=== PATIENT | female | born 1945 | race Caucasian/White ===

== ENCOUNTER 2018-02-16 14:27 | Inpatient (IN) | payer MEDICARE ==
[2018-02-16 16:15] LABS: BASO # 0.1 10^3/uL (0.0-0.2); BASO % 0.5 % (0.0-1.0); EOS # 0.1 10^3/uL (0.0-0.50); HEMATOCRIT 55.8 % (36.0-47.0); HEMOGLOBIN 16.9 g/dl (12.0-15.5); IMMATURE GRANULOCYTE % 0.3 % (0-3.0); LYMPH # 1.3 10^3/uL (1.5-4.5); LYMPH % 12.1 % (24.0-44.0); MEAN CORPUSCULAR HEMOGLOBIN 28.9 pg (27.0-33.0); MEAN CORPUSCULAR HGB CONC 30.3 g/dl (32.0-36.5); MEAN CORPUSCULAR VOLUME 95.5 fl (80.0-96.0); MONO # 0.9 10^3/uL (0.0-0.8); MONO % 8.2 % (0.0-5.0); NEUTROPHILS # 8.1 10^3/uL (1.8-7.7); NEUTROPHILS % 77.9 % (36.0-66.0); PLATELET COUNT, AUTOMATED 236 10^3/uL (150-450); RED BLOOD COUNT 5.84 10^6/uL (4.00-5.40); WHITE BLOOD COUNT 10.4 10^3/uL (4.0-10.0)
[2018-02-16 16:28] LABS: ALBUMIN 3.2 GM/DL (3.2-5.2); ALBUMIN/GLOBULIN RATIO 0.73 (1.00-1.93); ALKALINE PHOSPHATASE 91 U/L (45-117); ALT/SGPT 20 U/L (12-78); ANION GAP 1 MEQ/L (8-16); AST/SGOT 13 U/L (7-37); BILIRUBIN,DIRECT 0.2 MG/DL (0.0-0.2); BILIRUBIN,TOTAL 1.2 MG/DL (0.2-1.0); BLOOD UREA NITROGEN 14 MG/DL (7-18); C REACTIVE PROTEIN QUANTITATIV 1.26 MG/DL (0.00-0.30); CALCIUM LEVEL 8.8 MG/DL (8.8-10.2); CARBON DIOXIDE LEVEL 36 MEQ/L (21-32); CHLORIDE LEVEL 103 MEQ/L (98-107); CPK CREATINE PHOSPHOKINASE 36 U/L (26-192); CREATININE FOR GFR 0.64 MG/DL (0.55-1.30); FREE T4 1.14 NG/DL (0.76-1.46); GLOMERULAR FILTRATION RATE > 60.0 (>39); GLUCOSE, FASTING 101 MG/DL (70-100); POTASSIUM SERUM 4.9 MEQ/L (3.5-5.1); SODIUM LEVEL 140 MEQ/L (136-145); SUSPECT SAMPLE POS FLAG; TOTAL PROTEIN 7.6 GM/DL (6.4-8.2); TROPONIN I < 0.02 NG/ML (< 0.10)
[2018-02-16 16:34] LABS: MB/CK RELATIVE INDEX 5.55 (< OR =4); NT-PRO BNP 237 PG/ML (<125)
[2018-02-16 16:44] LABS: ERYTHROCYTE SEDIMENTATION RATE 1 mm/hr (0-30)
[2018-02-16 17:14] LABS: INR 1.04; PROTHROMBIN TIME 13.8 SECONDS (12.4-14.5)
[2018-02-16 17:15] LABS: PARTIAL THROMBOPLASTIN TIME 36.6 SECONDS (26.8-37.9)
[2018-02-16] MEDS: FUROSEMIDE 40 MG/4 ML VIAL (J1940) IV (20:31)
[2018-02-17 03:46] LABS: ABG BASE EXCESS 7.6 (-2.0-2.0); ABG HCO3 35.8 MEQ/L (22.0-26.0); ABG O2 SATURATION 95.5 % (95.0-99.0); ABG PARTIAL PRESSURE O2 78.5 mmHg (75.0-100.0); ABG STANDARD HCO3 31.4 MEQ/L (22.0-26.0); ABG TOTAL CO2 37.7 MEQ/L (23.0-31.0); ABG pH (ARTERIAL) 7.377 UNITS (7.350-7.450)
[2018-02-17 03:47] LABS: ABG PARTIAL PRESSURE CO2 62.3 mmHg (35.0-45.0)
[2018-02-17 07:39] LABS: BASO # 0.1 10^3/uL (0.0-0.2); BASO % 0.6 % (0.0-1.0); EOS # 0.1 10^3/uL (0.0-0.50); EOS % 0.9 % (0.0-3.0); HEMATOCRIT 54.4 % (36.0-47.0); HEMOGLOBIN 16.7 g/dl (12.0-15.5); IMMATURE GRANULOCYTE % 0.3 % (0-3.0); LYMPH # 1.3 10^3/uL (1.5-4.5); LYMPH % 12.5 % (24.0-44.0); MEAN CORPUSCULAR HGB CONC 30.7 g/dl (32.0-36.5); MEAN CORPUSCULAR VOLUME 94.6 fl (80.0-96.0); MONO # 1.1 10^3/uL (0.0-0.8); MONO % 10.5 % (0.0-5.0); NEUTROPHILS # 7.7 10^3/uL (1.8-7.7); NEUTROPHILS % 75.2 % (36.0-66.0); PLATELET COUNT, AUTOMATED 220 10^3/uL (150-450); RED BLOOD COUNT 5.75 10^6/uL (4.00-5.40); RED CELL DISTRIBUTION WIDTH 14.7 % (11.5-14.5); WHITE BLOOD COUNT 10.2 10^3/uL (4.0-10.0)
[2018-02-17 07:49] LABS: ANION GAP 4 MEQ/L (8-16); BLOOD UREA NITROGEN 12 MG/DL (7-18); CALCIUM LEVEL 8.4 MG/DL (8.8-10.2); CARBON DIOXIDE LEVEL 38 MEQ/L (21-32); CHLORIDE LEVEL 99 MEQ/L (98-107); GLOMERULAR FILTRATION RATE > 60.0 (>39); GLUCOSE, FASTING 99 MG/DL (70-100); POTASSIUM SERUM 4.3 MEQ/L (3.5-5.1); SODIUM LEVEL 141 MEQ/L (136-145)
[2018-02-17] MEDS: LISINOPRIL 5 MG TAB PO (08:19)
[2018-02-17] MEDS: ENOXAPARIN 40 MG/0.4 ML SYRINGE (J1650) SC (08:19)
[2018-02-17] MEDS: FUROSEMIDE 40 MG/4 ML VIAL (J1940) IV (08:19)
[2018-02-17] MEDS: AQUAPHOR **100GM** OINT TOP ×2 (16:00→20:35)
[2018-02-17] MEDS: ACETAMINOPHEN TAB 650MG DOSE (2X325MG) PO ×2 (17:40→22:10)
[2018-02-18] MEDS: AQUAPHOR **100GM** OINT TOP ×3 (09:00→20:43)
[2018-02-18 09:44] LABS: HEMATOCRIT 54.4 % (36.0-47.0); HEMOGLOBIN 16.7 g/dl (12.0-15.5); MEAN CORPUSCULAR HEMOGLOBIN 28.7 pg (27.0-33.0); MEAN CORPUSCULAR HGB CONC 30.7 g/dl (32.0-36.5); MEAN CORPUSCULAR VOLUME 93.6 fl (80.0-96.0); PLATELET COUNT, AUTOMATED 230 10^3/uL (150-450); RED BLOOD COUNT 5.81 10^6/uL (4.00-5.40); WHITE BLOOD COUNT 9.4 10^3/uL (4.0-10.0)
[2018-02-18 10:14] LABS: ANION GAP 5 MEQ/L (8-16); BLOOD UREA NITROGEN 24 MG/DL (7-18); CALCIUM LEVEL 8.6 MG/DL (8.8-10.2); CARBON DIOXIDE LEVEL 40 MEQ/L (21-32); CHLORIDE LEVEL 96 MEQ/L (98-107); CREATININE FOR GFR 0.91 MG/DL (0.55-1.30); GLUCOSE, FASTING 85 MG/DL (70-100); POTASSIUM SERUM 4.3 MEQ/L (3.5-5.1); SODIUM LEVEL 141 MEQ/L (136-145)
[2018-02-18 10:17] LABS: GLOMERULAR FILTRATION RATE > 60.0 (>39)
[2018-02-18] MEDS ORDERED: MIDAZOLAM INJ 2 MG/2 ML VIAL (J2250) As Ordered (10:29)
[2018-02-18] MEDS ORDERED: ISOVUE-300 61% 50ML VIAL (Q9967) As Ordered (10:29)
[2018-02-18] MEDS ORDERED: HEPARIN 1,000 UNITS/ML 10ML VIAL (FOR RADIOLOGY& DIALYSIS ONLY) As Ordered (10:29)
[2018-02-18] MEDS ORDERED: fentaNYL 100 MCG/2 ML INJECTION (J3010) As Ordered (10:29)
[2018-02-18] MEDS: ENOXAPARIN 40 MG/0.4 ML SYRINGE (J1650) SC (16:08)
[2018-02-18] MEDS: FUROSEMIDE 20 MG/2 ML VIAL (J1940) IV (16:10)
[2018-02-18] MEDS: ACETAMINOPHEN TAB 650MG DOSE (2X325MG) PO ×2 (18:11→22:48)
[2018-02-19 05:29] LABS: HEMATOCRIT 52.6 % (36.0-47.0); HEMOGLOBIN 16.2 g/dl (12.0-15.5); MEAN CORPUSCULAR HEMOGLOBIN 28.8 pg (27.0-33.0); MEAN CORPUSCULAR HGB CONC 30.8 g/dl (32.0-36.5); MEAN CORPUSCULAR VOLUME 93.6 fl (80.0-96.0); PLATELET COUNT, AUTOMATED 232 10^3/uL (150-450); RED BLOOD COUNT 5.62 10^6/uL (4.00-5.40); RED CELL DISTRIBUTION WIDTH 14.7 % (11.5-14.5); WHITE BLOOD COUNT 9.7 10^3/uL (4.0-10.0)
[2018-02-19 05:44] LABS: ANION GAP 2 MEQ/L (8-16); BLOOD UREA NITROGEN 25 MG/DL (7-18); CALCIUM LEVEL 8.7 MG/DL (8.8-10.2); CARBON DIOXIDE LEVEL 38 MEQ/L (21-32); CHLORIDE LEVEL 98 MEQ/L (98-107); CREATININE FOR GFR 0.68 MG/DL (0.55-1.30); GLOMERULAR FILTRATION RATE > 60.0 (>39); GLUCOSE, FASTING 98 MG/DL (70-100); POTASSIUM SERUM 3.9 MEQ/L (3.5-5.1); SODIUM LEVEL 138 MEQ/L (136-145)
[2018-02-19] MEDS: ENOXAPARIN 40 MG/0.4 ML SYRINGE (J1650) SC (08:50)
[2018-02-19] MEDS: FUROSEMIDE 20 MG/2 ML VIAL (J1940) IV (08:51)
[2018-02-19] MEDS: ACETAMINOPHEN TAB 650MG DOSE (2X325MG) PO ×2 (08:51→16:35)
[2018-02-19] MEDS: AQUAPHOR **100GM** OINT TOP ×3 (08:52→21:00)
[2018-02-20] MEDS: ACETAMINOPHEN TAB 650MG DOSE (2X325MG) PO ×3 (00:21→18:22)
[2018-02-20 04:48] LABS: HEMATOCRIT 49.6 % (36.0-47.0); HEMOGLOBIN 15.2 g/dl (12.0-15.5); MEAN CORPUSCULAR HEMOGLOBIN 28.6 pg (27.0-33.0); MEAN CORPUSCULAR HGB CONC 30.6 g/dl (32.0-36.5); MEAN CORPUSCULAR VOLUME 93.4 fl (80.0-96.0); PLATELET COUNT, AUTOMATED 192 10^3/uL (150-450); RED BLOOD COUNT 5.31 10^6/uL (4.00-5.40); RED CELL DISTRIBUTION WIDTH 14.6 % (11.5-14.5); WHITE BLOOD COUNT 9.3 10^3/uL (4.0-10.0)
[2018-02-20 05:09] LABS: ANION GAP 7 MEQ/L (8-16); BLOOD UREA NITROGEN 22 MG/DL (7-18); CALCIUM LEVEL 8.2 MG/DL (8.8-10.2); CARBON DIOXIDE LEVEL 36 MEQ/L (21-32); CHLORIDE LEVEL 98 MEQ/L (98-107); CREATININE FOR GFR 0.54 MG/DL (0.55-1.30); GLOMERULAR FILTRATION RATE > 60.0 (>39); GLUCOSE, FASTING 95 MG/DL (70-100); POTASSIUM SERUM 3.9 MEQ/L (3.5-5.1); SODIUM LEVEL 141 MEQ/L (136-145)
[2018-02-20] MEDS ORDERED: FUROSEMIDE 40 MG/4 ML VIAL (J1940) IV (09:00)
[2018-02-20] MEDS: LISINOPRIL 5 MG TAB PO (09:15)
[2018-02-20] MEDS: ENOXAPARIN 40 MG/0.4 ML SYRINGE (J1650) SC (09:15)
[2018-02-20] MEDS: FUROSEMIDE 40 MG/4 ML VIAL (J1940) IV ×2 (09:15→17:19)
[2018-02-20] MEDS: AQUAPHOR **100GM** OINT TOP ×3 (09:16→21:00)
[2018-02-21 05:55] LABS: HEMOGLOBIN 15.8 g/dl (12.0-15.5); MEAN CORPUSCULAR HEMOGLOBIN 28.4 pg (27.0-33.0); MEAN CORPUSCULAR VOLUME 91.7 fl (80.0-96.0); RED BLOOD COUNT 5.56 10^6/uL (4.00-5.40); RED CELL DISTRIBUTION WIDTH 14.7 % (11.5-14.5); WHITE BLOOD COUNT 10.2 10^3/uL (4.0-10.0)
[2018-02-21 06:20] LABS: ANION GAP 4 MEQ/L (8-16); BLOOD UREA NITROGEN 23 MG/DL (7-18); CALCIUM LEVEL 8.9 MG/DL (8.8-10.2); CARBON DIOXIDE LEVEL 32 MEQ/L (21-32); CHLORIDE LEVEL 97 MEQ/L (98-107); GLOMERULAR FILTRATION RATE > 60.0 (>39); GLUCOSE, FASTING 98 MG/DL (70-100); POS COUNT POS FLAG; POTASSIUM SERUM 4.2 MEQ/L (3.5-5.1); SODIUM LEVEL 133 MEQ/L (136-145)
[2018-02-21] MEDS: IPRATROPIUM 0.5MG/ALBUTEROL 2.5MG INH SOL UD 3ML (DUONEB)(J7620) NEB ×3 (08:22→23:59)
[2018-02-21] MEDS: FUROSEMIDE 40 MG/4 ML VIAL (J1940) IV ×2 (08:42→17:19)
[2018-02-21] MEDS: ENOXAPARIN 40 MG/0.4 ML SYRINGE (J1650) SC (08:43)
[2018-02-21] MEDS: LISINOPRIL 5 MG TAB PO (08:44)
[2018-02-21] MEDS: AQUAPHOR **100GM** OINT TOP ×3 (08:44→21:00)
[2018-02-21 09:27] LABS: ABG PARTIAL PRESSURE CO2 57.3 mmHg (35.0-45.0); ABG PARTIAL PRESSURE O2 51.3 mmHg (75.0-100.0); ABG pH (ARTERIAL) 7.381 UNITS (7.350-7.450)
[2018-02-21 09:28] LABS: ABG BASE EXCESS 5.9 (-2.0-2.0); ABG HCO3 33.2 MEQ/L (22.0-26.0); ABG O2 SATURATION 87.3 % (95.0-99.0); ABG STANDARD HCO3 29.5 MEQ/L (22.0-26.0)
[2018-02-21] MEDS: ACETAMINOPHEN TAB 650MG DOSE (2X325MG) PO ×2 (09:49→14:27)
[2018-02-22] MEDS ORDERED: SLF 3 ML SYR IV (04:45)
[2018-02-22] MEDS: SLF 3 ML SYR IV ×3 (05:12→21:09)
[2018-02-22 05:42] LABS: HEMATOCRIT 49.8 % (36.0-47.0); HEMOGLOBIN 15.6 g/dl (12.0-15.5); MEAN CORPUSCULAR HEMOGLOBIN 28.6 pg (27.0-33.0); MEAN CORPUSCULAR HGB CONC 31.3 g/dl (32.0-36.5); MEAN CORPUSCULAR VOLUME 91.4 fl (80.0-96.0); PLATELET COUNT, AUTOMATED 201 10^3/uL (150-450); RED BLOOD COUNT 5.45 10^6/uL (4.00-5.40); WHITE BLOOD COUNT 8.8 10^3/uL (4.0-10.0)
[2018-02-22 06:01] LABS: ANION GAP 7 MEQ/L (8-16); BLOOD UREA NITROGEN 29 MG/DL (7-18); CALCIUM LEVEL 8.8 MG/DL (8.8-10.2); CARBON DIOXIDE LEVEL 35 MEQ/L (21-32); CHLORIDE LEVEL 96 MEQ/L (98-107); CREATININE FOR GFR 0.67 MG/DL (0.55-1.30); GLOMERULAR FILTRATION RATE > 60.0 (>39); GLUCOSE, FASTING 105 MG/DL (70-100); POTASSIUM SERUM 3.9 MEQ/L (3.5-5.1); SODIUM LEVEL 138 MEQ/L (136-145)
[2018-02-22] MEDS: IPRATROPIUM 0.5MG/ALBUTEROL 2.5MG INH SOL UD 3ML (DUONEB)(J7620) NEB ×2 (08:18→15:03)
[2018-02-22] MEDS: LISINOPRIL 5 MG TAB PO (10:16)
[2018-02-22] MEDS: FUROSEMIDE 40 MG TAB PO ×2 (10:16→17:44)
[2018-02-22] MEDS: ENOXAPARIN 40 MG/0.4 ML SYRINGE (J1650) SC (10:17)
[2018-02-22] MEDS: AQUAPHOR **100GM** OINT TOP ×3 (10:17→21:00)
[2018-02-22] MEDS: POTASSIUM CHLORIDE 10 MEQ SR TABLET PO (10:17)
[2018-02-23] MEDS: SLF 3 ML SYR IV ×3 (05:38→22:00)
[2018-02-23 06:53] LABS: HEMATOCRIT 48.4 % (36.0-47.0); HEMOGLOBIN 15.2 g/dl (12.0-15.5); MEAN CORPUSCULAR HGB CONC 31.4 g/dl (32.0-36.5); MEAN CORPUSCULAR VOLUME 92.4 fl (80.0-96.0); PLATELET COUNT, AUTOMATED 216 10^3/uL (150-450); RED BLOOD COUNT 5.24 10^6/uL (4.00-5.40)
[2018-02-23 07:11] LABS: ANION GAP 5 MEQ/L (8-16); BLOOD UREA NITROGEN 28 MG/DL (7-18); CALCIUM LEVEL 8.6 MG/DL (8.8-10.2); CARBON DIOXIDE LEVEL 33 MEQ/L (21-32); CHLORIDE LEVEL 101 MEQ/L (98-107); CREATININE FOR GFR 0.54 MG/DL (0.55-1.30); GLOMERULAR FILTRATION RATE > 60.0 (>39); GLUCOSE, FASTING 107 MG/DL (70-100); POTASSIUM SERUM 4.2 MEQ/L (3.5-5.1); SODIUM LEVEL 139 MEQ/L (136-145)
[2018-02-23] MEDS ORDERED: ISOVUE-370 76% 100ML VIAL (Q9967) As Ordered (08:10)
[2018-02-23] MEDS: ENOXAPARIN 40 MG/0.4 ML SYRINGE (J1650) SC (08:45)
[2018-02-23] MEDS: FUROSEMIDE 40 MG TAB PO ×2 (08:46→17:02)
[2018-02-23] MEDS: LISINOPRIL 5 MG TAB PO (08:46)
[2018-02-23] MEDS: AQUAPHOR **100GM** OINT TOP ×3 (08:46→22:52)
[2018-02-23] MEDS: POTASSIUM CHLORIDE 10 MEQ SR TABLET PO (08:47)
[2018-02-23] MEDS: IPRATROPIUM 0.5MG/ALBUTEROL 2.5MG INH SOL UD 3ML (DUONEB)(J7620) NEB ×2 (09:05)
[2018-02-24] MEDS: SLF 3 ML SYR IV (05:25)
[2018-02-24] MEDS: IPRATROPIUM 0.5MG/ALBUTEROL 2.5MG INH SOL UD 3ML (DUONEB)(J7620) NEB ×2 (07:13)
[2018-02-24] MEDS: ENOXAPARIN 40 MG/0.4 ML SYRINGE (J1650) SC (09:00)
[2018-02-24] MEDS: POTASSIUM CHLORIDE 10 MEQ SR TABLET PO (09:55)
[2018-02-24] MEDS: LISINOPRIL 5 MG TAB PO (09:55)
[2018-02-24] MEDS: FUROSEMIDE 40 MG TAB PO (09:55)
[2018-02-24] MEDS: AQUAPHOR **100GM** OINT TOP (09:56)
== END 2018-02-24 11:00 | disposition home or self-care (01) | DRG 252 ==
LOC: M MS5PR 02-23 16:22 → M PCU 02-17 15:08 → M ED 14:27 → M ED INP 21:43
PROC: 047K3ZZ Dilation of Right Femoral Artery, Percutaneous Approach (ICD-10-PCS; principal; 2018-02-18)
PROC: 047M3ZZ Dilation of Right Popliteal Artery, Percutaneous Approach (ICD-10-PCS; 2018-02-18)
PROC: B41FYZZ Fluoroscopy of Right Lower Extremity Arteries using Other Contrast (ICD-10-PCS; 2018-02-18)
DX: I11.0 Hypertensive heart disease with heart failure (principal); J96.01 Acute respiratory failure with hypoxia; J96.02 Acute respiratory failure with hypercapnia; J81.1 Chronic pulmonary edema; I50.31 Acute diastolic (congestive) heart failure; I70.219 Atherosclerosis of native arteries of extremities with intermittent claudication, unspecified extremity; Z79.899 Other long term (current) drug therapy; Z87.891 Personal history of nicotine dependence

== ENCOUNTER → 2018-03-11 | Outpatient (REF) | payer MEDICARE ==
[2018-03-11 12:55] LABS: ALBUMIN 3.7 GM/DL (3.2-5.2); ALBUMIN/GLOBULIN RATIO 0.97 (1.00-1.93); ALKALINE PHOSPHATASE 83 U/L (45-117); ALT/SGPT 26 U/L (12-78); ANION GAP 7 MEQ/L (8-16); AST/SGOT 17 U/L (7-37); BLOOD UREA NITROGEN 21 MG/DL (7-18); CALCIUM LEVEL 9.1 MG/DL (8.8-10.2); CARBON DIOXIDE LEVEL 35 MEQ/L (21-32); CHLORIDE LEVEL 95 MEQ/L (98-107); CHOLESTEROL LEVEL 180 MG/DL (<200); CREATININE FOR GFR 0.91 MG/DL (0.55-1.30); GLOMERULAR FILTRATION RATE > 60.0 (>39); GLUCOSE, FASTING 108 MG/DL (70-100); HDL CHOLESTEROL 44 MG/DL (>40); LDL CHOLESTEROL 116.4 MG/DL (<100); NON-HDL-C 136 MG/DL; POTASSIUM SERUM 4.7 MEQ/L (3.5-5.1); SODIUM LEVEL 137 MEQ/L (136-145); TOTAL PROTEIN 7.5 GM/DL (6.4-8.2); TRIGLYCERIDES LEVEL 98 MG/DL (<150)
== END ==
LOC: M SFHCADAM 08:20
DX: I11.0 Hypertensive heart disease with heart failure (principal); I50.32 Chronic diastolic (congestive) heart failure
CPT/HCPCS: 80053

== ENCOUNTER → 2018-06-02 | Outpatient (REF) | payer MEDICARE | LOC: M SFHCADAM 13:57 | DX: R79.89 Other specified abnormal findings of blood chemistry (principal); I11.0 Hypertensive heart disease with heart failure; I50.32 Chronic diastolic (congestive) heart failure; R73.01 Impaired fasting glucose | CPT/HCPCS: 84443 ==

== ENCOUNTER → 2018-12-13 | Outpatient (REF) | payer MEDICARE ==
[~2018-12-13] MED LIST: ALEV220T26 PO; FURO40TA2 PO; KLOR10TA76 PO; LISI-542 PO
[2018-12-13 19:48] LABS: BASO # 0.1 10^3/uL (0.0-0.2); BASO % 0.7 % (0.0-1.0); EOS # 0.3 10^3/uL (0.0-0.50); EOS % 2.8 % (0.0-3.0); HEMATOCRIT 38.1 % (36.0-47.0); HEMOGLOBIN 11.5 g/dl (12.0-15.5); LYMPH # 1.3 10^3/uL (1.5-4.5); LYMPH % 13.9 % (24.0-44.0); MEAN CORPUSCULAR HEMOGLOBIN 29.9 pg (27.0-33.0); MEAN CORPUSCULAR HGB CONC 30.2 g/dl (32.0-36.5); MEAN CORPUSCULAR VOLUME 99.2 fl (80.0-96.0); MONO # 0.8 10^3/uL (0.0-0.8); MONO % 8.7 % (0.0-5.0); NEUTROPHILS % 73.6 % (36.0-66.0); PLATELET COUNT, AUTOMATED 276 10^3/uL (150-450); RED BLOOD COUNT 3.84 10^6/uL (4.00-5.40); WHITE BLOOD COUNT 9.5 10^3/uL (4.0-10.0)
[2018-12-13 19:55] LABS: ALBUMIN 3.6 GM/DL (3.2-5.2); ALT/SGPT 36 U/L (12-78); BILIRUBIN,TOTAL 0.7 MG/DL (0.2-1.0); BLOOD UREA NITROGEN 35 MG/DL (7-18); CALCIUM LEVEL 9.6 MG/DL (8.8-10.2); CARBON DIOXIDE LEVEL 28 MEQ/L (21-32); CHLORIDE LEVEL 109 MEQ/L (98-107); CREATININE FOR GFR 0.92 MG/DL (0.55-1.30); GLOMERULAR FILTRATION RATE > 60.0 (>39); GLUCOSE, FASTING 82 MG/DL (70-100); NT-PRO BNP 1743 PG/ML (<125); POTASSIUM SERUM 5.2 MEQ/L (3.5-5.1); SODIUM LEVEL 143 MEQ/L (136-145); TOTAL PROTEIN 7.2 GM/DL (6.4-8.2)
== END ==
LOC: M SFHCADAM 15:34
PROVIDERS: ATTEND Physician Assistant Medical
DX: I50.32 Chronic diastolic (congestive) heart failure (principal)

== ENCOUNTER → 2019-02-03 | Outpatient (RCR) | payer MEDICARE ==
--- NOTE | 2019-01-20 14:17 | CARECAPL ---
Assessment Account #s: Initial Assessment General Diagnoses: CABG, MVR Date of event: Nov 16, 2018 Physician: Dena Paz MD Allergies: Coded Allergies: No Known Allergies (Unverified , 02/16/18) Date Entered Program: January 20, 2019 Risk strat for cardiac event: Low Exercise Date: January 20, 2019 Assessment: Initial Assessment Exercise Prescription Plan to educate about cardiac disease and to provide a monitored exercise program to build endurance and strength Modalities initiated: Treadmill, Nustep, Arm Aerometer, Dumbells, Recumbent Bike Frequency: 2-3 Duration (Minutes) 30-60 minutes total exercise a day. 6-15 work intervals in minutes. prn rest intervals in minutes. Functional Capacity Goal Sustained Metabolic Equivalent of a task (MET) goal of 3.5-4.5 for 15-20 minutes. Intensity: 3-Moderate Progression (METS) Increase by: .5 METS every: 2-3 sessions Angina with ex: No Target Heart Rate rest +35-40 Resistance Training: Yes Weight (pounds): 1 Reps: 6-8 Hypertension: Yes Hypertension controlled with: Diet Resting 123/57 Meds see below Medications Scheduled Aspirin (Aspirin), 81 MG PO DAILY, (Reported) Atorvastatin Calcium (Atorvastatin Calcium), 40 MG PO DAILY, (Reported) Furosemide (Lasix), 40 MG PO DAILY, (Reported) Lisinopril (Lisinopril), 5 MG PO DAILY Metoprolol Tartrate (Metoprolol Tartrate), 25 MG PO BID, (Reported) Potassium Chloride (Klor-Con M10), 10 MEQ PO DAILY Warfarin Sodium (Jantoven), 5 MG PO DAILY, (Reported) Discontinued Medications Furosemide (Furosemide), 40 MG PO BID@ Discontinued Reason: Pt states not taking Naproxen Sodium (Aleve), 220 MG PO BID PRN for PAIN, (Reported) Discontinued Reason: Pt states not taking Education Goals Met: No (intro to program) Target Goals Individual exercise Rx (1) BP 140/90 or 130/80 if DM or CKD (1) Aerobic active 30+min 5 days per week (1) Nutrition Date: January 20, 2019 Assessment: Initial Assessment Lipid- med/supplement atorvastatin Weight Management Weight (lbs): 169.8 Height (inches): 67 Waist Circumference (Inches): 48 BMI: 26.5 Weight goal: 155 Special Diet: low salt, low-fat Diet Access Tool: Rate your plate Score: 69 Intervention Wet Cleaner Machine Consult: Yes (will see this program) Referral to Diabetes education: No Referral to lipid clinic: No Referral to weight mangement p: No Education Eating Healthy Education Goals Met: No (inital assessment) Target goal LDL-C<100 if triglycerides are >200 Non-HDL-C should be <130 (1) LDL-C<70 for high risk patients (4) HbA1c<7% (1) BMI<25 Waist cir<40in M/<35in F (1) Education Date: January 20, 2019 Assessment: Initial Assessment Learning Barriers: ready, learn Knowledge Test Score: 10 Family Support: Yes Tobacco use: No Intervention Attended education classes: No (initial assessment) Education Goals Met: No Target Goals Complete cessation of tobacco use (1). Psychosocial Date: January 20, 2019 Assessment: Initial Assessment Psych Test (Initial/Discharge) Tool Used: CESD Score: 1 Intervention Physician Consult: No Physician Referral: No Stress Management Class: No Uses Stress Management Skills: No Education Goals Met: No (initial assessment) Target Goal Assess presence or absence of depression using a valid screening tool (1). Maximize coping skills (2). Positive support system (2). Fall Risk Assess: No Provider Assessment Session Number: 1 Provider Assessment: Proceed with [place] Pippa Payan RN January 20, 2019 14:17
[~2019-02-03] MED LIST changes: +ASPI81CH33 PO; +ATOR40TA75 PO; +JANT5TAB PO; +LASI40TA9 PO; +METO25TA4 PO
== END ==
LOC: M CR 01-20 11:56
PROVIDERS: ATTEND Internal Medicine Cardiovascular Disease
DX: I25.810 Atherosclerosis of coronary artery bypass graft(s) without angina pectoris (principal)

== ENCOUNTER 2019-03-02 15:29 | Outpatient (RCR) | payer MEDICARE ==
--- NOTE | 2019-02-13 10:53 | CARECAPL ---
Assessment Account #s: Re-Assessment I General Diagnoses: CABG, MVR Date of event: Nov 16, 2018 Physician: Dena Paz MD Allergies: Coded Allergies: No Known Allergies (Unverified , 02/16/18) Date Entered Program: January 20, 2019 Risk strat for cardiac event: Low Exercise Date: Feb 13, 2019 Assessment: Re-Assessment I Exercise Prescription Plan TO EDUCATE AND BUILD ENDURANCE THROUGH MONITORED EXERCISE PROGRAM Modalities initiated: Nustep (METS=3.6/RPE=3.5), Arm Aerometer (METS= 2.0/RPE=4), Dumbells (2#/RPE=4), Recumbent Bike (METS=3.2/RPE=4) Frequency: 3 Duration (Minutes) 30-60 minutes total exercise a day. 10-12 work intervals in minutes. 5 MIN rest intervals in minutes. Functional Capacity Goal Sustained Metabolic Equivalent of a task (MET) goal of 3.5-4.5 for 15-20 minutes. Intensity: 3-Moderate Progression (METS) Increase by: 0.5 METS every: 3-5 sessions Angina with ex: No Target Heart Rate REST +35-40 Resistance Training: Yes Weight (pounds): 2 Reps: 6-8 Hypertension: Yes Hypertension controlled with: Diet Resting 110/64 Peak Exercise BP 150/78 Medications Scheduled Aspirin (Aspirin), 81 MG PO DAILY, (Reported) Atorvastatin Calcium (Atorvastatin Calcium), 40 MG PO DAILY, (Reported) Furosemide (Lasix), 40 MG PO DAILY, (Reported) Lisinopril (Lisinopril), 5 MG PO DAILY Metoprolol Tartrate (Metoprolol Tartrate), 25 MG PO BID, (Reported) Potassium Chloride (Klor-Con M10), 10 MEQ PO DAILY Warfarin Sodium (Jantoven), 5 MG PO DAILY, (Reported) Current BP 116/80 Med Change: No Intervention Resistance Training: Yes Education: Self pulse, Ex safety, S/S to report, Low NA diet, BP medication, RPE Scale, Equipment orientation, warm up/cool down, Understand BP, Physical Active Target Goals Individual exercise Rx (1) BP 140/90 or 130/80 if DM or CKD (1) Aerobic active 30+min 5 days per week (1) Nutrition Date: Feb 13, 2019 Assessment: Re-Assessment I Lipid- med/supplement ATORVASTATIN Med Change: No Diabetes Diabetes: No Monitor Blood Sugar at home: No Medication Change: No Weight Management Weight (lbs): 166.6 Height (inches): 67 Special Diet: low salt, low-fat Alcohol: none Current Weight (pounds): 166.6 Intervention Cryptographic Machine Operator Consult: No Nurse/patient discussion: Yes Dietary Goals TO MAKE HEART HEALTHY CHOICES Diet Class: Yes Referral to Diabetes education: No Referral to lipid clinic: No Referral to weight mangement p: No Education Eating Healthy Target goal LDL-C<100 if triglycerides are >200 Non-HDL-C should be <130 (1) LDL-C<70 for high risk patients (4) HbA1c<7% (1) BMI<25 Waist cir<40in M/<35in F (1) Education Date: Feb 13, 2019 Assessment: Re-Assessment I Learning Barriers: ready Family Support: Yes Tobacco use: No Tobacco Use Smokeless tobacco: No Intervention Referral to smoking cessation: No Individual education and couns: No Tobacco Adjunct: No Education class schedule given: No Attended education classes: No Education: CAD, Risk factors, med compliance, cardiac A&P, Angina S/S, Sexuality Target Goals Complete cessation of tobacco use (1). Psychosocial Date: Feb 13, 2019 Assessment: Re-Assessment I Stress Management Class: No Uses Stress Management Skills: Yes Education Education: Coping Techniques, S/S depression, Relaxation Techniques Target Goal Assess presence or absence of depression using a valid screening tool (1). Maximize coping skills (2). Positive support system (2). Patient/Program Goal Preventative Medication: Yes Aspirin, Yes Beta blockade, Yes Statin/OTR lipid Lowering Fall Risk Assess: Yes (NOT A FALL RISK) Provider Assessment Session Number: 5 Provider Assessment: Proceed with rehab Mil Baptiste RN Feb 13, 2019 10:53
[~2019-03-02 15:29] MED LIST changes: +LASI20TA3 PO
== END 2019-03-05 ==
LOC: M CR 15:29
PROVIDERS: ATTEND Internal Medicine Cardiovascular Disease
DX: I25.810 Atherosclerosis of coronary artery bypass graft(s) without angina pectoris (principal)

== ENCOUNTER 2019-04-03 12:46 | Outpatient (RCR) | payer MEDICARE ==
--- NOTE | 2019-03-16 10:46 | CARECAPL ---
Assessment Account #s: Re-Assessment II General Diagnoses: CABG, MVR Date of event: Nov 16, 2018 Physician: Dena Paz MD Allergies: Coded Allergies: No Known Allergies (Unverified , 02/16/18) Date Entered Program: January 20, 2019 Risk strat for cardiac event: High Exercise Date: Mar 13, 2019 Assessment: Re-Assessment II Exercise Prescription Plan educate and increase endurance and flexibility through monitored exercise. Modalities initiated: Nustep (resistance 3 for 12 minutes mets 2.5 RPE 3), Arm Aerometer (resistance 2.5 for 10 minutes mets 2.0 RPE 3), Dumbells (2lbs 2 sets of 10 reps RPE 3), Recumbent Bike (Resistance 1 for 6 minutes mets 2.6 RPE 3.5) Frequency: 2 Duration (Minutes) 30-60 minutes total exercise a day. 15-20 work intervals in minutes. prn rest intervals in minutes. Functional Capacity Goal Sustained Metabolic Equivalent of a task (MET) goal of 3.5-4.5 for 15-20 minutes. Intensity: 3-Moderate Progression (METS) Increase by: 0.5 METS every: 3-5 sessions Target Heart Rate rest + 35-40 per beta mateusz therapy Resistance Training: Yes Weight (pounds): 2 Reps: 8-12 Medications Scheduled Aspirin (Aspirin), 81 MG PO DAILY, (Reported) Atorvastatin Calcium (Atorvastatin Calcium), 40 MG PO DAILY, (Reported) Furosemide (Lasix), 20 MG PO DAILY, (Reported) Metoprolol Tartrate (Metoprolol Tartrate), 25 MG PO BID, (Reported) Warfarin Sodium (Jantoven), 5 MG PO DAILY, (Reported) Current BP 120/84 Med Change: No Intervention Education: RPE Scale (patient instructed on RPE scale and demonstrates independence), Equipment orientation (patient instructed on equipment. Patient verbalized understanding), warm up/cool down (Patient instructed in warm/cool down. Patient demonstrates independence) Target Goals Individual exercise Rx (1) BP 140/90 or 130/80 if DM or CKD (1) Aerobic active 30+min 5 days per week (1) Nutrition Date: Mar 16, 2019 Assessment: Re-Assessment II Med Change: No Diabetes Diabetes: No Medication Change: No Blood sugar in range: No Current Weight (pounds): 168 Intervention Utility Tender Carding Consult: No Nurse/patient discussion: Yes Dietary Goals eat healthier portions Diet Class: Yes Education Eating Healthy Target goal LDL-C<100 if triglycerides are >200 Non-HDL-C should be <130 (1) LDL-C<70 for high risk patients (4) HbA1c<7% (1) BMI<25 Waist cir<40in M/<35in F (1) Education Date: Mar 16, 2019 Assessment: Re-Assessment II Intervention Education: med compliance (Patient states 100% compliance with cardiology and medication regimen), cardiac A&P (Patient return demonstration of areas of the heart and how the heart works), Angina S/S (patient able to state s/s of angina such as crushing pain midsternum and radiating pain.), Sexuality (patient demonstrates understanding of sexuality and that she needs have permission from MD) Target Goals Complete cessation of tobacco use (1). Psychosocial Date: Mar 16, 2019 Assessment: Re-Assessment II Med Change: No Stress Management Class: Yes Uses Stress Management Skills: Yes Education Education: Coping Techniques (verbalized understanding of coping mechanisms), S/S depression (patient understands s/s depression by stating s/s of depression), Relaxation Techniques (Patient demonstrates ways to relax such as reading a book or doing a puzzle) Education Goals Met: Yes Target Goal Assess presence or absence of depression using a valid screening tool (1). Maximize coping skills (2). Positive support system (2). Patient/Program Goal Preventative Medication: Yes Aspirin, Yes Beta blockade, Yes Statin/OTR lipid Lowering Fall Risk Assess: Yes (not a fall risk) Provider Assessment Session Number: 13 Provider Assessment: Proceed with rehab Johanny Mendez RN Mar 16, 2019 10:46
== END 2019-04-05 ==
LOC: M CR 12:46
PROVIDERS: ATTEND Internal Medicine Cardiovascular Disease
DX: I25.810 Atherosclerosis of coronary artery bypass graft(s) without angina pectoris (principal)

== ENCOUNTER 2019-04-13 11:08 | Outpatient (RCR) | payer MEDICARE ==
--- NOTE | 2019-04-13 10:57 | CARECAPL ---
Assessment Account #s: Re-Assessment II (Discharge) General Diagnoses: CABG, MVR Date of event: Nov 16, 2018 Physician: Dena Paz MD Allergies: Coded Allergies: No Known Allergies (Unverified , 02/16/18) Date Entered Program: January 20, 2019 Risk strat for cardiac event: High Exercise Date: Apr 13, 2019 Assessment: Followup/Discharge Exercise Prescription Plan educate and increase endurance, strength and flexibility through monitored exercise. Modalities initiated: Concept 2 Rower (mets 2.4 Rpe 3), Dumbells (2lbs rpe 3), Recumbent Bike (resistance 2 mets 3.7 rpe4) Frequency: 2 Duration (Minutes) 30-60 minutes total exercise a day. 15-20 work intervals in minutes. prn rest intervals in minutes. Functional Capacity Goal Sustained Metabolic Equivalent of a task (MET) goal of 3.5-4.5 for 15-20 minutes. Intensity: 3-Moderate Progression (METS) Increase by: 0.5 METS every: 3-5 sessions Angina with ex: No Target Heart Rate rest + 35-40 per beta mateusz therapy Resistance Training: Yes Weight (pounds): 2 Reps: 8-12 Hypertension: No Hypertension controlled with: Medication (metoprolol) Resting 148/96 Peak Exercise BP 150/90 Meds metoprolol and lisinopril Medications Scheduled Aspirin (Aspirin), 81 MG PO DAILY, (Reported) Atorvastatin Calcium (Atorvastatin Calcium), 40 MG PO DAILY, (Reported) Furosemide (Lasix), 20 MG PO DAILY, (Reported) Metoprolol Tartrate (Metoprolol Tartrate), 25 MG PO BID, (Reported) Warfarin Sodium (Jantoven), 5 MG PO DAILY, (Reported) Education Goals Met: Yes Target Goals Individual exercise Rx (1) BP 140/90 or 130/80 if DM or CKD (1) Aerobic active 30+min 5 days per week (1) Nutrition Date: Apr 13, 2019 Assessment: Followup/Discharge ( ) Medication Change: No Blood sugar in range: Yes Diet Access Tool: Rate your plate Score: 63 Referral to Diabetes education: No Referral to lipid clinic: No Referral to weight mangement p: No Education S&S hypo/hyper glycemia, Relate Diabetes in CAD, Eating Healthy Education Goals Met: Yes Target goal LDL-C<100 if triglycerides are >200 Non-HDL-C should be <130 (1) LDL-C<70 for high risk patients (4) HbA1c<7% (1) BMI<25 Waist cir<40in M/<35in F (1) Education Date: Apr 13, 2019 Assessment: Followup/Discharge Knowledge Test Score: 8 Family Support: Yes Tobacco use: No Education Goals Met: Yes Target Goals Complete cessation of tobacco use (1). Psychosocial Date: Apr 13, 2019 Assessment: Followup/Discharge Psych Test (Initial/Discharge) Tool Used: CESD Score: 3 Intervention Physician Consult: No Med Change: No Stress Management Class: Yes Uses Stress Management Skills: Yes Education Education: Coping Techniques, S/S depression, Relaxation Techniques Education Goals Met: Yes Target Goal Assess presence or absence of depression using a valid screening tool (1). Maximize coping skills (2). Positive support system (2). Patient/Program Goal Preventative Medication: Yes Aspirin, Yes Beta blockade, Yes MAYRA Inhibitor, Yes Statin/OTR lipid Lowering Fall Risk Assess: Yes (not a fall risk) Provider Assessment Session Number: 22 Provider Assessment: Proceed with rehab (Discharged) Johanny Mendez RN Apr 13, 2019 10:57
== END 2019-05-06 ==
LOC: M CR 11:08
PROVIDERS: ATTEND Internal Medicine Cardiovascular Disease
DX: I25.810 Atherosclerosis of coronary artery bypass graft(s) without angina pectoris (principal)

== ENCOUNTER → 2019-05-15 | Outpatient (REF) | payer MEDICARE | LOC: M SFHCADAM 08:11 | PROVIDERS: ATTEND Physician Assistant Medical | DX: I11.0 Hypertensive heart disease with heart failure (principal); I50.32 Chronic diastolic (congestive) heart failure; R73.01 Impaired fasting glucose ==

== ENCOUNTER → 2019-05-16 | Outpatient (REF) | payer MEDICARE ==
[2019-05-16 13:17] LABS: BASO # 0.1 10^3/uL (0.0-0.2); BASO % 0.8 % (0.0-1.0); EOS # 0.2 10^3/uL (0.0-0.5); EOS % 1.9 % (0.0-3.0); HEMATOCRIT 51.2 % (36.0-47.0); HEMOGLOBIN 16.3 g/dl (12.0-15.5); LYMPH # 1.8 10^3/uL (1.5-5.0); LYMPH % 21.2 % (24.0-44.0); MEAN CORPUSCULAR HEMOGLOBIN 30.5 pg (27.0-33.0); MEAN CORPUSCULAR HGB CONC 31.8 g/dl (32.0-36.5); MEAN CORPUSCULAR VOLUME 95.9 fl (80.0-96.0); MONO # 0.7 10^3/uL (0.0-0.8); MONO % 8.6 % (0.0-5.0); NEUTROPHILS # 5.8 10^3/uL (1.5-8.5); NEUTROPHILS % 66.9 % (36.0-66.0); PLATELET COUNT, AUTOMATED 212 10^3/uL (150-450); RED BLOOD COUNT 5.34 10^6/uL (4.00-5.40); WHITE BLOOD COUNT 8.6 10^3/uL (4.0-10.0)
[2019-05-16 13:34] LABS: HEMOGLOBIN A1c 5.8 %
[2019-05-16 13:35] LABS: ALBUMIN 3.9 GM/DL (3.2-5.2); ALT/SGPT 54 U/L (12-78); BILIRUBIN,TOTAL 1.1 MG/DL (0.2-1.0); BLOOD UREA NITROGEN 19 MG/DL (7-18); CALCIUM LEVEL 9.4 MG/DL (8.8-10.2); CARBON DIOXIDE LEVEL 27 MEQ/L (21-32); CHLORIDE LEVEL 104 MEQ/L (98-107); CHOLESTEROL LEVEL 152 MG/DL (<200); CHOLESTEROL RISK RATIO 2.491 (<5); CREATININE FOR GFR 0.68 MG/DL (0.55-1.30); GLOMERULAR FILTRATION RATE > 60.0 (>39); GLUCOSE, FASTING 83 MG/DL (70-100); HDL CHOLESTEROL 61 MG/DL (>40); LDL CHOLESTEROL 78 MG/DL (<100); NON-HDL-C 91 MG/DL; POTASSIUM SERUM 4.8 MEQ/L (3.5-5.1); SODIUM LEVEL 141 MEQ/L (136-145); TOTAL PROTEIN 7.3 GM/DL (6.4-8.2); TRIGLYCERIDES LEVEL 67 MG/DL (<150)
[2019-05-16 14:03] LABS: MALB URINE SIEMENS 7.7 MG/L; MAU/CREAT RATIO 40.5 MCG/MG (0.0-30.0)
== END ==
LOC: M SFHCADAM 08:10
PROVIDERS: ATTEND Physician Assistant Medical
DX: I11.0 Hypertensive heart disease with heart failure (principal); I50.32 Chronic diastolic (congestive) heart failure; R73.01 Impaired fasting glucose

== ENCOUNTER → 2019-10-19 | Outpatient (CLI) | payer MEDICARE ==
--- NOTE | 2019-10-23 10:37 | SLEEPCENT ---
DATE OF PROCEDURE: 10/19/2019 ORDERED BY: Lindsey Farah Nocturnal polysomnography was performed for evaluation of sleep physiology in this patient with a history of nonrestorative sleep. 6 hours and 32 minutes of data were reviewed. There were only 48 minutes of sleep identified. Sleep latency was quite prolonged at 158.5 minutes and rapid eye movement (REM) sleep was not achieved. The architecture of the sleep seen was poor with poor progression. Overall sleep efficiency was 12.8%. The electrocardiogram showed what appeared to be a sinus rhythm with PVCs and some irregularity. The average heart rate was 66 beats per minute. Electroencephalogram (EEG) showed no focal events. Waveforms were normal for awake and sleep stages. There were 16 respiratory events identified of 10 seconds in duration or greater. The events that were seen were obstructive and arousals occurred 16.3 times per hour of sleep. No limb activity was appreciated and oxygen saturations did drift into the low 80s. IMPRESSION: Equivocal nocturnal polysomnography with limited sleep time. RECOMMENDATION: The duration of sleep identified during this test with insufficient to call a formal sleep disorder. Sleep disordered breathing is suggested by the study; however, repeat testing will be necessary to confirm this diagnosis subjectively.
== END ==
LOC: M SLEEP 19:42
PROVIDERS: ATTEND Nurse Practitioner Family
DX: R40.0 Somnolence (principal)

== ENCOUNTER → 2020-03-04 | Outpatient (CLI) | payer MEDICARE ==
[~2020-03-04] MED LIST changes: -LISI-542 PO; +LISI-898 PO
--- NOTE | 2020-03-04 15:07 | REP ---
Clinical: Cough. Technique: PA and lateral. Comparison: 02/21/2018. Findings: Stable cardiomegaly is appreciated. Evidence for sternotomy, CABG, and pacemaker. The lung vieyra demonstrate diffuse chronic interstitial changes and superimposed pulmonary vascular congestion/interstitial edema along with bibasilar atelectasis and small right pleural effusion cannot be excluded and. No pneumothorax. Skeletal structures are stable. Impression: Diffuse chronic changes with suspected superimposed pulmonary vascular congestion/interstitial edema including bibasilar atelectasis and possible small pleural effusions. Electronically Signed by James Olmstead MD 03/04/2020 02:59 P
== END ==
LOC: M ADAMS 14:38
PROVIDERS: ATTEND Family Medicine
DX: R91.8 Other nonspecific abnormal finding of lung field (principal); R05 Cough

== ENCOUNTER → 2020-03-19 | Outpatient (REF) | payer MEDICARE ==
[~2020-03-19] MED LIST changes: +LISI-542 PO; -LISI-898 PO
[2020-03-19 14:06] LABS: HEMATOCRIT 45.4 % (36.0-47.0); MEAN CORPUSCULAR HEMOGLOBIN 28.5 pg (27.0-33.0); MEAN CORPUSCULAR HGB CONC 30.8 g/dl (32.0-36.5); MEAN CORPUSCULAR VOLUME 92.3 fl (80.0-96.0); PLATELET COUNT, AUTOMATED 252 10^3/uL (150-450); RED BLOOD COUNT 4.92 10^6/uL (4.00-5.40); WHITE BLOOD COUNT 9.6 10^3/uL (4.0-10.0)
[2020-03-19 14:15] LABS: ALBUMIN 3.3 GM/DL (3.2-5.2); ALT/SGPT 30 U/L (12-78); BILIRUBIN,TOTAL 1.6 MG/DL (0.2-1.0); BLOOD UREA NITROGEN 10 MG/DL (7-18); CALCIUM LEVEL 9.1 MG/DL (8.8-10.2); CARBON DIOXIDE LEVEL 27 MEQ/L (21-32); CHLORIDE LEVEL 104 MEQ/L (98-107); CHOLESTEROL LEVEL 132 MG/DL (<200); CHOLESTEROL RISK RATIO 2.693 (<5); CREATININE FOR GFR 0.68 MG/DL (0.55-1.30); FREE T4 1.34 NG/DL (0.76-1.46); GLOMERULAR FILTRATION RATE > 60.0 (>39); GLUCOSE, FASTING 103 MG/DL (70-100); HDL CHOLESTEROL 49 MG/DL (>40); LDL CHOLESTEROL 69 MG/DL (<100); NON-HDL-C 83 MG/DL; POTASSIUM SERUM 4.6 MEQ/L (3.5-5.1); SODIUM LEVEL 139 MEQ/L (136-145); TOTAL 25(OH) VITAMIN D 9.1 NG/ML (30.0-100.0); TOTAL PROTEIN 7.5 GM/DL (6.4-8.2); TRIGLYCERIDES LEVEL 68 MG/DL (<150)
[2020-03-19 14:40] LABS: CREATININE, URINE 29.5 MG/DL; MALB URINE SIEMENS 15.2 MG/L; MAU/CREAT RATIO 51.5 MCG/MG (0.0-30.0)
== END ==
LOC: M SFHCADAM 08:08
PROVIDERS: ATTEND Physician Assistant Medical
DX: I25.810 Atherosclerosis of coronary artery bypass graft(s) without angina pectoris (principal); I11.0 Hypertensive heart disease with heart failure; I73.9 Peripheral vascular disease, unspecified; R73.01 Impaired fasting glucose; Z79.82 Long term (current) use of aspirin; Z79.01 Long term (current) use of anticoagulants; Z79.899 Other long term (current) drug therapy

== ENCOUNTER → 2020-03-25 | Outpatient (REF) | payer MEDICARE | LOC: M LABDRWAD 12:47 | PROVIDERS: ATTEND Nurse Practitioner Family | DX: I50.32 Chronic diastolic (congestive) heart failure (principal) ==

== ENCOUNTER → 2020-09-13 | Outpatient (REF) | payer MEDICARE ==
[2020-09-13 13:44] LABS: HEMATOCRIT 42.8 % (36.0-47.0); HEMOGLOBIN 13.2 g/dl (12.0-15.5); MEAN CORPUSCULAR HEMOGLOBIN 27.3 pg (27.0-33.0); MEAN CORPUSCULAR HGB CONC 30.8 g/dl (32.0-36.5); MEAN CORPUSCULAR VOLUME 88.6 fl (80.0-96.0); PLATELET COUNT, AUTOMATED 280 10^3/uL (150-450); RED BLOOD COUNT 4.83 10^6/uL (4.00-5.40); WHITE BLOOD COUNT 14.1 10^3/uL (4.0-10.0)
[2020-09-13 14:34] LABS: ALBUMIN 3.1 GM/DL (3.2-5.2); ALT/SGPT 29 U/L (12-78); BILIRUBIN,TOTAL 0.8 MG/DL (0.2-1.0); BLOOD UREA NITROGEN 12 MG/DL (7-18); CARBON DIOXIDE LEVEL 28 MEQ/L (21-32); CHLORIDE LEVEL 101 MEQ/L (98-107); CHOLESTEROL LEVEL 127 MG/DL (<200); CHOLESTEROL RISK RATIO 3.527 (<5); CREATININE FOR GFR 0.65 MG/DL (0.55-1.30); GLOMERULAR FILTRATION RATE > 60.0 (>39); GLUCOSE, FASTING 93 MG/DL (70-100); HDL CHOLESTEROL 36 MG/DL (>40); LDL CHOLESTEROL 72 MG/DL (<100); NON-HDL-C 91 MG/DL; POTASSIUM SERUM 4.6 MEQ/L (3.5-5.1); SODIUM LEVEL 136 MEQ/L (136-145); TOTAL PROTEIN 8.1 GM/DL (6.4-8.2); TRIGLYCERIDES LEVEL 96 MG/DL (<150)
[2020-09-13 15:15] LABS: HEMOGLOBIN A1c 5.9 %
== END ==
LOC: M SFHCADAM 11:11
PROVIDERS: ATTEND Physician Assistant Medical
DX: I11.0 Hypertensive heart disease with heart failure (principal); R73.01 Impaired fasting glucose; I73.9 Peripheral vascular disease, unspecified; E55.9 Vitamin D deficiency, unspecified; Z79.899 Other long term (current) drug therapy

== ENCOUNTER → 2020-09-13 | Outpatient (CLI) | payer MEDICARE ==
--- NOTE | 2020-09-13 11:49 | REP ---
INDICATION: CHRONIC RESPIRATORY COMPARISON: 02/13/2020 TECHNIQUE: PA and lateral. FINDINGS: The mediastinum and cardiac silhouette are stable and again demonstrate prior sternotomy, pacemaker and CABG. The lung vieyra are demonstrate diffuse chronic relatively stable appearing changes primarily involving the lower lobes. No obvious acute process is appreciated. The skeletal structures are intact and normal. IMPRESSION: Chronic stable changes. Improved appearance to the costophrenic angles. If the patient remains symptomatic consider chest CT for further investigation and follow-up. <Electronically signed by James Olmstead > 09/13/20 [id number]
== END ==
LOC: M ADAMS 11:17
PROVIDERS: ATTEND Physician Assistant Medical
DX: J96.11 Chronic respiratory failure with hypoxia (principal); Z95.0 Presence of cardiac pacemaker; Z95.1 Presence of aortocoronary bypass graft

== ENCOUNTER → 2020-09-18 | Outpatient (CLI) | payer MEDICARE ==
--- NOTE | 2020-09-18 19:28 | REP ---
INDICATION: COUGH. COMPARISON: 02/23/2018. TECHNIQUE: CT chest performed without the use of intravenous contrast. Sagittal and coronal reconstruction images are performed. FINDINGS: Lungs: There are [id number] diffuse interstitial fibrotic changes bilaterally. There are confluent bands of fibro atelectasis in both lower lobes inferiorly. There is mild diffuse bronchiolar wall thickening which may represent bronchitis. No suspicious nodular opacities are seen. Mediastinum: Multiple sternal wires and mediastinal clips are present. There are no significantly enlarged lymph nodes. Diana: No gross adenopathy. Axilla: No gross adenopathy. Pleura: No effusion. Heart: Not enlarged. Thoracic aorta: No aneurysm. Upper abdominal structures: Grossly unremarkable. Visualized osseous structures: There are degenerative changes without compression deformity. IMPRESSION: There are [id number] diffuse interstitial fibrotic changes bilaterally. There are confluent bands of fibro atelectasis in both lower lobes inferiorly. There is mild diffuse bronchiolar wall thickening which may represent bronchitis. <Electronically signed by Casey Braden > 09/18/20 [id number]
== END ==
LOC: M RAD 15:01
PROVIDERS: ATTEND Physician Assistant Medical
DX: R05 Cough (principal); J84.10 Pulmonary fibrosis, unspecified

== ENCOUNTER 2020-10-29 14:08 | Inpatient (IN) | payer MEDICARE ==
[~2020-10-29] VITALS: Ht 170.2 cm; Wt 78.6 kg
[~2020-10-29 14:08] MED LIST changes: -LISI-542 PO; +LISI-898 PO
--- OUTSIDE RECORDS SUMMARY | 2020-10-29 14:22 | CCD ---
Author Author [facility] Organization [facility] Address Unknown Phone Unavailable Care Team Providers Care Household Refrigerator Mechanic Name Role Phone Samaria Chauhna Unavailable PROBLEMS Type Condition ICD9-CM Code [id number] Code Onset Dates Condition S tatus SNOMED Code Notes Problem Chronic respiratory failure with hypoxia J96.11 Active 56112129 Problem Chronic respiratory failure with hypercapnia J96.1 2 Active 653477902 Problem History of nicotine dependence Z87.891 Active 1 14869348 Problem Peripheral vascular disease I73.9 Active 4000 57438 Problem Impaired fasting glucose R73.01 Active 1672069 07 Problem Nocturnal oxygen desaturation G47.34 Active 23 2956206 Problem Hypertensive heart disease with heart failure I11.0 Active 4349285 Problem Vitamin D deficiency E55.9 Active 58479253 Problem Chronic diastolic (congestive) heart failure I50.3 2 Active 056746936 Problem H/O mitral valve replacement Z95.2 Active 124 7640804126 Problem Bioprosthetic mitral valve replacement, current hospit alization Z95.3 Active 31998150523892 Problem Coronary artery disease invo lving coronary bypass graft of [place] heart without 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 Active 156288522 Problem Complete heart block I44.2 Active 48911322 ALLERGIES No Known Allergies ENCOUNTERS from 1945 to 2020-08-20 Encounter Location Date Provider Diagnosis [address] [place] [address] Aug, Lindy dudley Chauhan Coronary artery disease involving coronary bypass graft of [place] heart without 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 IMMUNIZATIONS Vaccine Route Administration Date Status Influenza (18 yrs & older) Flublok IM Intramuscular Jul 12, 2020 Administered Influenza (18 yrs & older) Flublok IM Intramuscular Jul 07, 2019 Administered Influenza (18 yrs & older) Flublok IM Intramuscular Jun 27, 2018 Administered Pneumococcal Adult 0.5mL (Pneumovax 23) IM Intramuscular May Administered Pneumococcal 0.5mL (Prevnar 13) IM Intramuscular Apr 21, 2018 Administered SOCIAL HISTORY Tobacco Use: Social History Observation Description Date Details (start date - stop date) Former Smoker Sex Assigned At : Social History Observation Description Sex Assigned At Unknown Education: Question Answer Notes Level of Education: Finished College Audit Question Answer Notes Total Score: 0 Interpretation: Alcohol Education Language: Question Answer Notes Languages spoken: Polish Sabianist: Question Answer Notes Sabianist 13 [employer] Sexual Hx: Question Answer Notes Had sex in the last 12 months (vaginal, oral, or anal)? Yes with Men only Drug and Alcohol Question Answer Notes Total Score: 0 Interpretation: No problems reported Alcohol Screening: Question Answer Notes Did you have a drink containing alcohol in the past year? No Points 0 Interpretation Negative BMI Care Goal Follow-Up Question Answer Notes Above Normal BMI Follow-Up Dietary management educatio n, guidance, and counseling Tobacco Use: Question Answer Notes Are you a: former smoker How long has it been since you last smoked? > 10 years REASON FOR REFERRAL No Information VITAL SIGNS No information MEDICATIONS Medication SIG (Take, Route, Frequency, Duration) Notes Start Da te End Date Status Breo Ellipta 200-25 MCG/INH 1 puff Inhalation Once a day for 90 days Dec, Active Metoprolol Tartrate 25 MG 1 tablet with food Orally Twice a day for 90 days Active Aspirin 81 MG 1 tablet Orally Once a day Active Coumadin 5 MG 1 tablet Orally Once a day for 90 days Active Atorvastatin Calcium 80 MG 1 tablet Orally Once a day for 90 days Active Vitamin D 50 MCG (1999) 1 tablet Orally Once a day for 30 day (s) Mar, Active May Have - O2 with tubing and concentrator J96.11 2 LNC QHS for 99 months Aug, Active PROCEDURES No Information RESULTS No Results REASON FOR VISIT jantoven (warfin) 5mg MEDICAL (GENERAL) HISTORY Type Description Date Medical History CHF, grade 1 diastolic dysfunction Medical History HHD Medical History hypoxic and hypercarbic resp failure, O2 requiring 2 LPM Medical History obesity Medical History history of jp dep, quit early . Medical History peripheral vascular disease Medical History COPD Medical History 10/25 Pharm SPECT lg area of inf/lat ischemia LV EF 50% - cath arranged Medical History CAD s/p CABG 11/22 Medical History severe mitral valve insuff s/p MVR 11/22 Medical History A Flutter 11/22, consider car dioversion, per [facility], 04/24 P A fib noted on pacer interrogation Medical History 04/23 PFTs mod diffusion impa irment, DLCO 58% predicted, FVC reduced - 58% predicted, and FEV1 reduced 56% predicted Surgical History Tonsillectomy as a child Surgical History Cath - CABG/MVR, L thoracent esis, pacemaker (d/t complete heart block) Hospitalization History CHF @[facility] 02/2018 Hospitalization History Childbirth, vaginal deliveries 1967, 1969 Hospitalization History [facility] - CABG [id number] Goals Section No Information Health Concerns No Information MEDICAL EQUIPMENT No Information MENTAL STATUS No Information FUNCTIONAL STATUS No Information ASSESSMENTS Encounter Date Diagnosis Assessment Notes Treatment Notes Treatm ent Clinical Notes Aug, Coronary artery disease invo lving coronary bypass graft of [place] heart without angina pectoris (ICD-10 - I25.810) PLAN OF TREATMENT Medication Medication Name Sig Start Date Stop Date Coumadin 5 MG 1 tablet Orally Once a day for 90 days Breo Ellipta 200-25 MCG/INH 1 puff Inhalation Once a day for 90 days Dec, Vitamin D 50 MCG (2000 UT) 1 tablet Orally Once a day for 30 day(s) Mar, Next Appt Details Provider Name:Samaria Chauhan, 2020-09-13 10:30:00 AM, [address], [place], [address], Insurance Providers Payer Name Payer Address Payer Phone Insured Name Patient Relati onship to Insured Coverage Start Date Coverage End Date AETNA MEDICARE AETNA [employer]URANCE [facility] [address] [facility] [address] GAMALIEL SWIFT
--- OUTSIDE RECORDS SUMMARY | 2020-10-29 14:22 | CCD ---
Author Author [facility] Organization [facility] Address Unknown Phone Unavailable Care Team Providers Care Jet Aircraft Servicer Name Role Phone Samaria Chauhan Unavailable PROBLEMS Type Condition ICD9-CM Code [id number] Code Onset Dates Condition S tatus SNOMED Code Notes Problem Chronic respiratory failure with hypoxia J96.11 Active 67291188 Problem Chronic respiratory failure with hypercapnia J96.1 2 Active 282635863 Problem History of nicotine dependence Z87.891 Active 1 25194463 Problem Peripheral vascular disease I73.9 Active 4000 76919 Problem Impaired fasting glucose R73.01 Active 7878604 07 Problem Nocturnal oxygen desaturation G47.34 Active 23 6382217 Problem Hypertensive heart disease with heart failure I11.0 Active 8582317 Problem Vitamin D deficiency E55.9 Active 23837887 Problem Chronic diastolic (congestive) heart failure I50.3 2 Active 745779815 Problem H/O mitral valve replacement Z95.2 Active 124 4217606144 Problem Bioprosthetic mitral valve replacement, current hospit alization Z95.3 Active 77200820318707 Problem Coronary artery disease invo lving coronary bypass graft of [place] heart without 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 Active 535826435 Problem Complete heart block I44.2 Active 37034359 ALLERGIES No Known Allergies ENCOUNTERS from 1945 to 2020-09-05 Encounter Location Date Provider Diagnosis [address] [place] [address] Aug, Lindy dudley Chauhan Hypertensive heart disease with heart failure I11.0 IMMUNIZATIONS Vaccine Route Administration Date Status Influenza [...] Education Language: Question Answer Notes Languages spoken: German Restorationist: Question Answer Notes Restorationist 13 Religious Sexual Hx: Question Answer Notes Had sex [...] Information RESULTS No Results REASON FOR VISIT refill MEDICAL (GENERAL) HISTORY Type Description Date Medical [...] A Flutter 11/22, consider car dioversion, per [facility], 04/24 P A fib noted on pacer interrogation Medical History 04/23 PFTs mod diffusion impa irment, DLCO 58% predicted, FVC reduced - 58% predicted, and FEV1 reduced 56% predicted Surgical History Tonsillectomy as a child Surgical History Cath - CABG/MVR, L thoracent esis, pacemaker (d/t complete heart block) Hospitalization History CHF @[facility] 02/2018 Hospitalization History Childbirth, vaginal deliveries 1969 Hospitalization History [facility] - CABG [id number] Goals Section No Information Health Concerns No Information MEDICAL EQUIPMENT No Information MENTAL STATUS No Information FUNCTIONAL STATUS No Information ASSESSMENTS Encounter Date Diagnosis Assessment Notes Treatment Notes Treatm ent Clinical Notes Aug, Hypertensive heart disease with heart failure (I CD-10 - I11.0) PLAN OF TREATMENT Medication Medication Name Sig Start Date Stop Date Coumadin 5 MG 1 tablet Orally Once a day for 90 days Breo Ellipta 200-25 MCG/INH 1 puff Inhalation Once a day for 90 days Dec, Metoprolol Tartrate 25 MG 1 tablet with food Orally Twice a day for 90 days Vitamin D 50 MCG (1999 UT) 1 tablet Orally Once a day for 30 day(s) Mar, Next Appt Details Provider Name:Samaria Chauhan, 2020-09-13 10:30:00 AM, [address], [place], [address], Insurance Providers Payer Name Payer Address Payer Phone Insured Name Patient Relati onship to Insured Coverage Start Date Coverage End Date AETNA MEDICARE AETNA [employer]ANCE [employer] [address] [facility] [phone] GAMALIEL SWIFT V self
--- OUTSIDE RECORDS SUMMARY | 2020-10-29 14:22 | CCD ---
Author Author [facility] Organization [facility] Address Unknown Phone Unavailable Care Team Providers Care Asset Protection Agent Name Role Phone Samaria Chauhan Unavailable PROBLEMS Type Condition ICD9-CM Code AWG40-OV Code Onset Dates Condition S tatus SNOMED Code Notes Problem Chronic respiratory failure with hypoxia J96.11 Active 32715213 Problem Chronic respiratory failure with hypercapnia J96.1 2 Active 086504528 Problem History of nicotine dependence Z87.891 Active 1 03590120 Problem Peripheral vascular disease I73.9 Active 4000 83304 Problem Impaired fasting glucose R73.01 Active 8632410 07 Problem Nocturnal oxygen desaturation G47.34 Active 23 8170016 Problem Hypertensive heart disease with heart failure I11.0 Active 0055277 Problem Vitamin D deficiency E55.9 Active 36005027 Problem Chronic diastolic (congestive) heart failure I50.3 2 Active 879083951 Problem H/O mitral valve replacement Z95.2 Active 124 3865469886 Problem Bioprosthetic mitral valve replacement, current hospit alization Z95.3 Active 15405585976134 Problem Coronary artery disease invo lving coronary 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 without 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 Active 211783798 Problem Complete heart block I44.2 Active 77656385 ALLERGIES No Known Allergies ENCOUNTERS from 1945 to 2020-10-03 Encounter Location Date Provider Diagnosis [address] [place] [address] Sep, Lindy Chauhan Coronary artery disease involving coronary 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 without 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 IMMUNIZATIONS Vaccine [...] Education: Finished College Audit Question Answer Notes Interpretation: Alcohol Education Total Score: 0 Language: Question Answer Notes Languages spoken: Estonian Caodaism: Question Answer Notes Caodaism 13 [employer] Sexual Hx: Question Answer Notes Had sex in the last 12 months (vaginal, oral, or anal)? Yes with Men only Drug and Alcohol Question Answer Notes Interpretation: No problems reported Total Score: 0 Alcohol Screening: Question Answer Notes Did you [...] Notes Start Da te End Date Status May Have - O2 with tubing and concentrator J96.11 2 LNC QHS for 99 months Aug, Active Metoprolol Tartrate 25 MG 1 tablet with food Orally Twice a day for 90 days Active Coumadin 5 MG 1 tablet Orally Once a day for 90 days Active Breo Ellipta 200-25 MCG/INH 1 puff Inhalation Once a day for 90 days Dec, Active Atorvastatin Calcium 80 MG 1 tablet Orally Once a day for 90 days Active PredniSONE 20 MG 2 tablets Orally Once a day for 5 day(s) Sep, Active Aspirin 81 MG 1 tablet Orally Once a day Active Vitamin D 50 MCG (1999 UT) 1 tablet Orally Once a day for 30 day (s) Mar, Active PROCEDURES No Information RESULTS No Results REASON FOR VISIT atorvastatin refill MEDICAL (GENERAL) HISTORY Type Description Date [...] A Flutter 11/22, consider car dioversion, per [facility], 04/24 P A fib noted on pacer interrogation Medical History 04/23 PFTs mod diffusion impa irment, DLCO 58% predicted, FVC reduced - 58% predicted, and FEV1 reduced 56% predicted Surgical History Tonsillectomy as a child Surgical History Cath - CABG/MVR, L thoracent esis, pacemaker (d/t complete heart block) Hospitalization History CHF @[facility] 02/2018 Hospitalization History Childbirth, vaginal deliveries 1967, 1969 Hospitalization History [facility] - CABG [id number] Goals Section No Information Health Concerns No Information MEDICAL EQUIPMENT No Information MENTAL STATUS No Information FUNCTIONAL STATUS No Information ASSESSMENTS Encounter Date Diagnosis Assessment Notes Treatment Notes Treatm ent Clinical Notes Sep, Coronary artery disease invo lving coronary 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 without angina pectoris (ICD-10 - I25.810) PLAN OF TREATMENT Medication Medication Name Sig Start Date Stop Date Atorvastatin Calcium 80 MG 1 tablet Orally Once a day for 90 day s PredniSONE 20 MG 2 tablets Orally Once a day for 5 day(s) Sep Insurance Providers Payer Name Payer Address Payer Phone Insured Name Patient Relati onship to Insured Coverage Start Date Coverage End Date AETNA [facility] [address] [facility] [id number] GAMALIEL SWIFT V self
--- OUTSIDE RECORDS SUMMARY | 2020-10-29 14:22 | CCD ---
Author Author [facility] Organization [facility] Address Unknown Phone Unavailable Care Team Providers Care Parcel Post Carrier Name Role Phone Samaria Chauhan Unavailable PROBLEMS Type Condition ICD9-CM Code [id number] Code Onset Dates Condition S tatus SNOMED Code Notes Problem Chronic respiratory failure with hypoxia J96.11 Active 15522241 Problem Chronic respiratory failure with hypercapnia J96.1 2 Active 074860906 Problem History of nicotine dependence Z87.891 Active 1 96333050 Problem Peripheral vascular disease I73.9 Active 4000 49179 Problem Impaired fasting glucose R73.01 Active 4116778 07 Problem Nocturnal oxygen desaturation G47.34 Active 23 8897083 Problem Hypertensive heart disease with heart failure I11.0 Active 0279896 Problem Vitamin D deficiency E55.9 Active 06787009 Problem Chronic diastolic (congestive) heart failure I50.3 2 Active 549012714 Problem H/O mitral valve replacement Z95.2 Active 124 0724608680 Problem Bioprosthetic mitral valve replacement, current hospit alization Z95.3 Active 53316158801168 Problem Coronary artery disease invo lving coronary bypass 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 without 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 Active 887519464 Problem Complete heart block I44.2 Active 32880152 ALLERGIES No Known Allergies ENCOUNTERS from 1945 to 2020-09-24 Encounter Location Date Provider Diagnosis [address] [place] [address] Sep, Lindy Chauhan IMMUNIZATIONS Vaccine Route Administration Date Status Influenza [...] Education Language: Question Answer Notes Languages spoken: Upper Sorbian Muslim: Question Answer Notes Muslim 13 Sabianism Sexual Hx: Question Answer Notes Had sex [...] a day Active Vitamin D 50 MCG (1999) 1 tablet Orally Once a day for 30 day (s) Mar, Active PROCEDURES No Information RESULTS No Results REASON FOR VISIT CT chest MEDICAL (GENERAL) HISTORY Type Description Date Medical [...] A Flutter 11/22, consider car dioversion, per [facility], [place] P A fib noted on pacer interrogation Medical History 04/23 PFTs mod diffusion impa irment, DLCO 58% predicted, FVC reduced - 58% predicted, and FEV1 reduced 56% predicted Surgical History Tonsillectomy as a child Surgical History Cath - CABG/MVR, L thoracent esis, pacemaker (d/t complete heart block) Hospitalization History CHF @[facility] 02/2018 Hospitalization History Childbirth, vaginal deliveries 1967, 1969 Hospitalization History [facility] - CABG [id number] Goals Section No Information Health Concerns No Information MEDICAL EQUIPMENT No Information MENTAL STATUS No Information FUNCTIONAL STATUS No Information ASSESSMENTS No Information PLAN OF TREATMENT Medication Medication Name Sig Start Date Stop Date PredniSONE 20 MG 2 tablets Orally Once a day for 5 day(s) Sep Insurance Providers Payer Name Payer Address Payer Phone Insured Name Patient Relati onship to Insured Coverage Start Date Coverage End Date AETNA [facility] [address] [facility] [id number] GAMALIEL SWIFT V self
--- OUTSIDE RECORDS SUMMARY | 2020-10-29 14:22 | CCD ---
Author Author [facility] Organization [facility] Address Unknown Phone Unavailable Care Team Providers Care Clasp Machine Operator Name Role Phone Dena Paz MD Unavailable Unavailable Dena Paz MD Unavailable Unavailable Dena Paz MD Unavailable Unavailable Dena Paz MD Unavailable Unavailable Dena Paz MD Unavailable Unavailable Dena Paz MD Unavailable Unavailable Dena Paz MD Unavailable Unavailable Dena Paz MD Unavailable Unavailable Dena Paz MD Unavailable Unavailable Dena Paz MD Unavailable Unavailable Dena Paz MD Unavailable Unavailable Dena Paz MD Unavailable Unavailable Dena Paz MD Unavailable Unavailable Dena Paz MD Unavailable Unavailable Dena Paz MD Unavailable Unavailable Dena Paz MD Unavailable Unavailable Dena Paz MD Unavailable Unavailable Dena Paz MD Unavailable Unavailable Dena Paz MD Unavailable Unavailable Dena Paz MD Unavailable Unavailable Dena Paz MD Unavailable Unavailable Dena Paz MD Unavailable Unavailable Dena Paz MD Unavailable Unavailable Dena Paz MD Unavailable Unavailable Dena Paz MD Unavailable Unavailable Dena Paz MD Unavailable Unavailable Dena Paz MD Unavailable Unavailable Dena Paz MD Unavailable Unavailable Dena Paz MD Unavailable Unavailable Dena Paz MD Unavailable Unavailable Dena Paz MD Unavailable Unavailable Dena Paz MD Unavailable Unavailable Dena Paz MD Unavailable Unavailable Dena Paz MD Unavailable Unavailable Dena Paz MD Unavailable Unavailable Dena Paz MD Unavailable Unavailable Dena Paz MD Unavailable Unavailable Dena Paz MD Unavailable Unavailable Dena Paz MD Unavailable Unavailable Dena Paz MD Unavailable Unavailable Dena Paz MD Unavailable Unavailable Dena Paz MD Unavailable Unavailable Dena Paz MD Unavailable Unavailable Dena Paz MD Unavailable Unavailable Dena Paz MD Unavailable Unavailable Dena Paz MD Unavailable Unavailable Dena Paz MD Unavailable Unavailable Dena Paz MD Unavailable Unavailable Dena Paz MD Unavailable Unavailable Dena Paz MD Unavailable Unavailable Dena Paz MD Unavailable Unavailable Dena Paz MD Unavailable Unavailable Dena Paz MD Unavailable Unavailable Dena Paz MD Unavailable Unavailable Dena Paz MD Unavailable Unavailable Dena Paz MD Unavailable Unavailable Dena Paz MD Unavailable Unavailable Dena Paz MD Unavailable Unavailable Fons, M Johanna SURVEYING TECHNICIAN Unavailable Unavailable Fons, M Johanna SURVEYING TECHNICIAN Unavailable Unavailable Fons, M Johanna SURVEYING TECHNICIAN Unavailable Unavailable Fons, M Johanna SURVEYING TECHNICIAN Unavailable Unavailable Fons, M Johanna SURVEYING TECHNICIAN Unavailable Unavailable Fons, M Johanna SURVEYING TECHNICIAN Unavailable Unavailable Fons, M Johanna SURVEYING TECHNICIAN Unavailable Unavailable Fons, M Johanna SURVEYING TECHNICIAN Unavailable Unavailable Fons, M Johanna SURVEYING TECHNICIAN Unavailable Unavailable Fons, M Johanna SURVEYING TECHNICIAN Unavailable Unavailable Fons, M Johanna SURVEYING TECHNICIAN Unavailable Unavailable Fons, M Johanna SURVEYING TECHNICIAN Unavailable Unavailable Fons, M Johanna SURVEYING TECHNICIAN Unavailable Unavailable Fons, M Johanna SURVEYING TECHNICIAN Unavailable Unavailable Fons, M Johanna SURVEYING TECHNICIAN Unavailable Unavailable Fons, M Johanna SURVEYING TECHNICIAN Unavailable Unavailable Fons, M Johanna SURVEYING TECHNICIAN Unavailable Unavailable Fons, M Johanna SURVEYING TECHNICIAN Unavailable Unavailable Fons, M Johanna SURVEYING TECHNICIAN Unavailable Unavailable Fons, M Johanna SURVEYING TECHNICIAN Unavailable Unavailable Fons, M Johanna SURVEYING TECHNICIAN Unavailable Unavailable Fons, M Johanna SURVEYING TECHNICIAN Unavailable Unavailable Fons, M Johanna SURVEYING TECHNICIAN Unavailable Unavailable Fons, M Johanna SURVEYING TECHNICIAN Unavailable Unavailable Fons, M Johanna SURVEYING TECHNICIAN Unavailable Unavailable Fons, M Johanna SURVEYING TECHNICIAN Unavailable Unavailable Fons, M Johanna SURVEYING TECHNICIAN Unavailable Unavailable Fons, M Johanna SURVEYING TECHNICIAN Unavailable Unavailable Fons, M Johanna SURVEYING TECHNICIAN Unavailable Unavailable Fons, M Johanna SURVEYING TECHNICIAN Unavailable Unavailable Fons, M Johanna SURVEYING TECHNICIAN Unavailable Unavailable Fons, M Johanna SURVEYING TECHNICIAN Unavailable Unavailable Fons, M Johanna SURVEYING TECHNICIAN Unavailable Unavailable Fons, M Johanna SURVEYING TECHNICIAN Unavailable Unavailable Fons, M Johanna SURVEYING TECHNICIAN Unavailable Unavailable Fons, M Johanna SURVEYING TECHNICIAN Unavailable Unavailable Fons, M Johanna SURVEYING TECHNICIAN Unavailable Unavailable Fons, M Johanna SURVEYING TECHNICIAN Unavailable Unavailable Fons, M Johanna SURVEYING TECHNICIAN Unavailable Unavailable Fons, M Johanna SURVEYING TECHNICIAN Unavailable Unavailable Fons, M Johanna SURVEYING TECHNICIAN Unavailable Unavailable Fons, M Johanna SURVEYING TECHNICIAN Unavailable Unavailable Fons, M Johanna SURVEYING TECHNICIAN Unavailable Unavailable Fons, M Johanna SURVEYING TECHNICIAN Unavailable Unavailable Fons, M Johanna SURVEYING TECHNICIAN Unavailable Unavailable Fons, M Johanna SURVEYING TECHNICIAN Unavailable Unavailable Fons, M Johanna SURVEYING TECHNICIAN Unavailable Unavailable Fons, M Johanna SURVEYING TECHNICIAN Unavailable Unavailable Fons, M Johanna SURVEYING TECHNICIAN Unavailable Unavailable Fons, M Johanna SURVEYING TECHNICIAN Unavailable Unavailable Fons, M Johanna SURVEYING TECHNICIAN Unavailable Unavailable Fons, M Johanna SURVEYING TECHNICIAN Unavailable Unavailable Fons, M Johanna SURVEYING TECHNICIAN Unavailable Unavailable Fons, M Johanna SURVEYING TECHNICIAN Unavailable Unavailable Fons, M Johanna SURVEYING TECHNICIAN Unavailable Unavailable Re-disclosure Warning The records that you are about to access may contain information from federally-assisted alcohol or drug abuse programs. If such information is present, then the following federally mandated warning applies: This information has been disclosed to you from records protected by federal confidentiality rules (42 CFR part 2). The federal rules prohibit you from making any further disclosure of this information unless further disclosure is expressly permitted by the written consent of the person to whom it pertains or as otherwise permitted by 42 CFR part 2. A general authorization for the release of medical or other information is NOT sufficient for this purpose. The Federal rules restrict any use of the information to criminally investigate or prosecute any alcohol or drug abuse patient.The records that you are about to access may contain highly sensitive health information, the redisclosure of which is protected by Article 27-F of the [facility] Public Health law. If you continue you may have access to information: Regarding HIV / AIDS; Provided by facilities licensed or operated by the [facility] Office of Mental Health; or Provided by the [facility] Office for People With Developmental Disabilities. If such information is present, then the following [facility] mandated warning applies: This information has been disclosed to you from confidential records which are protected by state law. State law prohibits you from making any further disclosure of this information without the specific written consent of the person to whom it pertains, or as otherwise permitted by law. Any unauthorized further disclosure in violation of state law may result in a fine or fci sentence or both. A general authorization for the release of medical or other information is NOT sufficient authorization for further disc losure. Family History Family Member Name Family Member Gender Family Member Status Date o f Status Description Data Source(s) Unknown Unknown Problem [facility] ([facility]) father,pgf Encounters Encounter Providers Location Date Indications Data Source(s ) Outpatient [facility].MIKAEL-SJLindsay.MIKAEL 10/28/2020 12:00:00 AM [facility] Outpatient [facility].MIKAEL-SJP.MIKAEL 10/24/2020 12:00:00 AM [facility] Outpatient [facility].MIKAEL-SJP.MIKAEL 10/15/2020 12:00:00 AM [facility] Outpatient [facility].MIKAEL-SJP.MIKAEL 10/09/2020 10:18:33 AM [facility] Unknown [address] [facility] [address] 10/02/2020 12:00:00 AM EST eCW1 ([facility]) Outpatient [facility].MIKAEL-SJLindsay.MIKAEL 10/01/2020 12:00:00 AM EST [facility] Outpatient Attender: Johanan MERCADO [facility].MIKAEL-SJP.MIKAEL 12:00:00 AM EST - 09/24/2020 11:23:49 AM EST [facility] Outpatient [facility].MIKAEL-SJP.MIKAEL 09/24/2020 12:00:00 AM [facility] Unknown [address] [facility] [address] 09/23/2020 12:00:00 AM EST eCW1 ([facility]) Outpatient SJP.MIKAEL-SJP.MIKAEL 09/16/2020 12:00:00 AM EST [facility] Unknown [address] [facility] [place] [address] 09/13/2020 12:00:00 AM EST eCW1 ([facility]) Office Visit, Est Pt., Level 4 PC [address] [place] [address] 09/13/2020 12:00:00 AM EST eCW1 ([facility]) Outpatient SJP.MIKAEL-SJP.MIKAEL 09/09/2020 12:00:00 AM EST [facility] Outpatient SJP.MIKAEL-SJP.MIKAEL 09/05/2020 12:00:00 AM EST [facility] Unknown [address] [facility], [facility] [address] 09/05/2020 12:00:00 AM EST eCW1 ([facility]) Outpatient SJP.MIKAEL-SJP.MIKAEL 08/22/2020 12:00:00 AM EST [facility] Unknown [address] [facility] [address] 08/20/2020 12:00:00 AM EST eCW1 ([facility]) Outpatient SJP.CT-SJP.SYR 08/16/2020 08:03:00 AM EST [facility] Outpatient SJP.MIKAEL-SJP.MIKAEL 08/15/2020 12:00:00 AM EST [facility] Outpatient SJP.MIKAEL-SJP.MIKAEL 08/08/2020 08:29:37 AM EST [facility] Outpatient SJP.MIKAEL-SJP.MIKAEL 07/19/2020 12:00:00 AM EST [facility] Outpatient [address] [facility] [address] 07/12/2020 12:00:00 AM EST eCW1 ([facility]) Outpatient SJP.MIKAEL-SJP.MIAKEL 07/11/2020 12:00:00 AM EST [facility] Outpatient SJP.MIKAEL-SJP.MIKAEL 06/27/2020 12:00:00 AM EDT [facility] Unknown [address] [facility] [address] 06/24/2020 12:00:00 AM EDT eCW1 ([facility]) Outpatient SJP.MIKAEL-SJP.MIKAEL 06/20/2020 12:00:00 AM EDT [facility] Outpatient SJP.MIKAEL-SJP.MIKAEL 06/06/2020 12:00:00 AM EDT [facility] Outpatient SJP.MIKAEL-SJP.MIKAEL 05/30/2020 12:00:00 AM EDT [facility] Outpatient SJP.MIKAEL-SJP.MIKAEL 05/23/2020 12:00:00 AM EDT [facility] Outpatient SJP.MIKAEL-SJP.MIKAEL 05/16/2020 09:53:16 AM EDT [facility] Outpatient SJP.MIKAEL-SJP 05/09/2020 12:56:54 PM EDT [facility] Outpatient SJP.MIKAEL-SJP.MIKAEL 05/09/2020 12:00:00 AM EDT [facility] Outpatient SJP.MIKAEL-SJP.MIKAEL 04/25/2020 10:07:13 AM EDT [facility] Outpatient SJP.MIKAEL-SJP.MIKAEL 04/18/2020 12:00:00 AM EDT [facility] Outpatient SJP.MIKAEL-SJP.MIKAEL 04/04/2020 12:00:00 AM EDT [facility] Outpatient Referrer: Johanna MERCADO SJP.MIKAEL-SJP.MIKAEL 03/26/2020 12:00:00 AM EDT [facility] Office Visit, Est Pt., Level 2 FC [address] [place] [address] 03/26/2020 12:00:00 AM EDT [facility] ([facility]) Outpatient Attender: Johanna Ramirez SURVEYING TECHNICIAN SJP.MIKAEL-SJP.MIKAEL 0 01:07:09 PM EDT - 03/22/2020 02:35:52 PM EDT [facility] Outpatient SJP.MIKAEL-SJP.MIKAEL 03/21/2020 09:52:57 AM EDT [facility] [address] [place] [address], [place] [address] 03/19/2020 12:00:00 AM EDT eCW1 ([facility]) Outpatient SJP.MIKAEL-SJP.MIKAEL 03/14/2020 12:00:00 AM EDT [facility] Outpatient SJP.MIKAEL-SJP.MIKAEL 03/07/2020 12:00:00 AM EDT [facility] Outpatient [address] [facility] [address] 03/04/2020 12:00:00 AM EDT eCW1 ([facility]) Outpatient SJP.MIKAEL-SJP.MIKAEL 02/29/2020 09:54:22 AM EDT [facility] Outpatient SJP.MIKAEL-SJP.MIKAEL 02/08/2020 09:56:08 AM EDT [facility] Outpatient SJP.MIKAEL-SJP.MIKAEL 02/01/2020 12:00:00 AM EDT [facility] Outpatient SJP.CT-SJP.SYR 01/25/2020 01:06:49 PM EDT [facility] Outpatient SJP.MIKAEL-SJP.MIKAEL 01/25/2020 10:14:23 AM EDT [facility] Outpatient SJP.CT-SJP.SYR 01/24/2020 11:39:08 AM EDT [facility] Outpatient SJP.MIKAEL-SJP.MIKAEL 01/11/2020 12:00:00 AM EDT [facility] [address] [facility] [address] 01/08/2020 12:00:00 AM EDT eCW1 ([facility]) Outpatient SJP.MIKAEL-SJP.MIKAEL 01/05/2020 12:00:00 AM EDT [facility] Outpatient SJP.MIKAEL-SJP.MIKAEL 01/02/2020 12:00:00 AM EDT [facility] [place] [facility] [address] 01/01/2020 12:00:00 AM EDT eCW1 ([facility]) [facility]CHIATRIC [place] [address] [place] [address], [place] [address] 12/19/2019 12:00:00 AM EDT eCW1 ([facility]) Outpatient SJP.MIKAEL-SJP.MIKAEL 12/07/2019 12:00:00 AM EDT [facility] [address] [place] [address], [place] [address] 12/01/2019 12:00:00 AM EDT eCW1 ([facility]) PS[facility]CHIATRIC [place] [address] [place] [address], [place] [address] 11/24/2019 12:00:00 AM EDT eCW1 ([facility]) Outpatient SJP.MIKAEL-SJP.MIKAEL 11/16/2019 10:11:29 AM EDT [facility] Outpatient SJP.MIKAEL-SJP.MIKAEL 11/01/2019 09:34:18 AM EST [facility] Outpatient SJP.MIKAEL-SJP.MIKAEL 10/23/2019 12:00:00 AM EST [facility] Outpatient SJP.MIKAEL-SJP.MIKAEL 10/11/2019 01:07:39 PM EST [facility] Outpatient SJP.MIKAEL-SJP.MIKAEL 09/14/2019 01:51:15 PM EST [facility] Outpatient Attender: Dena KIDD.MIKAEL-SJP.MIKAEL 05/2020 12:00:00 AM EST - 09/14/2019 03:05:06 PM EST [facility] [address] [place] [address], [place] [address] 09/04/2019 12:00:00 AM EST eCW1 ([facility]) Immunizations Vaccine Date Status Description Data Source(s) COVID-19 VACCINE, MRNA-1273, LNP-S (MODERNA)/PF 10/18/2020 1 2:00:00 AM EST completed [facility] influenza, recombinant, quadrIvalent,injectable, prese rvative free 07/12/2020 08:15:00 AM EST completed eCW1 ([facility]) influenza, recombinant, quadrIvalent,injectable, prese rvative free 07/12/2020 08:15:00 AM EST completed eCW1 ([facility]) influenza, recombinant, quadrIvalent,injectable, prese rvative free 07/12/2020 08:15:00 AM EST completed eCW1 ([facility]) influenza, recombinant, quadrIvalent,injectable, prese rvative free 07/12/2020 08:15:00 AM EST completed eCW1 ([facility]) influenza, recombinant, quadrIvalent,injectable, prese rvative free 07/12/2020 08:15:00 AM EST completed eCW1 ([facility]) influenza, recombinant, quadrIvalent,injectable, prese rvative free 07/12/2020 08:15:00 AM EST completed eCW1 ([facility]) influenza, recombinant, quadrIvalent,injectable, prese rvative free 07/12/2020 08:15:00 AM EST completed eCW1 ([facility]) Medications Medication Brand Name Start Date Product Form Dose Route Admi nistrative Instructions Pharmacy Instructions Status Indications Reaction Description Data Source(s) Prednisone 20 MG Oral Tablet PredniSONE 20 MG PredniSONE 20 MG 09/23/2020 12:00:00 AM EST 2.0 {tablets} active P redniSONE 20 MG eCW1 ([facility]) Prednisone 20 MG Oral Tablet predniSONE (DELTASONE) 20 MG tablet predniSONE (DELTASONE) 20 MG tablet 09/23/2020 12:00:00 AM EST active [facility] 20 mg 09/23/2020 12:00:00 AM EST tablet 10 TAKE TWO TABLETS BY MOUTH EVERY DAY TAKE TWO TABLETS BY MOUTH EVERY DAY SOLD: 09/23/2020 [facility] Prednisone 20 MG Oral Tablet PredniSONE 20 MG PredniSONE 20 MG 09/23/2020 12:00:00 AM EST 2.0 {tablets} active P redniSONE 20 MG eCW1 ([facility]) Warfarin Sodium 5 MG Oral Tablet warfarin (COUMADIN) 5 MG tablet warfarin (COUMADIN) 5 MG tablet 08/22/2020 12:00:00 AM EST active One to two tabs daily as directed by childcare director [facility] 5 mg 08/20/2020 12:00:00 AM EST tablet 90 TAKE ONE TABLET BY MOUTH EVERY DAY TAKE ONE TABLET BY MOUTH EVERY DAY SOLD: 08/22/2020 [facility] 25 mg 05/24/2020 12:00:00 AM EDT tablet 180 TAKE ONE TABLET BY MOUTH TWICE A DAY TAKE ONE TABLET BY MOUTH TWICE A DAY SOLD: 05/24/2020 [facility] Cholecalciferol 2000 UNT Oral Tablet Vitamin D 50 MCG (1999 UT) Vitamin D 50 MCG (1999 UT) 03/26/2020 12:00:00 AM EDT 1.0 {tablet} ac tive Vitamin D 50 MCG (1999 UT) eCW1 ([facility]) Cholecalciferol 2000 UNT Oral Tablet Vitamin D 50 MCG (1999 UT) Vitamin D 50 MCG (1999 UT) 03/26/2020 12:00:00 AM EDT 1.0 {tablet} ac tive Vitamin D 50 MCG (1999 UT) eCW1 ([facility]) Cholecalciferol 2000 UNT Oral Tablet Vitamin D 50 MCG (1999 UT) Vitamin D 50 MCG (1999 UT) 03/26/2020 12:00:00 AM EDT 1.0 {tablet} ac tive Vitamin D 50 MCG (1999 UT) eCW1 ([facility]) Cholecalciferol 2000 UNT Oral Tablet Vitamin D 50 MCG (1999 UT) Vitamin D 50 MCG (1999 UT) 03/26/2020 12:00:00 AM EDT 1.0 {tablet} ac tive Vitamin D 50 MCG (1999 UT) eCW1 ([facility]) Cholecalciferol 2000 UNT Oral Tablet Vitamin D 50 MCG (1999 UT) Vitamin D 50 MCG (1999 UT) 03/26/2020 12:00:00 AM EDT 1.0 {tablet} ac tive Vitamin D 50 MCG (1999 UT) eCW1 ([facility]) Cholecalciferol 2000 UNT Oral Tablet Vitamin D 50 MCG (1999 UT) Vitamin D 50 MCG (1999 UT) 03/26/2020 12:00:00 AM EDT 1.0 {tablet} ac tive Vitamin D 50 MCG (1999 UT) eCW1 ([facility]) Cholecalciferol 2000 UNT Oral Tablet Vitamin D 50 MCG (1999 UT) Vitamin D 50 MCG (1999 UT) 03/26/2020 12:00:00 AM EDT 1.0 {tablet} ac tive Vitamin D 50 MCG (1999 UT) eCW1 ([facility]) Cholecalciferol 2000 UNT Oral Tablet Vitamin D 50 MCG (1999 UT) Vitamin D 50 MCG (1999 UT) 03/26/2020 12:00:00 AM EDT 1.0 {tablet} ac tive Vitamin D 50 MCG (1999 UT) eCW1 ([facility]) Cholecalciferol 2000 UNT Oral Tablet Vitamin D 50 MCG (1999 [facility]) Vitamin D 50 MCG (1999 [facility]) 03/26/2020 12:00:00 AM EDT 1.0 {tablet} ac tive Vitamin D 50 MCG (1999 UT) eCW1 ([facility]) Cholecalciferol 2000 UNT Oral Tablet Vitamin D 50 MCG (1999 [facility]) Vitamin D 50 MCG (1999 [facility]) 03/26/2020 12:00:00 AM EDT 1.0 {tablet} ac tive Vitamin D 50 MCG (1999 [facility]) eCW1 ([facility]) 875-125 mg 03/04/2020 12:00:00 AM EDT tablet 14 TAKE 1 TABLET BY MOUTH EVERY 12 HOURS FOR 7 DAYS TAKE 1 TABLET BY MOUTH EVERY 12 HOURS FOR 7 DAYS SOLD: 03/04/2020 [facility] Furosemide 40 MG Oral Tablet Furosemide 40 MG 01/01/2020 12:00:00 AM E DT active 1 tablet eCW1 ([facility]) Potassium Chloride 20 MEQ Extended Relea se Oral Tablet Potassium Chloride ER 20 MEQ Potassium Chloride ER 20 MEQ 01/01/2020 12:00:00 AM EDT active 1 tablet with food eCW1 ([facility]) Potassium Chloride 20 MEQ Extended Relea se Oral Tablet Potassium Chloride ER 20 MEQ Potassium Chloride ER 20 MEQ 01/01/2020 12:00:00 AM EDT active 1 tablet with food eCW1 ([facility]) Insurance Providers Payer name Policy type / Coverage type Policy ID Covered green party ID Covered green party's relationship to beatty Policy Beatty Plan Information AETNA MEDICARE [id number] SP [id number] AETNA MEDICARE [id number] Arlene MEBTX 9DC AETNA MEDICARE O [id number] S 10 [id number] AETNA MEDICARE [id number] SP [id number] AETNA MEDICARE Medicare [id number] AETNA MEDICARE [id number] SP [id number] 9DC AETNA MEDICARE O [id number] S MEBTX 9DC AETNA MEDICARE [id number] SP [id number] SELF PAY ONLY [id number] SP [id number] AETNA MEDICARE [id number] Arlene MEBPJ [id number] AETNA MEDICARE [id number] SP [id number] [id number] AETNA MEDICARE [id number] Arlene MEBPJ G9F AETNA MEDICARE [id number] SP [id number] [id number] ANSI-Medicare Part B [id number] AETNA MEDICARE [id number] SP [id number] [id number] ANSI-Medicare Part B [id number] AETNA MEDICARE [id number] Arlene MEBPJ G9F ANSI-Medicare Part B [id number] ANSI-Medicare Part B [id number] ANSI-Medicare Part B [id number] ANSI-Medicare Part B [id number] ANSI-Medicare Part B [id number] ANSI-Medicare Part B [id number] AETNA MEDICARE - SWING [id number] AETNA MEDICARE PPO - IP [id number] AETNA MEDICARE Medicare [facility] ANSI-Medicare Part B [id number] ANSI-Medicare Part B [id number] ANSI-Medicare Part B [id number] ANSI-Medicare Part B [id number] ANSI-Medicare Part B [id number] ANSI-Medicare Part B [id number] MEDICARE [id number] SP [id number] A AETNA MEDICARE [id number] SP MEBPJ G9F AETNA MEDICARE O [id number] S MEBPJ G9F Aetna Ppo/Pos/Nap/[employer] Commercial [id number] Self [id number] Aetna Ppo/Pos/Nap/MC Commercial [id number] Self [id number] Problems, Conditions, and Diagnoses Code Display Name Description Problem Type Effective Dates Data Source(s) I25.10 Coronary artery disease Coronary artery disease [id number] 09/24/2020 12:00:00 AM [facility] E55.9 Vitamin D deficiency Vitamin D deficiency Problem 03/26/2020 12:00:00 AM EDT eCW1 ([facility]) I10 Essential hypertension Essential hypertension [id number] 09/14/2019 12:00:00 AM [facility] I48.0 Paroxysmal atrial fibrillation Paroxysmal atrial fibri llation Diagnosis 10/24/2020 08:59:28 AM [facility] I10 Essential (primary) hypertension Essential (primary) h ypertension Diagnosis 09/24/2020 08:32:30 AM [facility] Z95.0 Presence of cardiac pacemaker Presence of cardiac pace maker Diagnosis 09/24/2020 08:32:30 AM [facility] I73.9 Peripheral vascular disease, unspecified Peripheral vascular disease, unspecified Diagnosis 09/24/2020 08:32:30 AM [facility] J44.9 Chronic obstructive pulmonary disease, u nspecified Chronic obstructive pulmonary disease, u Diagnosis 09/24/2020 08:32:30 AM [facility] 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 Atherosclerosis of coronary artery bypas Diagnosis 09/24/2020 08:32:30 AM EST [facility] Z95.3 Presence of xenogenic heart valve Presence of xe nogenic heart valve Diagnosis 09/24/2020 08:32:30 AM EST [facility] I50.32 Chronic diastolic (congestive) heart evelin lure Chronic diastolic (congestive) heart evelin Diagnosis 09/24/2020 08:32:30 AM EST [facility] I25.10 Atherosclerotic heart diseas e of [place] coronary artery without angina pectoris Atherosclerotic heart disease of [place] Diagnosis 09/24/2020 08:32:30 AM EST [facility] Surgeries/Procedures Procedure Description Date Indications Data Source(s) Immunization: Flublok Quadrivalent (18 years & older) 0.5mL IM (Influenza) 07/12/2020 12:00:00 AM EST W1 ([facility]) BASIC METABOLIC PANEL CALCIUM TOTAL BASIC METABOLIC PANEL Routine 03/25/2020 03/25/2020 12:00:00 AM EDT [facility] PHYSICIAN TELEPHONE EVALUATION 5-10 MIN 12/01/2019 12: 00:00 AM EDT W1 ([facility]) Results ID Date Data Source VITAMIN D 25-HYDROXY 09/13/2020 12:00:00 AM EST eCW1 ([facility]) Name Value Range Interpretation Code Description Data Vivienne rce(s) Supporting Document(s) 36.0 30.0-100.0 TOTAL 25(OH) VITAMIN D eC W1 ([facility]) ID Date Data Source TSH 09/13/2020 12:00:00 AM EST eCW1 ([facility]) Name Value Range Interpretation Code Description Data Vivienne rce(s) Supporting Document(s) 1.940 0.358-3.740 THYROID STIMULATING HORM ONE eCW1 ([facility]) ID Date Data Source LIPID PANEL (CARDIAC RISK) 09/13/2020 12:00:00 AM EST eCW1 ( [facility]) Name Value Range Interpretation Code Description Data Vivienne rce(s) Supporting Document(s) Triglyceride [Mass/volume] in Serum or Plasma by calculation 96 <150 TRIGLYCERIDES LEVEL [facility] ([facility]) Cholesterol [Moles/volume] in Serum or Plasma 127 <200 CHOLESTEROL LEVEL eCW1 ([facility]) Cholesterol in HDL [Moles/volume] in Serum or Plasma 36 >40 HDL CHOLESTEROL eCW1 ([facility]) 91 NON-HDL-C eCW1 ([facility]) Cholesterol in LDL [Mass/volume] in Serum or Plasma by calculation 72 <100 LDL CHOLESTEROL eCW1 ([facility]) 3.527 <5 CHOLESTEROL RISK RATIO eCW1 ([facility]) ID Date Data Source MAGNESIUM LEVEL 09/13/2020 12:00:00 AM EST eCW1 ([facility]) Name Value Range Interpretation Code Description Data Vivienne rce(s) Supporting Document(s) 2.0 1.8-2.4 MAGNESIUM LEVEL eCW1 ([facility]) ID Date Data Source [id number] 09/13/2020 12:00:00 AM EST eCW1 ([facility]) Name Value Range Interpretation Code Description Data Vivienne rce(s) Supporting Document(s) Hemoglobin A1c/Hemoglobin.total in Blood 5.9 HEMOGLOBIN A1c eCW1 ([facility]) ID Date Data Source Comprehensive Metabolic Profile (CMP) 09/13/2020 12:00:00 AM EST eCW1 ([facility]) Name Value Range Interpretation Code Description Data Vivienne rce(s) Supporting Document(s) 12 7-18 BLOOD UREA NITROGEN eCW1 ([facility]) 93 70-100 GLUCOSE, FASTING eCW1 ([facility]) 0.65 0.55-1.30 CREATININE FOR GFR eCW1 ([facility]) 136 136-145 SODIUM LEVEL eCW1 ([facility]) > 60.0 >39 GLOMERULAR FILTRATION RATE eCW 1 ([facility]) 4.6 3.5-5.1 POTASSIUM SERUM eCW1 ([facility]) 101 98-107 CHLORIDE LEVEL eCW1 ([facility]) 9.0 8.8-10.2 CALCIUM LEVEL eCW1 ([facility]) 29 12-78 ALT/SGPT eCW1 ([facility]) 30 7-37 AST/SGOT eCW1 ([facility]) 28 21-32 CARBON DIOXIDE LEVEL eCW1 ([facility]) 8.1 6.4-8.2 TOTAL PROTEIN eCW1 ([facility]) 0.8 0.2-1.0 BILIRUBIN,TOTAL eCW1 ([facility]) 3.1 3.2-5.2 ALBUMIN eCW1 ([facility]) 129 45-117 ALKALINE PHOSPHATASE eCW1 ([facility]) 0.6 1.2-2.2 ALBUMIN/GLOBULIN RATIO eCW1 ([facility]) ID Date Data Source CBC - Complete Blood Count 09/13/2020 12:00:00 AM EST eCW1 ( [facility]) Name Value Range Interpretation Code Description Data Vivienne rce(s) Supporting Document(s) 13.2 12.0-15.5 HEMOGLOBIN eCW1 ([facility]) 14.1 4.0-10.0 WHITE BLOOD COUNT eCW1 ([facility]) 4.83 4.00-5.40 RED BLOOD COUNT eCW1 ([facility]) 42.8 36.0-47.0 HEMATOCRIT eCW1 ([facility]) 88.6 80.0-96.0 MEAN CORPUSCULAR VOLUME e CW1 ([facility]) 30.8 32.0-36.5 MEAN CORPUSCULAR HGB CONC eCW1 ([facility]) 27.3 27.0-33.0 MEAN CORPUSCULAR HEMOGLOB IN eCW1 ([facility]) 280 150-450 PLATELET COUNT, AUTOMATED eCW1 ([facility]) 15.4 11.5-14.5 RED CELL DISTRIBUTION WID TH eCW1 ([facility]) ID Date Data Source ADM CHEST 2 VIEW 06/17/2020 10:29:35 AM EDT eCW1 ([facility]) Name Value Range Interpretation Code Description Data Vivienne rce(s) Supporting Document(s) ADM CHEST 2 VIEW eCW1 ([facility]) ID Date Data Source [id number] 05/09/2020 12:56:18 PM EDT [facility] Name Value Range Interpretation Code Description Data Vivienne rce(s) Supporting Document(s) &PDF [facility] JBKWTb6eOuLNFrVn93/HSDasLYOby4MrKIpyEUc8CUflAEAvN1IbmEssZEKAJFGOPMnJESVVDAZwHCM7 waW [file] ICAgICAgICAgICAgICAgICAgICAgICAgICAgICAgIC AgICAgICAgICAgICAgICAgICAgICAgICAgICAgICAgICAgICAgICAgICAgICAgICAgICAgICAgDQogIC AgICAgICAgICAgICAgICAgICAgICAgICAgICAgICAgICAgICAgICAgICAgICAgICAgICAgICAgICAgIC AgICAgICAgICAgICAgICAgICAgICAgICAgICAgICAg ICAgICAgDQogICAgICAgICAgICAgICAgICAgICAgICAgICAgICAgICAgICAgICAgICAgICAgICAgICAg ICAgICAgICAgICAgICAgICAgICAgICAgICAgICAgICAgICAgICAgICAgICAgICAgDQogICAgICAgICAg ICAgICAgICAgICAgICAgICAgICAgICAgICAgICAgIC AgICAgICAgICAgICAgICAgICAgICAgICAgICAgICAgICAgICAgICAgICAgICAgICAgICAgICAgICAgDQ ogICAgICAgICAgICAgICAgICAgICAgICAgICAgICAgICAgICAgICAgICAgICAgICAgICAgICAgICAgIC AgICAgICAgICAgICAgICAgICAgICAgICAgICAgICAg ICAgICAgICAgDQogICAgICAgICAgICAgICAgICAgICAgICAgICAgICAgICAgICAgICAgICAgICAgICAg ICAgICAgICAgICAgICAgICAgICAgICAgICAgICAgICAgICAgICAgICAgICAgICAgICAgDQogICAgICAg ICAgICAgICAgICAgICAgICAgICAgICAgICAgICAgIC AgICAgICAgICAgICAgICAgICAgICAgICAgICAgICAgICAgICAgICAgICAgICAgICAgICAgICAgICAgIC AgDQogICAgICAgICAgICAgICAgICAgICAgICAgICAgICAgICAgICAgICAgICAgICAgICAgICAgICAgIC AgICAgICAgICAgICAgICAgICAgICAgICAgICAgICAg ICAgICAgICAgICAgDQogICAgICAgICAgICAgICAgICAgICAgICAgICAgICAgICAgICAgICAgICAgICAg ICAgICAgICAgICAgICAgICAgICAgICAgICAgICAgICAgICAgICAgICAgICAgICAgICAgICAgDQogICAg ICAgICAgICAgICAgICAgICAgICAgICAgICAgICAgIC AgICAgICAgICAgICAgICAgICAgICAgICAgICAgICAgICAgICAgICAgICAgICAgICAgICAgICAgICAgIC YoKJZwABa2J3alGYQiOUSkLR4gZMk8Ta9+ZGqHEeWhNXR5gjXktH8PMH8dm3TsLBwxMKLqf8QfQMm5RQ 0AYPOyNQzbPU0VRVandl3UHHJcQOUgvWEMz1smXeRg VQZ0EZFqDkwbBL8DQZVqI0dsoaGfIEYgZBZXXV3XAfOiF2RgjG22XABYSx9+FVptjlOjOmdAFqE4YAIi f9BhROk9TQ0DEFDwTNscBK6MHXVqqI4aTGhnAC5PChPqDVOdXSKRKmKsV98agVTvWHf7V9BeVeWxPCAm RmlsZXMgPDwvTmFtZXMgWyBdDQogID4+ID4+DQogIC 5JRQokqlFcABTrBf9GLBOmYFF3YFRlvJIjKARwVCYBFEuyVT8SuGPtPYH2gB6oRLovCNRcIKXqX0gUTl KktKthXB60nAnmraKolLMdIZh+Pl2HPO8kz1NaYLn6zeOqZCnpPVR7GFcbNLTlUWMeCJDvRGO2PZW8IL QBPvNoEDYuDARiCDvsYGTbBFZwsg1PRPEgDNFyDQU3 EISmYHEoGRIwITrwYGOfFVJ3BYO0YDWgZCOdRB4UUxEuQUKxJHYaSPltNLAlKNYzms4AECTqHQVhLcW7 FnEmDXTyRHOkGUmkEFQfNLGnFJllLCTsNYPaFQ0LZeKlYNPwILJ0QpdqPHHfISAhvs4GXJKeUYTpTXHa WIDtSRKnANYzWRdrKXPwYLH0GaO2ZSMhGAUbNZ5IWc JxURAnJCXfXaQlUWMwGNDnxh5LZSNlIMNbORW1ESAcLVMeUIUcFHfkTJIzXPI8CILhLSXvFHRsVE9SLj SwIVKyIEMnADGaCCFqQURofs0DUFJsCDQrUYD9TsTuYDAyEBZpHPufLTFdAQX0Rrl7ORFfFMYmUN3HDw DnCMPiPWKbGNFlVSZqMHDtva1CvYJzdCnlpx5KUGbU Js7FiIpdCUI7ZYyrMb6wbOEjJqZiONOGLf7IzqHzYARaBBCBPYhpUOJjFJY4VzJhTWHiBlh9CLGmGaFd UdQ3LML6EdQ9YqE9NFWoBaX4EZYgTpG7PHKxZHVxDBA9ZMKwQtBhGfF4HFdqQpHjK0F+IV7vXLt+Pg0K o6XbebZ2sfGcLFkvVcKjCJ0YWNKYI4UKMz== ID Date Data Source [id number] 04/01/2020 07:51:39 AM EDT [facility] Name Value Range Interpretation Code Description Data Vivienne rce(s) Supporting Document(s) &PDF [facility] XSRWQf9oQyNREjNi17/HVDbdUVGky5YuAJtrUBu0BHknUFJsI6MgdCpcYTBBJYGHZVjIGMKPWSUsXKV6 FcG [file] ICAgICAgICAgICAgICAgICAgICAgICAgICAgICAgICAgICAgICAgICAgICAgICAgICAgICAgICAgICAg ICAgDQogICAgICAgICAgICAgICAgICAgICAgICAgIC AgICAgICAgICAgICAgICAgICAgICAgICAgICAgICAgICAgICAgICAgICAgICAgICAgICAgICAgICAgIC AgICAgICAgICAgICAgDQogICAgICAgICAgICAgICAgICAgICAgICAgICAgICAgICAgICAgICAgICAgIC AgICAgICAgICAgICAgICAgICAgICAgICAgICAgICAg ICAgICAgICAgICAgICAgICAgICAgICAgDQogICAgICAgICAgICAgICAgICAgICAgICAgICAgICAgICAg ICAgICAgICAgICAgICAgICAgICAgICAgICAgICAgICAgICAgICAgICAgICAgICAgICAgICAgICAgICAg ICAgICAgDQogICAgICAgICAgICAgICAgICAgICAgIC AgICAgICAgICAgICAgICAgICAgICAgICAgICAgICAgICAgICAgICAgICAgICAgICAgICAgICAgICAgIC AgICAgICAgICAgICAgICAgDQogICAgICAgICAgICAgICAgICAgICAgICAgICAgICAgICAgICAgICAgIC AgICAgICAgICAgICAgICAgICAgICAgICAgICAgICAg ICAgICAgICAgICAgICAgICAgICAgICAgICAgDQogICAgICAgICAgICAgICAgICAgICAgICAgICAgICAg ICAgICAgICAgICAgICAgICAgICAgICAgICAgICAgICAgICAgICAgICAgICAgICAgICAgICAgICAgICAg ICAgICAgICAgDQogICAgICAgICAgICAgICAgICAgIC AgICAgICAgICAgICAgICAgICAgICAgICAgICAgICAgICAgICAgICAgICAgICAgICAgICAgICAgICAgIC AgICAgICAgICAgICAgICAgICAgDQogICAgICAgICAgICAgICAgICAgICAgICAgICAgICAgICAgICAgIC AgICAgICAgICAgICAgICAgICAgICAgICAgICAgICAg ICAgICAgICAgICAgICAgICAgICAgICAgICAgICAgDQogICAgICAgICAgICAgICAgICAgICAgICAgICAg ICAgICAgICAgICAgICAgICAgICAgICAgICAgICAgICAgICAgICAgICAgICAgICAgICAgICAgICAgICAg BJIfINVxWXJhYBMyFBi8L0neIVHfXOZeCD7hNVn2Pi 8+GUxFOlClLRH3nzJjqM8KPP8qo1XqWBrrPOOdg5OaYEr3TH3HQUUvLAxtZG2QZCsjsx3MFXUiBXRpjM JUv9zsOxOvFYQ4RGCaDhjvYT0GWTZkS4lyeiTbUOYmDAJETHoqPQLICW2IJwVxI2GrmF63NBBYKn8+DQ luxlGwZaoSFpReIPLao8YyFLi7OM5OUHPjISbsDS4A KJBmuQ7bLRhiZO2BOqMzFVEsOAJFOuQsG03wbVOdHZo1C7GcGnTfKVKnBrlxPTWdNUoaRwPyXRTbOzCd DQogID4+ID4+GYoaYP2NJWivskXuYIUzSp7EHGUsESW1PGHvfHEeYmSrMMXUTFxoJE7QbURsBHW0jW5x BIylMVRiVEHyL2yPFjOtdDgjNK26pLwiryDqfBEjLF o+Rq6XFW3ho9UjHKk0akMkEKtgIMHnCXbvBUGeJFDvAQSwMWI0LVT3PMIYCtNhVGXuUJIwNQkkNUJfRT Knik8GIZJtAQVmTLVqGPLqVJCwDHYlXXpyHJFeYHPmKXsvAGRoFQAsOF7NYqFbMGZmAQDwHUOsLPBuQF Kwkl2BFEFbWOCkKyB9DNNiTLFdYFTuOPlwOOZjRNOv MVd8JOYjLCXfEL5BOlVyXYHmFZZrYbpzRCMyEQZeri6QKQKsJVOhMrT3WbKfXEIqTJAjVMfzDDGgZBI6 QWIcANTjFXDxGH8HCeKpJVUoMQv6ObqwKNShZBCbhf9VSFOhBZQqRgdyWAQyYRUgDLVnSWicTQStVSU3 BVM2VPKuYEYmJF1EOfGjSLHcTQysUlKxIKXuCOEsab 9BZAZqYDKnGGA6ZWEhNAGtMHBaDQwlXYNcIWBjMoB0VWZaWCXcRJ7XNzNzETRpQNO7STngBEQeHMZgtm 4DGIUzTQBqMQOjOkPtBZRzIXVgSBavOFSdGXZ3Tyv8VLKjJEDuDH1KExOqZDUzKBbaSEXmLFZqCCKmzg 2EKCDxDHKhUOz4OpOpMGVxZDYrRXaeQFLgAUAlZEq2 OZGsZWOfBY5MZaIwPVcfZUPTKly1GTprR0g5YNJtJf5FW0Juf3OdHhJdGXHXYEedKI1qivGeGDPfTp1B U0tNThusNJQoNvqtVLmsUuKxYIMrYPLsZLokQgHkFpg1BjS4YI6uGYUwNSWvWUMzNBQtCrBsQLDeZvCf KCSbH8DoAnChLqdaWhBhDW3BLx7AObL9PNF3yMFcQu4MBsEmCeQRGdPnWY5JRYc= Procedure Social History Code Duration Value Status Description Data Source(s ) Alcohol intake 09/24/2020 12:00:00 AM EST No completed [facility] Cigarette pack-years 09/24/2020 12:00:00 AM EST UNK completed [facility] Cigarettes smoked current (pack per day) - Reported 09/24/19 12:00:00 AM EST UNK completed [facility] Smoking 09/24/2020 12:00:00 AM EST Former smoker completed Former smoker [facility] Smoking 09/13/2020 12:00:00 AM EST Former Smoker completed Former Smoker eCW1 ([facility]) Smoking 09/13/2020 12:00:00 AM EST Former Smoker completed Former Smoker eCW1 ([facility]) Smoking 09/13/2020 12:00:00 AM EST Former Smoker completed Former Smoker eCW1 ([facility]) Smoking 09/13/2020 12:00:00 AM EST Former Smoker completed Former Smoker eCW1 ([facility]) Smoking 03/26/2020 12:00:00 AM EDT Former Smoker completed Former Smoker eCW1 ([facility]) Smoking 03/26/2020 12:00:00 AM EDT Former Smoker completed Former Smoker eCW1 ([facility]) Smoking 03/26/2020 12:00:00 AM EDT Former Smoker completed Former Smoker eCW1 ([facility]) Smoking 03/26/2020 12:00:00 AM EDT Former Smoker completed Former Smoker eCW1 ([facility]) Smoking 03/26/2020 12:00:00 AM EDT Former Smoker completed Former Smoker eCW1 ([facility]) Smoking 03/26/2020 12:00:00 AM EDT Former Smoker completed Former Smoker eCW1 ([facility]) Vital Signs ID Date Data Source UNK Name Value Range Interpretation Code Description Data Source(s) Oxygen saturation in Arterial blood by Pulse oximetry 93 % 93 % [facility] Body mass index (BMI) [Ratio] 26.94 kg/m2 26.94 kg/m2 [facility] Body weight 78.019 kg 78.019 kg [facility] Body height 170.2 cm 170.2 cm [facility] Heart rate 60 /min 60 /min [facility] Diastolic blood pressure 57 mm[Hg] 57 mm[Hg] [facility] Systolic blood pressure 116 mm[Hg] 116 mm[Hg] [facility] Diastolic blood pressure 82 mm[Hg] 82 mm[Hg] eCW1 ([facility]) Systolic blood pressure 140 mm[Hg] 140 mm[Hg] e CW1 ([facility]) Body temperature 96.1 [degF] 96.1 [degF] eCW1 ( [facility]) Respiratory rate 22 /min 22 /min eCW1 ([facility]) Heart rate 91 /min 91 /min eCW1 ([facility]) Body mass index (BMI) [Ratio] 27.06 kg/m2 27.06 kg/m2 eCW1 ([facility]) Body height [in_i] eCW1 ([facility]) Body weight 178 [lb_av] 178 [lb_av] eCW1 ([facility]) Diastolic blood pressure 86 mm[Hg] 86 mm[Hg] eCW1 ([facility]) Systolic blood pressure 130 mm[Hg] 130 mm[Hg] e CW1 ([facility]) Body temperature 97.5 [degF] 97.5 [degF] eCW1 ( [facility]) Respiratory rate 18 /min 18 /min eCW1 ([facility]) Heart rate 94 /min 94 /min eCW1 ([facility]) Body mass index (BMI) [Ratio] 26.97 kg/m2 26.97 kg/m2 eCW1 ([facility]) Body height [in_i] eCW1 ([facility]) Body weight 177.4 [lb_av] 177.4 [lb_av] eCW1 ([facility]) Diastolic blood pressure 78 mm[Hg] 78 mm[Hg] eCW1 ([facility]) Systolic blood pressure 126 mm[Hg] 126 mm[Hg] e CW1 ([facility]) Body temperature 97.6 [degF] 97.6 [degF] eCW1 ( [facility]) Respiratory rate 24 /min 24 /min eCW1 ([facility]) Heart rate 143 /min 143 /min eCW1 ([facility]) Body mass index (BMI) [Ratio] 27.49 kg/m2 27.49 kg/m2 eCW1 ([facility]) Body height [in_i] eCW1 ([facility]) Body weight 180.8 [lb_av] 180.8 [lb_av] eCW1 ([facility]) Diastolic blood pressure mm[Hg] eCW1 ([facility]) Systolic blood pressure 119 mm[Hg] 119 mm[Hg] e CW1 ([facility]) Heart rate 82 /min 82 /min eCW1 ([facility]) Body mass index (BMI) [Ratio] 27.67 kg/m2 27.67 kg/m2 eCW1 ([facility]) Body height [in_us] eCW1 ([facility]) Body weight Measured [lb_av] eCW1 ([facility]) Patient Treatment Plan of Care Planned Activity Planned Date Details Description Data Source (s) Prednisone 20 MG Oral Tablet 09/23/2020 12:00:00 AM EST eCW1 ([facility]) Prednisone 20 MG Oral Tablet 09/23/2020 12:00:00 AM EST eCW1 ([facility]) Prednisone 20 MG Oral Tablet 09/23/2020 12:00:00 AM EST [facility] Warfarin Sodium 5 MG Oral Tablet 08/22/2020 12:00:00 AM EST [facility] Cholecalciferol 2000 UNT Oral Tablet 03/26/2020 12:00:00 AM EDT eCW1 ([facility]) Cholecalciferol 2000 UNT Oral Tablet 03/26/2020 12:00:00 AM EDT eCW1 ([facility]) Cholecalciferol 2000 UNT Oral Tablet 03/26/2020 12:00:00 AM EDT eCW1 ([facility]) Cholecalciferol 2000 UNT Oral Tablet 03/26/2020 12:00:00 AM EDT eCW1 ([facility]) Cholecalciferol 2000 UNT Oral Tablet 03/26/2020 12:00:00 AM EDT eCW1 ([facility]) Cholecalciferol 2000 UNT Oral Tablet 03/26/2020 12:00:00 AM EDT eCW1 ([facility]) Potassium Chloride 20 MEQ Extended Release Oral Tablet 01/01/2020 12:00:00 AM EDT eCW1 ([facility]) Furosemide 40 MG Oral Tablet 01/01/2020 12:00:00 AM EDT eCW1 ([facility]) Potassium Chloride 20 MEQ Extended Release Oral Tablet 01/01/2020 12:00:00 AM EDT eCW1 ([facility]) Protime-INR 11/28/2018 12:00:00 AM EDT [facility]
--- OUTSIDE RECORDS SUMMARY | 2020-10-29 14:22 | CCD ---
Author Author [facility] Organization [facility] Address Unknown Phone Unavailable Care Team Providers Care Ed Tech Name Role Phone Samaria Chauhan Unavailable PROBLEMS Type Condition ICD9-CM Code DYA68-LO Code Onset Dates Condition S tatus SNOMED Code Notes Problem Chronic respiratory failure with hypoxia J96.11 Active 89971262 Problem Chronic respiratory failure with hypercapnia J96.1 2 Active 483896843 Problem History of nicotine dependence Z87.891 Active 1 88170286 Problem Peripheral vascular disease I73.9 Active 4000 36024 Problem Impaired fasting glucose R73.01 Active 1447198 07 Problem Nocturnal oxygen desaturation G47.34 Active 23 6592162 Problem Hypertensive heart disease with heart failure I11.0 Active 9594469 Problem Vitamin D deficiency E55.9 Active 86696465 Problem Chronic diastolic (congestive) heart failure I50.3 2 Active 950491947 Problem H/O mitral valve replacement Z95.2 Active 124 2701630964 Problem Bioprosthetic mitral valve replacement, current hospit alization Z95.3 Active 35478462591514 Problem 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 without 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 Active 372030242 Problem Complete heart block I44.2 Active 30740172 ALLERGIES No Known Allergies ENCOUNTERS from 1945 to 2020-09-16 Encounter Location Date Provider Diagnosis [address] [place] [address] 08 Sep, 2020 Lindy dudley Chauhan Hypertensive heart disease with heart failure I11.0 ; Chronic diastolic (congestive) heart failure I50.32 ; Chronic respiratory failure with hypoxia J96.11 ; Impaired fasting glucose R73.01 ; Coronary artery disease involving coronary bypass graft of absent[place] heart without 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 ; Vitamin D deficiency E55.9 and Peripheral vascular disease I73.9 IMMUNIZATIONS Vaccine Route Administration Date Status Influenza [...] Education Language: Question Answer Notes Languages spoken: Maldivian Nondenominational: Question Answer Notes Nondenominational 13 Bahai Sexual Hx: Question Answer Notes Had sex [...] REASON FOR REFERRAL No Information VITAL SIGNS Weight 178 lbs Sep, Height 5'8" in Sep, BMI 27.06 kg/m2 Sep, Heart Rate 91 /min Sep, Respiratory Rate 22 /min Sep, Temperature 96.1 degrees Fahrenheit Sep, Oximetry 89 Sep, Blood pressure systolic 140 mm Hg Sep, Blood pressure diastolic 82 mm Hg Sep, MEDICATIONS Medication SIG (Take, Route, Frequency, Duration) Notes Start Da te End Date Status Atorvastatin Calcium 80 MG 1 tablet Orally Once a day for 90 days Active Vitamin D 50 MCG (1999) 1 tablet Orally Once a day for 30 day (s) Mar, Active Metoprolol Tartrate 25 MG 1 tablet with food Orally Twice a day for 90 days Active Aspirin 81 MG 1 tablet Orally Once a day Active May Have - O2 with tubing and concentrator J96.11 2 LNC QHS for 99 months Aug, Active Coumadin 5 MG 1 tablet Orally Once a day for 90 days Active Breo Ellipta 200-25 MCG/INH 1 puff Inhalation Once a day for 90 days Dec, Active PROCEDURES No Information RESULTS Component Value Reference Range CBC - Complete Blood Count Reviewed date:09/13/2020 15:17:47 Interpretation: Performing Lab:[facility] [address] [place] [address] , ,[facility] WHITE BLOOD COUNT 14.1 4.0-10.0 RED BLOOD COUNT 4.83 4.00-5.40 HEMOGLOBIN 13.2 12.0-15.5 HEMATOCRIT 42.8 36.0-47.0 MEAN CORPUSCULAR VOLUME 88.6 80.0-96.0 MEAN CORPUSCULAR HEMOGLOBIN 27.3 27.0-33.0 MEAN CORPUSCULAR HGB CONC 30.8 32.0-36.5 RED CELL DISTRIBUTION WIDTH 15.4 11.5-14.5 PLATELET COUNT, AUTOMATED 280 150-450 Comprehensive Metabolic Profile (CMP) Reviewed date:09/13/2020 15:17:47 Interpretation: Performing Lab:[facility] [address] [place] [address] , ,[place] [id number] GLUCOSE, FASTING 93 70-100 BLOOD UREA NITROGEN 12 7-18 CREATININE FOR GFR 0.65 0.55-1.30 GLOMERULAR FILTRATION RATE > 60.0 >39 SODIUM LEVEL 136 136-145 POTASSIUM SERUM 4.6 3.5-5.1 CHLORIDE LEVEL 101 98-107 CARBON DIOXIDE LEVEL 28 21-32 CALCIUM LEVEL 9.0 8.8-10.2 AST/SGOT 30 7-37 ALT/SGPT 29 12-78 ALKALINE PHOSPHATASE 129 45-117 BILIRUBIN,TOTAL 0.8 0.2-1.0 TOTAL PROTEIN 8.1 6.4-8.2 ALBUMIN 3.1 3.2-5.2 ALBUMIN/GLOBULIN RATIO 0.6 1.2-2.2 HEMOGLOBIN A1c Reviewed date:09/13/2020 15:17:55 Interpretation: Performing Lab:[facility] [address] [facility] [address] , ,[place] [id number] HEMOGLOBIN A1c 5.9 ESTIMATED AVERAGE GLUCOSE 123 60-110 MAGNESIUM LEVEL Reviewed date:09/13/2020 15:17:47 Interpretation: Performing Lab:[facility], [facility] [address] [facility] [address] , ,[place] [id number] MAGNESIUM LEVEL 2.0 1.8-2.4 LIPID PANEL (CARDIAC RISK) Reviewed date:09/13/2020 15:17:47 Interpretation: Performing Lab:[facility] [address] [place] [address] , ,[place] [id number] TRIGLYCERIDES LEVEL 96 <150 CHOLESTEROL LEVEL 127 <200 HDL CHOLESTEROL 36 >40 LDL CHOLESTEROL 72 <100 NON-HDL-C 91 CHOLESTEROL RISK RATIO 3.527 <5 TSH Reviewed date:09/13/2020 15:17:47 Interpretation: Performing Lab:[facility] [address] [facility] [address] , ,[place] [id number] THYROID STIMULATING HORMONE 1.940 0.358-3.740 VITAMIN D 25-HYDROXY Reviewed date:09/13/2020 15:17:47 Interpretation: Performing Lab:[facility] [address] [facility] [address] , ,[facility]01 TOTAL 25(OH) VITAMIN D 36.0 30.0-100.0 X ray : Chest with 2 views Reviewed date:09/13/2020 15:39:29 Interpretation: Performing Lab:[facility], ,[place] [id number] REASON FOR VISIT 6 month MEDICAL (GENERAL) HISTORY Type Description Date Medical [...] A Flutter 11/22, consider car dioversion, per [facility], 04/24 P A fib noted on pacer interrogation Medical History 04/23 PFTs mod diffusion impa irment, DLCO 58% predicted, FVC reduced - 58% predicted, and FEV1 reduced 56% predicted Surgical History Tonsillectomy as a child Surgical History Cath - CABG/MVR, L thoracent esis, pacemaker (d/t complete heart block) Hospitalization History CHF @[facility] 02/2018 Hospitalization History Childbirth, vaginal deliveries 1967, 1969 Hospitalization History [facility]G [id number] Goals Section No Information Health Concerns No Information MEDICAL EQUIPMENT No Information MENTAL STATUS No Information FUNCTIONAL STATUS No Information ASSESSMENTS Encounter Date Diagnosis Assessment Notes Treatment Notes Treatm ent Clinical Notes Sep, Hypertensive heart disease with heart failure (I CD-10 - I11.0) Pt doing well, cont current med, cont f/u with Cardio. Sep, Chronic diastolic (congestive) heart failure (IC D-10 - I50.32) Appears compensated. Sep, Chronic respiratory failure with hypoxia (ICD-10 - J96.11) Sep, Impaired fasting glucose (ICD-10 - R73.01) 03/2020 A1c 6 % Sep, 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 without angina pectoris (ICD-10 - I25.810) Pt cont to follow with Cardio. Sep, Vitamin D deficiency (ICD-10 - E55.9) Sep, Peripheral vascular disease (ICD-10 - I73.9) Sep, Other Defers mammogram s. Defers DEXA. Defers colonoscopy, defers iFOB. No imms in many years. PN 13 04/23, PN23 04/21/19. Counseled on Shingrix, Flu 07/2020 PLAN OF TREATMENT Treatment Notes Assessment Notes Clinical Notes Hypertensive heart disease with heart failure Pt doing well, cont current med, cont f/u with Cardio. Chronic diastolic (congestive) heart failure Appears compens ated. Impaired fasting glucose 03/2020 A1c 6 % Coronary artery disease involving hayes ry bypass graft of absentee-[place]nee heart without angina pectoris Pt cont to follow with Cardio. Next Appt Details BW and CXR today f/u in 6 months Reason: Insurance Providers Payer Name Payer Address Payer Phone Insured Name Patient Relati onship to Insured Coverage Start Date Coverage End Date AETNA [facility] [address] [facility] [id number] GAMALIEL SWIFT V self
--- OUTSIDE RECORDS SUMMARY | 2020-10-29 14:22 | CCD ---
Author Author [facility] Organization [facility] Address Unknown Phone Unavailable Care Team Providers Care Emergency Veterinarian Name Role Phone Samaria Chauhan Unavailable PROBLEMS Type Condition ICD9-CM Code MQU11-BV Code Onset Dates Condition S tatus SNOMED Code Notes Problem Chronic respiratory failure with hypoxia J96.11 Active 76369643 Problem Chronic respiratory failure with hypercapnia J96.1 2 Active 121410566 Problem History of nicotine dependence Z87.891 Active 1 96578017 Problem Peripheral vascular disease I73.9 Active 4000 79668 Problem Impaired fasting glucose R73.01 Active 2364930 07 Problem Nocturnal oxygen desaturation G47.34 Active 23 2300983 Problem Hypertensive heart disease with heart failure I11.0 Active 9541509 Problem Vitamin D deficiency E55.9 Active 59749270 Problem Chronic diastolic (congestive) heart failure I50.3 2 Active 507518169 Problem H/O mitral valve replacement Z95.2 Active 124 1524752917 Problem Bioprosthetic mitral valve replacement, current hospit alization Z95.3 Active 16561737737259 Problem Coronary artery disease invo lving coronary bypass graft of [place] heart without 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 Active 869279351 Problem Complete heart block I44.2 Active 68543721 ALLERGIES No Known Allergies ENCOUNTERS from 1945 to 2020-09-17 Encounter Location Date Provider Diagnosis [id number] [place] [address] 08 Sep, 2020 Mar dudley Vallea Cough R05 and Chronic respiratory failure with hypoxia J96.11 IMMUNIZATIONS Vaccine Route Administration Date Status Influenza [...] Education Language: Question Answer Notes Languages spoken: Nigerien Restorationism: Question Answer Notes Restorationism 13 Religious Sexual Hx: Question Answer Notes [...] days Dec, Active PROCEDURES No Information RESULTS No Results [...] A Flutter 11/22, consider car dioversion, [place] [facility] P A fib noted on pacer interrogation Medical History 04/23 PFTs mod diffusion impa irment, DLCO 58% predicted, FVC reduced - 58% predicted, and FEV1 reduced 56% predicted Surgical History Tonsillectomy as a child Surgical History Cath - CABG/MVR, L thoracent esis, pacemaker (d/t complete heart block) Hospitalization History CHF @[facility] 02/2018 Hospitalization History Childbirth, vaginal deliveries 1969 Hospitalization History [facility] - CABG [id number] Goals Section No Information Health Concerns No Information MEDICAL EQUIPMENT No Information MENTAL STATUS No Information FUNCTIONAL STATUS No Information ASSESSMENTS Encounter Date Diagnosis Assessment Notes Treatment Notes Treatm ent Clinical Notes Sep, Cough (ICD-10 - R05) Sep, Chronic respiratory failure with hypoxia (ICD-10 - J96.11) PLAN OF TREATMENT Future Test Test Name Order Date [facility] CT Chest without contrast [id number] Insurance Providers Payer Name Payer Address Payer Phone Insured Name Patient Relati onship to Insured Coverage Start Date Coverage End Date AETNA [facility] [place] [address] [facility] [id number] GAMALIEL SWIFT
[2020-10-29] MEDS ORDERED: methylPREDNISolone 125MG 2ML VIAL IV ONE (15:00)
[2020-10-29] MEDS ORDERED: FUROSEMIDE 40MG/4ML VIAL (J1940) IV ONE (15:00)
[2020-10-29 15:08] LABS: BASO # 0.1 10^3/uL (0.0-0.2); BASO % 0.3 % (0.0-1.0); HEMATOCRIT 43.4 % (36.0-47.0); HEMOGLOBIN 13.6 g/dl (12.0-15.5); LYMPH # 1.7 10^3/uL (1.5-5.0); LYMPH % 7.6 % (24.0-44.0); MEAN CORPUSCULAR HEMOGLOBIN 26.8 pg (27.0-33.0); MEAN CORPUSCULAR HGB CONC 31.3 g/dl (32.0-36.5); MEAN CORPUSCULAR VOLUME 85.6 fl (80.0-96.0); MONO # 1.1 10^3/uL (0.0-0.8); MONO % 5.1 % (2.0-8.0); NEUTROPHILS # 19.2 10^3/uL (1.5-8.5); NEUTROPHILS % 86.1 % (36.0-66.0); PLATELET COUNT, AUTOMATED 243 10^3/uL (150-450); RED BLOOD COUNT 5.07 10^6/uL (4.00-5.40); WHITE BLOOD COUNT 22.3 10^3/uL (4.0-10.0)
--- OUTSIDE RECORDS SUMMARY | 2020-10-29 15:09 | CCD ---
Author Author [facility] Organization [facility] Address Unknown Phone Unavailable Care Team Providers Care Waiter/Waitress Tavern Name Role Phone Dena Paz MD Unavailable Unavailable Dena Paz MD Unavailable Unavailable Dena Paz MD Unavailable Unavailable Dena Paz MD Unavailable Unavailable Dena Paz MD Unavailable Unavailable Dena Paz MD Unavailable Unavailable Dena Paz MD Unavailable Unavailable Dena Paz MD Unavailable Unavailable Dena Paz MD Unavailable Unavailable Dena Paz MD Unavailable Unavailable Dena Paz MD Unavailable Unavailable Dena Pza MD Unavailable Unavailable Dena Paz MD Unavailable [...] Unavailable Dena Paz MD Unavailable Unavailable Dena aPz MD Unavailable Unavailable Dena Paz MD Unavailable [...] Unavailable Dena Paz MD Unavailable Unavailable Dena Pza MD Unavailable Unavailable Dena Paz MD Unavailable Unavailable Dena Paz MD Unavailable Unavailable Dena Paz MD Unavailable Unavailable Dena Paz MD Unavailable Unavailable Dena Paz MD Unavailable Unavailable Fons, M Johanna RN ASSESSMENT Unavailable Unavailable Fons, M Johanna RN ASSESSMENT Unavailable Unavailable Fons, M Johanna RN ASSESSMENT Unavailable Unavailable Fons, M Johanna RN ASSESSMENT Unavailable Unavailable Fons, M Johanna RN ASSESSMENT Unavailable Unavailable Fons, M Johanna RN ASSESSMENT Unavailable Unavailable Fons, M Johanna RN ASSESSMENT Unavailable Unavailable Fons, M Johanna RN ASSESSMENT Unavailable Unavailable Fons, M Johanna RN ASSESSMENT Unavailable Unavailable Fons, M Johanna RN ASSESSMENT Unavailable Unavailable Fons, M Johanna RN ASSESSMENT Unavailable Unavailable Fons, M Johanna RN ASSESSMENT Unavailable Unavailable Fons, M Johanna RN ASSESSMENT Unavailable Unavailable Fons, M Johanna RN ASSESSMENT Unavailable Unavailable Fons, M Johanna RN ASSESSMENT Unavailable Unavailable Fons, M Johanna RN ASSESSMENT Unavailable Unavailable Fons, M Johanna RN ASSESSMENT Unavailable Unavailable Fons, M Johanna RN ASSESSMENT Unavailable Unavailable Fons, M Johanna RN ASSESSMENT Unavailable Unavailable Fons, M Johanna RN ASSESSMENT Unavailable Unavailable Fons, M Johanna RN ASSESSMENT Unavailable Unavailable Fons, M Johanna RN ASSESSMENT Unavailable Unavailable Fons, M Johanna RN ASSESSMENT Unavailable Unavailable Fons, M Johanna RN ASSESSMENT Unavailable Unavailable Fons, M Johanna RN ASSESSMENT Unavailable Unavailable Fons, M Johanna RN ASSESSMENT Unavailable Unavailable Fons, M Johanna RN ASSESSMENT Unavailable Unavailable Fons, M Johanna RN ASSESSMENT Unavailable Unavailable Fons, M Johanna RN ASSESSMENT Unavailable Unavailable Fons, M Johanna RN ASSESSMENT Unavailable Unavailable Fons, M Johanna RN ASSESSMENT Unavailable Unavailable Fons, M Johanna RN ASSESSMENT Unavailable Unavailable Fons, M Johanna RN ASSESSMENT Unavailable Unavailable Fons, M Johanna RN ASSESSMENT Unavailable Unavailable Fons, M Johanna RN ASSESSMENT Unavailable Unavailable Fons, M Johanna RN ASSESSMENT Unavailable Unavailable Fons, M Johanna RN ASSESSMENT Unavailable Unavailable Fons, M Johanna RN ASSESSMENT Unavailable Unavailable Fons, M Johanna RN ASSESSMENT Unavailable Unavailable Fons, M Johanna RN ASSESSMENT Unavailable Unavailable Fons, M Johanna RN ASSESSMENT Unavailable Unavailable Fons, M Johanna RN ASSESSMENT Unavailable Unavailable Fons, M Johanna RN ASSESSMENT Unavailable Unavailable Fons, M Johanna RN ASSESSMENT Unavailable Unavailable Fons, M Johanna RN ASSESSMENT Unavailable Unavailable Fons, M Johanna RN ASSESSMENT Unavailable Unavailable Fons, M Johanna RN ASSESSMENT Unavailable Unavailable Fons, M Johanna RN ASSESSMENT Unavailable Unavailable Fons, M Johanna RN ASSESSMENT Unavailable Unavailable Fons, M Johanna RN ASSESSMENT Unavailable Unavailable Fons, M Johanna RN ASSESSMENT Unavailable Unavailable Fons, M Johanna RN ASSESSMENT Unavailable Unavailable Fons, M Johanna RN ASSESSMENT Unavailable Unavailable Fons, M Johanna RN ASSESSMENT Unavailable Unavailable Fons, M Johanna RN ASSESSMENT Unavailable Unavailable Re-disclosure Warning The records that [...] is protected by Article 27-F of the [facility] Public Health law. If you continue you may have access to information: Regarding HIV / AIDS; Provided by facilities licensed or operated by the [facility] Office of Mental Health; or Provided by the [facility] Office for People With Developmental Disabilities. If such information is present, then the following [facility] mandated warning applies: This information has been [...] law may result in a fine or correction sentence or both. A general authorization for the release of medical or other information is NOT sufficient authorization for further disc losure. Family History Family Member Name Family Member Gender Family Member Status Date o f Status Description Data Source(s) Unknown Unknown Problem [facility] ([facility]) father,pgf Encounters Encounter Providers Location Date Indications Data Source(s ) Outpatient [facility].MIKAEL-SJLindsay.MIKAEL 10/28/2020 12:00:00 AM [facility] Outpatient [facility].MIKAEL-SJP.MIKAEL 10/24/2020 12:00:00 AM [facility] Outpatient [facility].MIKAEL-SJP.MIKAEL 10/15/2020 12:00:00 AM [facility] Outpatient [facility].MIKAEL-SJP.MIKAEL 10/09/2020 10:18:33 AM [facility] Unknown [address] [facility] [address] 10/02/2020 12:00:00 AM EST eCW1 ([facility]) Outpatient [facility].MIKAEL-SJLindsay.MIKAEL 10/01/2020 12:00:00 AM EST [facility] Outpatient Attender: Johanna MERCADO [facility].MIKAEL-SJP.MIKAEL 12:00:00 AM EST - 09/24/2020 11:23:49 AM EST [facility] Outpatient [facility].MIKAEL-SJP.MIKAEL 09/24/2020 12:00:00 AM [facility] Unknown [address] [facility] [address] 09/23/2020 12:00:00 AM EST eCW1 ([facility]) Outpatient SJP.MIKAEL-SJP.MIKAEL 09/16/2020 12:00:00 AM EST [facility] Unknown [address] [facility] [place] [address] 09/13/2020 12:00:00 AM EST eCW1 ([facility]) Office Visit, Est Pt., Level 4 PC [address] [place] [address] 09/13/2020 12:00:00 AM EST eCW1 ([facility]) Outpatient SJP.MIKAEL-SJP.MIKAEL 09/09/2020 12:00:00 AM EST [facility] Outpatient SJP.MIKAEL-SJP.MIKAEL 09/05/2020 12:00:00 AM EST [facility] Unknown [address] [facility], [facility] [address] 09/05/2020 12:00:00 AM EST eCW1 ([facility]) Outpatient SJP.MIKAEL-SJP.MIKAEL 08/22/2020 12:00:00 AM EST [facility] Unknown [address] [facility] [address] 08/20/2020 12:00:00 AM EST eCW1 ([facility]) Outpatient SJP.CT-SJP.SYR 08/16/2020 08:03:00 AM EST [facility] Outpatient SJP.MIKAEL-SJP.MIKAEL 08/15/2020 12:00:00 AM EST [facility] Outpatient SJP.MIKAEL-SJP.MIKAEL 08/08/2020 08:29:37 AM EST [facility] Outpatient SJP.MIKAEL-SJP.MIKAEL 07/19/2020 12:00:00 AM EST [facility] Outpatient [address] [facility] [address] 07/12/2020 12:00:00 AM EST eCW1 ([facility]) Outpatient SJP.MIKAEL-SJP.MIKAEL 07/11/2020 12:00:00 AM EST [facility] Outpatient SJP.MIKAEL-SJP.MIKAEL 06/27/2020 12:00:00 AM EDT [facility] Unknown [address] [facility] [address] 06/24/2020 12:00:00 AM EDT eCW1 ([facility]) Outpatient SJP.MIKAEL-SJP.MIKAEL 06/20/2020 12:00:00 AM EDT [facility] Outpatient SJP.MIKAEL-SJP.MIKAEL 06/06/2020 12:00:00 AM EDT [facility] Outpatient SJP.MIKAEL-SJP.MIKAEL 05/30/2020 12:00:00 AM EDT [facility] Outpatient SJP.MIKAEL-SJP.MIKAEL 05/23/2020 12:00:00 AM EDT [facility] Outpatient SJP.MIKAEL-SJP.MIKAEL 05/16/2020 09:53:16 AM EDT [facility] Outpatient SJP.MIKAEL-SJP 05/09/2020 12:56:54 PM EDT [facility] Outpatient SJP.MIKAEL-SJP.MIKAEL 05/09/2020 12:00:00 AM EDT [facility] Outpatient SJP.MIKAEL-SJP.MIKAEL 04/25/2020 10:07:13 AM EDT [facility] Outpatient SJP.MIKAEL-SJP.MIKAEL 04/18/2020 12:00:00 AM EDT [facility] Outpatient SJP.MIKAEL-SJP.MIKAEL 04/04/2020 12:00:00 AM EDT [facility] Outpatient Referrer: Johanna MERCADO SJP.MIKAEL-SJP.MIKAEL 03/26/2020 12:00:00 AM EDT [facility] Office Visit, Est Pt., Level 2 FC [address] [place] [address] 03/26/2020 12:00:00 AM EDT [facility] ([facility]) Outpatient Attender: Johanna Ramirez RN ASSESSMENT SJP.MIKAEL-SJP.MIKAEL 0 01:07:09 PM EDT - 03/22/2020 02:35:52 PM EDT [facility] Outpatient SJP.MIKAEL-SJP.MIKAEL 03/21/2020 09:52:57 AM EDT [facility] [address] [place] [address], [place] [address] 03/19/2020 12:00:00 AM EDT eCW1 ([facility]) Outpatient SJP.MIKAEL-SJP.MIKAEL 03/14/2020 12:00:00 AM EDT [facility] Outpatient SJP.MIKAEL-SJP.MIKAEL 03/07/2020 12:00:00 AM EDT [facility] Outpatient [address] [facility] [address] 03/04/2020 12:00:00 AM EDT eCW1 ([facility]) Outpatient SJP.MIKAEL-SJP.MIKAEL 02/29/2020 09:54:22 AM EDT [facility] Outpatient SJP.MIKAEL-SJP.MIKAEL 02/08/2020 09:56:08 AM EDT [facility] Outpatient SJP.MIKAEL-SJP.MIKAEL 02/01/2020 12:00:00 AM EDT [facility] Outpatient SJP.CT-SJP.SYR 01/25/2020 01:06:49 PM EDT [facility] Outpatient SJP.MIKAEL-SJP.MIKAEL 01/25/2020 10:14:23 AM EDT [facility] Outpatient SJP.CT-SJP.SYR 01/24/2020 11:39:08 AM EDT [facility] Outpatient SJP.MIKAEL-SJP.MIKAEL 01/11/2020 12:00:00 AM EDT [facility] [address] [facility] [address] 01/08/2020 12:00:00 AM EDT eCW1 ([facility]) Outpatient SJP.MIKAEL-SJP.MIKAEL 01/05/2020 12:00:00 AM EDT [facility] Outpatient SJP.MIKAEL-SJP.MIKAEL 01/02/2020 12:00:00 AM EDT [facility] [address] 01/01/2020 12:00:00 AM EDT eCW1 ([facility]) [facility] [address] [place] [address], [place] [address] 12/19/2019 12:00:00 AM EDT eCW1 ([facility]) Outpatient SJP.MIKAEL-SJP.MIKAEL 12/07/2019 12:00:00 AM EDT [facility] [address] [place] [address], [place] [address] 12/01/2019 12:00:00 AM EDT eCW1 ([facility]) [facility] [address] [place] [address], [place] [address] 11/24/2019 12:00:00 AM EDT eCW1 ([facility]) Outpatient SJP.MIKAEL-SJP.MIKAEL 11/16/2019 10:11:29 AM EDT [facility] Outpatient SJP.MIKAEL-SJP.MIKAEL 11/01/2019 09:34:18 AM EST [facility] Outpatient SJP.MIKAEL-SJP.MIKAEL 10/23/2019 12:00:00 AM EST [facility] Outpatient SJP.MIKAEL-SJP.MIKAEL 10/11/2019 01:07:39 PM EST [facility] Outpatient SJP.MIKAEL-SJP.MIKAEL 09/14/2019 01:51:15 PM EST [facility] Outpatient Attender: Dena KIDD.MIKAEL-SJP.MIKAEL 05/2020 12:00:00 AM EST - 09/14/2019 03:05:06 PM EST [facility] [address] [place] [address], [place] [address] 09/04/2019 12:00:00 AM EST eCW1 ([facility]) Immunizations Vaccine Date Status Description Data Source(s) COVID-19 VACCINE, MRNA-1273, LNP-S (MODERNA)/PF 10/18/2020 1 2:00:00 AM EST completed [facility] influenza, recombinant, quadrIvalent,injectable, prese rvative free 07/12/2020 08:15:00 AM EST completed eCW1 ([facility]) influenza, recombinant, quadrIvalent,injectable, prese rvative free 07/12/2020 08:15:00 AM EST completed eCW1 ([facility]) influenza, recombinant, quadrIvalent,injectable, prese rvative free 07/12/2020 08:15:00 AM EST completed eCW1 ([facility]) influenza, recombinant, quadrIvalent,injectable, prese rvative free 07/12/2020 08:15:00 AM EST completed eCW1 ([facility]) influenza, recombinant, quadrIvalent,injectable, prese rvative free 07/12/2020 08:15:00 AM EST completed eCW1 ([facility]) influenza, recombinant, quadrIvalent,injectable, prese rvative free 07/12/2020 08:15:00 AM EST completed eCW1 ([facility]) influenza, recombinant, quadrIvalent,injectable, prese rvative free 07/12/2020 08:15:00 AM EST completed eCW1 ([facility]) Medications Medication Brand Name Start Date Product Form Dose Route Admi nistrative Instructions Pharmacy Instructions Status Indications Reaction Description Data Source(s) Prednisone 20 MG Oral Tablet PredniSONE 20 MG PredniSONE 20 MG 09/23/2020 12:00:00 AM EST 2.0 {tablets} active P redniSONE 20 MG eCW1 ([facility]) Prednisone 20 MG Oral Tablet predniSONE (DELTASONE) 20 MG tablet predniSONE (DELTASONE) 20 MG tablet 09/23/2020 12:00:00 AM EST active [facility] 20 mg 09/23/2020 12:00:00 AM EST tablet 10 TAKE TWO TABLETS BY MOUTH EVERY DAY TAKE TWO TABLETS BY MOUTH EVERY DAY SOLD: 09/23/2020 [facility] Prednisone 20 MG Oral Tablet PredniSONE 20 MG PredniSONE 20 MG 09/23/2020 12:00:00 AM EST 2.0 {tablets} active P redniSONE 20 MG eCW1 ([facility]) Warfarin Sodium 5 MG Oral Tablet warfarin (COUMADIN) 5 MG tablet warfarin (COUMADIN) 5 MG tablet 08/22/2020 12:00:00 AM EST active One to two tabs daily as directed by winding inspector [facility] 5 mg 08/20/2020 12:00:00 AM EST [...] Vitamin D 50 MCG (1999 UT) eCW1 ([facility]) Cholecalciferol 2000 UNT Oral Tablet Vitamin D 50 MCG (1999 UT) Vitamin D 50 MCG (1999 UT) 03/26/2020 12:00:00 AM EDT 1.0 {tablet} ac tive Vitamin D 50 MCG (1999 UT) eCW1 ([facility]) Cholecalciferol 2000 UNT Oral Tablet Vitamin D 50 MCG (1999 UT) Vitamin D 50 MCG (1999 UT) 03/26/2020 12:00:00 AM EDT 1.0 {tablet} ac tive Vitamin D 50 MCG (1999 UT) eCW1 ([facility]) Cholecalciferol 2000 UNT Oral Tablet Vitamin D 50 MCG (1999 UT) Vitamin D 50 MCG (1999 UT) 03/26/2020 12:00:00 AM EDT 1.0 {tablet} ac tive Vitamin D 50 MCG (1999 UT) eCW1 ([facility]) Cholecalciferol 2000 UNT Oral Tablet Vitamin D 50 MCG (1999 UT) Vitamin D 50 MCG (1999 UT) 03/26/2020 12:00:00 AM EDT 1.0 {tablet} ac tive Vitamin D 50 MCG (1999 UT) eCW1 ([facility]) Cholecalciferol 2000 UNT Oral Tablet Vitamin D 50 MCG (1999 UT) Vitamin D 50 MCG (1999 UT) 03/26/2020 12:00:00 AM EDT 1.0 {tablet} ac tive Vitamin D 50 MCG (1999 UT) eCW1 ([facility]) Cholecalciferol 2000 UNT Oral Tablet Vitamin D 50 MCG (1999 UT) Vitamin D 50 MCG (1999 UT) 03/26/2020 12:00:00 AM EDT 1.0 {tablet} ac tive Vitamin D 50 MCG (1999 UT) eCW1 ([facility]) Cholecalciferol 2000 UNT Oral Tablet Vitamin D 50 MCG (1999 UT) Vitamin D 50 MCG (1999 UT) 03/26/2020 12:00:00 AM EDT 1.0 {tablet} ac tive Vitamin D 50 MCG (1999 UT) eCW1 ([facility]) Cholecalciferol 2000 UNT Oral Tablet Vitamin D 50 MCG (1999 UT) Vitamin D 50 MCG (1999 UT) 03/26/2020 12:00:00 AM EDT 1.0 {tablet} ac tive Vitamin D 50 MCG (1999 UT) eCW1 ([facility]) Cholecalciferol 2000 UNT Oral Tablet Vitamin D 50 MCG (1999 UT) Vitamin D 50 MCG (1999 UT) 03/26/2020 12:00:00 AM EDT 1.0 {tablet} ac tive Vitamin D 50 MCG (1999 UT) eCW1 ([facility]) 875-125 mg 03/04/2020 12:00:00 AM EDT tablet 14 TAKE 1 TABLET BY MOUTH EVERY 12 HOURS FOR 7 DAYS TAKE 1 TABLET BY MOUTH EVERY 12 HOURS FOR 7 DAYS SOLD: 03/04/2020 [facility] Furosemide 40 MG Oral Tablet Furosemide 40 MG 01/01/2020 12:00:00 AM E DT active 1 tablet eCW1 ([facility]) Potassium Chloride 20 MEQ Extended Relea se Oral Tablet Potassium Chloride ER 20 MEQ Potassium Chloride ER 20 MEQ 01/01/2020 12:00:00 AM EDT active 1 tablet with food eCW1 ([facility]) Potassium Chloride 20 MEQ Extended Relea se Oral Tablet Potassium Chloride ER 20 MEQ Potassium Chloride ER 20 MEQ 01/01/2020 12:00:00 AM EDT active 1 tablet with food eCW1 ([facility]) Insurance Providers Payer name Policy type / Coverage type Policy ID Covered democrat ID Covered democrat's relationship to beatty Policy Beatty Plan Information AETNA MEDICARE [id number] SP [id number] AETNA MEDICARE [id number] Arlene MEBTX 9DC AETNA MEDICARE O [id number] S 10 [id number] AETNA MEDICARE [id number] SP 10 [id number] AETNA MEDICARE Medicare [id number] AETNA MEDICARE [id number] SP [id number] 9DC AETNA MEDICARE O [id number] S MEBTX 9DC AETNA MEDICARE [id number] SP [id number] [id number] SELF PAY ONLY [id number] SP [id number] AETNA MEDICARE [id number] Arlene MEBPJ G9F AETNA MEDICARE [id number] SP MEBPJ G9F AETNA MEDICARE [id number] Arlene MEBPJ G9F AETNA MEDICARE [id number] SP MEBPJ G9F ANSI-Medicare Part B [id number] AETNA MEDICARE [id number] SP [id number] [id number] ANSI-Medicare Part B [id number] AETNA MEDICARE [id number] Arlene MEBPJ G9F ANSI-Medicare Part B [id number] ANSI-Medicare Part B [id number] ANSI-Medicare Part B [id number] ANSI-Medicare Part B [id number] ANSI-Medicare Part B [id number] ANSI-Medicare Part B [id number] AETNA MEDICARE - SWING [id number] AETNA MEDICARE PPO - IP [id number] AETNA MEDICARE Medicare [facility] ANSI-Medicare Part B [id number] ANSI-Medicare Part B [id number] ANSI-Medicare Part B [id number] ANSI-Medicare Part B [id number] ANSI-Medicare Part B [id number] ANSI-Medicare Part B [id number] MEDICARE [id number] SP [id number] A AETNA MEDICARE [id number] SP MEBPJ G9F AETNA MEDICARE O [id number] S MEBPJ G9F Aetna Ppo/Pos/Nap/[employer] Commercial [id number] Self [id number] Aetna Ppo/Pos/Nap/[employer] Commercial [id number] Self [id number] Problems, Conditions, and Diagnoses Code Display Name Description Problem Type Effective Dates Data Source(s) I25.10 Coronary artery disease Coronary artery disease [id number] 09/24/2020 12:00:00 AM [facility] E55.9 Vitamin D deficiency Vitamin D deficiency Problem 03/26/2020 12:00:00 AM EDT eCW1 ([facility]) I10 Essential hypertension Essential hypertension [id number] 09/14/2019 12:00:00 AM [facility] I48.0 Paroxysmal atrial fibrillation Paroxysmal atrial fibri llation Diagnosis 10/24/2020 08:59:28 AM [facility] I10 Essential (primary) hypertension Essential (primary) h ypertension Diagnosis 09/24/2020 08:32:30 AM [facility] Z95.0 Presence of cardiac pacemaker Presence of cardiac pace maker Diagnosis 09/24/2020 08:32:30 AM [facility] I73.9 Peripheral vascular disease, unspecified Peripheral vascular disease, unspecified Diagnosis 09/24/2020 08:32:30 AM [facility] J44.9 Chronic obstructive pulmonary disease, u nspecified Chronic obstructive pulmonary disease, u Diagnosis 09/24/2020 08:32:30 AM [facility] 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 I25.10 Atherosclerotic heart diseas e of [place] coronary artery without angina pectoris Atherosclerotic heart disease of [place] Diagnosis 09/24/2020 08:32:30 AM EST [facility] Surgeries/Procedures Procedure Description Date Indications Data Source(s) Immunization: Flublok Quadrivalent (18 years & older) 0.5mL IM (Influenza) 07/12/2020 12:00:00 AM EST W1 ([facility]) BASIC METABOLIC PANEL CALCIUM TOTAL BASIC METABOLIC PANEL Routine 03/25/2020 03/25/2020 12:00:00 AM EDT [facility] PHYSICIAN TELEPHONE EVALUATION 5-10 MIN 12/01/2019 12: 00:00 AM EDT W1 ([facility]) Results ID Date Data Source VITAMIN D 25-HYDROXY 09/13/2020 12:00:00 AM EST eCW1 ([facility]) Name Value Range Interpretation Code Description Data Vivienne rce(s) Supporting Document(s) 36.0 30.0-100.0 TOTAL 25(OH) VITAMIN D eC W1 ([facility]) ID Date Data Source TSH 09/13/2020 12:00:00 AM EST eCW1 ([facility]) Name Value Range Interpretation Code Description Data Vivienne rce(s) Supporting Document(s) 1.940 0.358-3.740 THYROID STIMULATING HORM ONE eCW1 ([facility]) ID Date Data Source LIPID PANEL (CARDIAC RISK) 09/13/2020 12:00:00 AM EST eCW1 ( [facility]) Name Value Range Interpretation Code Description Data Vivienne rce(s) Supporting Document(s) Triglyceride [Mass/volume] in Serum or Plasma by calculation 96 <150 TRIGLYCERIDES LEVEL [facility] ([facility]) Cholesterol [Moles/volume] in Serum or Plasma 127 <200 CHOLESTEROL LEVEL eCW1 ([facility]) Cholesterol in HDL [Moles/volume] in Serum or Plasma 36 >40 HDL CHOLESTEROL eCW1 ([facility]) 91 NON-HDL-C eCW1 ([facility]) Cholesterol in LDL [Mass/volume] in Serum or Plasma by calculation 72 <100 LDL CHOLESTEROL eCW1 ([facility]) 3.527 <5 CHOLESTEROL RISK RATIO eCW1 ([facility]) ID Date Data Source MAGNESIUM LEVEL 09/13/2020 12:00:00 AM EST eCW1 ([facility]) Name Value Range Interpretation Code Description Data Vivienne rce(s) Supporting Document(s) 2.0 1.8-2.4 MAGNESIUM LEVEL eCW1 ([facility]) ID Date Data Source [id number] 09/13/2020 12:00:00 AM EST eCW1 ([facility]) Name Value Range Interpretation Code Description Data Vivienne rce(s) Supporting Document(s) Hemoglobin A1c/Hemoglobin.total in Blood 5.9 HEMOGLOBIN A1c eCW1 ([facility]) ID Date Data Source Comprehensive Metabolic Profile (CMP) 09/13/2020 12:00:00 AM EST eCW1 ([facility]) Name Value Range Interpretation Code Description Data Vivienne rce(s) Supporting Document(s) 12 7-18 BLOOD UREA NITROGEN eCW1 ([facility]) 93 70-100 GLUCOSE, FASTING eCW1 ([facility]) 0.65 0.55-1.30 CREATININE FOR GFR eCW1 ([facility]) 136 136-145 SODIUM LEVEL eCW1 ([facility]) > 60.0 >39 GLOMERULAR FILTRATION RATE eCW 1 ([facility]) 4.6 3.5-5.1 POTASSIUM SERUM eCW1 ([facility]) 101 98-107 CHLORIDE LEVEL eCW1 ([facility]) 9.0 8.8-10.2 CALCIUM LEVEL eCW1 ([facility]) 29 12-78 ALT/SGPT eCW1 ([facility]) 30 7-37 AST/SGOT eCW1 ([facility]) 28 21-32 CARBON DIOXIDE LEVEL eCW1 ([facility]) 8.1 6.4-8.2 TOTAL PROTEIN eCW1 ([facility]) 0.8 0.2-1.0 BILIRUBIN,TOTAL eCW1 ([facility]) 3.1 3.2-5.2 ALBUMIN eCW1 ([facility]) 129 45-117 ALKALINE PHOSPHATASE eCW1 ([facility]) 0.6 1.2-2.2 ALBUMIN/GLOBULIN RATIO eCW1 [facility] [place]) ID Date Data Source CBC - Complete Blood Count 09/13/2020 12:00:00 AM EST eCW1 ( [facility]) Name Value Range Interpretation Code Description Data Vivienne rce(s) Supporting Document(s) 13.2 12.0-15.5 HEMOGLOBIN eCW1 ([facility]) 14.1 4.0-10.0 WHITE BLOOD COUNT eCW1 ([facility]ly [facility], [facility]) 4.83 4.00-5.40 RED BLOOD COUNT eCW1 (Formerly [facility]) 42.8 36.0-47.0 HEMATOCRIT eCW1 ([facility]) 88.6 80.0-96.0 MEAN CORPUSCULAR VOLUME e CW1 ([facility]) 30.8 32.0-36.5 MEAN CORPUSCULAR HGB CONC eCW1 ([facility]) 27.3 27.0-33.0 MEAN CORPUSCULAR HEMOGLOB IN eCW1 ([facility]) 280 150-450 PLATELET COUNT, AUTOMATED eCW1 ([facility]) 15.4 11.5-14.5 RED CELL DISTRIBUTION WID TH eCW1 ([facility]) ID Date Data Source ADM CHEST 2 VIEW 06/17/2020 10:29:35 AM EDT eCW1 ([facility]) Name Value Range Interpretation Code Description Data Vivienne rce(s) Supporting Document(s) ADM CHEST 2 VIEW eCW1 ([facility]) ID Date Data Source [id number] 05/09/2020 12:56:18 PM EDT [facility] Name Value Range Interpretation Code Description Data Vivienne rce(s) Supporting Document(s) &PDF [facility] XIWPTp2fWsWEMxZq72/DDKkkECHbx5EyENngEQx3SFiuVNNtY1CryZxdYSOSQJGSTEjQLLVMDILtYNB5 waW [file] ICAgICAgICAgICAgICAgICAgICAgICAgICAgICAgIC AgICAgICAgICAgICAgICAgICAgICAgICAgICAgICAgICAgICAgICAgICAgICAgICAgICAgICAgDQogIC AgICAgICAgICAgICAgICAgICAgICAgICAgICAgICAgICAgICAgICAgICAgICAgICAgICAgICAgICAgIC AgICAgICAgICAgICAgICAgICAgICAgICAgICAgICAg ICAgICAgDQogICAgICAgICAgICAgICAgICAgICAgICAgICAgICAgICAgICAgICAgICAgICAgICAgICAg ICAgICAgICAgICAgICAgICAgICAgICAgICAgICAgICAgICAgICAgICAgICAgICAgDQogICAgICAgICAg ICAgICAgICAgICAgICAgICAgICAgICAgICAgICAgIC AgICAgICAgICAgICAgICAgICAgICAgICAgICAgICAgICAgICAgICAgICAgICAgICAgICAgICAgICAgDQ ogICAgICAgICAgICAgICAgICAgICAgICAgICAgICAgICAgICAgICAgICAgICAgICAgICAgICAgICAgIC AgICAgICAgICAgICAgICAgICAgICAgICAgICAgICAg ICAgICAgICAgDQogICAgICAgICAgICAgICAgICAgICAgICAgICAgICAgICAgICAgICAgICAgICAgICAg ICAgICAgICAgICAgICAgICAgICAgICAgICAgICAgICAgICAgICAgICAgICAgICAgICAgDQogICAgICAg ICAgICAgICAgICAgICAgICAgICAgICAgICAgICAgIC AgICAgICAgICAgICAgICAgICAgICAgICAgICAgICAgICAgICAgICAgICAgICAgICAgICAgICAgICAgIC AgDQogICAgICAgICAgICAgICAgICAgICAgICAgICAgICAgICAgICAgICAgICAgICAgICAgICAgICAgIC AgICAgICAgICAgICAgICAgICAgICAgICAgICAgICAg ICAgICAgICAgICAgDQogICAgICAgICAgICAgICAgICAgICAgICAgICAgICAgICAgICAgICAgICAgICAg ICAgICAgICAgICAgICAgICAgICAgICAgICAgICAgICAgICAgICAgICAgICAgICAgICAgICAgDQogICAg ICAgICAgICAgICAgICAgICAgICAgICAgICAgICAgIC AgICAgICAgICAgICAgICAgICAgICAgICAgICAgICAgICAgICAgICAgICAgICAgICAgICAgICAgICAgIC ZoBFCsAZz4T9fpWWUpWUZgOO8sIZp8Cf1+GDiFCyDsHIK7leCbyC0UWC4zi9ArHNseLGNvs3YwCWy9IT 2SQFWzIDhaNQ5LCQijkm6QBROrSQLlrCGIm3ujHzEr CJM3LESqFktyAC3LUTScJ9wcmuRkGNJlEBRNAA3JGuOvT4PadT89NTHMJc4+UUcmtkVsNezCAwQ6YCQy m6PfYWt7NR4CDIRvEYfgQK8LUTZniD2wOAfoTX1CGxFzJXCtRMAUNnQdH12acXInBRg7O7WyIzVyQGQy RmlsZXMgPDwvTmFtZXMgWyBdDQogID4+ID4+DQogIC 2LAQuhzmJrWVOjNl3LLROoARA1VXRaaKEgFICfBWGSQNwwQA0NuUEwUNC4dZ4zPAwnBPXrAKVnF4gNWt BkaEjvFJ82kOlcgoNlzDIvMDk+Ch7WCQ1om4RbDVf8fdVkURazZNT0PXhxMVDkUMRtDSNiZGG1BUN6GQ JINqMcKPRaVODtPIqtBAXlTGIdnj4LXPNoWCCsGWO5 YWJiGBEzCNInPDfdUXVcIUF5SQH5CDGpBRJiJK4GIlWcYNHeIENaLAyhMADvHNMabm6BPBOsESWyGqZ1 IsRfCZNsTDUqWVsjCMZiWCNkRTkxWDWkDNRgZV2MMsEtEOOnKYF2HpmoLORmOSXjdq3ZWTUjVMKuUDWb VRAnCWWvAGRdVNlmVQEoVLZ5MpO1SXNvDBWiJJ4KJo OlIQHfBOMvDkZwOHGzHKKhtz1RBMSmMBTwJZB1ATElLXPiBAQmAYavBVGaIOI1KWBhVMNsSELvME0JMh FdEFTuVRRdTYHrRODmKRMzxa2YTSZbWWJvIXR2NwSoMIVyCXRqLKpvDTShRXX9Ybh0NHFzFIOkCH5AXt VvKPSjBHHbMWQcQMWdMEImyv2IrYPlfFpzyq5UGEoC Pg3MxFghSKL2JSlmJh1kuYCsTaPgXZUTOp7UufGyUDRgBVRAHZkeYAZlNQU7OpTdJWKdEvc4ILPeZgWr NkQ4PIB7KuE2XwR1IFNwZcM9ERCcXwV6TJPhJXVbLBO5LGJjDfQdGeD7HCikRvEpQ5G+SB9zBEx+Pg0K s2HyrcJ2woCbMInkSjFfWV1TNIPQD5URYo== ID Date Data Source [id number] 04/01/2020 07:51:39 AM EDT [facility] Name Value Range Interpretation Code Description Data Vivienne rce(s) Supporting Document(s) &PDF [facility] ZVWEQd4rGdOIHgOx70/RATubDUXbi1HdRFrtZMj0BQmlIRXoJ8JpzKfmNXKESECPSTiTAOIOGOCbAUP4 FcG [file] ICAgICAgICAgICAgICAgICAgICAgICAgICAgICAgICAgICAgICAgICAgICAgICAgICAgICAgICAgICAg ICAgDQogICAgICAgICAgICAgICAgICAgICAgICAgIC AgICAgICAgICAgICAgICAgICAgICAgICAgICAgICAgICAgICAgICAgICAgICAgICAgICAgICAgICAgIC AgICAgICAgICAgICAgDQogICAgICAgICAgICAgICAgICAgICAgICAgICAgICAgICAgICAgICAgICAgIC AgICAgICAgICAgICAgICAgICAgICAgICAgICAgICAg ICAgICAgICAgICAgICAgICAgICAgICAgDQogICAgICAgICAgICAgICAgICAgICAgICAgICAgICAgICAg ICAgICAgICAgICAgICAgICAgICAgICAgICAgICAgICAgICAgICAgICAgICAgICAgICAgICAgICAgICAg ICAgICAgDQogICAgICAgICAgICAgICAgICAgICAgIC AgICAgICAgICAgICAgICAgICAgICAgICAgICAgICAgICAgICAgICAgICAgICAgICAgICAgICAgICAgIC AgICAgICAgICAgICAgICAgDQogICAgICAgICAgICAgICAgICAgICAgICAgICAgICAgICAgICAgICAgIC AgICAgICAgICAgICAgICAgICAgICAgICAgICAgICAg ICAgICAgICAgICAgICAgICAgICAgICAgICAgDQogICAgICAgICAgICAgICAgICAgICAgICAgICAgICAg ICAgICAgICAgICAgICAgICAgICAgICAgICAgICAgICAgICAgICAgICAgICAgICAgICAgICAgICAgICAg ICAgICAgICAgDQogICAgICAgICAgICAgICAgICAgIC AgICAgICAgICAgICAgICAgICAgICAgICAgICAgICAgICAgICAgICAgICAgICAgICAgICAgICAgICAgIC AgICAgICAgICAgICAgICAgICAgDQogICAgICAgICAgICAgICAgICAgICAgICAgICAgICAgICAgICAgIC AgICAgICAgICAgICAgICAgICAgICAgICAgICAgICAg ICAgICAgICAgICAgICAgICAgICAgICAgICAgICAgDQogICAgICAgICAgICAgICAgICAgICAgICAgICAg ICAgICAgICAgICAgICAgICAgICAgICAgICAgICAgICAgICAgICAgICAgICAgICAgICAgICAgICAgICAg FCAjHTWnTXGiZECiPOs2Q8wqOCLnLZHtIE3zJNn5Cn 8+HTaLGxRzQSD4gsVvvC7OQL7hx0QbATlkMDHyt0IsGWp4DY2NLZBeXWxbWQ3TMZoqqc5FATAdYMXzmK ISw2wbBiWkNBO4QXMhMuttJB4QALYsJ7ovadGjPJHzSDTSKCvpIIYOKJ2UQdYtE1InjU28UKCRFb6+DQ gmagJnEduGHqXyYSEtu2XwVAe9TZ0WPGIzCAvwWE7W VXGiqR0cPInpDK3ITtNiLOVdLBWHOcTmT81imFYeTQu9U8DoGrReYKXgKoqnPIZvKHqrJpQoHJEfPaAs DQogID4+ID4+EAmhEW2AVZuiofAvLNEjHc8TKISvMQJ1LPBolFDnUlLxEKXBNZpiSS5FlORxTHG5dZ9c DDnrBUMiDGUaU8rQYkOzrMqyAE30vYspnzBybRJvSJ o+Fl8QCC3rs0XoZSx2pmMpAExjGFWkANxwLNKjUHPgGOVmUKS4VCS5CEJDYmUyXONpGFDkMMwqNFQuIU Txdi0UXDOgIHUpMHLrMPEgMURtFWSiHDljPFRpNJLhBZloZXEbPQIuVY1UXhJyHZXkUUPwZLUyJACnEI Xmab1GHAJoZJPmKrO7WCAhVBWhOIQyGGouGAAbNFOr ZQs0HKGvHYBySA7MEaJtDDXhRIAmSszlLCXwMMGdwy5UKCBcVGIoZhC9EcAcVCCpPWKyRAogMWQnKEL5 BCVeBPTqISQsLE8QOgDqOIEeBZo8PspgUMIsWCCrvu6HRLVnWHYfAsvhOPEhVUMxVRSoLZpdVRZbHZB1 OAK3SABxRUWoJZ1WCrJoAFGoTYtvCpXxWLWwEAFilp 6SSSSrWMOkLOF3GSPbZGUaZJShOJvmJEAfQYAyHyB3DAJaAQQsEB2CJsKeKHLbKHG7OOhvZGTsXKMobz 4LNDYaUTLtEHZsEnBiGTGpITXfDQerIJUeBOR3Wuz1NKFpRJGgZV8VNeUhWOJvZFktHMWfLRDyBNHbyd 0MTDGaMAUkPMe1MiEyLPSeKDFuQItkYEGuDABtITo7 MIKhPBTcPI4ONoLjWAieSDMCTjs8VCahT8r8MBPoKb1DM6Bmx2DeHcNuKCHZLOoiGL3abcUiBUKiQy4A X9hTDuodVWUlEwhyURvoIfZcKLXqAMJuLVqtUsGuFyx2TcN6RU4cKGSgPOHiEFUxFXVpTuNaGUQjVfIr AZOgK4McPnWaAhqvSuAgZZ0VAx8LAcI8KPZ4nPKqFv6UVaFbCdJIYaFwSL4GHHr= Procedure Social History Code Duration Value Status Description Data Source(s ) Alcohol intake 09/24/2020 12:00:00 AM EST No completed [facility] Cigarette pack-years 09/24/2020 12:00:00 AM EST UNK completed [facility] Cigarettes smoked current (pack per day) - Reported 09/24/19 12:00:00 AM EST UNK completed [facility] Smoking 09/24/2020 12:00:00 AM EST Former smoker completed Former smoker [facility] Smoking 09/13/2020 12:00:00 AM EST Former Smoker completed Former Smoker eCW1 ([facility]) Smoking 09/13/2020 12:00:00 AM EST Former Smoker completed Former Smoker eCW1 ([facility]) Smoking 09/13/2020 12:00:00 AM EST Former Smoker completed Former Smoker eCW1 ([facility]) Smoking 09/13/2020 12:00:00 AM EST Former Smoker completed Former Smoker eCW1 ([facility]) Smoking 03/26/2020 12:00:00 AM EDT Former Smoker completed Former Smoker eCW1 ([facility]) Smoking 03/26/2020 12:00:00 AM EDT Former Smoker completed Former Smoker eCW1 ([facility]) Smoking 03/26/2020 12:00:00 AM EDT Former Smoker completed Former Smoker eCW1 ([facility]) Smoking 03/26/2020 12:00:00 AM EDT Former Smoker completed Former Smoker eCW1 ([facility]) Smoking 03/26/2020 12:00:00 AM EDT Former Smoker completed Former Smoker eCW1 ([facility]) Smoking 03/26/2020 12:00:00 AM EDT Former Smoker completed Former Smoker eCW1 ([facility]) Vital Signs ID Date Data Source UNK Name Value Range Interpretation Code Description Data Source(s) Oxygen saturation in Arterial blood by Pulse oximetry 93 % 93 % [facility] Body mass index (BMI) [Ratio] 26.94 kg/m2 26.94 kg/m2 [facility] Body weight 78.019 kg 78.019 kg [facility] Body height 170.2 cm 170.2 cm [facility] Heart rate 60 /min 60 /min [facility] Diastolic blood pressure 57 mm[Hg] 57 mm[Hg] [facility] Systolic blood pressure 116 mm[Hg] 116 mm[Hg] [facility] Diastolic blood pressure 82 mm[Hg] 82 mm[Hg] eCW1 ([facility]) Systolic blood pressure 140 mm[Hg] 140 mm[Hg] e CW1 ([facility]) Body temperature 96.1 [degF] 96.1 [degF] eCW1 ( [facility]) Respiratory rate 22 /min 22 /min eCW1 ([facility]) Heart rate 91 /min 91 /min eCW1 ([facility]) Body mass index (BMI) [Ratio] 27.06 kg/m2 27.06 kg/m2 eCW1 ([facility]) Body height [in_i] eCW1 ([facility]) Body weight 178 [lb_av] 178 [lb_av] eCW1 ([facility]) Diastolic blood pressure 86 mm[Hg] 86 mm[Hg] eCW1 ([facility]) Systolic blood pressure 130 mm[Hg] 130 mm[Hg] e CW1 ([facility]) Body temperature 97.5 [degF] 97.5 [degF] eCW1 ( [facility]) Respiratory rate 18 /min 18 /min eCW1 ([facility]) Heart rate 94 /min 94 /min eCW1 ([facility]) Body mass index (BMI) [Ratio] 26.97 kg/m2 26.97 kg/m2 eCW1 ([facility]) Body height [in_i] eCW1 ([facility]) Body weight 177.4 [lb_av] 177.4 [lb_av] eCW1 ([facility] [place]) Diastolic blood pressure 78 mm[Hg] 78 mm[Hg] eCW1 ([facility]) Systolic blood pressure 126 mm[Hg] 126 mm[Hg] e CW1 ([facility]) Body temperature 97.6 [degF] 97.6 [degF] eCW1 ( [facility]) Respiratory rate 24 /min 24 /min eCW1 ([facility]) Heart rate 143 /min 143 /min eCW1 ([facility]) Body mass index (BMI) [Ratio] 27.49 kg/m2 27.49 kg/m2 eCW1 ([facility]) Body height [in_i] eCW1 ([facility]) Body weight 180.8 [lb_av] 180.8 [lb_av] eCW1 ([facility] [place]) Diastolic blood pressure mm[Hg] eCW1 ([facility]) Systolic blood pressure 119 mm[Hg] 119 mm[Hg] e CW1 ([facility]) Heart rate 82 /min 82 /min eCW1 ([facility]) Body mass index (BMI) [Ratio] 27.67 kg/m2 27.67 kg/m2 eCW1 ([facility]) Body height [in_us] eCW1 ([facility]) Body weight Measured [lb_av] eCW1 ([facility]) Patient Treatment Plan of Care Planned Activity Planned Date Details Description Data Source (s) Prednisone 20 MG Oral Tablet 09/23/2020 12:00:00 AM EST eCW1 ([facility]) Prednisone 20 MG Oral Tablet 09/23/2020 12:00:00 AM EST eCW1 ([facility]) Prednisone 20 MG Oral Tablet 09/23/2020 12:00:00 AM EST [facility] Warfarin Sodium 5 MG Oral Tablet 08/22/2020 12:00:00 AM EST [facility] Cholecalciferol 2000 UNT Oral Tablet 03/26/2020 12:00:00 AM EDT eCW1 ([facility]) Cholecalciferol 2000 UNT Oral Tablet 03/26/2020 12:00:00 AM EDT eCW1 ([facility]) Cholecalciferol 2000 UNT Oral Tablet 03/26/2020 12:00:00 AM EDT eCW1 ([facility]) Cholecalciferol 2000 UNT Oral Tablet 03/26/2020 12:00:00 AM EDT eCW1 ([facility]) Cholecalciferol 2000 UNT Oral Tablet 03/26/2020 12:00:00 AM EDT eCW1 ([facility]) Cholecalciferol 2000 UNT Oral Tablet 03/26/2020 12:00:00 AM EDT eCW1 ([facility]) Potassium Chloride 20 MEQ Extended Release Oral Tablet 01/01/2020 12:00:00 AM EDT eCW1 ([facility]) Furosemide 40 MG Oral Tablet 01/01/2020 12:00:00 AM EDT eCW1 ([facility]) Potassium Chloride 20 MEQ Extended Release Oral Tablet 01/01/2020 12:00:00 AM EDT eCW1 ([facility]) Protime-INR 11/28/2018 12:00:00 AM EDT [facility]
[2020-10-29 15:25] LABS: INR 2.88; PROTHROMBIN TIME 30.8 SECONDS (12.5-14.3)
[2020-10-29 15:26] LABS: PARTIAL THROMBOPLASTIN TIME 54.7 SECONDS (24.2-38.5)
--- NOTE | 2020-10-29 15:28 | REP ---
INDICATION: DYSPNEA/COUGH. COMPARISON: Comparison chest x-ray September 13, 2020. TECHNIQUE: Portable upright AP chest radiograph. 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 Median sternotomy wires are seen. The lungs are symmetrically aerated. Vascular interstitial markings are diffusely somewhat prominent. No pleural effusion or focal infiltrate is seen. Heart size is unchanged. No focal infiltrate is seen. Pleural angles are sharp.. IMPRESSION: Diffusely prominent vascular and interstitial markings, question CHF. No pleural effusion or focal infiltrate.. <Electronically signed by Pierre Pierre > 10/29/20 [id number]
[2020-10-29 15:38] LABS: ALBUMIN 2.5 GM/DL (3.2-5.2); ALT/SGPT 19 U/L (12-78); BILIRUBIN,DIRECT 0.5 MG/DL (0.0-0.2); BILIRUBIN,TOTAL 2.6 MG/DL (0.2-1.0); BLOOD UREA NITROGEN 18 MG/DL (7-18); CALCIUM LEVEL 8.6 MG/DL (8.8-10.2); CARBON DIOXIDE LEVEL 28 MEQ/L (21-32); CHLORIDE LEVEL 96 MEQ/L (98-107); CK-MB VALUE MASS < 1.0 NG/ML (<3.6); CPK CREATINE PHOSPHOKINASE 34 U/L (26-192); CREATININE FOR GFR 0.82 MG/DL (0.55-1.30); GLOMERULAR FILTRATION RATE > 60.0 (>39); GLUCOSE, FASTING 97 MG/DL (70-100); MB/CK RELATIVE INDEX 2.94 (< OR =4); NT-PRO BNP 3050 PG/ML (<450); POTASSIUM SERUM 4.2 MEQ/L (3.5-5.1); SODIUM LEVEL 132 MEQ/L (136-145); THYROXINE (T4) 9.8 UG/DL (4.5-12.0); TOTAL PROTEIN 7.3 GM/DL (6.4-8.2); TROPONIN I < 0.02 NG/ML (< 0.10)
[2020-10-29] MEDS ORDERED: BREO1INH3 INH (16:34)
[2020-10-29] MEDS ORDERED: D31000TA2 PO (16:34)
[2020-10-29] MEDS ORDERED: ASPI-161 PO (16:34)
[2020-10-29] MEDS ORDERED: ANTIHISTAMINE PO (16:34)
[2020-10-29] MEDS ORDERED: ATOR80TA59 PO (16:34)
[2020-10-29] MEDS ORDERED: ELIQ5TAB PO (16:34)
--- NOTE | 2020-10-29 16:59 | ECGEPIP ---
[facility] - ED Test Date: 2020-10-29 Pat Name: GAMALIEL OSHEA Department: Room: - Gender: Female [employer]: ty : 1945 Requested By: JOSE MERCADO Order Number: [id number] Reading MD: Jose Astudillo Measurements Intervals [place] Rate: 90 P: 30 [place]: 160 QRS: -71 QRSD: 138 T: 83 QT: 394 QTc: 481 Interpretive Statements Atrial-sensed ventricular-paced rhythm previous tracing done 02-16-18 was not paced Electronically Signed on 10-29-2020 16:59:21 EST by Jose Astudillo
--- NOTE | 2020-10-29 17:24 | REP ---
INDICATION: lower leg swelling; R>L. COMPARISON: None. TECHNIQUE: Bilateral lower extremity duplex venous sonography. FINDINGS: The deep veins are anechoic and fully compressible from the groin to the popliteal fossa in the left and right lower extremity. Color flow imaging is homogeneous. Spectral Doppler interrogation demonstrates intact respiratory variation in flow and normal manual augmentation of flow. There is no evidence of deep vein thrombosis. IMPRESSION: Negative bilateral lower extremity duplex venous ultrasound. No evidence of deep vein thrombosis. <Electronically signed by Pierre Pierre > 10/29/20 [id number]
[2020-10-29] MEDS ORDERED: cefTRIAXone SOD 1 GM in D5W MINI-BAG PLUS 50 ML IV ONE (19:30)
--- NOTE | 2020-10-29 19:51 | REPVR ---
PROCEDURE INFORMATION: Exam: US Abdomen, Limited; Right Upper Quadrant Exam date and time: 10/29/2020 6:51 PM Age: 75 years old Clinical indication: Other: Weakness; Additional info: Elevated liver enzymes; No mri due to pacer TECHNIQUE: Imaging protocol: US abdomen. Real time ultrasound with image documentation. Limited exam focused on the right upper quadrant. COMPARISON: No relevant prior studies available. FINDINGS: Liver: Slightly heterogeneous liver parenchyma is present suggestive of underlying disease. No masses. The right lobe of the liver is normal in size measuring 12.9 cm in length. Gallbladder: Gallstones are present within the gallbladder with a markedly thickened gallbladder wall present measuring 11 mm in thickness. This is suggestive of cholelithiasis with acute cholecystitis. Common bile duct: Normal. No stones. No dilation. The common bile duct is normal in size measuring 3 mm in diameter. Pancreas: Visualized pancreas is slightly hyperechoic suggestive of fatty infiltration. Right kidney: Normal right kidney measuring 11.1 x 6.0 x 5.8 cm. No mass. No hydronephrosis. Aorta: The proximal abdominal aorta is slightly ectatic measuring 2.3 cm in AP diameter. The mid to distal aorta is not visualized due to overlying bowel gas. IMPRESSION: 1. Cholelithiasis with questionable acute cholecystitis. 2. Slightly heterogeneous liver parenchyma is present suggestive of underlying disease. 3. Questionable mild fatty infiltration of the pancreas. 4. The proximal abdominal aorta is slightly ectatic measuring 2.3 cm in AP diameter. The mid to distal aorta is not visualized due to overlying bowel gas. Electronically signed by: Mike Montaño On 10/29/2020 19:52:02 PM
[2020-10-29] MEDS ORDERED: ISOVUE-370 76% 100ML VIAL As Ordered ONE (20:14)
--- OUTSIDE RECORDS SUMMARY | 2020-10-29 20:25 | CCD ---
Author Author [facility] Organization [facility] Address Unknown Phone Unavailable Care Team Providers Care [employer] Driver Name Role Phone Dena Paz MD Unavailable [...] Paz MD Unavailable Unavailable Fons, M Johanna CLIMATOLOGY PROFESSOR Unavailable Unavailable Fons, M Johanna CLIMATOLOGY PROFESSOR Unavailable Unavailable Fons, M Johanna CLIMATOLOGY PROFESSOR Unavailable Unavailable Fons, M Johanna CLIMATOLOGY PROFESSOR Unavailable Unavailable Fons, M Johanna CLIMATOLOGY PROFESSOR Unavailable Unavailable Fons, M Johanna CLIMATOLOGY PROFESSOR Unavailable Unavailable Fons, M Johanna CLIMATOLOGY PROFESSOR Unavailable Unavailable Fons, M Johanna CLIMATOLOGY PROFESSOR Unavailable Unavailable Fons, M Johanna CLIMATOLOGY PROFESSOR Unavailable Unavailable Fons, M Johanna CLIMATOLOGY PROFESSOR Unavailable Unavailable Fons, M Johanna CLIMATOLOGY PROFESSOR Unavailable Unavailable Fons, M Johanna CLIMATOLOGY PROFESSOR Unavailable Unavailable Fons, M Johanna CLIMATOLOGY PROFESSOR Unavailable Unavailable Fons, M Johanna CLIMATOLOGY PROFESSOR Unavailable Unavailable Fons, M Johanna CLIMATOLOGY PROFESSOR Unavailable Unavailable Fons, M Johanna CLIMATOLOGY PROFESSOR Unavailable Unavailable Fons, M Johanna CLIMATOLOGY PROFESSOR Unavailable Unavailable Fons, M Johanna CLIMATOLOGY PROFESSOR Unavailable Unavailable Fons, M Johanna CLIMATOLOGY PROFESSOR Unavailable Unavailable Fons, M Johanna CLIMATOLOGY PROFESSOR Unavailable Unavailable Fons, M Johanna CLIMATOLOGY PROFESSOR Unavailable Unavailable Fons, M Johanna CLIMATOLOGY PROFESSOR Unavailable Unavailable Fons, M Johanna CLIMATOLOGY PROFESSOR Unavailable Unavailable Fons, M Johanna CLIMATOLOGY PROFESSOR Unavailable Unavailable Fons, M Johanna CLIMATOLOGY PROFESSOR Unavailable Unavailable Fons, M Johanna CLIMATOLOGY PROFESSOR Unavailable Unavailable Fons, M Johanna CLIMATOLOGY PROFESSOR Unavailable Unavailable Fons, M Johanna CLIMATOLOGY PROFESSOR Unavailable Unavailable Fons, M Johanna CLIMATOLOGY PROFESSOR Unavailable Unavailable Fons, M Johanna CLIMATOLOGY PROFESSOR Unavailable Unavailable Fons, M Johanna CLIMATOLOGY PROFESSOR Unavailable Unavailable Fons, M Johanna CLIMATOLOGY PROFESSOR Unavailable Unavailable Fons, M Johanna CLIMATOLOGY PROFESSOR Unavailable Unavailable Fons, M Johanna CLIMATOLOGY PROFESSOR Unavailable Unavailable Fons, M Johanna CLIMATOLOGY PROFESSOR Unavailable Unavailable Fons, M Johanna CLIMATOLOGY PROFESSOR Unavailable Unavailable Fons, M Johanna CLIMATOLOGY PROFESSOR Unavailable Unavailable Fons, M Johanna CLIMATOLOGY PROFESSOR Unavailable Unavailable Fons, M Johanna CLIMATOLOGY PROFESSOR Unavailable Unavailable Fons, M Johanna CLIMATOLOGY PROFESSOR Unavailable Unavailable Fons, M Johanna CLIMATOLOGY PROFESSOR Unavailable Unavailable Fons, M Johanna CLIMATOLOGY PROFESSOR Unavailable Unavailable Fons, M Johanna CLIMATOLOGY PROFESSOR Unavailable Unavailable Fons, M Johanna CLIMATOLOGY PROFESSOR Unavailable Unavailable Fons, M Johanna CLIMATOLOGY PROFESSOR Unavailable Unavailable Fons, M Johanna CLIMATOLOGY PROFESSOR Unavailable Unavailable Fons, M Johanna CLIMATOLOGY PROFESSOR Unavailable Unavailable Fons, M Johanna CLIMATOLOGY PROFESSOR Unavailable Unavailable Fons, M Johanna CLIMATOLOGY PROFESSOR Unavailable Unavailable Fons, M Johanna CLIMATOLOGY PROFESSOR Unavailable Unavailable Fons, M Johanna CLIMATOLOGY PROFESSOR Unavailable Unavailable Fons, M Johanna CLIMATOLOGY PROFESSOR Unavailable Unavailable Fons, M Johanna CLIMATOLOGY PROFESSOR Unavailable Unavailable Fons, M Johanna CLIMATOLOGY PROFESSOR Unavailable Unavailable Fons, M Johanna CLIMATOLOGY PROFESSOR Unavailable Unavailable Re-disclosure Warning The records that [...] is protected by Article 27-F of the [facility] Public Health law. If you continue you may have access to information: Regarding HIV / AIDS; Provided by facilities licensed or operated by the [facility] Office of Mental Health; or Provided by the [facility] Office for People With Developmental Disabilities. If such information is present, then the following [facility] mandated warning applies: This information has [...] law may result in a fine or prison sentence or both. A general authorization for the release of medical or other information is NOT sufficient authorization for further disc losure. Family History Family Member Name Family Member Gender Family Member Status Date o f Status Description Data Source(s) Unknown Unknown Problem [facility] ([facility]) father,pgf Encounters Encounter Providers Location Date Indications Data Source(s ) Outpatient [facility].MIKAEL-SJLindsay.MIKEAL 10/28/2020 12:00:00 AM [facility] Outpatient [facility].MIKAEL-SJP.MIKAEL 10/24/2020 12:00:00 AM [facility] Outpatient [facility].MIKAEL-SJP.MIKAEL 10/15/2020 12:00:00 AM [facility] Outpatient [facility].MIKAEL-SJP.MIKAEL 10/09/2020 10:18:33 AM [facility] Unknown [address] [facility] [address] 10/02/2020 12:00:00 AM EST eCW1 ([facility]ly [facility]) Outpatient [facility].MIKAEL-SJLindsay.MIKAEL 10/01/2020 12:00:00 AM EST [facility] Outpatient Attender: Johanna MERCADO [facility].MIKAEL-SJP.MIKAEL 12:00:00 AM EST - 09/24/2020 11:23:49 AM EST [facility] Outpatient [facility].MIKAEL-SJP.MIKAEL 09/24/2020 12:00:00 AM [facility] Unknown [address] [facility] [address] 09/23/2020 12:00:00 AM EST eCW1 ([facility]ly [facility]) Outpatient SJP.MIKAEL-SJP.MIKAEL 09/16/2020 12:00:00 AM EST [facility] Unknown [address] [facility] [place] [address] 09/13/2020 12:00:00 AM EST eCW1 ([facility]ly [facility]) Office Visit, Est Pt., Level 4 PC [address] [place] [address] 09/13/2020 12:00:00 AM EST eCW1 (Formerly [facility]) Outpatient SJP.MIKAEL-SJP.MIKAEL 09/09/2020 12:00:00 AM EST [facility] Outpatient SJP.MIKAEL-SJP.MIKAEL 09/05/2020 12:00:00 AM EST [facility] Unknown [address] [facility], [facility] [address] 09/05/2020 12:00:00 AM EST eCW1 ([facility]ly [facility]) Outpatient SJP.MIKAEL-SJP.MIKAEL 08/22/2020 12:00:00 AM EST [facility] Unknown [address] [facility] [address] 08/20/2020 12:00:00 AM EST eCW1 ([facility]ly [facility]) Outpatient SJP.CT-SJP.SYR 08/16/2020 08:03:00 AM EST [facility] Outpatient SJP.MIKAEL-SJP.MIKAEL 08/15/2020 12:00:00 AM EST [facility] Outpatient SJP.MIKAEL-SJP.MIKAEL 08/08/2020 08:29:37 AM EST [facility] Outpatient SJP.MIKAEL-SJP.MIKAEL 07/19/2020 12:00:00 AM EST [facility] Outpatient [address] [facility] [address] 07/12/2020 12:00:00 AM EST eCW1 ([facility]ly [facility]) Outpatient SJP.MIKAEL-SJP.MIKAEL 07/11/2020 12:00:00 AM EST [facility] Outpatient SJP.MIKAEL-SJP.MIKAEL 06/27/2020 12:00:00 AM EDT [facility] Unknown [address] [facility] [address] 06/24/2020 12:00:00 AM EDT eCW1 ([facility]ly [facility]) Outpatient SJP.MIKAEL-SJP.MIKAEL 06/20/2020 12:00:00 AM EDT [facility] Outpatient SJP.MIKAEL-SJP.MIKAEL 06/06/2020 12:00:00 AM EDT [facility] Outpatient SJP.MIKAEL-SJP.MIKAEL 05/30/2020 12:00:00 AM EDT [facility] Outpatient SJP.MIKAEL-SJP.MIKAEL 05/23/2020 12:00:00 AM EDT [facility] Outpatient SJP.MIKAEL-SJP.MIKAEL 05/16/2020 09:53:16 AM EDT [facility] Outpatient SJP.MIKAEL-SJP 05/09/2020 12:56:54 PM EDT [facility] Outpatient SJP.MIKAEL-SJP.MIKAEL 05/09/2020 12:00:00 AM EDT [facility] Outpatient SJP.MIKAEL-SJP.MIKAEL 04/25/2020 10:07:13 AM EDT [facility] Outpatient SJP.MIKAEL-SJP.MIKAEL 04/18/2020 12:00:00 AM EDT [facility] Outpatient SJP.MIKAEL-SJP.MIKAEL 04/04/2020 12:00:00 AM EDT [facility] Outpatient Referrer: Johanna MERCADO SJP.MIKAEL-SJP.MIKAEL 03/26/2020 12:00:00 AM EDT [facility] Office Visit, Est Pt., Level 2 FC [address] [place] [address] 03/26/2020 12:00:00 AM EDT [facility] (Formerly [facility]) Outpatient Attender: Johanna Ramirez CLIMATOLOGY PROFESSOR SJP.MIKAEL-SJP.MIKAEL 0 01:07:09 PM EDT - 03/22/2020 02:35:52 PM EDT [facility] Outpatient SJP.MIKAEL-SJP.MIKAEL 03/21/2020 09:52:57 AM EDT [facility] [place] [address] [place] [address], [place] [address] 03/19/2020 12:00:00 AM EDT eCW1 ([facility]ly [facility]) Outpatient SJP.MIKAEL-SJP.MIKAEL 03/14/2020 12:00:00 AM EDT [facility] Outpatient SJP.MIKAEL-SJP.MIKAEL 03/07/2020 12:00:00 AM EDT [facility] Outpatient [address] [facility] [address] 03/04/2020 12:00:00 AM EDT eCW1 ([facility]ly [facility]) Outpatient SJP.MIKAEL-SJP.MIKAEL 02/29/2020 09:54:22 AM EDT [facility] Outpatient SJP.MIKAEL-SJP.MIKAEL 02/08/2020 09:56:08 AM EDT [facility] Outpatient SJP.MIKAEL-SJP.MIKAEL 02/01/2020 12:00:00 AM EDT [facility] Outpatient SJP.CT-SJP.SYR 01/25/2020 01:06:49 PM EDT [facility] Outpatient SJP.MIKAEL-SJP.MIKAEL 01/25/2020 10:14:23 AM EDT [facility] Outpatient SJP.CT-SJP.SYR 01/24/2020 11:39:08 AM EDT [facility] Outpatient SJP.MIKAEL-SJP.MIKAEL 01/11/2020 12:00:00 AM EDT [facility] [address] [facility] [address] 01/08/2020 12:00:00 AM EDT eCW1 ([facility]) Outpatient SJP.MIKAEL-SJP.MIKAEL 01/05/2020 12:00:00 AM EDT [facility] Outpatient SJP.MIKAEL-SJP.MIKAEL 01/02/2020 12:00:00 AM EDT [facility] [place] [facility] [address] 01/01/2020 12:00:00 AM EDT eCW1 ([facility]ly [facility]) [facility] [address] [place] [address], [place] [address] 12/19/2019 12:00:00 AM EDT eCW1 ([facility]ly [facility]) Outpatient SJP.MIKAEL-SJP.MIKAEL 12/07/2019 12:00:00 AM EDT [facility] [place] [address] [place] [address], [place] [address] 12/01/2019 12:00:00 AM EDT eCW1 ([facility]ly [facility]) [facility] [address] [place] [address], [place] [address] 11/24/2019 12:00:00 AM EDT eCW1 ([facility]) Outpatient SJP.MIKAEL-SJP.MIKAEL 11/16/2019 10:11:29 AM EDT [facility] Outpatient SJP.MIKAEL-SJP.MIKAEL 11/01/2019 09:34:18 AM EST [facility] Outpatient SJP.MIKAEL-SJP.MIKAEL 10/23/2019 12:00:00 AM EST [facility] Outpatient SJP.MIKAEL-SJP.MIKAEL 10/11/2019 01:07:39 PM EST [facility] Outpatient SJP.MIKAEL-SJP.MIKAEL 09/14/2019 01:51:15 PM EST [facility] Outpatient Attender: Dena KIDD.MIKAEL-SJP.MIKAEL 05/2020 12:00:00 AM EST - 09/14/2019 03:05:06 PM EST [facility] [place] [address] [place] [address], [place] [address] 09/04/2019 12:00:00 AM EST eCW1 ([facility]ly [facility]) Immunizations Vaccine Date Status Description Data Source(s) COVID-19 VACCINE, MRNA-1273, LNP-S (MODERNA)/PF 10/18/2020 1 2:00:00 AM EST completed [facility] influenza, recombinant, quadrIvalent,injectable, prese rvative free 07/12/2020 08:15:00 AM EST completed eCW1 ([facility]) influenza, recombinant, quadrIvalent,injectable, prese rvative free 07/12/2020 08:15:00 AM EST completed eCW1 ([facility]) influenza, recombinant, quadrIvalent,injectable, prese rvative free 07/12/2020 08:15:00 AM EST completed eCW1 ([facility]) influenza, recombinant, quadrIvalent,injectable, prese rvative free 07/12/2020 08:15:00 AM EST completed eCW1 ([facility]) influenza, recombinant, quadrIvalent,injectable, prese rvative free 07/12/2020 08:15:00 AM EST completed eCW1 ([facility]) influenza, recombinant, quadrIvalent,injectable, prese rvative free 07/12/2020 08:15:00 AM EST completed eCW1 ([facility]) influenza, recombinant, quadrIvalent,injectable, prese rvative free 07/12/2020 08:15:00 AM EST completed eCW1 ([facility]) Medications Medication Brand Name Start Date Product Form Dose Route Admi nistrative Instructions Pharmacy Instructions Status Indications Reaction Description Data Source(s) Prednisone 20 MG Oral Tablet PredniSONE 20 MG PredniSONE 20 MG 09/23/2020 12:00:00 AM EST 2.0 {tablets} active P redniSONE 20 MG eCW1 ([facility]) Prednisone 20 MG Oral Tablet predniSONE (DELTASONE) 20 MG tablet predniSONE (DELTASONE) 20 MG tablet 09/23/2020 12:00:00 AM EST active [facility] 20 mg 09/23/2020 12:00:00 AM EST tablet 10 TAKE TWO TABLETS BY MOUTH EVERY DAY TAKE TWO TABLETS BY MOUTH EVERY DAY SOLD: 09/23/2020 [facility] Prednisone 20 MG Oral Tablet PredniSONE 20 MG PredniSONE 20 MG 09/23/2020 12:00:00 AM EST 2.0 {tablets} active P redniSONE 20 MG eCW1 ([facility]) Warfarin Sodium 5 MG Oral Tablet warfarin (COUMADIN) 5 MG tablet warfarin (COUMADIN) 5 MG tablet 08/22/2020 12:00:00 AM EST active One to two tabs daily as directed by sales representative advertising [facility] 5 mg 08/20/2020 12:00:00 AM EST [...] Vitamin D 50 MCG (1999 UT) eCW1 ([facility]) Cholecalciferol 2000 UNT Oral Tablet Vitamin D 50 MCG (1999 UT) Vitamin D 50 MCG (1999 UT) 03/26/2020 12:00:00 AM EDT 1.0 {tablet} ac tive Vitamin D 50 MCG (1999 UT) eCW1 ([facility]) Cholecalciferol 2000 UNT Oral Tablet Vitamin D 50 MCG (1999 UT) Vitamin D 50 MCG (1999 UT) 03/26/2020 12:00:00 AM EDT 1.0 {tablet} ac tive Vitamin D 50 MCG (1999 UT) eCW1 ([facility]) Cholecalciferol 2000 UNT Oral Tablet Vitamin D 50 MCG (1999 UT) Vitamin D 50 MCG (1999 UT) 03/26/2020 12:00:00 AM EDT 1.0 {tablet} ac tive Vitamin D 50 MCG (1999 UT) eCW1 ([facility]) Cholecalciferol 2000 UNT Oral Tablet Vitamin D 50 MCG (1999 UT) Vitamin D 50 MCG (1999 UT) 03/26/2020 12:00:00 AM EDT 1.0 {tablet} ac tive Vitamin D 50 MCG (1999 UT) eCW1 ([facility]) Cholecalciferol 2000 UNT Oral Tablet Vitamin D 50 MCG (1999 UT) Vitamin D 50 MCG (1999 UT) 03/26/2020 12:00:00 AM EDT 1.0 {tablet} ac tive Vitamin D 50 MCG (1999 UT) eCW1 ([facility]) Cholecalciferol 2000 UNT Oral Tablet Vitamin D 50 MCG (1999 UT) Vitamin D 50 MCG (1999 UT) 03/26/2020 12:00:00 AM EDT 1.0 {tablet} ac tive Vitamin D 50 MCG (1999 UT) eCW1 ([facility]) Cholecalciferol 2000 UNT Oral Tablet Vitamin D 50 MCG (1999 UT) Vitamin D 50 MCG (1999 UT) 03/26/2020 12:00:00 AM EDT 1.0 {tablet} ac tive Vitamin D 50 MCG (1999 UT) eCW1 ([facility]) Cholecalciferol 2000 UNT Oral Tablet Vitamin D 50 MCG (1999 UT) Vitamin D 50 MCG (1999 UT) 03/26/2020 12:00:00 AM EDT 1.0 {tablet} ac tive Vitamin D 50 MCG (1999 UT) eCW1 ([facility]) Cholecalciferol 2000 UNT Oral Tablet Vitamin D 50 MCG (1999 UT) Vitamin D 50 MCG (1999 UT) 03/26/2020 12:00:00 AM EDT 1.0 {tablet} ac tive Vitamin D 50 MCG (1999 UT) eCW1 ([facility]) 875-125 mg 03/04/2020 12:00:00 AM EDT tablet 14 TAKE 1 TABLET BY MOUTH EVERY 12 HOURS FOR 7 DAYS TAKE 1 TABLET BY MOUTH EVERY 12 HOURS FOR 7 DAYS SOLD: 03/04/2020 [facility] Furosemide 40 MG Oral Tablet Furosemide 40 MG 01/01/2020 12:00:00 AM E DT active 1 tablet eCW1 ([facility]) Potassium Chloride 20 MEQ Extended Relea se Oral Tablet Potassium Chloride ER 20 MEQ Potassium Chloride ER 20 MEQ 01/01/2020 12:00:00 AM EDT active 1 tablet with food eCW1 ([facility]ly [facility]) Potassium Chloride 20 MEQ Extended Relea se Oral Tablet Potassium Chloride ER 20 MEQ Potassium Chloride ER 20 MEQ 01/01/2020 12:00:00 AM EDT active 1 tablet with food eCW1 ([facility]) Insurance Providers Payer name Policy type / Coverage type Policy ID Covered democrat ID Covered democrat's relationship to beatty Policy Beatty Plan Information AETNA MEDICARE [id number] SP 10 [id number] AETNA MEDICARE [id number] Arlene MEBTX 9DC AETNA MEDICARE O [id number] S 10 [id number] AETNA MEDICARE [id number] SP 10 [id number] AETNA MEDICARE Medicare [id number] AETNA MEDICARE [id number] SP [id number] 9DC AETNA MEDICARE O [id number] MEBTX 9DC AETNA MEDICARE [id number] SP [id number] SELF PAY ONLY [id number] SP [id number] AETNA MEDICARE [id number] Arlene MEBPJ G9F AETNA MEDICARE [id number] SP MEBPJ G9F AETNA MEDICARE [id number] Arlene MEBPJ G9F AETNA MEDICARE [id number] SP MEBPJ G9F ANSI-Medicare Part B [id number] AETNA MEDICARE [id number] SP [id number] [id number] ANSI-Medicare Part B [id number] AETNA MEDICARE [id number] Arlene MEBPJ G9F ANSI-Medicare Part B [id number] ANSI-Medicare Part B [id number] ANSI-Medicare Part B [id number] ANSI-Medicare Part B [id number] ANSI-Medicare Part B [id number] ANSI-Medicare Part B [id number] AETNA MEDICARE - SWING [id number] AETNA MEDICARE PPO - [id number] AETNA MEDICARE Medicare [facility] ANSI-Medicare Part B [id number] ANSI-Medicare Part B [id number] ANSI-Medicare Part B [id number] ANSI-Medicare Part B [id number] ANSI-Medicare Part B [id number] ANSI-Medicare Part B [id number] MEDICARE [id number] SP [id number] A AETNA MEDICARE [id number] SP MEBPJ G9F AETNA MEDICARE O [id number] S MEBPJ G9F Aetna Ppo/Pos/Nap/[employer] [id number] Self [id number] Aetna Ppo/Pos/Nap/[employer] Commercial [id number] Self [id number] Problems, Conditions, and Diagnoses Code Display Name Description Problem Type Effective Dates Data Source(s) I25.10 Coronary artery disease Coronary artery disease [id number] 09/24/2020 12:00:00 AM [facility] E55.9 Vitamin D deficiency Vitamin D deficiency Problem 03/26/2020 12:00:00 AM EDT eCW1 ([facility]) I10 Essential hypertension Essential hypertension [id number] 09/14/2019 12:00:00 AM [facility] I48.0 Paroxysmal atrial fibrillation Paroxysmal atrial fibri llation Diagnosis 10/24/2020 08:59:28 AM [facility] I10 Essential (primary) hypertension Essential (primary) h ypertension Diagnosis 09/24/2020 08:32:30 AM [facility] Z95.0 Presence of cardiac pacemaker Presence of cardiac pace maker Diagnosis 09/24/2020 08:32:30 AM [facility] I73.9 Peripheral vascular disease, unspecified Peripheral vascular disease, unspecified Diagnosis 09/24/2020 08:32:30 AM [facility] J44.9 Chronic obstructive pulmonary disease, u nspecified Chronic obstructive pulmonary disease, u Diagnosis 09/24/2020 08:32:30 AM [facility] 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 Atherosclerosis of coronary artery bypas Diagnosis 09/24/2020 08:32:30 AM EST [facility] Z95.3 Presence of xenogenic heart valve Presence of xe nogenic heart valve Diagnosis 09/24/2020 08:32:30 AM EST [facility] I50.32 Chronic diastolic (congestive) heart evelin lure Chronic diastolic (congestive) heart evelin Diagnosis 09/24/2020 08:32:30 AM EST [facility] I25.10 Atherosclerotic heart diseas e of rose[place] coronary artery without angina pectoris Atherosclerotic heart disease of [place] Diagnosis 09/24/2020 08:32:30 AM EST [facility] Surgeries/Procedures Procedure Description Date Indications Data Source(s) Immunization: Flublok Quadrivalent (18 years & older) 0.5mL IM (Influenza) 07/12/2020 12:00:00 AM EST W1 ([facility]) BASIC METABOLIC PANEL CALCIUM TOTAL BASIC METABOLIC PANEL Routine 03/25/2020 03/25/2020 12:00:00 AM EDT [facility] PHYSICIAN TELEPHONE EVALUATION 5-10 MIN 12/01/2019 12: 00:00 AM EDT W1 ([facility]) Results ID Date Data Source VITAMIN D 25-HYDROXY 09/13/2020 12:00:00 AM EST eCW1 ([facility]) Name Value Range Interpretation Code Description Data Vivienne rce(s) Supporting Document(s) 36.0 30.0-100.0 TOTAL 25(OH) VITAMIN D eC W1 ([facility]) ID Date Data Source TSH 09/13/2020 12:00:00 AM EST eCW1 ([facility]) Name Value Range Interpretation Code Description Data Vivienne rce(s) Supporting Document(s) 1.940 0.358-3.740 THYROID STIMULATING HORM ONE eCW1 ([facility]) ID Date Data Source LIPID PANEL (CARDIAC RISK) 09/13/2020 12:00:00 AM EST eCW1 ( [facility]) Name Value Range Interpretation Code Description Data Vivienne rce(s) Supporting Document(s) Triglyceride [Mass/volume] in Serum or Plasma by calculation 96 <150 TRIGLYCERIDES LEVEL [facility] ([facility]) Cholesterol [Moles/volume] in Serum or Plasma 127 <200 CHOLESTEROL LEVEL eCW1 ([facility]) Cholesterol in HDL [Moles/volume] in Serum or Plasma 36 >40 HDL CHOLESTEROL eCW1 ([facility]) 91 NON-HDL-C eCW1 ([facility]) Cholesterol in LDL [Mass/volume] in Serum or Plasma by calculation 72 <100 LDL CHOLESTEROL eCW1 ([facility]) 3.527 <5 CHOLESTEROL RISK RATIO eCW1 (Count includes the [facility]) ID Date Data Source MAGNESIUM LEVEL 09/13/2020 12:00:00 AM EST eCW1 ([facility]) Name Value Range Interpretation Code Description Data Vivienne rce(s) Supporting Document(s) 2.0 1.8-2.4 MAGNESIUM LEVEL eCW1 ([facility]) ID Date Data Source [id number] 09/13/2020 12:00:00 AM EST eCW1 ([facility]) Name Value Range Interpretation Code Description Data Vivienne rce(s) Supporting Document(s) Hemoglobin A1c/Hemoglobin.total in Blood 5.9 HEMOGLOBIN A1c eCW1 ([facility]) ID Date Data Source Comprehensive Metabolic Profile (CMP) 09/13/2020 12:00:00 AM EST eCW1 ([facility]) Name Value Range Interpretation Code Description Data Vivienne rce(s) Supporting Document(s) 12 7-18 BLOOD UREA NITROGEN eCW1 ([facility]) 93 70-100 GLUCOSE, FASTING eCW1 (Formerly [facility]) 0.65 0.55-1.30 CREATININE FOR GFR eCW1 ([facility]) 136 136-145 SODIUM LEVEL eCW1 ([facility] hospital) > 60.0 >39 GLOMERULAR FILTRATION RATE eCW 1 ([facility]) 4.6 3.5-5.1 POTASSIUM SERUM eCW1 ([facility]ly [facility]) 101 98-107 CHLORIDE LEVEL [facility]CW1 [facility] [facility]) 9.0 8.8-10.2 CALCIUM LEVEL eCW1 ([facility]) 29 12-78 ALT/SGPT eCW1 ([facility]) 30 7-37 AST/SGOT eCW1 ([facility]) 28 21-32 CARBON DIOXIDE LEVEL eCW1 ([facility]) 8.1 6.4-8.2 TOTAL PROTEIN eCW1 ([facility]) 0.8 0.2-1.0 BILIRUBIN,TOTAL eCW1 ([facility]) 3.1 3.2-5.2 ALBUMIN eCW1 ([facility]) 129 45-117 ALKALINE PHOSPHATASE eCW1 ([facility]) 0.6 1.2-2.2 ALBUMIN/GLOBULIN RATIO eCW1 (Count includes the [facility]) ID Date Data Source CBC - Complete Blood Count 09/13/2020 12:00:00 AM EST eCW1 ( [facility]) Name Value Range Interpretation Code Description Data Vivienne rce(s) Supporting Document(s) 13.2 12.0-15.5 HEMOGLOBIN eCW1 ([facility]) 14.1 4.0-10.0 WHITE BLOOD COUNT eCW1 ([facility]) 4.83 4.00-5.40 RED BLOOD COUNT eCW1 ([facility]) 42.8 36.0-47.0 HEMATOCRIT eCW1 ([facility]) 88.6 80.0-96.0 MEAN CORPUSCULAR VOLUME e CW1 ([facility]) 30.8 32.0-36.5 MEAN CORPUSCULAR HGB CONC eCW1 ([facility]) 27.3 27.0-33.0 MEAN CORPUSCULAR HEMOGLOB IN eCW1 ([facility]) 280 150-450 PLATELET COUNT, AUTOMATED eCW1 ([facility]) 15.4 11.5-14.5 RED CELL DISTRIBUTION WID TH eCW1 ([facility]) ID Date Data Source ADM CHEST 2 VIEW 06/17/2020 10:29:35 AM EDT eCW1 ([facility]) Name Value Range Interpretation Code Description Data Vivienne rce(s) Supporting Document(s) ADM CHEST 2 VIEW eCW1 ([facility]) ID Date Data Source [id number] 05/09/2020 12:56:18 PM EDT [facility] Name Value Range Interpretation Code Description Data Vivienne rce(s) Supporting Document(s) &PDF [facility] RAMNLb4cBbIOMpWb69/LXLeeOMKou4VtOItqQBi5LIrpPMKeT3IqqWwpLVKBCVYWUEhBFEVFAVPcVBL3 waW [file] ICAgICAgICAgICAgICAgICAgICAgICAgICAgICAgIC AgICAgICAgICAgICAgICAgICAgICAgICAgICAgICAgICAgICAgICAgICAgICAgICAgICAgICAgDQogIC AgICAgICAgICAgICAgICAgICAgICAgICAgICAgICAgICAgICAgICAgICAgICAgICAgICAgICAgICAgIC AgICAgICAgICAgICAgICAgICAgICAgICAgICAgICAg ICAgICAgDQogICAgICAgICAgICAgICAgICAgICAgICAgICAgICAgICAgICAgICAgICAgICAgICAgICAg ICAgICAgICAgICAgICAgICAgICAgICAgICAgICAgICAgICAgICAgICAgICAgICAgDQogICAgICAgICAg ICAgICAgICAgICAgICAgICAgICAgICAgICAgICAgIC AgICAgICAgICAgICAgICAgICAgICAgICAgICAgICAgICAgICAgICAgICAgICAgICAgICAgICAgICAgDQ ogICAgICAgICAgICAgICAgICAgICAgICAgICAgICAgICAgICAgICAgICAgICAgICAgICAgICAgICAgIC AgICAgICAgICAgICAgICAgICAgICAgICAgICAgICAg ICAgICAgICAgDQogICAgICAgICAgICAgICAgICAgICAgICAgICAgICAgICAgICAgICAgICAgICAgICAg ICAgICAgICAgICAgICAgICAgICAgICAgICAgICAgICAgICAgICAgICAgICAgICAgICAgDQogICAgICAg ICAgICAgICAgICAgICAgICAgICAgICAgICAgICAgIC AgICAgICAgICAgICAgICAgICAgICAgICAgICAgICAgICAgICAgICAgICAgICAgICAgICAgICAgICAgIC AgDQogICAgICAgICAgICAgICAgICAgICAgICAgICAgICAgICAgICAgICAgICAgICAgICAgICAgICAgIC AgICAgICAgICAgICAgICAgICAgICAgICAgICAgICAg ICAgICAgICAgICAgDQogICAgICAgICAgICAgICAgICAgICAgICAgICAgICAgICAgICAgICAgICAgICAg ICAgICAgICAgICAgICAgICAgICAgICAgICAgICAgICAgICAgICAgICAgICAgICAgICAgICAgDQogICAg ICAgICAgICAgICAgICAgICAgICAgICAgICAgICAgIC AgICAgICAgICAgICAgICAgICAgICAgICAgICAgICAgICAgICAgICAgICAgICAgICAgICAgICAgICAgIC DeDFHzTHq9P4ukNOGfUMIlNP7tGIf7Gn9+UIyMYmIpEQY4eaPvvC8GQG0mp6BvQWuaKKDsx0StUKl4TQ 9MXPOkHWnmRO6YZGhtcu6TVGSdAGUgrSFWy8nhYiMn TCA9EBTjKaeoDP3LFGOiK8obowXsOWWdDMMDDQ7ZJnOzP9UqaI06PVSQGl6+OZhfscQnDrnKYrZ4QWLw d4TgOTv3IV8BNWIlEIwfVS3JGCKegW4vAFqiGF0OQiInIYYgDOQKZaTiS02nyBIfBNp2M1LzZqNrFAPx RmlsZXMgPDwvTmFtZXMgWyBdDQogID4+ID4+DQogIC 2FVMjtecYpEMSvVu6OQCLvIXY5FBJuqTNmREJjYLDOJZyeUA2UyZIwTQW1oI3kRHboNASbNYOaO9uBWo BmhZbbLE68xCfyaoYuhQUfXMe+Wh6BEG6ye5CpDQp5ulZxXJryHRX6WJjbACTaZLOuMAVcRFT2TCE3FB PXBwWhUYSzQLYhBDqgCIBpAUVccz4UYYOlNEQxUBD2 IBYyCUMxJMRdWAnvBORsJPP4XZS1OVGcFPQsAY2CAiJeLATgKWMbGMqaSSLmNOFmcy7XYNFgYASlCeC6 NjHqMVCoMNLaJEywJFVdUROgRXgtGAUbWRRbUE2SOkFxNYOfYIE9WtzlFAEjENYycx0LZRLeGRLaRZMe MBEyVOLmFAFmSBzwWLOvJLC5XaG0RDBrBFMkOK4OIg WoMHJjZJJjAdFiTJTjGZTtbn8HCVQyDWEcYWR3RMYnIMTdECBkVAnnYNGkUKU5KXSaHRIpREAwJA0JZe BtRQEaTYLkBYJhCNZeASXbwp1LPKOqSIJrLII7BbIrMMIiBKPoBFnmAVEfVGI1Xup4NWHlNRWmQY5HEv VrCYVqCYOaSRJcRCFjESTtuw6HmEWahDajvp0TQXjP Jv3OvXhwPCI0WZrbYo6luBFdLpXtGEZYPg4VbyVkTKQiPZBFZRraTIYkNQV8ByOiURPrMgc2RDKbNlIg EyV2RFV1CqQ2GpR2IJVtGhU6MKRvRhX2EZYfZSMqXUO5ITOnUyAxWlC1ADvqCeBiB3Y+JJ9eCMv+Pg0K d9EbnpI4nsEoELmdVrGrPQ3ZIKHAS6TLHo== ID Date Data Source [id number] 04/01/2020 07:51:39 AM EDT [facility] Name Value Range Interpretation Code Description Data Vivienne rce(s) Supporting Document(s) &PDF [facility] IYTDDn1hOzSMNsCa31/VDNpySQJqk5UtPYgdDXz0LBixFQMuF3YqiTuuVGVBDSLFUDqGCJJFHAGnDJN2 FcG [file] ICAgICAgICAgICAgICAgICAgICAgICAgICAgICAgICAgICAgICAgICAgICAgICAgICAgICAgICAgICAg ICAgDQogICAgICAgICAgICAgICAgICAgICAgICAgIC AgICAgICAgICAgICAgICAgICAgICAgICAgICAgICAgICAgICAgICAgICAgICAgICAgICAgICAgICAgIC AgICAgICAgICAgICAgDQogICAgICAgICAgICAgICAgICAgICAgICAgICAgICAgICAgICAgICAgICAgIC AgICAgICAgICAgICAgICAgICAgICAgICAgICAgICAg ICAgICAgICAgICAgICAgICAgICAgICAgDQogICAgICAgICAgICAgICAgICAgICAgICAgICAgICAgICAg ICAgICAgICAgICAgICAgICAgICAgICAgICAgICAgICAgICAgICAgICAgICAgICAgICAgICAgICAgICAg ICAgICAgDQogICAgICAgICAgICAgICAgICAgICAgIC AgICAgICAgICAgICAgICAgICAgICAgICAgICAgICAgICAgICAgICAgICAgICAgICAgICAgICAgICAgIC AgICAgICAgICAgICAgICAgDQogICAgICAgICAgICAgICAgICAgICAgICAgICAgICAgICAgICAgICAgIC AgICAgICAgICAgICAgICAgICAgICAgICAgICAgICAg ICAgICAgICAgICAgICAgICAgICAgICAgICAgDQogICAgICAgICAgICAgICAgICAgICAgICAgICAgICAg ICAgICAgICAgICAgICAgICAgICAgICAgICAgICAgICAgICAgICAgICAgICAgICAgICAgICAgICAgICAg ICAgICAgICAgDQogICAgICAgICAgICAgICAgICAgIC AgICAgICAgICAgICAgICAgICAgICAgICAgICAgICAgICAgICAgICAgICAgICAgICAgICAgICAgICAgIC AgICAgICAgICAgICAgICAgICAgDQogICAgICAgICAgICAgICAgICAgICAgICAgICAgICAgICAgICAgIC AgICAgICAgICAgICAgICAgICAgICAgICAgICAgICAg ICAgICAgICAgICAgICAgICAgICAgICAgICAgICAgDQogICAgICAgICAgICAgICAgICAgICAgICAgICAg ICAgICAgICAgICAgICAgICAgICAgICAgICAgICAgICAgICAgICAgICAgICAgICAgICAgICAgICAgICAg WSSjNYMfNFKoLGNcXCh2Q9hcPJRyLXRpMN3hNPh1Vb 8+GNeATdYyZHH9uiZejZ2JCR2op6JlFCijRLFcq5YwZBq5MS8WQXSvFBmgKX9SZLuwcb3LBUTtHQXlrE TDt6vmKcMfOBJ8DEPnTtozQQ9SWGBbR0hznvGtOOSpRQUAUBvbEXYPAD3LQuLvA5QmdO78EFNSDf9+DQ uopcRjYhsHAeBlFEMnd8MoLEu3PU8ZZOXmYEkbZA4A PTLfyA0eMVuhSZ7JTqMhYCAvKJYQPgIiG62amPQyMZr5T0KrKkMcMRYqBrswVRUnINmcXiNiKHPpNhLg DQogID4+ID4+AHylZT3QOGomzuLrVWYpZx4HWNGlBVU3UPUotHTiNdVaNTLJSFihIT8YyBGqGWQ1rH3m KEzxXTVdERPaE9rXJxEwzMstAH96fIjmgyTrqMIqMZ o+Fq1CNR4ze8UwTDk8rgEmDOwkPYXkPZscJREaJPKnPWSlKAO4HAC7MCOJFfUcGGIwLDVoVWqbTAIwXF Uwka1VTYXzHLNsJYYfBKHlMFIwMNPzOOziPTAiHIRaNRyaPGYtEQEuEW6VVaJlLABcZBJuUEHfFNGiXM Hhqi4WVTCzSHRgJeF8ZSDkXEDgGZImYPpvZTPaQNEg YSj4PHYtDJJqLV6MExYoVSSbBCBmNmxxLNRlLAIxvr7WEQCyWDRxGkA8UaOjAXRyFKLgEEqqJZTnWJK5 YGPuXIEpHWIsTD3ZFnXuYDHzIEt6NozuKJIaVUZwxr7INNWgBKYbVpxbKLOdQRAdLMBoZJurLLVtQYO4 DIV2RVAbEPEvFJ4SShRbYDUkVCnsPeAoLVBpQTIagg 6TUUKhOWQrDOO4KEEkVDGhJGBdVAjqNENvLGDsQkH8MPYoVNJqCJ3ZUqYhNHMmKRD3FVcmKPHtXYImhp 0VWXVsNDBpAVBtNqCzOABoTUJeTMcjAEPjAYT0Sfq0PKThCMDeFG5EMtFqARBiMZhgVXHpGNMyNNUhrb 1IACRpLTOiASb6IpWoUXWdXCRfLHwjGXMxPEUlIBq0 MHJwAFWsXZ1GBtKqVMcuOVRNPyt8NRlhG3z3HPPbCa6XR4Yvy8ScBtYeLZVOMSuaPJ4amnPjMFZwBd3D M1mVYkaoHCVeIflyEYscWyMvAIEaNDByXYrbRvDuOri8ZlX5BA3kYEYwVBAcYRUnJCWjQrZoPQVvZiXi YYAbJ8MwYkZsXrgzHpUyQD3MUz2THpT7OZQ9yEZrEa5JUsMuVhPRUaKfIH6UHSe= Procedure Social History Code Duration Value Status Description Data Source(s ) Alcohol intake 09/24/2020 12:00:00 AM EST No completed [facility] Cigarette pack-years 09/24/2020 12:00:00 AM EST UNK completed [facility] Cigarettes smoked current (pack per day) - Reported 09/24/19 12:00:00 AM EST UNK completed [facility] Smoking 09/24/2020 12:00:00 AM EST Former smoker completed Former smoker [facility] Smoking 09/13/2020 12:00:00 AM EST Former Smoker completed Former Smoker eCW1 ([facility]) Smoking 09/13/2020 12:00:00 AM EST Former Smoker completed Former Smoker eCW1 ([facility]) Smoking 09/13/2020 12:00:00 AM EST Former Smoker completed Former Smoker eCW1 ([facility]) Smoking 09/13/2020 12:00:00 AM EST Former Smoker completed Former Smoker eCW1 ([facility]) Smoking 03/26/2020 12:00:00 AM EDT Former Smoker completed Former Smoker eCW1 ([facility]) Smoking 03/26/2020 12:00:00 AM EDT Former Smoker completed Former Smoker eCW1 ([facility]) Smoking 03/26/2020 12:00:00 AM EDT Former Smoker completed Former Smoker eCW1 ([facility]) Smoking 03/26/2020 12:00:00 AM EDT Former Smoker completed Former Smoker eCW1 ([facility]) Smoking 03/26/2020 12:00:00 AM EDT Former Smoker completed Former Smoker eCW1 ([facility]) Smoking 03/26/2020 12:00:00 AM EDT Former Smoker completed Former Smoker eCW1 ([facility]) Vital Signs ID Date Data Source UNK Name Value Range Interpretation Code Description Data Source(s) Oxygen saturation in Arterial blood by Pulse oximetry 93 % 93 % [facility] Body mass index (BMI) [Ratio] 26.94 kg/m2 26.94 kg/m2 [facility] Body weight 78.019 kg 78.019 kg [facility] Body height 170.2 cm 170.2 cm [facility] Heart rate 60 /min 60 /min [facility] Diastolic blood pressure 57 mm[Hg] 57 mm[Hg] [facility] Systolic blood pressure 116 mm[Hg] 116 mm[Hg] [facility] Diastolic blood pressure 82 mm[Hg] 82 mm[Hg] eCW1 ([facility]) Systolic blood pressure 140 mm[Hg] 140 mm[Hg] e CW1 ([facility]) Body temperature 96.1 [degF] 96.1 [degF] eCW1 ( [facility]) Respiratory rate 22 /min 22 /min eCW1 ([facility]) Heart rate 91 /min 91 /min eCW1 ([facility]) Body mass index (BMI) [Ratio] 27.06 kg/m2 27.06 kg/m2 eCW1 ([facility]) Body height [in_i] eCW1 ([facility]) Body weight 178 [lb_av] 178 [lb_av] eCW1 [facility] Diastolic blood pressure 86 mm[Hg] 86 mm[Hg] eCW1 ([facility]) Systolic blood pressure 130 mm[Hg] 130 mm[Hg] e CW1 ([facility]) Body temperature 97.5 [degF] 97.5 [degF] eCW1 ( [facility]) Respiratory rate 18 /min 18 /min eCW1 ([facility]) Heart rate 94 /min 94 /min eCW1 ([facility]) Body mass index (BMI) [Ratio] 26.97 kg/m2 26.97 kg/m2 eCW1 ([facility]) Body height [in_i] eCW1 ([facility]) Body weight 177.4 [lb_av] 177.4 [lb_av] eCW1 (Count includes the [facility]) Diastolic blood pressure 78 mm[Hg] 78 mm[Hg] eCW1 ([facility]) Systolic blood pressure 126 mm[Hg] 126 mm[Hg] e CW1 ([facility]) Body temperature 97.6 [degF] 97.6 [degF] eCW1 ( [facility]) Respiratory rate 24 /min 24 /min eCW1 ([facility]) Heart rate 143 /min 143 /min eCW1 ([facility]) Body mass index (BMI) [Ratio] 27.49 kg/m2 27.49 kg/m2 eCW1 ([facility]) Body height [in_i] eCW1 ([facility]) Body weight 180.8 [lb_av] 180.8 [lb_av] eCW1 (Count includes the [facility]) Diastolic blood pressure mm[Hg] eCW1 ([facility]) Systolic blood pressure 119 mm[Hg] 119 mm[Hg] e CW1 ([facility]) Heart rate 82 /min 82 /min eCW1 ([facility]) Body mass index (BMI) [Ratio] 27.67 kg/m2 27.67 kg/m2 eCW1 ([facility]) Body height [in_us] eCW1 ([facility]) Body weight Measured [lb_av] eCW1 ([facility]) Patient Treatment Plan of Care Planned Activity Planned Date Details Description Data Source (s) Prednisone 20 MG Oral Tablet 09/23/2020 12:00:00 AM EST eCW1 ([facility]) Prednisone 20 MG Oral Tablet 09/23/2020 12:00:00 AM EST eCW1 ([facility]) Prednisone 20 MG Oral Tablet 09/23/2020 12:00:00 AM EST [facility] Warfarin Sodium 5 MG Oral Tablet 08/22/2020 12:00:00 AM EST [facility] Cholecalciferol 2000 UNT Oral Tablet 03/26/2020 12:00:00 AM EDT eCW1 ([facility]) Cholecalciferol 2000 UNT Oral Tablet 03/26/2020 12:00:00 AM EDT eCW1 ([facility]) Cholecalciferol 2000 UNT Oral Tablet 03/26/2020 12:00:00 AM EDT eCW1 ([facility]) Cholecalciferol 2000 UNT Oral Tablet 03/26/2020 12:00:00 AM EDT eCW1 ([facility]) Cholecalciferol 2000 UNT Oral Tablet 03/26/2020 12:00:00 AM EDT eCW1 ([facility]) Cholecalciferol 2000 UNT Oral Tablet 03/26/2020 12:00:00 AM EDT eCW1 ([facility]) Potassium Chloride 20 MEQ Extended Release Oral Tablet 01/01/2020 12:00:00 AM EDT eCW1 ([facility]) Furosemide 40 MG Oral Tablet 01/01/2020 12:00:00 AM EDT eCW1 ([facility]) Potassium Chloride 20 MEQ Extended Release Oral Tablet 01/01/2020 12:00:00 AM EDT eCW1 ([facility]) Protime-INR 11/28/2018 12:00:00 AM EDT [facility]
[2020-10-29] MEDS ORDERED: MAALOX 30 ML SUSP *UDC PO PRN (20:30)
[2020-10-29] MEDS ORDERED: MOM 30ML SUSPENSION UDC PO PRN (20:30)
--- NOTE | 2020-10-29 20:46 | HPEPDOC ---
[facility] Medical History & Physical Date of Admission Oct 29, 2020 Date of Service: Oct 29, 2020 Primary Care Physician: OG ROSALES PA-C Attending Physician: PURNIMA STOVALL MD History and Physical CHIEF COMPLAINT: Shortness of breath HISTORY OF PRESENT ILLNESS: Patient is a 75-year-old female with a complicated medical history consisting of HFpEF, COPD, PVD, CAD s/p CABG, severe insufficiency s/p MVR and atrial fibrillation who contacted her primary care the morning of presentation on 10/29/20. At that time, patient reported that over the last couple days she has been very weak. She was using 1 L of oxygen at night. Reports that at one time, her saturation fell to 74% requiring her oxygen to be increased to 2.5-3 L to maintain a saturation of approximately 92%. Patient reports a chronic cough though somewhat increased. Patient reports that she is quite dyspneic with minimal exertion. Denied any chest pain or pain with breathing. No nausea or vomiting, no abdominal pain or discomfort. No urinary symptoms including dysuria, urinary frequency urgency or hesitancy. Patient PCP advised her department evaluation given her history of desaturation to 74%. She reports marketed improvement in her symptoms since presentation. Upon initial presentation to the ED, patient was found be afebrile pulse of 90 respiratory rate of 16, normotensive with a saturation of 91% with 2 L on nasal cannula. CBC does demonstrate a leukocytosis of 22.3, neutrophil predominance. In regards to her electrolytes, patient was mildly hyponatremic with a sodium of 132, potassium of 4.2, chloride of 96. Renal function within normal limits. Patient was found to have an elevated T bili of 2.6, D bili of 0.5. AST/ALT of 428/19. Alkaline phosphatase of 146. Card roman negative. BMP of 3050, elevated above baseline. Patient's UA did demonstrate 2+ blood, positive nitrite, 3+ LE, TNTC WBC. COVID-19 negative, urine and blood cultures pending. Chest x-ray demonstrated increased vascular markings consistent with CHF. Negative lower extremity ultrasound. Gallbladder ultrasound demonstrates cholelithiasis with questionable acute cholecystitis. Patient was treated with IV methylprednisolone and furosemide for suspected exacerbation of COPD. Given patient's urine findings, she also received a single dose of Rocephin. Hospitalist team was contacted to admit the patient for further workup and management. PAST MEDICAL HISTORY: HFpEF, grade I Hypertensive heart disease Hypoxemic and hypercarbic respiratory failure, oxygen at night at 1 L Obesity Peripheral vascular disease COPD Urinary artery disease, F/P CABG in 11/22 Severe mitral valve insufficiency, S/P MVR, 11/22, previously on coumadin, recently transitioned to Eliquis by cardiology on 10/28/20. PAST SURGICAL HISTORY: Tonsillectomy CABG, MVR Left thoracentesis Pacemaker placement, 2/2 complete heart block SOCIAL HISTORY: Marital status: [facility] is [facility] Children: 2 daughters Tobacco use: She is a former smoker, quit in the mid 1999 ETOH: Denies any alcohol use Illicit drug use: Denies any illicit drug use FAMILY HISTORY: Father: , 79, coronary artery disease Mother: , 78, colon cancer, pancreatic cancer Siblings: 2 brothers, eldest brother, 68, , coronary artery disease. Younger brother is alive with arthritic problems. Children: 2 daughters, alive, history of breast cancer ALLERGIES: Please see below. REVIEW OF SYSTEMS: CONSTITUTIONAL: Patient is reporting a 2 day history of generalized fatigue, denies any changes in her weight, difficulty sleeping HEENT: Has headache, changes in her vision, hearing, sense of taste or smell. No difficulty swallowing. CARDIOVASCULAR: Denies any chest pain or chest pressure, no palpitations or inappropriate tachycardia RESPIRATORY: Reports increased cough over the last 48 hours, though not much more than baseline. Increasing shortness of breath at rest with dyspnea on exertion. Denies any pleurisy, or wheezing. No hemoptysis GASTROINTESTINAL: Denies any belly aches or pains. No nausea or vomiting or hematemesis. No constipation or diarrhea, no dark tarry stools or hematochezia GENITOURINARY: Denies any difficulty with urination including dysuria or urinary frequency urgency or hesitancy. No hematuria SKIN: Denies any bruising or other skin lesions MUSCULOSKELETAL: Denies any joint aches or pains. NEUROLOGICAL: Denies any numbness or tingling or weakness in her extremities. Denies any muscular weakness, no difficulty with her memory, denies difficulty with speech. HOME MEDICATIONS: Please see below. PHYSICAL EXAMINATION: VITAL SIGNS: Please see below GENERAL APPEARANCE: Patient is interviewed and examined in the emergency department. Patient was found to be resting in bed comfortably in no acute distress. She was able to answer questions regarding her medical history appropriately. She was able to actively participate and examination. HEENT: Normocephalic, atraumatic, EOMI, sclera nonicteric, nares are patent, mucous membranes moist. CARDIOVASCULAR: No murmur appreciated, regular rate and rhythm LUNGS: Fair air movement throughout, no crackles appreciated at the lung bases, no wheezing noted ABDOMEN: Soft, nontender, nondistended, no guarding or rigidity, negative Lopez's sign MUSCULOSKELETAL: Patient is able to move her arms and legs appropriately. EXTREMITIES: Trace pretibial edema bilaterally that any overlying skin changes. No calf tenderness bilaterally NEUROLOGICAL: Strength 5 out of 5 in both upper and lower extremities, no aphasia or dysarthria appreciated. Cranial nerves II through XII are grossly intact. PSYCHIATRIC: Mood and affect are appropriate given patient's current clinical condition LABORATORY DATA: See below. IMAGING: Chest x-ray (10/29/20): Diffusely prominent vascular insufficiency markings, question CHF. No pleural effusion or focal infiltrate. Vascular ultrasound (10/29/20): Negative bilateral lower extremity duplex venous ultrasound. No evidence of DVT. Gall bladder ultrasound (10/29/20): Cholelithiasis with questionable acute cholecystitis. Slight her genetic test liver parenchyma present suggestive underlying disease. Questionable mild fatty infiltrate on pancreas. The proximal abdominal aorta is slightly ectatic measuring 2.3 cm in AP diameter. The mid to distal aorta was not visualized due to overlying bowel gas. MICROBIOLOGY: Please see below. ASSESSMENT: Patient is a 75-year-old female, past medical history consisting of COPD, HFpEF, CAD S/P CABG, MVI S/P MVR and hypertensive heart disease who presented to the emergency department on 10/29/20 reporting a 2 day history of worsening shortness of breath and generalized fatigue. Patient states that her symptoms began after she was transitioned from Coumadin to Eliquis on 10/28/20. Reports increasing dyspnea at rest and on exertion requiring her to increase her oxygen from 1 L only at night to 2.5-3L throughout the day to maintain a saturation of 92%. In the emergency department, his vitals were found to be within normal limits. Laboratory evaluation does show a leukocytosis with neutrophil predominance, hyponatremia, transaminitis and a dirty UA. Bladder ultrasound does show cholelithiasis with a question of cholecystitis. Urgency Department, patient was given Rocephin for possible UTI, steroids and IV Lasix for possible CHF exacerbation. Patient was admitted to the hospitalist service for further evaluation and management. At this time, etiology of patient's dyspnea remains unclear. Positive does carry a history of heart failure she does appear clinically euvolemic despite an elevated BMP. She does carry a leukocytosis which leans more favorably towards an infectious etiology. Will be performing a CTA of the patient's chest to help differentiate. Additionally, it is possible that some of patient's symptoms may be related to her Eliquis, as it has been known to cause a transaminitis. At this time, given that the patient denies any abdominal or symptoms, we'll hold off on further antibiotics pending CT results. PLAN: #Dyspnea, etiology unclear -PNA, CHF exacerbation on the differential. History of HFpEF. S/P steroids and diuretics in ED. -The patient does appear clinically euvolemic, she does have an elevated BMP. -Elevated white count does lean towards infectious etiology. Legionella possible given co-existent hyponatremia and elevated AST. -CTA of patient's chest ordered and pending to help differentiate. Consider pro- calcitonin. -MedSurg, oxygen monitoring and titration to maintain saturation 88-92%. Incentive spirometry. Close monitoring of I's and O's and daily weights. #Gall bladder wall thickening -Possible cholecystitis, though patient remains completely asymptomatic with benign physical exam findings. Negative murphys sign. -Continue to monitor clinically and patient's LFTs. Consider GI referral. #Elevated AST, Total and Direct Bili, Alk Phos -Perhaps 2/2 to legionella, cholecystitis, or recent initiation of Eliquis. -Continue LFT monitoring. If elevation remains, consider hepatitis workup. #Hyponatremia -Sosm, Uosm, Urine sodium pending #Asymptomatic bacteruria -Denies urinary symptoms. Pos nitrites and LE on UA. s/p Rocephin in ED. -Will continue to hold antibiotics for now given patient remains asymptomatic. #CAD s/p CABG -ASA, statin, BB #COPD -Advair BID #MVR -c/w Eliquis #Hypertensive heart disease -normotensive, continue home BB DVT PROPHYLAXIS: Eliquis CODE STATUS: DNR/DNI During the admission interview, I directly discussed code status with the earnestine selelrs. She was alert and oriented. She was very clear, stating that she neither wished to have chest compressions performed, nor did she want to be placed on a ventilator. DISPOSITION: Anticipate 2 night stays Vital Signs Vital Signs Date Time Temp Pulse Resp B/P (MAP) Pulse Ox O2 Delivery O2 Flow Rate FiO2 10/29/20 18:15 76 18 112/61 (78) 92 Nasal Cannula 2.0 10/29/20 14:09 97.4 Laboratory Data Labs 24H Laboratory Tests 2 10/29/20 14:54: Immature Granulocyte % (Auto) 0.9, Neutrophils (%) (Auto) 86.1H, Lymphocytes (%) (Auto) 7.6L, Monocytes (%) (Auto) 5.1, Eosinophils (%) (Auto) 0.0, Basophils (%) (Auto) 0.3, Neutrophils # (Auto) 19.2H, Lymphocytes # (Auto) 1.7, Monocytes # (Auto) 1.1H, Eosinophils # (Auto) 0.0, Basophils # (Auto) 0.1, Nucleated Red Blood Cells % (auto) 0.0, Prothrombin Time 30.8H, Prothromb Time International Ratio 2.88, Activated Partial Thromboplast Time 54.7H, Anion Gap 8, Glomerular Filtration Rate > 60.0, Lactic Acid Level 1.5, Calcium Level 8.6L, Total Bilirubin 2.6H, Direct Bilirubin 0.5H, Aspartate Amino Transf (AST/SGOT) 428H, Alanine Aminotransferase (ALT/SGPT) 19, Alkaline Phosphatase 146H, Total Creatine Kinase 34, Creatine Kinase MB < 1.0, Creatine Kinase MB Relative Index 2.94, Troponin I < 0.02, NJ-Hao-X-Type Natriuretic Peptide 3050H, Total Protein 7.3, Albumin 2.5L, Albumin/Globulin Ratio 0.5L, Thyroid Stimulating Hormone (TSH) 1.780, Thyroxine (T4) 9.8 10/29/20 18:34: Urine Color YELLOW, Urine Appearance CLOUDYH, Urine pH 5.0, Urine Specific [place] 1.004, Urine Protein NEGATIVE, Urine Glucose (UA) NEGATIVE, Urine Ketones NEGATIVE, Urine Blood 2+H, Urine Nitrite POSITIVEH, Urine Bilirubin NEGATIVE, Urine Urobilinogen 0.2, Urine Leukocyte Esterase 3+H, Urine WBC (Auto) TNTCH, Urine RBC (Auto) 28H, Urine Hyaline Casts (Auto) 8, Urine Bacteria (Auto) 2+H, Urine Squamous Epithelial Cells 0, Urine Mucus (Auto) SMALL, Urine Sperm (Auto) CBC/BMP Laboratory Tests 10/29/20 14:54 Microbiology Microbiology 10/29/20 Urine Culture, Received Pending 10/29/20 Respiratory Virus Panel (PCR) ([facility]) - Final, Complete 10/29/20 Blood Culture, Received Pending 10/29/20 Blood Culture, Received Pending Home Medications Scheduled Apixaban (Eliquis) 5 Mg Tablet, 5 MG PO BID Aspirin (Aspirin EC) 81 Mg Tablet.dr, 81 MG PO DAILY Atorvastatin Calcium (Atorvastatin Calcium) 80 Mg Tablet, 80 MG PO DAILY Cholecalciferol (Vitamin D3) (Vitamin D3) 1,000 Unit Tablet, 1,000 UNITS PO DAILY Fluticasone/Vilanterol (Breo Ellipta 200-25 Mcg INH) 1 Each Blst.w.dev, 1 PUFF INH QHS Metoprolol Tartrate (Metoprolol Tartrate) 25 Mg Tablet, 25 MG PO BID [Antihistamine] , 1 TAB PO DAILY UNK ANTIHISTAMINE Allergies Coded Allergies: No Known Allergies (Unverified , 02/16/18) A-FIB/CHADSVASC A-FIB History Current/History of A-Fib/PAF?: Yes Current PO Anticoag Therapy: Yes GME ATTESTATION GME ATTESTATION My faculty preceptor for this patient encounter was physically present during the encounter and was fully available. All aspects of the patient interview, examination, medical decision making process, and medical care plan development were reviewed and approved by the faculty preceptor. The faculty preceptor is aware and concurs with the plan as stated in the body of this note and will attest to such by his/her cosignature. ATTENDING NOTE time of service 915pm is a 75 yr old w a hx of COPD, nocturnal O2 use Afib HFpEF, MVR CABG and pacemaker who presented w c/o gradually worsening dyspnea, that was worse w exertion associated with BLE edema; according to the patient the dyspnea and edema improved after she received Lasix. Her physical exam was remarkable for S3 and crackles at the lung bases. She will be admitted for acute on chronic diastolic CHF. - will ask the day time to f/u Echo and consider additional lasix if needed rest per 's H&P MUNIRA MEZA DO Oct 29, 2020 20:46 PURNIMA STOVALL MD Oct 30, 2020 07:09
--- NOTE | 2020-10-29 21:43 | REPVR ---
PROCEDURE INFORMATION: Exam: CT Angiography Chest With Contrast Exam date and time: 10/29/2020 8:44 PM Age: 75 years old Clinical indication: Dyspnea TECHNIQUE: Imaging protocol: Computed tomographic angiography of the chest with contrast. 3D rendering (Not supervised by radiologist): MIP and/or 3D reconstructed images were created by the technologist. Radiation optimization: All CT scans at this facility use at least one of these dose optimization techniques: automated exposure control; mA and/or kV adjustment per patient size (includes targeted exams where dose is matched to clinical indication); or iterative reconstruction. Contrast material: ISOVUE 370; Contrast volume: 75 ml; Contrast route: INTRAVENOUS (IV); COMPARISON: CT ANGIO CHEST 02/23/2018 8:22 AM FINDINGS: Pulmonary arteries: Normal. No pulmonary emboli. Aorta: Unremarkable. No aortic aneurysm. No aortic dissection. Lungs: Changes of centrilobular emphysema in both lungs. Small area of consolidation or atelectasis in the right lung base. Mild subpleural scarring. No other airspace consolidation or masses. Airways are clear. Pleural spaces: Unremarkable. No pneumothorax. No pleural effusion. Heart: Normal heart size. Prior sternotomy and CABG. Advanced coronary artery atherosclerotic disease. Lymph nodes: Unremarkable. No enlarged lymph nodes. Bones/joints: Skeletal degenerative changes are noted. Soft tissues: Unremarkable. IMPRESSION: 1. No evidence of pulmonary embolism. 2. Emphysema. Small area of possible airspace disease versus atelectasis in the right lower lobe. 3. Coronary artery disease. Electronically signed by: Epi Cardenas On 10/29/2020 21:43:34 PM
[2020-10-29 22:52] VITALS: BP 103/57
[2020-10-29] MEDS: METOPROLOL TART 25 MG TABLET PO SCH (23:28)
[2020-10-29] MEDS: DOCUSATE SODIUM 100MG CAPSULE PO SCH (23:30)
[2020-10-29] MEDS: APIXABAN 5 MG TAB (ELIQUIS) PO SCH (23:35)
[2020-10-30 02:40] VITALS: O2SAT 93
[2020-10-30 06:00] VITALS: BP 128/80
[2020-10-30 06:01] LABS: HEMATOCRIT 41.5 % (36.0-47.0); HEMOGLOBIN 12.9 g/dl (12.0-15.5); MEAN CORPUSCULAR HEMOGLOBIN 26.4 pg (27.0-33.0); MEAN CORPUSCULAR HGB CONC 31.1 g/dl (32.0-36.5); MEAN CORPUSCULAR VOLUME 84.9 fl (80.0-96.0); PLATELET COUNT, AUTOMATED 230 10^3/uL (150-450); RED BLOOD COUNT 4.89 10^6/uL (4.00-5.40); WHITE BLOOD COUNT 18.8 10^3/uL (4.0-10.0)
[2020-10-30 06:26] LABS: ALBUMIN 2.2 GM/DL (3.2-5.2); ALT/SGPT 16 U/L (12-78); BILIRUBIN,TOTAL 1.2 MG/DL (0.2-1.0); BLOOD UREA NITROGEN 26 MG/DL (7-18); CALCIUM LEVEL 8.8 MG/DL (8.8-10.2); CARBON DIOXIDE LEVEL 28 MEQ/L (21-32); CHLORIDE LEVEL 99 MEQ/L (98-107); CREATININE FOR GFR 0.94 MG/DL (0.55-1.30); GLOMERULAR FILTRATION RATE > 60.0 (>39); GLUCOSE, FASTING 134 MG/DL (70-100); MAGNESIUM LEVEL 2.1 MG/DL (1.8-2.4); POTASSIUM SERUM 3.8 MEQ/L (3.5-5.1); SODIUM LEVEL 134 MEQ/L (136-145); TOTAL PROTEIN 7.7 GM/DL (6.4-8.2)
[2020-10-30] MEDS: ADVAIR HFA 115/21MCG INHALER INH SCH ×2 (08:07→20:34)
[2020-10-30] MEDS: METOPROLOL TART 25 MG TABLET PO SCH ×2 (09:00→21:00)
[2020-10-30] MEDS: APIXABAN 5 MG TAB (ELIQUIS) PO SCH ×2 (09:33→20:15)
[2020-10-30] MEDS: VITAMIN D 1,000 INTERNATIONAL UNITS TABLET PO SCH (09:33)
[2020-10-30] MEDS: ASPIRIN 81 MG ENTERIC TAB PO SCH (09:33)
[2020-10-30] MEDS: ATORVASTATIN 20 MG TAB PO SCH (09:33)
[2020-10-30] MEDS: DOCUSATE SODIUM 100MG CAPSULE PO SCH ×2 (09:33→20:15)
[2020-10-30] MEDS ORDERED: FUROSEMIDE 40MG/4ML VIAL (J1940) IV ONE (10:00)
[2020-10-30] MEDS ORDERED: FUROSEMIDE 20MG/2ML VIAL (J1940) IV ONE (11:00)
[2020-10-30 14:00] VITALS: BP 111/57
[2020-10-30] MEDS ORDERED: ALBUTEROL SULFATE 2.5 MG/0.5 ML INH NEB SOLN NEB PRN (16:40)
--- NOTE | 2020-10-30 17:00 | IPNPDOC ---
Subjective Date Seen The patient was seen on 10/30/20. Subjective Chief Complaint/HPI Feels much better today. Her breathing in much better, She does have some persistent cough with green colored sputum production. No fever or chills. Objective Physical Examination General Exam: Positive: Alert, Cooperative, No Acute Distress Eye Exam: Positive: PERRLA, Conjunctiva & lids normal, EOMI; Negative: Sclera icteric ENT Exam: Positive: Atraumatic, Mucous membr. moist/pink, Pharynx Normal Neck Exam: Positive: Supple; Negative: JVD, thyromegaly Chest Exam: Positive: Wheezing (mild diffuse b/l wheezing), Diminished Heart Exam: Positive: Rate Normal, Regular Rhythm, Normal S1, Normal S2; Negative: Murmurs, Rubs Abdomen Exam: Positive: Normal bowel sounds, Soft, Hepatospenomegaly; Negative: Tenderness Extremity Exam: Positive: Edema; Negative: Clubbing, Cyanosis Assessment /Plan Assessment 75-year-old female, past medical history consisting of COPD, home oxygen, Pacemaker, HFpEF, CAD S/P CABG, MVI S/P M V Repair, HTN with hypertensive heart disease who presented to the emergency department on 10/29/20 reporting a 2 day history of worsening shortness of breath and generalized fatigue. Patient states that her symptoms began after she was transitioned from Coumadin to Eliquis on 10/28/20. Reports increasing dyspnea at rest and on exertion requiring her to increase her oxygen from 1 L only at night to 2.5-3L throughout the day to maintain a saturation of 92%. CTA of chest showed No evidence of pulmonary embolism. Emphysema. Small area of possible airspace disease versus atelectasis in the right lower lobe. Her SOB is probably due to Pneumonia with mild CHF exacerbation. Pneumonia Right lower lobe 1/2 blood culture positive for gram neg rods will give ceftriaxone. Gram negative bacteremia 1/2 she does have a dirty UA and rll pNa could be from either. will give ceftriaxone Diastolic CHF exacerbation appears euvolemia now. will continue with home lasix Chronic respiratory failure with hypoxia and hypercarbia reports uses oxygen only at night. COPD Advair BID in place of Breo. Gall bladder wall thickening benign GI exam does not have acute cholecystitis. Hyponatremia due to diuretic CAD s/p CABG ASA, statin, BB SEVERE MITRAL VALVE IN SUFF S/P MVR 11/22 no issues at this time Paroxysmal A fib/ A FLUTTER in 2019 continue beta mateusz and eliquis changed from coumadin to eliquis recently by Cardi0 H/o Complete heart block s/p pacemaker in 2019 HTN with Hypertensive heart disease normotensive, continue home BB Plan/VTE VTE Prophylaxis Ordered?: Yes VS, I&O, 24H, Fishbone Vital Signs/I&O Vital Signs Date Time Temp Pulse Resp B/P (MAP) Pulse Ox O2 Delivery O2 Flow Rate FiO2 10/30/20 09:00 93 91/53 10/30/20 08:08 18 10/30/20 06:00 97.6 95 Nasal Cannula 3.0 I&O- Last 24 Hours up to 6 AM0 10/30/20 06:00 Intake Total 250 ml Output Total 650 ml Balance -400 ml Laboratory Data 24H LABS Laboratory Tests 2 10/29/20 18:34: Urine Color YELLOW, Urine Appearance CLOUDYH, Urine pH 5.0, Urine Specific [place] 1.004, Urine Protein NEGATIVE, Urine Glucose (UA) NEGATIVE, Urine Ketones NEGATIVE, Urine Blood 2+H, Urine Nitrite POSITIVEH, Urine Bilirubin NEGATIVE, Urine Urobilinogen 0.2, Urine Leukocyte Esterase 3+H, Urine WBC (Auto) TNTCH, Urine RBC (Auto) 28H, Urine Hyaline Casts (Auto) 8, Urine Bacteria (Auto) 2+H, Urine Squamous Epithelial Cells 0, Urine Mucus (Auto) SMALL, Urine Sperm (Auto) 10/29/20 22:31: Osmolality 288 10/30/20 05:48: Nucleated Red Blood Cells % (auto) 0.0, Anion Gap 7L, Glomerular Filtration Rate > 60.0, Calcium Level 8.8, Magnesium Level 2.1, Total Bilirubin 1.2#H, Aspartate Amino Transf (AST/SGOT) 20, Alanine Aminotransferase (ALT/SGPT) 16, Alkaline Phosphatase 131H, Total Protein 7.7, Albumin 2.2L, Albumin/Globulin Ratio 0.4L CBC/BMP Laboratory Tests 10/30/20 05:48 Microbiology Microbiology 10/29/20 Urine Culture, Received Pending 10/29/20 Respiratory Virus Panel (PCR) ([facility]) - Final, Complete 10/29/20 Blood Culture - Preliminary, Resulted No growth after 24 hours . All specim... 10/29/20 Blood Culture - Preliminary, Resulted SEN CAZARES MDb 24, 2021 17:00
[2020-10-30] MEDS: cefTRIAXone SOD 1 GM in D5W MINI-BAG PLUS 50 ML IV SCH (20:16)
[2020-10-30 22:00] VITALS: BP 111/60
[2020-10-31] VITALS (13 sets, daily range): BP systolic 102–142; BP diastolic 57–80; O2SAT 90–94
[2020-10-31] MEDS: METOPROLOL TART 25 MG TABLET PO SCH ×4 (00:13→21:35)
[2020-10-31 06:13] LABS: HEMOGLOBIN 13.1 g/dl (12.0-15.5); MEAN CORPUSCULAR HEMOGLOBIN 26.8 pg (27.0-33.0); PLATELET COUNT, AUTOMATED 328 10^3/uL (150-450); RED BLOOD COUNT 4.88 10^6/uL (4.00-5.40)
[2020-10-31 06:20] LABS: WHITE BLOOD COUNT 31.3 10^3/uL (4.0-10.0)
[2020-10-31 06:33] LABS: ALBUMIN 2.6 GM/DL (3.2-5.2); CALCIUM LEVEL 9.2 MG/DL (8.8-10.2); CREATININE FOR GFR 0.97 MG/DL (0.55-1.30); GLOMERULAR FILTRATION RATE 59.6 (>39); POTASSIUM SERUM 3.6 MEQ/L (3.5-5.1); TOTAL PROTEIN 8.1 GM/DL (6.4-8.2)
[2020-10-31] MEDS: ADVAIR HFA 115/21MCG INHALER INH SCH ×2 (07:10→20:08)
[2020-10-31] MEDS: DOCUSATE SODIUM 100MG CAPSULE PO SCH ×2 (10:00→21:35)
[2020-10-31] MEDS: VITAMIN D 1,000 INTERNATIONAL UNITS TABLET PO SCH (10:00)
[2020-10-31] MEDS: APIXABAN 5 MG TAB (ELIQUIS) PO SCH ×2 (10:01→21:35)
[2020-10-31] MEDS: ASPIRIN 81 MG ENTERIC TAB PO SCH (10:03)
[2020-10-31] MEDS: ATORVASTATIN 20 MG TAB PO SCH (10:03)
[2020-10-31] MEDS ORDERED: DIGOXIN 0.25 MG TAB PO ONE (10:20)
[2020-10-31] MEDS ORDERED: DIGOXIN 0.125 MG TAB PO ONE (13:15)
[2020-10-31] MEDS ORDERED: METOPROLOL TART 25 MG TABLET PO ONE (13:15)
--- NOTE | 2020-10-31 14:49 | ECHO ---
DATE OF PROCEDURE: 10/30/2020 Age: 75 Gender: Female REFERRING PROVIDER: Megan Alvarado MD. PATIENT LOCATION: Room 4215. REASON FOR STUDY: Shortness of breath. 2D MEASUREMENTS: IVS 1.3 cm LV 3.8 cm LVPW 1.2 cm LA 3.1 cm Aorta 2.6 cm IVC 1.5 cm DOPPLER MEASUREMENT Peak velocity across the aortic valve 1.9 m/s Peak velocity across the LVOT 1.1 m/s Peak gradient across the aortic valve 14 mmHg Mean gradient across the aortic valve 7 mmHg Mitral E 1.3 Mitral A 1.7 with a ratio of 0.8 Maximum tricuspid valve velocity 2.4 m/s 2D COMMENTS: 1. Normal left ventricular size and wall thickness. Left ventricular systolic function appeared to be normal, estimated at 50-55%. 2. Normal left atrium. Normal right atrium and right ventricle. 3. The atrial septum appeared to be normal without evidence of defect or shunt. 4. A trace pericardial effusion was noted, no evidence of cardiac tamponade. 5. Minimally calcified aortic valve with normal leaflet excursion. There were findings consistent with probably prior mitral valve replacement, a stented bioprosthetic mitral valve was noted. Normal tricuspid valve and pulmonic valve. The proximal pulmonary artery branches were not well visualized. 6. The inferior vena cava was normal in size, central venous pressure is most likely normal. 7. Probably pacemaker wire artifact noted in the right heart chambers in limited views. Doppler detects trace aortic regurgitation, mild mitral regurgitation. The calculated pulmonary artery systolic pressure was normal. Abnormal relaxation pattern was noted across the mitral valve leaflets as well as the mitral valve annulus consistent with features of grade 1 left ventricular diastolic dysfunction. IMPRESSION: 1. Normal global left ventricular systolic function. There were some features of left ventricular diastolic dysfunction manifested by abnormal relaxation. 2. Aortic valve sclerosis with trace aortic regurgitation and trivial aortic stenosis. 3. Bioprosthetic mitral valve with normal functioning. 4. Mild tricuspid regurgitation with mild pulmonary hypertension. 5. Trace pericardial effusion, no evidence of cardiac tamponade. 6. Possible pacemaker wire artifacts noted in the right heart chambers. [facility]
[2020-10-31] MEDS ORDERED: DIGOXIN INJ 0.5 MG/2 ML AMP (J1160) IV STA (14:51)
[2020-10-31] MEDS ORDERED: NS 250 ML IV ONE (14:55)
--- NOTE | 2020-10-31 15:08 | IPNPDOC ---
Subjective Date Seen The patient was seen on 10/31/20. Subjective Chief Complaint/HPI pateitn very anxious this morning and appeared intermittently confused. She was upset when i explained that she would not be going home today as she needs more IV antibiotics. She was also tachycardic and noted to be inAfib with RVR. she was transferred to PCU for this. Objective Physical Examination General Exam: Positive: Alert, Cooperative, No Acute Distress Eye Exam: Positive: PERRLA, Conjunctiva & lids normal, EOMI; Negative: Sclera icteric ENT Exam: Positive: Atraumatic, Mucous membr. moist/pink, Pharynx Normal Neck Exam: Positive: Supple; Negative: JVD, thyromegaly Chest Exam: Positive: Rales (scattered mostly at the bases. ), Diminished Heart Exam: Positive: Tachycardic, Irregular Rhythm, Normal S1, Normal S2; Negative: Murmurs, Rubs Telemetry: Positive: Atrial fibrillation Abdomen Exam: Positive: Normal bowel sounds, Soft, Hepatospenomegaly; Negative: Tenderness Extremity Exam: Positive: Edema (!+); Negative: Clubbing, Cyanosis Assessment /Plan Assessment 75-year-old female, past medical history consisting of COPD, home oxygen, Pacemaker, HFpEF, CAD S/P CABG, MVI S/P M V Repair, HTN with hypertensive heart disease who presented to the emergency department on 10/29/20 reporting a 2 day history of worsening shortness of breath and generalized fatigue. Patient states that her symptoms began after she was transitioned from Coumadin to Eliquis on 10/28/20. Reports increasing dyspnea at rest and on exertion requiring her to increase her oxygen from 1 L only at night to 2.5-3L throughout the day to maintain a saturation of 92%. CTA of chest showed No evidence of pulmonary embolism. Emphysema. Small area of possible airspace disease versus atelectasis in the right lower lobe. Her SOB is probably due to Pneumonia with mild CHF exacerbation. Pneumonia Right lower lobe 1/2 blood culture positive for gram neg rods ceftriaxone. Gram negative bacteremia 1/2 she does have a dirty UA and rll pNa could be from either. will give ceftriaxone Paroxysmal Afib with RVR will load with dig will restart metoprolol . Has not been getting it for 2 days due to low BPs. On Eliquis changed from coumadin to eliquis recently by Cardio Diastolic CHF exacerbation Last Echo EF of 50% to 55% appears euvolemic now. will continue with home lasix Chronic respiratory failure with hypoxia and hypercarbia Moderate pulmonary hypertension reports uses oxygen only at night. COPD Advair BID in place of Breo. Gall bladder wall thickening benign GI exam does not have acute cholecystitis. Hyponatremia due to diuretic CAD s/p CABG ASA, statin, BB SEVERE MITRAL VALVE IN SUFF S/P MV replacement with bioprosthetic valve in 11/22 no issues at this time H/o Complete heart block s/p pacemaker in 2019 HTN with Hypertensive heart disease normotensive, continue home BB Plan/VTE VTE Prophylaxis Ordered?: Yes VS, I&O, 24H, Fishbone Vital Signs/I&O Vital Signs Date Time Temp Pulse Resp B/P (MAP) Pulse Ox O2 Delivery O2 Flow Rate FiO2 10/31/20 14:58 140 10/31/20 14:44 97.1 28 107/60 (76) 90 Nasal Cannula 3.0 I&O- Last 24 Hours up to 6 AM 10/31/20 07:00 Intake Total 1050 ml Output Total 575 ml Balance 475 ml Laboratory Data 24H LABS Laboratory Tests 2 10/31/20 05:53: Nucleated Red Blood Cells % (auto) 0.0, Anion Gap 6L, Glomerular Filtration Rate 59.6, Calcium Level 9.2, Total Bilirubin 1.0, Aspartate Amino Transf (AST/SGOT) 23, Alanine Aminotransferase (ALT/SGPT) 17, Alkaline Phosphatase 140H, Total Protein 8.1, Albumin 2.6L, Albumin/Globulin Ratio 0.5L CBC/BMP Laboratory Tests 10/31/20 05:53 Microbiology Microbiology 10/30/20 Blood Culture, Received Pending 10/29/20 Urine Culture - Final, Complete Escherichia Coli 10/29/20 Respiratory Virus Panel (PCR) ([facility]) - Final, Complete 10/29/20 Blood Culture - Preliminary, Resulted No growth after 24 hours . All specim... 10/29/20 Blood Culture - Preliminary, Resulted Lactose Direct Support Staff Member SEN CAZARES MD Oct 31, 2020 15:07
[2020-10-31] MEDS: METOPROLOL 5 MG/5 ML VIAL IV SCH ×3 (16:30→16:42)
[2020-10-31] MEDS: cefTRIAXone SOD 1 GM in D5W MINI-BAG PLUS 50 ML IV SCH (21:35)
[2020-11-01] VITALS (16 sets, daily range): BP systolic 121–132; BP diastolic 59–86; O2SAT 88–97
[2020-11-01 01:08] LABS: L. PNEUMOPHILA (1,3,4,5,6,8) <0.91 OD ratio (0.00-0.90)
[2020-11-01 04:42] LABS: HEMATOCRIT 38.8 % (36.0-47.0); HEMOGLOBIN 11.8 g/dl (12.0-15.5); MEAN CORPUSCULAR HEMOGLOBIN 26.4 pg (27.0-33.0); MEAN CORPUSCULAR HGB CONC 30.4 g/dl (32.0-36.5); MEAN CORPUSCULAR VOLUME 86.8 fl (80.0-96.0); PLATELET COUNT, AUTOMATED 269 10^3/uL (150-450); RED BLOOD COUNT 4.47 10^6/uL (4.00-5.40); WHITE BLOOD COUNT 13.3 10^3/uL (4.0-10.0)
[2020-11-01 05:04] LABS: ALBUMIN 2.2 GM/DL (3.2-5.2); ALT/SGPT 16 U/L (12-78); BILIRUBIN,TOTAL 0.8 MG/DL (0.2-1.0); BLOOD UREA NITROGEN 25 MG/DL (7-18); CALCIUM LEVEL 8.5 MG/DL (8.8-10.2); CARBON DIOXIDE LEVEL 33 MEQ/L (21-32); CHLORIDE LEVEL 103 MEQ/L (98-107); CREATININE FOR GFR 0.74 MG/DL (0.55-1.30); GLOMERULAR FILTRATION RATE > 60.0 (>39); GLUCOSE, FASTING 100 MG/DL (70-100); POTASSIUM SERUM 3.6 MEQ/L (3.5-5.1); SODIUM LEVEL 139 MEQ/L (136-145); TOTAL PROTEIN 6.5 GM/DL (6.4-8.2)
[2020-11-01] MEDS: ADVAIR HFA 115/21MCG INHALER INH SCH ×2 (07:11→19:51)
[2020-11-01] MEDS: DOCUSATE SODIUM 100MG CAPSULE PO SCH ×2 (09:00→20:40)
[2020-11-01] MEDS: ASPIRIN 81 MG ENTERIC TAB PO SCH (09:11)
[2020-11-01] MEDS: ATORVASTATIN 20 MG TAB PO SCH (09:11)
[2020-11-01] MEDS: VITAMIN D 1,000 INTERNATIONAL UNITS TABLET PO SCH (09:11)
[2020-11-01] MEDS: APIXABAN 5 MG TAB (ELIQUIS) PO SCH ×2 (09:12→20:40)
[2020-11-01] MEDS: METOPROLOL TART 25 MG TABLET PO SCH ×2 (09:12→20:41)
[2020-11-01] MEDS: DIGOXIN 0.125 MG TAB PO SCH (10:24)
--- NOTE | 2020-11-01 10:34 | IPNPDOC ---
Subjective Date Seen The patient was seen on 11/01/20. Subjective Chief Complaint/HPI looking better today, finished most of her breakfast tray, said she slept well. She reported that yesterday she had gotten confused about where she was and this morning she thought she was at [facility] but she tells me that Josh her told that she was in [place] and she tells me that now everything has been coming back. She said that yesterday when she was moved from upper floor to the lower floor a staff had said that she was moving and she thought she was going home but they then explained that she was just moving rooms that had confused her too. Her and her sister wants her to be Full code and they were upset yesterd ay that she could not decide anything as she was confused. SHe was a little confused yesterday i agree however she she knew when she was the month and year. I spoke with the admitting doctor who saw her on the day of admission and spoke to her about her wishes. At theat time she was completely alert , oriented and lucid and she had indicated that she wanted to be a DNR and DNI. We will have to abide by the patient's wishes rather than that of her family as she had made that decision when she was completely lucid so able to make her own decisions. Objective Physical Examination General Exam: Positive: Alert, Cooperative, No Acute Distress Eye Exam: Positive: PERRLA, Conjunctiva & lids normal, EOMI ENT Exam: Positive: Atraumatic, Mucous membr. moist/pink, Pharynx Normal Neck Exam: Positive: Supple Chest Exam: Positive: Rales, Diminished Heart Exam: Positive: Rate Normal, Irregular Rhythm, Normal S1, Normal S2 Telemetry: Positive: Atrial fibrillation Abdomen Exam: Positive: Normal bowel sounds, Soft, Hepatospenomegaly Extremity Exam: Positive: Edema (1+) Assessment /Plan Assessment 75-year-old female, past medical history consisting of COPD, home oxygen, Pacemaker, HFpEF, CAD S/P CABG, MVI S/P M V Repair, HTN with hypertensive heart disease who presented to the emergency department on 10/29/20 reporting a 2 day history of worsening shortness of breath and generalized fatigue. Patient states that her symptoms began after she was transitioned from Coumadin to Eliquis on 10/28/20. Reports increasing dyspnea at rest and on exertion requiring her to increase her oxygen from 1 L only at night to 2.5-3L throughout the day to maintain a saturation of 92%. CTA of chest showed No evidence of pulmonary embolism. Emphysema. Small area of possible airspace disease versus atelectasis in the right lower lobe. Her SOB is probably due to Pneumonia with mild CHF exacerbation. Pneumonia Right lower lobe 1/2 blood culture positive for e coli and , another bottle with gram positive cocci in clusters and chains. ceftriaxone. Gram negative bacteremia 1/2 most likely UTI ceftriaxone UTI Ecoli, continue ceftriaxone. Paroxysmal Afib with RVR loaded with dig continue 0.125 daily restart metoprolol . Has not been getting it for 2 days due to low BPs. On Eliquis changed from coumadin to eliquis recently by Cardio Diastolic CHF exacerbation Last Echo EF of 50% to 55% appears euvolemic now. will continue with home lasix Echo reviewed. Chronic respiratory failure with hypoxia and hypercarbia Moderate pulmonary hypertension reports uses oxygen only at night 1-2 liters. Her prescription from PMD in for 2 liters. COPD Advair BID in place of Breo. Gall bladder wall thickening benign GI exam does not have acute cholecystitis. CAD s/p CABG ASA, statin, BB SEVERE MITRAL VALVE INSUFF S/P MV replacement with bioprosthetic valve in 11/22 no issues at this time H/o Complete heart block s/p pacemaker in 2018 HTN with Hypertensive heart disease normotensive, continue home BB Plan/VTE VTE Prophylaxis Ordered?: Yes VS, I&O, 24H, [facility] Vital Signs/I&O Vital Signs Date Time Temp Pulse Resp B/P (MAP) Pulse Ox O2 Delivery O2 Flow Rate FiO2 11/01/20 09:12 74 128/61 11/01/20 08:00 4.0 11/01/20 08:00 96.7 20 93 Nasal Cannula I&O- Last 24 Hours up to 6 AM 11/01/20 06:00 Intake Total 970 ml Output Total 1200 ml Balance -230 ml Laboratory Data 24H LABS Laboratory Tests 2 11/01/20 04:08: Nucleated Red Blood Cells % (auto) 0.0, Anion Gap 3L, Glomerular Filtration Rate > 60.0, Calcium Level 8.5L, Total Bilirubin 0.8, Aspartate Amino Transf (AST/SGOT) 21, Alanine Aminotransferase (ALT/SGPT) 16, Alkaline Phosphatase 112, Total Protein 6.5, Albumin 2.2L, Albumin/Globulin Ratio 0.5L CBC/BMP Laboratory Tests 11/01/20 04:08 Microbiology Microbiology 10/30/20 Blood Culture - Preliminary, Resulted No growth after 24 hours . All specim... 10/29/20 Urine Culture - Final, Complete Escherichia Coli 10/29/20 Respiratory Virus Panel (PCR) ([facility]) - Final, Complete 10/29/20 Blood Culture - Preliminary, Resulted 10/29/20 Blood Culture - Preliminary, Resulted Lactose Laundry Operator Wash Room SEN CAZARES MD Nov 01, 2020 10:34
[2020-11-01] MEDS: cefTRIAXone SOD 1 GM in D5W MINI-BAG PLUS 50 ML IV SCH (20:40)
[2020-11-02] VITALS: BP 121/59
[2020-11-02 04:00] VITALS: BP 117/74
[2020-11-02 04:42] LABS: MEAN CORPUSCULAR HEMOGLOBIN 26.5 pg (27.0-33.0); MEAN CORPUSCULAR VOLUME 88.3 fl (80.0-96.0); PLATELET COUNT, AUTOMATED 255 10^3/uL (150-450); RED BLOOD COUNT 4.53 10^6/uL (4.00-5.40); WHITE BLOOD COUNT 14.3 10^3/uL (4.0-10.0)
[2020-11-02 05:04] LABS: ALBUMIN 2.3 GM/DL (3.2-5.2); ALT/SGPT 23 U/L (12-78); BILIRUBIN,TOTAL 0.6 MG/DL (0.2-1.0); BLOOD UREA NITROGEN 21 MG/DL (7-18); CALCIUM LEVEL 8.2 MG/DL (8.8-10.2); CARBON DIOXIDE LEVEL 32 MEQ/L (21-32); CHLORIDE LEVEL 105 MEQ/L (98-107); CREATININE FOR GFR 0.69 MG/DL (0.55-1.30); GLOMERULAR FILTRATION RATE > 60.0 (>39); GLUCOSE, FASTING 104 MG/DL (70-100); POTASSIUM SERUM 3.9 MEQ/L (3.5-5.1); SODIUM LEVEL 142 MEQ/L (136-145); TOTAL PROTEIN 6.5 GM/DL (6.4-8.2)
[2020-11-02 07:43] VITALS: BP 144/60
[2020-11-02] MEDS: DOCUSATE SODIUM 100MG CAPSULE PO SCH (08:14)
[2020-11-02] MEDS: ASPIRIN 81 MG ENTERIC TAB PO SCH (08:14)
[2020-11-02] MEDS: APIXABAN 5 MG TAB (ELIQUIS) PO SCH (08:14)
[2020-11-02] MEDS: VITAMIN D 1,000 INTERNATIONAL UNITS TABLET PO SCH (08:14)
[2020-11-02] MEDS: ATORVASTATIN 20 MG TAB PO SCH (08:14)
[2020-11-02] MEDS: DIGOXIN 0.125 MG TAB PO SCH (08:14)
[2020-11-02] MEDS: METOPROLOL TART 25 MG TABLET PO SCH (08:15)
[2020-11-02] MEDS: ADVAIR HFA 115/21MCG INHALER INH SCH (08:38)
[2020-11-02 12:00] VITALS: BP 126/58
[2020-11-02] MEDS ORDERED: DOXY-350 PO (14:44)
[2020-11-02] MEDS ORDERED: CEFD300CAP PO (14:44)
--- NOTE | 2020-11-02 18:04 | DS.PDOC ---
Discharge Summary General Date of Admission Oct 29, 2020 at 20:22 Date of Discharge 11/02/20 Discharge Summary PROCEDURES PERFORMED DURING STAY: [None]. DISCHARGE DIAGNOSES: Pneumonia UTI Bacteremia gram negative Afib/ A flutter with RVR CHF with preserved EF with exacerbation H/o Complete heart block s/p pacemaker in 2019 HTN with Hypertensive heart disease Mitral valve replaced status with bioprosthetic valve. COPD Chronic respiratory failure with hypoxia and hypercarbia Gall bladder wall thickening CAD s/p CABG COMPLICATIONS/CHIEF COMPLAINT: Dyspnea. HOSPITAL COURSE: 75-year-old female, past medical history consisting of COPD, home oxygen, Pacemaker, HFpEF, CAD S/P CABG, MVI S/P M V Repair, HTN with hypertensive heart disease who presented to the emergency department on 10/29/20 reporting a 2 day history of worsening shortness of breath and generalized fatigue. Patient states that her symptoms began after she was transitioned from Coumadin to Eliquis on 10/28/20. Reports increasing dyspnea at rest and on exertion requiring her to increase her oxygen from 1 L only at night to 2.5-3L t hroughout the day to maintain a saturation of 92%. CTA of chest showed No evidence of pulmonary embolism. Emphysema. Small area of possible airspace disease versus atelectasis in the right lower lobe. Her SOB is probably due to Pneumonia with mild CHF exacerbation. Pneumonia Right lower lobe 2/2 blood culture positive from 10/29/20. E coli in 1 bottle and Entero coccus faecium in the second bottle both from admission 10/29. Repeat culture from 10/30 is negative till date. Received ceftriaxone here with clinical improvement. Discharged with cefdinir and doxycycline. Gram negative bacteremia 1/2 most likely UTI cefdinir UTI Ecoli Paroxysmal Afib with RVR continue metoprolol an eliquis. Diastolic CHF exacerbation Last Echo EF of 50% to 55% appears close to euvolemic now. will continue with home lasix Echo reviewed. Chronic respiratory failure with hypoxia and hypercarbia Moderate pulmonary hypertension oxygen requirement at baseline now. COPD continue Breo. Gall bladder wall thickening benign GI exam does not have acute cholecystitis. CAD s/p CABG ASA, statin, BB SEVERE MITRAL VALVE INSUFF S/P MV replacement with bioprosthetic valve in 11/22 no issues at this time H/o Complete heart block s/p pacemaker in 2019 HTN with Hypertensive heart disease normotensive, continue home BB DISCHARGE MEDICATIONS: Please see below. ALLERGIES: Please see below. PHYSICAL EXAMINATION ON DISCHARGE: VITAL SIGNS: Please see below. General Exam: Positive: Alert, Cooperative, No Acute Distress Eye Exam: Positive: PERRLA, Conjunctiva & lids normal, EOMI ENT Exam: Positive: Atraumatic, Mucous membr. moist/pink, Pharynx Normal Neck Exam: Positive: Supple Chest Exam: Positive: Rales, Diminished Heart Exam: Positive: Rate Normal, Irregular Rhythm, Normal S1, Normal S2 Telemetry: Positive: Atrial fibrillation Abdomen Exam: Positive: Normal bowel sounds, Soft, Hepatosplenomegaly Extremity Exam: Positive: Edema (1+) LABORATORY DATA: Please see below. ACTIVITY: [As tolerated]. DIET: As tolerated DISPOSITION: 01 Home, Self-Care. DISCHARGE INSTRUCTIONS: PMD in1 week Follow up final cultures. DISCHARGE CONDITION: [Stable]. TIME SPENT ON DISCHARGE: 35 minutes. Vital Signs/I&Os Vital Signs Date Time Temp Pulse Resp B/P (MAP) Pulse Ox O2 Delivery O2 Flow Rate FiO2 11/02/20 12:00 97.2 78 18 126/58 (80) 88 Room Air 11/02/20 07:43 2.0 I&O- Last 24 Hours up to 6 AM 11/02/20 06:00 Intake Total 600 ml Output Total 300 ml Balance 300 ml Laboratory Data Labs 24H Laboratory Tests 2 11/02/20 04:04: Nucleated Red Blood Cells % (auto) 0.0, Anion Gap 5L, Glomerular Filtration Rate > 60.0, Calcium Level 8.2L, Total Bilirubin 0.6, Aspartate Amino Transf (AST/SGOT) 30, Alanine Aminotransferase (ALT/SGPT) 23, Alkaline Phosphatase 116, Total Protein 6.5, Albumin 2.3L, Albumin/Globulin Ratio 0.5L CBC/BMP Laboratory Tests 11/02/20 04:04 Microbiology Microbiology 10/30/20 Blood Culture - Preliminary, Resulted No Growth after 72 hours. All specime... 10/29/20 Urine Culture - Final, Complete Escherichia Coli 10/29/20 Respiratory Virus Panel (PCR) ([facility]) - Final, Complete 10/29/20 Blood Culture - Final, Complete Enterococcus Faecium 10/29/20 Blood Culture - Final, Complete Escherichia Coli Discharge Medications Scheduled Apixaban (Eliquis) 5 Mg Tablet, 5 MG PO BID, (Reported) Aspirin (Aspirin EC) 81 Mg Tablet.dr, 81 MG PO DAILY, (Reported) Atorvastatin Calcium (Atorvastatin Calcium) 80 Mg Tablet, 80 MG PO DAILY, (Reported) Cefdinir (Cefdinir) 300 Mg Capsule, 1 CAP PO BID Cholecalciferol (Vitamin D3) (Vitamin D3) 1,000 Unit Tablet, 1,000 UNITS PO DAILY, (Reported) Doxycycline Monohydrate (Doxycycline) 100 Mg Capsule, 1 CAP PO BID Fluticasone/Vilanterol (Breo Ellipta 200-25 Mcg INH) 1 Each Blst.w.dev, 1 PUFF INH QHS, (Reported) Metoprolol Tartrate (Metoprolol Tartrate) 25 Mg Tablet, 25 MG PO BID, (Reported) [Antihistamine] , 1 TAB PO DAILY, (Reported) UNK ANTIHISTAMINE Allergies Coded Allergies: No Known Allergies (Unverified , 02/16/18) SEN CAZARES MD Nov 02, 2020 18:04
== END 2020-11-02 15:54 | disposition home or self-care (01) | DRG 193 ==
LOC: M ED 14:08 → M ED INP 20:22 → ENRESERV 20:56 → M MSPAV 22:52 → M PCU 10-31 14:35
PROVIDERS: ADMIT Internal Medicine; ATTEND Internal Medicine Nephrology
DX: J18.9 Pneumonia, unspecified organism (principal); I50.33 Acute on chronic diastolic (congestive) heart failure; R78.81 Bacteremia; J96.11 Chronic respiratory failure with hypoxia; J96.12 Chronic respiratory failure with hypercapnia; E87.1 Hypo-osmolality and hyponatremia; J44.0 Chronic obstructive pulmonary disease with (acute) lower respiratory infection; I48.92 Unspecified atrial flutter; N39.0 Urinary tract infection, site not specified; J44.9 Chronic obstructive pulmonary disease, unspecified; I48.0 Paroxysmal atrial fibrillation; I27.20 Pulmonary hypertension, unspecified; I11.0 Hypertensive heart disease with heart failure; Z95.0 Presence of cardiac pacemaker; Z95.2 Presence of prosthetic heart valve; I25.10 Atherosclerotic heart disease of native coronary artery without angina pectoris; Z79.899 Other long term (current) drug therapy; Z79.82 Long term (current) use of aspirin; B96.29 Other Escherichia coli [E. coli] as the cause of diseases classified elsewhere; Z79.01 Long term (current) use of anticoagulants

== ENCOUNTER → 2020-11-08 | Outpatient (REF) | payer MEDICARE, OTHER ==
[~2020-11-08] MED LIST changes: +ANTIHISTAMINE PO; +ASPI-161 PO; +ATOR80TA59 PO; +BREO1INH3 INH; +CEFD300CAP PO; +D31000TA2 PO; +DOXY-350 PO; +ELIQ5TAB PO; +INCR1INH INH
[2020-11-08 16:27] LABS: BASO # 0.1 10^3/uL (0.0-0.2); BASO % 0.5 % (0.0-1.0); EOS # 0.1 10^3/uL (0.0-0.5); EOS % 0.7 % (0.0-3.0); HEMATOCRIT 39.9 % (36.0-47.0); HEMOGLOBIN 12.2 g/dl (12.0-15.5); LYMPH # 1.7 10^3/uL (1.5-5.0); LYMPH % 12.7 % (24.0-44.0); MEAN CORPUSCULAR HEMOGLOBIN 26.6 pg (27.0-33.0); MEAN CORPUSCULAR HGB CONC 30.6 g/dl (32.0-36.5); MEAN CORPUSCULAR VOLUME 87.1 fl (80.0-96.0); MONO # 0.8 10^3/uL (0.0-0.8); MONO % 5.6 % (2.0-8.0); NEUTROPHILS # 10.7 10^3/uL (1.5-8.5); NEUTROPHILS % 78.9 % (36.0-66.0); PLATELET COUNT, AUTOMATED 307 10^3/uL (150-450); RED BLOOD COUNT 4.58 10^6/uL (4.00-5.40); WHITE BLOOD COUNT 13.5 10^3/uL (4.0-10.0)
[2020-11-08 16:49] LABS: BLOOD UREA NITROGEN 13 MG/DL (7-18); C REACTIVE PROTEIN QUANTITATIV 1.73 MG/DL (0.00-0.30); CALCIUM LEVEL 8.8 MG/DL (8.8-10.2); CARBON DIOXIDE LEVEL 32 MEQ/L (21-32); CHLORIDE LEVEL 100 MEQ/L (98-107); CREATININE FOR GFR 0.76 MG/DL (0.55-1.30); GLOMERULAR FILTRATION RATE > 60.0 (>39); GLUCOSE, FASTING 87 MG/DL (70-100); POTASSIUM SERUM 3.9 MEQ/L (3.5-5.1); SODIUM LEVEL 137 MEQ/L (136-145)
[2020-11-08 16:56] LABS: ERYTHROCYTE SEDIMENTATION RATE 54 mm/hr (0-30)
== END ==
LOC: M SFHCADAM 15:03
PROVIDERS: ATTEND Physician Assistant Medical
DX: G93.40 Encephalopathy, unspecified (principal); R65.20 Severe sepsis without septic shock; I11.0 Hypertensive heart disease with heart failure

== ENCOUNTER → 2020-11-18 | Outpatient (REF) | payer MEDICARE, OTHER ==
[2020-11-18 12:43] LABS: BASO # 0.1 10^3/uL (0.0-0.2); BASO % 0.5 % (0.0-1.0); EOS # 0.1 10^3/uL (0.0-0.5); HEMOGLOBIN 11.6 g/dl (12.0-15.5); LYMPH # 1.4 10^3/uL (1.5-5.0); LYMPH % 13.1 % (24.0-44.0); MEAN CORPUSCULAR HEMOGLOBIN 27.2 pg (27.0-33.0); MEAN CORPUSCULAR HGB CONC 30.5 g/dl (32.0-36.5); MONO # 0.8 10^3/uL (0.0-0.8); MONO % 6.9 % (2.0-8.0); NEUTROPHILS # 8.6 10^3/uL (1.5-8.5); PLATELET COUNT, AUTOMATED 259 10^3/uL (150-450); RED BLOOD COUNT 4.27 10^6/uL (4.00-5.40)
[2020-11-18 13:04] LABS: ERYTHROCYTE SEDIMENTATION RATE 66 mm/hr (0-30)
== END ==
LOC: M SFHCADAM 11:01
PROVIDERS: ATTEND Physician Assistant Medical
DX: R65.20 Severe sepsis without septic shock (principal); G93.40 Encephalopathy, unspecified

== ENCOUNTER 2020-11-20 12:35 | Inpatient (IN) | payer MEDICARE, OTHER ==
[~2020-11-20] VITALS: Ht 170.2 cm; Wt 75.2 kg
[~2020-11-20 12:35] MED LIST changes: -INCR1INH INH
[2020-11-20] MEDS ORDERED: ACETAMINOPHEN TAB 650MG DOSE (2X325MG) PO PRN (13:15)
[2020-11-20] MEDS ORDERED: MOM 30ML SUSPENSION UDC PO PRN (13:15)
[2020-11-20 14:10] VITALS: BP 102/62
[2020-11-20] MEDS ORDERED: INCR1INH INH (14:56)
--- NOTE | 2020-11-20 15:29 | HPEPDOC ---
[facility] Medical History & Physical Date of Admission Nov 20, 2020 Date of Service: Nov 20, 2020 Attending Physician: MIKE ROBERT MD History and Physical CHIEF COMPLAINT: Fever and bacteremia in the outpatient setting, with c/f potential endocarditis HISTORY OF PRESENT ILLNESS: 75-year-old W with a history of HFpEF, COPD, PVD, CAD s/p CABG, severe insufficiency s/p MVR and chart history of atrial fibrillation on eliquis who was recently admitted with E coli UTI and sepsis with E.coli bacteremia and was treated to completion, however with also one other BCx that was positive for Entercoccus faecium and deemed likely contaminant at the time, who developed fever at home without other localizing infectious symptoms, and on review in clinic, had BCx drawn on the 11/18 both bottles grew GPCs in pairs and clusters and now referred for direct admission to medicine with c/f for potential endocarditis vs. other internal source. Of note, she had her second covid-19 vaccine yesterday and otherwise felt relatively well until she received the call from Dr. Conway's office with the recommendation for admission for further evaluation. On presentation, she reports no symptoms at all, and denies any chest pain, pleurisy, skin changes, abdominal pain, change in exercise tolerance, nausea, e mesis, urinary symptoms including dysuria, urinary frequency urgency or hesitancy. Per her last lab evaluation on 11/18 her WBC was 11, Hgb 11.6, platelets 259 with an ESR of 66. On 11/08 Na was 137, K 3.9, Cr 0.7. I called Dr. Arevalo given potential for subacute infection with unclear source and suspicion for endocarditis and she recommended empiric vancomycin with gentamicin for synergy while pending infectious workup and DOLORES. I also consulted Dr. Paz who agreed with pursuing a DOLORES but unlikely to be completed today, likely tomorrow. ROS: 12 point ROS was completed and was negative unless otherwise noted in the HPI above. PAST MEDICAL HISTORY: HFpEF, grade I Hypertensive heart disease Hypoxemic and hypercarbic respiratory failure, oxygen at night at 1 L Obesity Peripheral vascular disease COPD Urinary artery disease, F/P CABG in 11/22 Severe mitral valve insufficiency, S/P MVR, 11/22, previously on coumadin, recently transitioned to Eliquis by cardiology on 10/28/20. PAST SURGICAL HISTORY: Tonsillectomy CABG, MVR Left thoracentesis Pacemaker placement, 2/2 complete heart block SOCIAL HISTORY: Marital status: Patient is Resides in: Own home, [facility] Children: 2 daughters Tobacco use: She is a former smoker, quit in the mid 1999 ETOH: Denies any alcohol use Illicit drug use: Denies any illicit drug use FAMILY HISTORY: Father: , 79, coronary artery disease Mother: , 78, colon cancer, pancreatic cancer Siblings: 2 brothers, eldest brother, 68, , coronary artery disease. Younger brother is alive with arthritic problems. Children: 2 daughters, alive, history of breast cancer ALLERGIES: Please see below. HOME MEDICATIONS: Please see below. PHYSICAL EXAMINATION: VITAL SIGNS: Please see below GENERAL APPEARANCE: NAD. Resting in bed comfortably with ongoing nursing admission evaluation. HEENT: Normocephalic, atraumatic, EOMI, sclera nonicteric, nares are patent, mucous membranes moist. PERRLA CARDIOVASCULAR: RRR, 3/6 pansystolic murmur, loud throughout precordium, loudest at apex LUNGS: Clear to auscultation with good air movement, no crackles, no wheezing or rhonchi noted ABDOMEN: Normoactive bowel sounds, soft, nontender, nondistended, no guarding or rigidity EXTREMITIES: trace lower extremity edema bilaterally, WWP, 2+ DP pulses bilaterally NEUROLOGICAL: Strength 5 out of 5 in both upper and lower extremities. Speech is clear without dysarthria or aphasia. Cranial nerves II through XII are grossly intact. PSYCHIATRIC: Mood and affect are appropriate. Jsese lui. AOx3 LABORATORY DATA: Pending lab evaluation. Most recent lab evaluation is summarized above in HPI. IMAGING: none MICROBIOLOGY: pending. ASSESSMENT: 75-year-old W with a history of HFpEF, COPD, PVD, CAD s/p CABG, severe insufficiency s/p MVR and chart history of atrial fibrillation on eliquis who was recently admitted with E coli UTI and sepsis with E.coli bacteremia and was treated to completion, however with also one other BCx that was positive for Entercoccus fecium that was deemed likely contaminant at the time, who developed fever at home, now a few weeks later, without other localizing infectious symptoms and found to be bacteremic in clinic and sent in for direct admission for potential subacute infection with c/f bacterial endocarditis vs. other occult source. PLAN: Fever and bacteremia: 11/18 BCx x 2 growing GPCs in pairs and clusters -Repeat BCx -UA with reflex to UCx -CXR -ESR, CRP, lactic acid -ordered DOLORES -ID consulted -empiric vancomycin + gentamicin -CBC, CMP #CAD s/p CABG -ASA, lipitor, metoprolol #COPD -Advair BID #MVR -c/w Eliquis #Hypertensive heart disease -continue home metoprolol BID DVT PROPHYLAXIS: Eliquis Home Medications Scheduled Apixaban (Eliquis) 5 Mg Tablet, 5 MG PO BID Aspirin (Aspirin EC) 81 Mg Tablet.dr, 81 MG PO DAILY Atorvastatin Calcium (Atorvastatin Calcium) 80 Mg Tablet, 80 MG PO DAILY Cholecalciferol (Vitamin D3) (Vitamin D3) 1,000 Unit Tablet, 1,000 UNITS PO DAILY Fluticasone/Vilanterol (Breo Ellipta 200-25 Mcg INH) 1 Each Blst.w.dev, 1 PUFF INH DAILY Metoprolol Tartrate (Metoprolol Tartrate) 25 Mg Tablet, 25 MG PO BID Umeclidinium [place] (Incruse Ellipta) 62.5 Mcg Blst.w.dev, 1 PUFF INH DAILY [Antihistamine] , 1 TAB PO DAILY UNK ANTIHISTAMINE Allergies Coded Allergies: No Known Allergies (Unverified , 02/16/18) A-FIB/CHADSVASC A-FIB History Current/History of A-Fib/PAF?: Yes Current PO Anticoag Therapy: Yes Treatment Treatment ordered: SunnyxaMIKE Thompson MD Nov 20, 2020 14:13
[2020-11-20 15:46] LABS: HEMATOCRIT 38.5 % (36.0-47.0); HEMOGLOBIN 11.6 g/dl (12.0-15.5); MEAN CORPUSCULAR HEMOGLOBIN 27.4 pg (27.0-33.0); MEAN CORPUSCULAR HGB CONC 30.1 g/dl (32.0-36.5); MEAN CORPUSCULAR VOLUME 90.8 fl (80.0-96.0); PLATELET COUNT, AUTOMATED 134 10^3/uL (150-450); RED BLOOD COUNT 4.24 10^6/uL (4.00-5.40); WHITE BLOOD COUNT 8.7 10^3/uL (4.0-10.0)
[2020-11-20] MEDS ORDERED: GENTAMICIN 60 MG in D5W 50 ML IV ONE (16:00)
[2020-11-20 16:08] LABS: ALBUMIN 2.6 GM/DL (3.2-5.2); ALT/SGPT 14 U/L (12-78); BILIRUBIN,TOTAL 1.5 MG/DL (0.2-1.0); BLOOD UREA NITROGEN 12 MG/DL (7-18); CALCIUM LEVEL 9.1 MG/DL (8.8-10.2); CARBON DIOXIDE LEVEL 33 MEQ/L (21-32); CHLORIDE LEVEL 99 MEQ/L (98-107); CREATININE FOR GFR 0.54 MG/DL (0.55-1.30); GLOMERULAR FILTRATION RATE > 60.0 (>39); GLUCOSE, FASTING 90 MG/DL (70-100); SODIUM LEVEL 136 MEQ/L (136-145); TOTAL PROTEIN 6.7 GM/DL (6.4-8.2)
[2020-11-20] MEDS ORDERED: GENTAMICIN INTERMITTENT/PULSE DOSING BY CLINICAL PHARMACIST PER DOSING PROTOCOL XX SCH (16:45)
--- NOTE | 2020-11-20 16:55 | REP ---
INDICATION: fever. COMPARISON: Comparison radiograph October 29, 2020. TECHNIQUE: Portable upright AP chest radiograph. FINDINGS: The lungs are well inflated and free of infiltrate. Pleural angles are sharp. Heart size is borderline. Pulmonary vasculature is not increased. A bipolar pacemaker remains in the heart. Median sternotomy wires and monitoring electrodes are seen. Interstitial markings are slightly prominent unchanged. IMPRESSION: Borderline heart size with pacemaker and prior sternotomy. Diffusely prominent interstitial markings. No acute infiltrate.. <Electronically signed by Pierre Pierre > 11/20/20 [id number]
[2020-11-20] MEDS ORDERED: VANCOMYCIN HCL 1,000 MG, VIAL MATE ADAPTER 1 EACH in NS 250 ML IV ONE (17:00)
[2020-11-20] MEDS: ADVAIR HFA 115/21MCG INHALER INH SCH (20:15)
[2020-11-20] MEDS: METOPROLOL TART 25 MG TABLET PO SCH (21:00)
[2020-11-20] MEDS: APIXABAN 5 MG TAB (ELIQUIS) PO SCH (21:28)
[2020-11-20 22:00] VITALS: BP 102/56
--- NOTE | 2020-11-20 22:06 | ECGEPIP ---
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
[2020-11-20] MEDS: VANCOMYCIN HCL 1,000 MG, VIAL MATE ADAPTER 1 EACH in NS 250 ML IV SCH (23:27)
[2020-11-21] VITALS (11 sets, daily range): BP systolic 104–127; BP diastolic 58–74
[2020-11-21 06:05] LABS: HEMATOCRIT 35.4 % (36.0-47.0); HEMOGLOBIN 10.8 g/dl (12.0-15.5); MEAN CORPUSCULAR HEMOGLOBIN 26.8 pg (27.0-33.0); MEAN CORPUSCULAR HGB CONC 30.5 g/dl (32.0-36.5); MEAN CORPUSCULAR VOLUME 87.8 fl (80.0-96.0); PLATELET COUNT, AUTOMATED 197 10^3/uL (150-450); RED BLOOD COUNT 4.03 10^6/uL (4.00-5.40); WHITE BLOOD COUNT 8.7 10^3/uL (4.0-10.0)
[2020-11-21 06:21] LABS: BLOOD UREA NITROGEN 12 MG/DL (7-18); CALCIUM LEVEL 8.2 MG/DL (8.8-10.2); CARBON DIOXIDE LEVEL 31 MEQ/L (21-32); CHLORIDE LEVEL 104 MEQ/L (98-107); CREATININE FOR GFR 0.53 MG/DL (0.55-1.30); GENTAMICIN LEVEL RANDOM 0.6 MCG/ML; GLOMERULAR FILTRATION RATE > 60.0 (>39); GLUCOSE, FASTING 101 MG/DL (70-100); POTASSIUM SERUM 3.6 MEQ/L (3.5-5.1); SODIUM LEVEL 141 MEQ/L (136-145)
[2020-11-21] MEDS: GASTROGRAFIN SOLUTION 30ML PO SCH ×2 (07:30→08:03)
[2020-11-21] MEDS: ADVAIR HFA 115/21MCG INHALER INH SCH ×2 (07:33→19:44)
[2020-11-21] MEDS ORDERED: ISOVUE-370 76% 100ML VIAL As Ordered ONE (08:17)
[2020-11-21] MEDS: METOPROLOL TART 25 MG TABLET PO SCH ×2 (09:00→21:52)
[2020-11-21] MEDS ORDERED: GENTAMICIN 60 MG in D5W 50 ML IV SCH (09:00)
--- NOTE | 2020-11-21 09:32 | REP ---
INDICATION: efaecium bacteremia. COMPARISON: None TECHNIQUE: Axial contrast-enhanced images from the lung bases to the pubic symphysis using 100 cc Isovue 370 intravenous contrast material. . This CT examination was performed using the following dose reduction techniques: Automated exposure control, adjustment of mA and/or kv according to the patient's size, and the use of iterative reconstruction technique. FINDINGS: Lung bases demonstrate small/moderate areas of atelectasis and consolidation with small amount of pleural effusion. Liver, spleen, pancreas, gallbladder, and bilateral adrenal glands are normal. Kidneys demonstrate few bilateral nonobstructing calculi measuring up to 3 mm in the right kidney and 4.5 mm in the left kidney without perinephric stranding or hydroureteronephrosis. The enteric system is without bowel obstruction or perforation. No obvious significant inflammatory process is appreciated. Normal terminal ileum, cecum and appendix are identified in the right lower quadrant. Scattered colonic and sigmoid diverticula noted without acute diverticulitis.. Pelvis demonstrates normal bladder and age-appropriate uterus/adnexa. No ascites. No free air. No intraperitoneal or retroperitoneal adenopathy. Abdominal aorta and vasculature demonstrate age-related changes without aneurysm or dissection. Musculoskeletal structures are intact and without acute osseous abnormality. IMPRESSION: 1. No acute abdominopelvic pathology appreciated. 2. Lung bases demonstrate bibasilar atelectasis/small consolidations with minimal pleural fluid. 3. Diverticulosis without acute diverticulitis. 4. Nonobstructing nephroliths. <Electronically signed by James Olmstead > 11/21/20 0928
[2020-11-21] MEDS: VITAMIN D 1,000 INTERNATIONAL UNITS TABLET PO SCH (09:53)
[2020-11-21] MEDS: ASPIRIN 81MG ENTERIC TABLET PO SCH (09:53)
[2020-11-21] MEDS: ATORVASTATIN 20 MG TAB PO SCH (09:53)
[2020-11-21] MEDS: APIXABAN 5 MG TAB (ELIQUIS) PO SCH ×2 (09:54→21:49)
--- NOTE | 2020-11-21 10:01 | IPNPDOC ---
Text Note Date of Service The patient was seen on 11/21/20. NOTE Subjective: -Feels well, no complaints, nervous about the DOLORES that is scheduled for this evening Objective: VITAL SIGNS: Please see below GENERAL APPEARANCE: NAD. Resting in bed comfortably with ongoing nursing admission evaluation. HEENT: Normocephalic, atraumatic, EOMI, sclera nonicteric, nares are patent, mucous membranes moist. PERRLA CARDIOVASCULAR: RRR, 3/6 pansystolic murmur, loud throughout precordium, loudest at apex LUNGS: Clear to auscultation with good air movement, no crackles, no wheezing or rhonchi noted ABDOMEN: Normoactive bowel sounds, soft, nontender, nondistended, no guarding or rigidity EXTREMITIES: trace lower extremity edema bilaterally, WWP, 2+ DP pulses bilaterally NEUROLOGICAL: Strength 5 out of 5 in both upper and lower extremities. Speech is clear without dysarthria or aphasia. Cranial nerves II through XII are grossly intact. PSYCHIATRIC: Mood and affect are appropriate. Great historian. AOx3 LABORATORY DATA: WBC 8.7 Hgb 10.8 platelets 197 na 141 K 3.6 Cr 0.53 11/20 UA ++ --> pending UCx 11/20 BCx NGTD 11/18 outpatient BCx - GPCs in pairs and clusters x 2 sets IMAGING: CXR: The lungs are well inflated and free of infiltrate. Pleural angles are sharp. Heart size is borderline. Pulmonary vasculature is not increased. A bipolar pacemaker remains in the heart. Median sternotomy wires and monitoring electrodes are seen. Interstitial markings are slightly prominent unchanged. IMPRESSION: Borderline heart size with pacemaker and prior sternotomy. Diffusely prominent interstitial markings. No acute infiltrate.. CT A/P: Lung bases demonstrate small/moderate areas of atelectasis and consolidation with small amount of pleural effusion. Liver, spleen, pancreas, gallbladder, and bilateral adrenal glands are normal. Kidneys demonstrate few bilateral nonobstructing calculi measuring up to 3 mm in the right kidney and 4.5 mm in the left kidney without perinephric stranding or hydroureteronephrosis. The enteric system is without bowel obstruction or perforation. No obvious significant inflammatory process is appreciated. Normal terminal ileum, cecum and appendix are identified in the right lower quadrant. Scattered colonic and sigmoid diverticula noted without acute diverticulitis.. Pelvis demonstrates normal bladder and age-appropriate uterus/adnexa. No ascites. No free air. No intraperitoneal or retroperitoneal adenopathy. Abdominal aorta and vasculature demonstrate age-related changes without aneurysm or dissection. Musculoskeletal structures are intact and without acute osseous abnormality. IMPRESSION: 1. No acute abdominopelvic pathology appreciated. 2. Lung bases demonstrate bibasilar atelectasis/small consolidations with minimal pleural fluid. 3. Diverticulosis without acute diverticulitis. 4. Nonobstructing nephroliths. MICROBIOLOGY: pending. ASSESSMENT: 75-year-old W with a history of HFpEF, COPD, PVD, CAD s/p CABG, severe insufficiency s/p MVR and chart history of atrial fibrillation on eliquis who was recently admitted with E coli UTI and sepsis with E.coli bacteremia and was treated to completion, however with also one other BCx that was positive for Entercoccus fecium that was deemed likely contaminant at the time, who developed fever at home, now a few weeks later, without other localizing infectious symptoms and found to be bacteremic in clinic and sent in for direct admission for potential subacute infection with c/f bacterial endocarditis vs. other occult source. PLAN: Fever and bacteremia: 11/18 BCx x 2 growing GPCs in pairs and clusters -11/20 BCx pending -11/18 BCx pending speciation, thus far GPCs in pairs and clusters -MRSA negative -UA++, pending UCx -CXR -ESR, CRP, lactic acid -has DOLORES scheduled for 5PM this afternoon -ID consulted -empiric vancomycin + gentamicin -CBC, CMP #CAD s/p CABG -ASA, lipitor, metoprolol #COPD -Advair BID #MVR -c/w Eliquis #Hypertensive heart disease -continue home metoprolol BID DVT PROPHYLAXIS: Eliquis VS,Fishbone, I+O VS, Fishbone, I+O Laboratory Tests 11/20/20 15:32 11/21/20 05:28 Vital Signs Date Time Temp Pulse Resp B/P (MAP) Pulse Ox O2 Delivery O2 Flow Rate FiO2 11/21/20 06:00 98.2 54 20 104/58 (73) 94 Nasal Cannula 2.0 I&O- Last 24 Hours up to 6 AM 11/21/20 05:59 Intake Total 911.5 ml Output Total 700 ml Balance 211.5 ml [id number],MIKE V. MD Nov 21, 2020 10:01
[2020-11-21] MEDS: VANCOMYCIN HCL 1,000 MG, VIAL MATE ADAPTER 1 EACH in NS 250 ML IV SCH ×2 (11:02→23:26)
--- NOTE | 2020-11-21 12:58 | IPN ---
PROGRESS NOTE DATE: 11/21/2020 SUBJECTIVE: I was asked by Dr. Zavala to perform a transesophageal echocardiogram on Mrs. Epps because of suspicion for bacterial endocarditis. She is a very pleasant 65-year-old female who has a history of open heart surgery with mitral valve replacement in 2019. She also has a pacemaker in place. More recently, she has been unwell even though she does not have any raheem fever or chills. Her blood cultures continue to grow E. coli. Consequently I was asked to perform a transesophageal echocardiogram because of suspicion for mitral valve endocarditis. OBJECTIVE: GENERAL: The patient is very anxious but otherwise alert and oriented, in no apparent distress. VITAL SIGNS: Her vital signs this morning: Blood pressure 104/58, heart rate has been in the 50s and 60s, mostly sinus rhythm with intermittent ventricular pacing and occasional ectopy. She has been afebrile and saturation 94% on 2 liters of oxygen. Weight was recorded at 75.2 kg. HEENT: She has her own teeth, none of them are loose. She has a normal airway Class I. LUNGS: Clear. Good air movement. HEART: Regular rhythm. I do not appreciate any distinct murmur and I certainly do not appreciate a murmur of MR. I also do not appreciate any evidence for peripheral emboli. ABDOMEN: Soft and nontender. EXTREMITIES: She has trace peripheral edema. LABORATORY DATA: CBC reveals a WBC count of 8.7, hemoglobin of 10.9, hematocrit is 35, platelet count 197,000, sed rate is 57, basic metabolic panel is normal. ASSESSMENT AND PLAN: 1. Mrs. Epps is a 75-year-old female who has a history of mitral valve replacement with bioprosthesis approximately two years ago who presents with fairly nonspecific symptoms but initially she had distinct fevers and gram negative bacteremia. At this point, I think it is appropriate to proceed with transesophageal echocardiogram. I explained the nature of the procedure, its potential risks and expected findings to the patient. She did sign appropriate consent. The procedure is scheduled for this afternoon and she will be kept NPO after 9 o'clock this morning.
[2020-11-21] MEDS ORDERED: MIDAZOLAM INJ 2MG/2ML VIAL (J2250 PER 1MG) As Ordered ONE (16:47)
[2020-11-21] MEDS ORDERED: fentaNYL 100 MCG/2 ML INJECTION (J3010) As Ordered ONE (16:47)
[2020-11-21] MEDS ORDERED: LIDOCAINE 2% 100MG/5ML SDV (FOR ANES.) As Ordered ONE (16:49)
[2020-11-21] MEDS ORDERED: propofoL 200 MG/20 ML VIAL As Ordered ONE (16:49)
[2020-11-21] MEDS ORDERED: CETACAINE SPRAY 5GM As Ordered ONE (16:59)
[2020-11-21] MEDS ORDERED: LIDOCAINE VISCOUS 2% SOLN 15ML UDC As Ordered ONE (16:59)
[2020-11-22 00:46] LABS: BLOOD UREA NITROGEN 10 MG/DL (7-18); CALCIUM LEVEL 8.4 MG/DL (8.8-10.2); CARBON DIOXIDE LEVEL 32 MEQ/L (21-32); CHLORIDE LEVEL 105 MEQ/L (98-107); CREATININE FOR GFR 0.54 MG/DL (0.55-1.30); FREE T4 1.23 NG/DL (0.76-1.46); GLOMERULAR FILTRATION RATE > 60.0 (>39); GLUCOSE, FASTING 105 MG/DL (70-100); MAGNESIUM LEVEL 1.8 MG/DL (1.8-2.4); NT-PRO BNP 1073 PG/ML (<450); POTASSIUM SERUM 3.5 MEQ/L (3.5-5.1); SODIUM LEVEL 140 MEQ/L (136-145); TROPONIN I 0.02 NG/ML (< 0.10)
[2020-11-22 02:00] VITALS: BP 124/67
[2020-11-22 06:00] VITALS: BP 138/67
[2020-11-22 06:05] LABS: HEMATOCRIT 33.1 % (36.0-47.0); HEMOGLOBIN 10.2 g/dl (12.0-15.5); MEAN CORPUSCULAR HEMOGLOBIN 27.3 pg (27.0-33.0); MEAN CORPUSCULAR HGB CONC 30.8 g/dl (32.0-36.5); MEAN CORPUSCULAR VOLUME 88.5 fl (80.0-96.0); PLATELET COUNT, AUTOMATED 207 10^3/uL (150-450); RED BLOOD COUNT 3.74 10^6/uL (4.00-5.40); WHITE BLOOD COUNT 8.2 10^3/uL (4.0-10.0)
[2020-11-22 06:25] LABS: BLOOD UREA NITROGEN 10 MG/DL (7-18); CALCIUM LEVEL 8.7 MG/DL (8.8-10.2); CARBON DIOXIDE LEVEL 32 MEQ/L (21-32); CHLORIDE LEVEL 105 MEQ/L (98-107); CREATININE FOR GFR 0.56 MG/DL (0.55-1.30); GLOMERULAR FILTRATION RATE > 60.0 (>39); GLUCOSE, FASTING 85 MG/DL (70-100); POTASSIUM SERUM 3.6 MEQ/L (3.5-5.1); SODIUM LEVEL 140 MEQ/L (136-145)
[2020-11-22] MEDS: ADVAIR HFA 115/21MCG INHALER INH SCH ×2 (07:23→19:25)
[2020-11-22] MEDS: METOPROLOL TART 25 MG TABLET PO SCH ×2 (09:00→20:48)
[2020-11-22] MEDS: ASPIRIN 81MG ENTERIC TABLET PO SCH (09:28)
[2020-11-22] MEDS: APIXABAN 5 MG TAB (ELIQUIS) PO SCH ×2 (09:28→20:48)
[2020-11-22] MEDS: ATORVASTATIN 20 MG TAB PO SCH (09:28)
[2020-11-22] MEDS: VITAMIN D 1,000 INTERNATIONAL UNITS TABLET PO SCH (09:28)
[2020-11-22 10:00] VITALS: BP 115/55
--- NOTE | 2020-11-22 11:31 | ECGEPIP ---
[facility] Test Date: 2020-11-21 Pat Name: GAMALIEL OSHEA Department: Room: [place] [address] Gender: Female Ciaio Lumite Injector: RESPIRATORY : 1945 Requested By: DERRICK BRAVO Order Number: [id number] Reading MD: Jose Gauthier Measurements Intervals [place] Rate: 91 P: 18 ID: [id number] QRS: -62 QRSD: 158 T: 93 QT: 400 QTc: 492 Interpretive Statements Atrial-sensed ventricular-paced rhythm Frequent PACs. Electronically Signed on 11-22-2020 11:31:32 EDT by Jose Gauthier
[2020-11-22] MEDS: VANCOMYCIN HCL 750 MG, VIAL MATE ADAPTER 1 EACH in NS 250 ML IV SCH (12:58)
--- NOTE | 2020-11-22 13:13 | RO ---
OPERATIVE NOTE DATE OF OPERATION: 11/21/2020 REFERRING PHYSICIAN: Rosa Zavala M.D. INDICATIONS: Persistent bacteremia in a patient with bioprosthetic mitral valve, suspicion for endocarditis. PROCEDURE: Transesophageal echocardiogram. PREOPERATIVE DIAGNOSIS: Suspected endocarditis, bacteremia POSTOPERATIVE DIAGNOSIS: Normal mitral bioprosthesis SURGEON: Dena Paz M.D. BINDERY MACHINE SETTER/SET UP OPERATOR: None. ANESTHESIA: Provided by James Patiño CRNA. BRIEF HISTORY: Mrs. Epps is a very pleasant patient who has a history of mitral valve replacement with bioprosthesis in 2019. She also has a history of paroxysmal atrial fibrillation and has a pacemaker in place. She was referred to this hospitalization by Dr. Conway because outpatient blood culture grew gram-positive cocci in clusters and she had prior positive blood culture during her recent hospitalization and consequently, suspicion was raised for bacterial endocarditis. I met with the patient the morning of the procedure. I explained the rationale and I explained the nature of the procedure, including potential complications. The patient signed appropriate consent. DESCRIPTION OF PROCEDURE: Transesophageal echocardiogram was performed in the operating room. The patient presented in a fasting condition. After appropriate time-out was taken and all appropriate monitors were applied, her posterior pharynx was anesthetized using viscous Lidocaine and Cetacaine spray. A bite block was then placed. She was positioned in the left lateral decubitus position. Anesthesiology administered sedation. When appropriate level of sedation was accomplished, the probe was introduced initially into the esophagus and later the stomach without difficulty. After images were obtained it was withdrawn. There were no immediate complications and the patient tolerated the procedure well. FINDINGS: Overall normal or near normal LV systolic function. I do not appreciate any segmental wall motion abnormalities. Also, the right ventricle appears to have normal size and systolic function. There is a stented bioprosthesis in the mitral position. It has normal mobility. There are mild degenerative abnormalities, but I do not appreciate any vegetations. By color Doppler imaging, there is no mitral insufficiency. Aortic valve is tricuspid. It is mildly sclerotic, but mobility is preserved. No vegetations are seen. Trivial insufficiency is seen by color Doppler imaging. Pulmonic valve also was well visualized. It appears normal and there is no stenosis or insufficiency. Tricuspid valve was relatively poorly seen from transesophageal views, but was reasonably well seen from transgastric views. It appears normal without significant abnormalities and with no vegetations. There is mild tricuspid insufficiency. There are echo artifacts apparent in the superior vena cava, right atrium, and right ventricle consistent with pacemaker leads. Atrial septum is significantly hypertrophied consistent with lipomatous hypertrophy. It measures over 2 cm. There is normal flow in both right-sided and left-sided pulmonary veins. The left atrial appendage is large and free of thrombi. There is mild atherosclerosis in the descending aorta, but no ulcerated plaques and no thrombi are seen. CONCLUSION: 1. Grossly preserved LV systolic function. 2. Normal bioprosthesis in mitral position without stenosis or insufficiency. 3. Aortic sclerosis with no stenosis and trace insufficiency. 4. Lipomatous hypertrophy of atrial septum. 5. Normal flow in both left and right-sided pulmonary veins. 6. Large left atrial appendage free of thrombus. 7. Atherosclerosis of the descending aorta. 8. Pacemaker leads apparently in the superior vena cava, right atrium, and right ventricle. 9. No visualized vegetations. Results of the study were communicated to the patient and also to Dr. Arevalo infectious disease attending on the case. STEFANI
--- NOTE | 2020-11-22 13:31 | IPNPDOC ---
Text Note Date of Service The patient was seen on 11/22/20. NOTE Subjective: -Feels well, no complaints, DOLORES was negative for vegetations Objective: VITAL SIGNS: Please see below GENERAL APPEARANCE: NAD. Resting in bed comfortably with ongoing nursing admission evaluation. HEENT: Normocephalic, atraumatic, EOMI, sclera nonicteric, nares are patent, mucous membranes moist. PERRLA CARDIOVASCULAR: RRR, 3/6 pansystolic murmur, loud throughout precordium, loudest at apex LUNGS: Clear to auscultation with good air movement, no crackles, no wheezing or rhonchi noted ABDOMEN: Normoactive bowel sounds, soft, nontender, nondistended, no guarding or rigidity EXTREMITIES: trace lower extremity edema bilaterally, WWP, 2+ DP pulses bilaterally NEUROLOGICAL: Strength 5 out of 5 in both upper and lower extremities. Speech is clear without dysarthria or aphasia. Cranial nerves II through XII are grossly intact. PSYCHIATRIC: Mood and affect are appropriate. Great historian. AOx3 LABORATORY DATA: reviewed 11/22 BCx - pending 11/20 UA ++ --> UCx negative 11/20 BCx GPCs in pairs and clusters 3/ outpatient BCx - GPCs in pairs and clusters x 2 sets IMAGING: CXR: The lungs are well inflated and free of infiltrate. Pleural angles are sharp. Heart size is borderline. Pulmonary vasculature is not increased. A bipolar pacemaker remains in the heart. Median sternotomy wires and monitoring electrodes are seen. Interstitial markings are slightly prominent unchanged. IMPRESSION: Borderline heart size with pacemaker and prior sternotomy. Diffusely prominent interstitial markings. No acute infiltrate.. CT A/P: Lung bases demonstrate small/moderate areas of atelectasis and consolidation with small amount of pleural effusion. Liver, spleen, pancreas, gallbladder, and bilateral adrenal glands are normal. Kidneys demonstrate few bilateral nonobstructing calculi measuring up to 3 mm in the right kidney and 4.5 mm in the left kidney without perinephric stranding or hydroureteronephrosis. The enteric system is without bowel obstruction or perforation. No obvious significant inflammatory process is appreciated. Normal terminal ileum, cecum and appendix are identified in the right lower quadrant. Scattered colonic and sigmoid diverticula noted without acute diverticulitis.. Pelvis demonstrates normal bladder and age-appropriate uterus/adnexa. No ascites. No free air. No intraperitoneal or retroperitoneal adenopathy. Abdominal aorta and vasculature demonstrate age-related changes without aneurysm or dissection. Musculoskeletal structures are intact and without acute osseous abnormality. IMPRESSION: 1. No acute abdominopelvic pathology appreciated. 2. Lung bases demonstrate bibasilar atelectasis/small consolidations with minimal pleural fluid. 3. Diverticulosis without acute diverticulitis. 4. Nonobstructing nephroliths. MICROBIOLOGY: pending. ASSESSMENT: 75-year-old W with a history of HFpEF, COPD, PVD, CAD s/p CABG, severe insufficiency s/p MVR and chart history of atrial fibrillation on eliquis who was recently admitted with E coli UTI and sepsis with E.coli bacteremia and was treated to completion, however with also one other BCx that was positive for Entercoccus fecium that was deemed likely contaminant at the time, who developed fever at home, now a few weeks later, without other localizing infectious symptoms and found to be bacteremic in clinic and sent in for direct admission for potential subacute infection with c/f yet unidenitified occult source without evidence of endocarditis on DOLORES but with a history of other hardware such as pacemaker. PLAN: Fever and bacteremia: / BCx x 2 growing GPCs in pairs and clusters as well as / BCx. -/ and / BCx pending speciation, thus far GPCs in pairs and clusters -MRSA negative -UA++, UCx no growth -CXR, CT A/p nonfocal for infection -ESR, CRP elevated -s/p DOLORES that showed no vegetation -ID consulted, will discuss further investigations given history of hardware or more imaging -On empiric vancomycin -CBC, CMP daily #CAD s/p CABG -ASA, lipitor, metoprolol #COPD -Advair BID #MVR -c/w Eliquis #Hypertensive heart disease -continue home metoprolol BID DVT PROPHYLAXIS: Eliquis VS,Fishbone, I+O VS, Fishbone, I+O Laboratory Tests 11/21/20 23:45 11/22/20 05:32 Vital Signs Date Time Temp Pulse Resp B/P (MAP) Pulse Ox O2 Delivery O2 Flow Rate FiO2 11/22/20 09:00 64 112/52 11/22/20 06:00 98.3 18 91 Nasal Cannula 2.0 I&O- Last 24 Hours up to 6 AM 11/22/20 06:00 Intake Total 1631.5 ml Output Total 825 ml Balance 806.5 ml MIKE ROBERT MD Nov 22, 2020 10:58
[2020-11-22 14:00] VITALS: BP 113/54
--- NOTE | 2020-11-22 14:33 | CR ---
INFECTIOUS DISEASE CONSULTATION DATE: 11/21/2020 ATTENDING PHYSICIAN: Dr. James Arevalo REQUESTING PHYSICIAN: Dr. Rosa Zavala REASON FOR CONSULTATION: Possible endocarditis in the setting of recent history of enterococcus faecium, positive blood culture. HISTORY OF PRESENT ILLNESS: Za is a very pleasant 75-year-old female with notable medical history of coronary artery disease s/p coronary artery bypass graft x3, severe mitral valve insufficiency s/p bioprosthetic mitral valve replacement, heart failure with preserved ejection fraction, peripheral vascular disease, and atrial fibrillation on Eliquis, who was just admitted only last month (from 10/29/20-11/02/20) to the hospital and was found to have sepsis secondary to E-coli urinary tract infection and E-coli bacteremia. At that time one blood culture grew enterococcus faecium. She was treated during said admission with 3 days of intravenous Ceftriaxone and saw an improvement in her overall status. Upon discharge, the Hospitalist Service prescribed both 7 days of oral Cefdinir and 7 days of oral Doxycycline. It is believed the Doxycycline was added due to the one single blood culture growing enterococcus faecium. Subsequently after discharge, the Infectious Disease Service was notified about the enterococcus faecium blood culture result and advised the patient's PCP office to order repeat blood cultures. In light of her bioprosthetic mitral valve, with an enterococcus bacteremia, there is a high risk of infective endocarditis. Those repeat blood cultures were drawn just 3 days ago on 11/18. Preliminary results on the gram stain from the 11/18 cultures showed both samples growing gram positive cocci in pairs and clusters. At this point the patient's PCP's office notified her of the results and advised that she present to the Emergency Department. Upon presentation, it is documented that she denied significant symptoms and all review of system questions by admitting service. The Hospitalist physician contacted Dr. Arevalo of Infectious Disease regarding the possible subacute infection and suspicion for endocarditis with an unclear source. At this time, due to the patient's bioprosthetic valve, and the increased risk of enterococcus bacteremia leading to endocarditis, empiric Vancomycin and Gentamicin was recommended to be initiated. The reason for the Vancomycin is because the patient's sensitivities from the October 2020 admission showed resistance to Ampicillin of the enterococcus faecium positive culture. The Gentamicin is in context of bacteremia with a bioprosthetic valve. The combination of the Vancomycin and Gentamicin allows for synergistic empiric coverage. The Hospitalist Service also consulted Dr. Paz of Cardiology, whom the patient sees as an outpatient about performing a transesophageal echocardiogram to definitively rule in or out mitral valve vegetation. The Infectious Disease Service subsequently saw and examined Za this afternoon. the patient was currently receiving her second day of both Gentamicin IV every 12 hours and Vancomycin IV every 12 hours. Two initial blood cultures that were drawn upon admission yesterday (11/20) showed preliminarily result of no growth after 24 hours. A urinalysis was weakly positive and a urine culture was negative. MRSA PCR screen was also negative. The patient had no leukocytosis and had mildly elevated systemic inflammatory markers. Imaging was unremarkable for any acute pathology. Upon review during Infectious Disease exam, the patient reported some mild to moderate cold intolerance, productive cough, eliciting brownish colored sputum, some moderate dyspnea on exertion, and some looser stools today after receiving intravenous contrast dye earlier in the morning and remaining n.p.o. in preparation for transesophageal echocardiogram this afternoon. PAST MEDICAL HISTORY: The patient's past medical history is significant for: 1. Coronary artery disease, status post coronary artery bypass graft x3 in November of 2018. 2. Severe mitral valve insufficiency status post bioprosthetic mitral valve replacement in November 2018 (currently on Eliquis). 3. History of complete heart block status post pacemaker implantation in November of 2018. 4. Heart failure with preserved ejection fraction. 5. Reported hypertensive heart disease. *The patient follows with Dr. Dena Paz as an outpatient for cardiology care. 6. History of atrial fibrillation, on Eliquis (The patient was switched to Eliquis on 10/28/20 after previously being on Coumadin and having significant swings in INR.) 7. Chronic obstructive pulmonary disease, on home oxygen (last month it has been 2 liters). (The patient follows with Dr. Jacob Brunson as outpatient for pulmonary care.) PAST SURGICAL HISTORY: 1. All in the span of 2 weeks during November of 2018, the patient underwent a coronary artery bypass graft x3, a bioprosthetic valve replacement of the mitral valve, and implantation of a pacemaker all of these procedures were done through the [facility] Service. 2. Left thoracentesis. 3. Tonsillectomy. SOCIAL HISTORY: The patient is and her 's name is Josh. They own a home and live in [place], [place]. They have two daughters. The patient is a former smoker, having quit in the mid . She denies any current or significant former alcohol use. She also denies any current or former illicit drug use. FAMILY HISTORY: Both patient's father (79 years old) - coronary artery disease, and mother (78 years old) and pancreatic cancer are . The patient has two brothers. The older brother (68 years old - coronary artery disease) is . Her younger brother is alive and has arthritis related issues. Both daughters are alive and one has a history of breast cancer. ALLERGIES: No known allergies. OUTPATIENT MEDICATIONS: 1. Apixaban 5 mg p.o. twice daily. 2. Aspirin 81 mg p.o. daily. 3. Atorvastatin 80 mg p.o. daily. 4. Breo-Ellipta inhaler one puff daily. 5. Incruse Ellipta one puff inhaler daily. 6. Vitamin D-3 1,000 units p.o. daily. 7. Metoprolol Tartrate 25 mg p.o. twice daily. 8. One daily oral antihistamine. CURRENT INPATIENT MEDICATIONS: 1. Aspirin 81 mg p.o. daily. 2. Atorvastatin 80 mg p.o. daily. 3. Vitamin D 1,000 units p.o. daily. 4. Gentamicin q. 12 hours IV. 5. Vancomycin q. 12 hours IV. 6. Apixaban p.o. twice daily. 7. Metoprolol Tartrate 25 mg p.o. twice daily. 8. Advair 2 puffs scheduled twice daily. 9. P.r.n. Acetaminophen 650 mg. 10. P.r.n. 30 mg Milk of Magnesia, both of which the patient has yet to take during this admission. REVIEW OF SYSTEMS: Other than those reported in the HPI all other elements of a comprehensive ten point review of systems were carried out and were negative including patient denial of any current or recent fevers, night sweats, unintentional change in weight, chest pain, chest pressure, palpitations, pleuritic chest pain, nausea, vomiting, abdominal pain, constipation, blood in stool, dysuria, hematuria, any new lumps or bumps. PHYSICAL EXAMINATION: VITAL SIGNS: Temperature 98.4, heart rate 73, respiratory rate 17, blood pressure 127/60, SpO2 of 92% on 2 liters of nasal cannula supplemental oxygen, BMI of 26. GENERAL APPEARANCE: A very pleasant elderly female lying upright in bed, on supplemental oxygen, in no acute distress. Alert and oriented x3, accompanied by her in the hospital room. HEENT: Normocephalic and atraumatic. Non injected, anicteric sclerae. There is some mild conjunctival pallor. The patient is wearing eyeglasses. PERRLA. Oral cavity mucous membranes are slightly dry. There is no visualized pharyngeal erythema or exudate. NECK: Supple. Trachea midline, no lymphadenopathy appreciated. CHEST: There is a pacemaker in place under the skin the left upper chest. There is no chest wall tenderness. CARDIOVASCULAR: Irregularly irregular rhythm, regular rate. There is a 2/6 systolic murmur appreciated throughout the precordium. It appears to be most noticeable at the right second parasternal intercostal space. There is delayed capillary refill of approximately 3 seconds, 2+ radial pulses bilaterally. RESPIRATORY: Somewhat diminished breath sounds bilaterally with bibasilar mild crackles. Breathing with assistance of 2 liters nasal cannula supplemental oxygen, speaking in full sentences. Symmetric chest expansion. No accessory muscle use appreciated. GASTROINTESTINAL: The patient's abdomen is soft and nontender. It is slightly obese with some mild distention, hyperactive bowel sounds throughout. No guarding or rigidity. No hepatosplenomegaly appreciated. EXTREMITIES: There is 2+ pitting edema of the right lower extremity and 1+ pitting edema of the distal left lower extremity. Hands and feet are cool to the touch. There is scattered ecchymosis of bilateral upper extremities. The skin of her extremities is thin. There is an IV present in the right posterior forearm. NEUROLOGIC: Awake, alert and oriented x3. No focal deficits appreciated. Non dysarthric speech. Non antalgic gait. PSYCH: The patient is pleasant. Her mood and affect appear appropriate. LABORATORY DATA: CBC - WBC 8.7, hemoglobin 10.8, hematocrit 35.4, platelet count 197,000. BMP - sodium 141, potassium 3.6, chloride 104, bicarbonate 31, BUN 12, creatinine 0.53, glucose 101, calcium 8.2, magnesium 2.0. C-reactive protein 3.41 (yesterday). Erythrocyte sedimentation of 58 (yesterday). Urinalysis (yesterday) clear appearance with trace leukocyte esterase, negative nitrite and 1+ urine bacteria. Urine culture shows no growth. Two blood cultures obtained yesterday (11/20) have preliminary result of no growth after 24 hours. INTAKE AND OUTPUT: Twenty-four hour, midnight to midnight with intake of 761.5 mL, output of 600 mL, net balance of positive 161.5 mL. IMAGING DATA: A portable one view chest x-ray (obtained yesterday) with official impression of "borderline heart size with pacemaker and prior sternotomy. Diffusely prominent interstitial markings. No acute infiltrate". CT abdomen and pelvis without contrast followed by with contrast obtained on 11/21 showed "no acute pathology with bibasilar atelectasis versus small consolidation with minimal effusions. Diverticulosis without diverticulitis. Non-obstructive nephrolith". IMPRESSION AND PLAN: 1. Gram positive bacteremia of unclear source with recent history of positive blood culture growing enterococcus faecium in the setting of bioprosthetic mitral valve - As it relates to the source, a DOLORES was performed this afternoon with preliminary impression being that no vegetation was visualized. At this point, the source could be gastrointestinal due to last month's positive enterococcus faecium culture growth as well as the two cultures from drawn 3 days ago. The Infectious Disease Service spoke with Microbiology and due to more than one organism growing on both the cultures, more time is needed to await results. At this point, the gram stains for both cultures showed gram positive cocci in pairs and chains. Should these outpatient cultures result in an enterococcus species, there would be a high likelihood that the source for the bacteremia would be of gastrointestinal origin. Another possible source is potential growth on the patient's pacemaker leads. patients who consistently have positive blood cultures but unremarkable echocardiograms, and have a pacemaker, may have indolent growth on one of the PM leads. So this is something to continue monitor should repeat cultures be positive. Currently, the two initial blood cultures upon admission yesterday show no growth after 24 hours. Urine culture from yesterday was negative. The CT abnormal and pelvis was done today in the context of possible enterococcus bacteremia from a GI source, but again that showed no acute pathology. At this time the patient does not have leukocytosis and her ESR and CRP are only mildly elevated. Due to the no vegetation seen on this afternoon's DOLORES, we have stopped the Gentamicin. The Gentamicin had been added in the setting of her bioprosthetic valve and empiric coverage for bacteremia and possible endocarditis. Due to the ototoxic and nephrotoxic side effects of Gentamicin and the negative DOLORES for vegetation, no need to continue with this. We will continue with the Vancomycin and have ordered a single repeat blood culture tomorrow morning as well as Wednesday morning. Should any culture tomorrow show enterococcus growth, we strongly recommend the patient undergo a colonoscopy to assess for possible GI pathology causing leakage of enterococcus species out of GI tract. Of note, the patient's did report she had a cologuard within the past year that was "normal". The patient herself has never had a colonoscopy. In summary: Gram positive cocci bacteremia of unclear source in the setting of enterococcus faecium, positive culture last month during hospital admission and bioprosthetic mitral valve with systolic murmur. We are awaiting the 11/18 formal culture results and have stopped the Gentamicin after today's negative DOLORES. Repeat cultures ordered for tomorrow morning, and should they remain negative, we will discontinue the Vancomycin. Thank you very much for the opportunity to partake in the care of Mrs. Epps. We will continue to follow along and welcome any further questions or inquiries. STEFANI
[2020-11-22] MEDS ORDERED: cefTRIAXone SOD 2 GM VIAL (J0696 PER 250MG) IM SCH (15:35)
[2020-11-22] MEDS: cefTRIAXone SOD 2 GM in D5W MINI-BAG PLUS 50 ML IV SCH (16:00)
--- NOTE | 2020-11-22 16:04 | IPNPDOC ---
Text Note Date of Service The patient was seen on 11/22/20. NOTE INFECTIOUS DISEASE CONSULTATION ATTENDING PHYSICIAN: Dr. James Arevalo REQUESTING PHYSICIAN: Dr. Rosa Zavala SUBJECTIVE: Za was seem this morning at the bedside. She is in a cheerful mood, and is eating well. She denies any events last night, including fevers, chills, nausea, vomiting or night sweats. She has no pain in the site of her prosthetic valve, pacemaker or peripheral lines. OBJECTIVE: VITALS: See below GENERAL: Patient is very pleasant is is AOx3. She is sitting upright in bed, on supplemental Oxygen, and in no distress. HEENT: Normocephalic, atraumatic. Oral cavity is moist and pink, with some inflammation at the gumline of her left second molar. NECK: Neck is supple and the trachea is midline. No lymphadenopathy is appreciated. CHEST: There is a pacemaker under the skin in the L upper chest without tenderness. HEART: Heart rhythm is irregularly irregular with a regular rate. There is a 2/6 systolic murmur heard throughout the precordium, strongest at the R 2nd ICS. There is a delayed capillary refill of approximally 3s, with 2+ radial pulses bilaterally. RESPIRATORY: Somewhat decreased breath sounds bilaterally, with bibasilar crackles. She is breathing 2L of oxygen, and is capable of speaking in full sentences. Chest rise is symmetric on inhalation. No accessory muscle use is noted. ABDOMEN: The abdomen is obese, soft and nontender, and hyperactive bowel sounds. No guarding or rigidity. No hepatosplenomegaly noted EXTREMITIES: There is 2+ pitting edema of the right lower extremity and 1+ pitting edema of the distal left lower extremity. Hands and feet are cool to the touch. There is scattered ecchymosis of bilateral upper extremities. The skin of her extremities is thin. There is an IV present in the right posterior forearm. NEUROLOGIC: Awake, alert and oriented x3. No focal deficits appreciated. PSYCH: pleasant, with normal mood and affect. LABORATORY DATA: CBC - WBC 8.2, hemoglobin 10.2, hematocrit 33.1, platelet count 207. BMP - sodium 140, potassium 3.6, chloride 105, bicarbonate 32, BUN 10, cr eatinine 0.56, glucose 85, calcium 8.78, magnesium 1.8 (yesterday), C-reactive protein 3.41 (from 11/20) Urinalysis (11/20) clear appearance with trace leukocyte esterase, negative nitrite and 1+ urine bacteria. Urine culture shows no growth. Two blood cultures obtained show a gram positive cocci in chains, Streptococcus viridans vs. Enterococcus. Prior blood cultures grew Enterococcus faecium in previous admission. IMPRESSION AND PLAN: 1. Despise the patient's WBC and temperature to be within normal limits and a negative DOLORES, four blood cultures are positive for gram positive cocci. Given her history of pacemaker and prosthetic heart valves, we are highly suspicious of real infectious prosthetic or igiugig valve endocarditis vs. infected pacemaker ? leakage form the GI tract. All cultures grew gram positive organisms, and we will continue to treat with Vancomycin for enterococcus, with added Rocephin 2mg IV for added coverage for Streptococcus. Antibiotic coverage will be adjusted once an organism is identified. Repeat blood draws tomorrow 11/23. IV antibiotics will be continued for a total of 6 weeks past two consecutive days of negative blood draws. 2- Repeat DOLORES will be repeated in 5-[address] Paz 3- follow up on CBC Basic CRP esr monitor for nephrotoxicity from vanco VS,Fishbone, I+O VS, Fishbone, I+O Laboratory Tests 11/21/20 23:45 11/22/20 05:32 Vital Signs Date Time Temp Pulse Resp B/P (MAP) Pulse Ox O2 Delivery O2 Flow Rate FiO2 11/22/20 14:00 97.5 72 18 113/54 (73) 93 Nasal Cannula 2.0 I&O- Last 24 Hours up to 6 AM 11/22/20 06:00 Intake Total 1631.5 ml Output Total 825 ml Balance 806.5 ml GME ATTESTATION GME ATTESTATION My faculty preceptor for this patient encounter was physically present during the encounter and was fully available. All aspects of the patient interview, examination, medical decision making process, and medical care plan development were reviewed and approved by the faculty preceptor. The faculty preceptor is aware and concurs with the plan as stated in the body of this note and will attest to such by his/her cosignature. YAMILA BLACK Nov 22, 2020 16:04 James Arevalo MD Nov 24, 2020 20:21
[2020-11-22 22:00] VITALS: BP 119/69
[2020-11-23] MEDS: VANCOMYCIN HCL 750 MG, VIAL MATE ADAPTER 1 EACH in NS 250 ML IV SCH ×2 (00:41→13:06)
[2020-11-23 02:00] VITALS: BP 127/68
[2020-11-23 06:00] VITALS: BP 133/70
[2020-11-23 06:31] LABS: HEMATOCRIT 33.5 % (36.0-47.0); MEAN CORPUSCULAR HEMOGLOBIN 26.9 pg (27.0-33.0); MEAN CORPUSCULAR HGB CONC 29.9 g/dl (32.0-36.5); MEAN CORPUSCULAR VOLUME 90.1 fl (80.0-96.0); PLATELET COUNT, AUTOMATED 200 10^3/uL (150-450); RED BLOOD COUNT 3.72 10^6/uL (4.00-5.40); WHITE BLOOD COUNT 7.8 10^3/uL (4.0-10.0)
[2020-11-23 06:52] LABS: BLOOD UREA NITROGEN 11 MG/DL (7-18); C REACTIVE PROTEIN QUANTITATIV 2.24 MG/DL (0.00-0.30); CALCIUM LEVEL 8.4 MG/DL (8.8-10.2); CARBON DIOXIDE LEVEL 32 MEQ/L (21-32); CHLORIDE LEVEL 107 MEQ/L (98-107); CREATININE FOR GFR 0.52 MG/DL (0.55-1.30); GLOMERULAR FILTRATION RATE > 60.0 (>39); GLUCOSE, FASTING 101 MG/DL (70-100); POTASSIUM SERUM 3.4 MEQ/L (3.5-5.1); SODIUM LEVEL 142 MEQ/L (136-145)
[2020-11-23] MEDS: ADVAIR HFA 115/21MCG INHALER INH SCH ×2 (07:11→19:45)
[2020-11-23 07:56] LABS: ERYTHROCYTE SEDIMENTATION RATE 63 mm/hr (0-30)
[2020-11-23] MEDS: ASPIRIN 81MG ENTERIC TABLET PO SCH (08:51)
[2020-11-23] MEDS: APIXABAN 5 MG TAB (ELIQUIS) PO SCH ×2 (08:51→20:03)
[2020-11-23] MEDS: VITAMIN D 1,000 INTERNATIONAL UNITS TABLET PO SCH (08:51)
[2020-11-23] MEDS: ATORVASTATIN 20 MG TAB PO SCH (08:51)
[2020-11-23] MEDS: METOPROLOL TART 25 MG TABLET PO SCH ×2 (08:51→20:03)
--- NOTE | 2020-11-23 10:11 | IPNPDOC ---
Text Note Date of Service The patient was seen on 11/23/20. NOTE SUBJECTIVE: -continues to feel well without complaints OBJECTIVE: VITAL SIGNS: Please see below GENERAL APPEARANCE: NAD. Resting in bed comfortably with ongoing nursing admiss ion evaluation. HEENT: Normocephalic, atraumatic, EOMI, sclera nonicteric, nares are patent, mucous membranes moist. PERRLA CARDIOVASCULAR: RRR, 3/6 pansystolic murmur, loud throughout precordium, loudest at apex LUNGS: Clear to auscultation with good air movement, no crackles, no wheezing or rhonchi noted ABDOMEN: Normoactive bowel sounds, soft, nontender, nondistended, no guarding or rigidity EXTREMITIES: trace lower extremity edema bilaterally, WWP, 2+ DP pulses bilaterally NEUROLOGICAL: Strength 5 out of 5 in both upper and lower extremities. Speech is clear without dysarthria or aphasia. Cranial nerves II through XII are grossly intact. PSYCHIATRIC: Mood and affect are appropriate. Great historian. AOx3 LABORATORY DATA: reviewed 11/23 BCx - pending 11/22 BCx - NGTD 11/20 UA ++ --> UCx negative 11/20 BCx GPCs in pairs and clusters 11/18 outpatient BCx - GPCs in pairs and clusters x 2 sets IMAGING: CXR: The lungs are well inflated and free of infiltrate. Pleural angles are sharp. Heart size is borderline. Pulmonary vasculature is not increased. A bipolar pacemaker remains in the heart. Median sternotomy wires and monitoring electrodes are seen. Interstitial markings are slightly prominent unchanged. IMPRESSION: Borderline heart size with pacemaker and prior sternotomy. Diffusely prominent interstitial markings. No acute infiltrate.. CT A/P: Lung bases demonstrate small/moderate areas of atelectasis and consolidation with small amount of pleural effusion. Liver, spleen, pancreas, gallbladder, and bilateral adrenal glands are normal. Kidneys demonstrate few bilateral nonobstructing calculi measuring up to 3 mm in the right kidney and 4.5 mm in the left kidney without perinephric stranding or hydroureteronephrosis. The enteric system is without bowel obstruction or perforation. No obvious significant inflammatory process is appreciated. Normal terminal ileum, cecum and appendix are identified in the right lower quadrant. Scattered colonic and sigmoid diverticula noted without acute diverticulitis.. Pelvis demonstrates normal bladder and age-appropriate uterus/adnexa. No ascites. No free air. No intraperitoneal or retroperitoneal adenopathy. Abdominal aorta and vasculature demonstrate age-related changes without aneurysm or dissection. Musculoskeletal structures are intact and without acute osseous abnormality. IMPRESSION: 1. No acute abdominopelvic pathology appreciated. 2. Lung bases demonstrate bibasilar atelectasis/small consolidations with minimal pleural fluid. 3. Diverticulosis without acute diverticulitis. 4. Nonobstructing nephroliths. DOLORES: FINDINGS: Overall normal or near normal LV systolic function. I do not appreciate any segmental wall motion abnormalities. Also, the right ventricle appears to have normal size and systolic function. There is a stented bioprosthesis in the mitral position. It has normal mobility. There are mild degenerative abnormalities, but I do not appreciate any vegetations. By color Doppler imaging, there is no mitral insufficiency. Aortic valve is tricuspid. It is mildly sclerotic, but mobility is preserved. No vegetations are seen. Trivial insufficiency is seen by color Doppler imaging. Pulmonic valve also was well visualized. It appears normal and there is no stenosis or insufficiency. Tricuspid valve was relatively poorly seen from transesophageal views, but was reasonably well seen from transgastric views. It appears normal without significant abnormalities and with no vegetations. There is mild tricuspid insufficiency. There are echo artifacts apparent in the superior vena cava, right atrium, and right ventricle consistent with pacemaker leads. Atrial septum is significantly hypertrophied consistent with lipomatous hypertrophy. It measures over 2 cm. There is normal flow in both right-sided and left-sided pulmonary veins. The left atrial appendage is large and free of thrombi. There is mild atherosclerosis in the descending aorta, but no ulcerated plaques and no thrombi are seen. CONCLUSION: 1. Grossly preserved LV systolic function. 2. Normal bioprosthesis in mitral position without stenosis or insufficiency. 3. Aortic sclerosis with no stenosis and trace insufficiency. 4. Lipomatous hypertrophy of atrial septum. 5. Normal flow in both left and right-sided pulmonary veins. 6. Large left atrial appendage free of thrombus. 7. Atherosclerosis of the descending aorta. 8. Pacemaker leads apparently in the superior vena cava, right atrium, and right ventricle. 9. No visualized vegetations. Results of the study were communicated to the patient and also to Dr. Arevalo infectious disease attending on the case. ASSESSMENT: 75-year-old W with a history of HFpEF, COPD, PVD, CAD s/p CABG, severe insufficiency s/p MVR and chart history of atrial fibrillation on eliquis who was recently admitted with E coli UTI and sepsis with E.coli bacteremia and was treated to completion, however with also one other BCx that was positive for Entercoccus fecium that was deemed likely contaminant at the time, who developed fever at home, now a few weeks later, without other localizing infectious symptoms and found to be bacteremic in clinic and sent in for direct admission for potential subacute infection with c/f yet unidenitified occult source wit hout evidence of endocarditis on DOLORES but with a history of other hardware such as pacemaker. At this time, the discussion with ID and cardiology includes if PPM should be removed and if other species such as E.fecium are found, she will need a colonoscopy. PLAN: Fever and bacteremia: 11/18 BCx x 2 growing GPCs in pairs and clusters as well as 11/20 BCx. -11/18 and 11/20 BCx pending speciation, thus far GPCs in pairs and clusters, likely strep per prelim according to ID -MRSA negative -UA++, UCx no growth -CXR, CT A/p nonfocal for infection -ESR, CRP elevated -s/p DOLORES that showed no vegetation -ID consulted, will discuss further investigations given history of hardware or more imaging -On empiric vancomycin, now ceftriaxone was added on 11/22 -CBC, CMP daily #CAD s/p CABG -ASA, lipitor, metoprolol #COPD -Advair BID #MVR -c/w Eliquis #Hypertensive heart disease -continue home metoprolol BID DVT PROPHYLAXIS: Eliquis VS,Fishbone, I+O VS, Fishbone, I+O Laboratory Tests 11/23/20 05:52 Vital Signs Date Time Temp Pulse Resp B/P (MAP) Pulse Ox O2 Delivery O2 Flow Rate FiO2 11/23/20 06:00 97.4 79 18 133/70 (91) 94 Nasal Cannula 2.0 I&O- Last 24 Hours up to 6 AM 11/23/20 06:00 Intake Total 1840 ml Output Total 500 ml Balance 1340 ml MIKE ROBERT MD Nov 23, 2020 08:26
[2020-11-23 14:00] VITALS: BP 139/57
[2020-11-23] MEDS: cefTRIAXone SOD 2 GM in D5W MINI-BAG PLUS 50 ML IV SCH (16:18)
[2020-11-23 22:00] VITALS: BP 136/59
[2020-11-24] MEDS: VANCOMYCIN HCL 750 MG, VIAL MATE ADAPTER 1 EACH in NS 250 ML IV SCH ×2 (00:45→15:23)
[2020-11-24 05:40] LABS: HEMATOCRIT 32.3 % (36.0-47.0); HEMOGLOBIN 9.7 g/dl (12.0-15.5); MEAN CORPUSCULAR HEMOGLOBIN 26.9 pg (27.0-33.0); MEAN CORPUSCULAR VOLUME 89.5 fl (80.0-96.0); PLATELET COUNT, AUTOMATED 201 10^3/uL (150-450); RED BLOOD COUNT 3.61 10^6/uL (4.00-5.40); WHITE BLOOD COUNT 7.6 10^3/uL (4.0-10.0)
[2020-11-24 06:00] VITALS: BP 144/70
[2020-11-24 06:05] LABS: BLOOD UREA NITROGEN 7 MG/DL (7-18); CALCIUM LEVEL 8.1 MG/DL (8.8-10.2); CARBON DIOXIDE LEVEL 32 MEQ/L (21-32); CHLORIDE LEVEL 107 MEQ/L (98-107); CREATININE FOR GFR 0.48 MG/DL (0.55-1.30); GLOMERULAR FILTRATION RATE > 60.0 (>39); GLUCOSE, FASTING 100 MG/DL (70-100); POTASSIUM SERUM 3.1 MEQ/L (3.5-5.1); SODIUM LEVEL 141 MEQ/L (136-145)
[2020-11-24] MEDS: ADVAIR HFA 115/21MCG INHALER INH SCH ×2 (07:33→19:42)
[2020-11-24] MEDS: ASPIRIN 81MG ENTERIC TABLET PO SCH (09:26)
[2020-11-24] MEDS: APIXABAN 5 MG TAB (ELIQUIS) PO SCH ×2 (09:26→20:00)
[2020-11-24] MEDS: VITAMIN D 1,000 INTERNATIONAL UNITS TABLET PO SCH (09:26)
[2020-11-24] MEDS: ATORVASTATIN 20 MG TAB PO SCH (09:27)
[2020-11-24] MEDS: METOPROLOL TART 25 MG TABLET PO SCH ×2 (09:29→20:00)
--- NOTE | 2020-11-24 09:33 | IPNPDOC ---
Text Note Date of Service The patient was seen on 11/24/20. NOTE SUBJECTIVE: -continues to feel well without complaints OBJECTIVE: VITAL SIGNS: Please see below GENERAL APPEARANCE: NAD. Resting in bed comfortably with ongoing nursing admissi on evaluation. HEENT: Normocephalic, atraumatic, EOMI, sclera nonicteric, nares are patent, mucous membranes moist. PERRLA CARDIOVASCULAR: RRR, 3/6 pansystolic murmur, loud throughout precordium, loudest at apex LUNGS: Clear to auscultation with good air movement, no crackles, no wheezing or rhonchi noted ABDOMEN: Normoactive bowel sounds, soft, nontender, nondistended, no guarding or rigidity EXTREMITIES: trace lower extremity edema bilaterally, WWP, 2+ DP pulses bilaterally NEUROLOGICAL: Strength 5 out of 5 in both upper and lower extremities. Speech is clear without dysarthria or aphasia. Cranial nerves II through XII are grossly intact. PSYCHIATRIC: Mood and affect are appropriate. Great historian. AOx3 LABORATORY DATA: reviewed 11/23 BCx - pending 11/22 BCx - NGTD 11/20 UA ++ --> UCx negative 11/20 BCx GPCs in pairs and clusters --> 1 set growing E. fecium 11/18 outpatient BCx - GPCs in pairs and clusters x 2 sets IMAGING: CXR: The lungs are well inflated and free of infiltrate. Pleural angles are sharp. Heart size is borderline. Pulmonary vasculature is not increased. A bipolar pacemaker remains in the heart. Median sternotomy wires and monitoring electrodes are seen. Interstitial markings are slightly prominent unchanged. IMPRESSION: Borderline heart size with pacemaker and prior sternotomy. Diffusely prominent interstitial markings. No acute infiltrate.. CT A/P: Lung bases demonstrate small/moderate areas of atelectasis and consolidation with small amount of pleural effusion. Liver, spleen, pancreas, gallbladder, and bilateral adrenal glands are normal. Kidneys demonstrate few bilateral nonobstructing calculi measuring up to 3 mm in the right kidney and 4.5 mm in the left kidney without perinephric stranding or hydroureteronephrosis. The enteric system is without bowel obstruction or perforation. No obvious significant inflammatory process is appreciated. Normal terminal ileum, cecum and appendix are identified in the right lower quadrant. Scattered colonic and sigmoid diverticula noted without acute diverticulitis.. Pelvis demonstrates normal bladder and age-appropriate uterus/adnexa. No ascites. No free air. No intraperitoneal or retroperitoneal adenopathy. Abdominal aorta and vasculature demonstrate age-related changes without aneurysm or dissection. Musculoskeletal structures are intact and without acute osseous abnormality. IMPRESSION: 1. No acute abdominopelvic pathology appreciated. 2. Lung bases demonstrate bibasilar atelectasis/small consolidations with minimal pleural fluid. 3. Diverticulosis without acute diverticulitis. 4. Nonobstructing nephroliths. DOLORES: FINDINGS: Overall normal or near normal LV systolic function. I do not appreciate any segmental wall motion abnormalities. Also, the right ventricle appears to have normal size and systolic function. There is a stented bioprosthesis in the mitral position. It has normal mobility. There are mild degenerative abnormalities, but I do not appreciate any vegetations. By color Doppler imaging, there is no mitral insufficiency. Aortic valve is tricuspid. It is mildly sclerotic, but mobility is preserved. No vegetations are seen. Trivial insufficiency is seen by color Doppler imaging. Pulmonic valve also was well visualized. It appears normal and there is no stenosis or insufficiency. Tricuspid valve was relatively poorly seen from transesophageal views, but was reasonably well seen from transgastric views. It appears normal without significant abnormalities and with no vegetations. There is mild tricuspid insufficiency. There are echo artifacts apparent in the superior vena cava, right atrium, and right ventricle consistent with pacemaker leads. Atrial septum is significantly hypertrophied consistent with lipomatous hypertrophy. It measures over 2 cm. There is normal flow in both right-sided and left-sided pulmonary veins. The left atrial appendage is large and free of thrombi. There is mild atherosclerosis in the descending aorta, but no ulcerated plaques and no thrombi are seen. CONCLUSION: 1. Grossly preserved LV systolic function. 2. Normal bioprosthesis in mitral position without stenosis or insufficiency. 3. Aortic sclerosis with no stenosis and trace insufficiency. 4. Lipomatous hypertrophy of atrial septum. 5. Normal flow in both left and right-sided pulmonary veins. 6. Large left atrial appendage free of thrombus. 7. Atherosclerosis of the descending aorta. 8. Pacemaker leads apparently in the superior vena cava, right atrium, and right ventricle. 9. No visualized vegetations. Results of the study were communicated to the patient and also to Dr. Arevalo infectious disease attending on the case. ASSESSMENT: 75-year-old W with a history of HFpEF, COPD, PVD, CAD s/p CABG, severe insufficiency s/p MVR and chart history of atrial fibrillation on eliquis who was recently admitted with E coli UTI and sepsis with E.coli bacteremia and was treated to completion, however with also one other BCx that was positive for Entercoccus fecium that was deemed likely contaminant at the time, who developed fever at home, now a few weeks later, without other localizing infectious symptoms and found to be bacteremic in clinic and sent in for direct admission for potential subacute infection with c/f yet unidenitified occult source without evidence of endocarditis on DOLORES but with a history of other hardware such as pacemaker. At this time, the discussion with ID and cardiology includes if PPM should be removed and now that E.fecium grew in the 11/20 BCx she will need a colonoscopy. PLAN: Fever and bacteremia: 11/18 BCx x 2 growing GPCs in pairs and clusters as well as 11/20 BCx, with one of the 11/20 sets growing E. fecium. -/ and 11/20 BCx pending speciation, thus far GPCs in pairs and clusters, now one of the 11/20 Cx growing E.fecium -MRSA negative -UA++, UCx no growth -CXR, CT A/p nonfocal for infection -ESR, CRP elevated -s/p DOLORES that showed no vegetation -ID consulted, will discuss further investigations given history of hardware or more imaging -Continue empiric vancomycin, dc ceftriaxone, restart gent for synergy per Dr. Arevalo -CBC, CMP daily -Will consult GI tomorrow (Dr. Gomez) for colonoscopy #CAD s/p CABG -ASA, lipitor, metoprolol #COPD -Advair BID #MVR -c/w Eliquis #Hypertensive heart disease -continue home metoprolol BID DVT PROPHYLAXIS: Eliquis VS,Fishbone, I+O VS, Fishbone, I+O Laboratory Tests 11/24/20 05:20 Vital Signs Date Time Temp Pulse Resp B/P (MAP) Pulse Ox O2 Delivery O2 Flow Rate FiO2 11/24/20 06:00 96.9 80 20 144/70 (94) 92 Nasal Cannula 2.0 I&O- Last 24 Hours up to 6 AM 11/24/20 05:59 Intake Total 1540 ml Output Total 825 ml Balance 715 ml MIKE ROBERT MD Nov 24, 2020 08:30
[2020-11-24] MEDS: GENTAMICIN 60 MG in D5W 50 ML IV SCH ×2 (11:58→22:49)
[2020-11-24 14:00] VITALS: BP 131/65
[2020-11-24] MEDS ORDERED: POTASSIUM CHL PWD 20 MEQ PACKET PO ONE (21:55)
[2020-11-24 22:00] VITALS: BP 125/62
[2020-11-25 06:00] VITALS: BP 130/63
[2020-11-25 06:06] LABS: HEMATOCRIT 33.8 % (36.0-47.0); HEMOGLOBIN 10.1 g/dl (12.0-15.5); MEAN CORPUSCULAR HEMOGLOBIN 26.6 pg (27.0-33.0); MEAN CORPUSCULAR HGB CONC 29.9 g/dl (32.0-36.5); MEAN CORPUSCULAR VOLUME 88.9 fl (80.0-96.0); PLATELET COUNT, AUTOMATED 224 10^3/uL (150-450); WHITE BLOOD COUNT 8.4 10^3/uL (4.0-10.0)
[2020-11-25 06:31] LABS: BLOOD UREA NITROGEN 7 MG/DL (7-18); CARBON DIOXIDE LEVEL 32 MEQ/L (21-32); CHLORIDE LEVEL 108 MEQ/L (98-107); CREATININE FOR GFR 0.46 MG/DL (0.55-1.30); GLOMERULAR FILTRATION RATE > 60.0 (>39); GLUCOSE, FASTING 96 MG/DL (70-100); POTASSIUM SERUM 3.6 MEQ/L (3.5-5.1); SODIUM LEVEL 144 MEQ/L (136-145)
[2020-11-25] MEDS: ADVAIR HFA 115/21MCG INHALER INH SCH ×2 (07:14→20:19)
[2020-11-25] MEDS ORDERED: VANCOMYCIN HCL 1,000 MG, VIAL MATE ADAPTER 1 EACH in NS 250 ML IV SCH (09:00)
[2020-11-25 09:33] VITALS: BP 162/67
[2020-11-25] MEDS: APIXABAN 5 MG TAB (ELIQUIS) PO SCH ×2 (09:35→20:33)
[2020-11-25] MEDS: ATORVASTATIN 20 MG TAB PO SCH (09:35)
[2020-11-25] MEDS: ASPIRIN 81MG ENTERIC TABLET PO SCH (09:35)
[2020-11-25] MEDS: METOPROLOL TART 25 MG TABLET PO SCH ×2 (09:35→20:33)
[2020-11-25] MEDS: VITAMIN D 1,000 INTERNATIONAL UNITS TABLET PO SCH (09:42)
--- NOTE | 2020-11-25 10:30 | IPNPDOC ---
Text Note Date of Service The patient was seen on 11/25/20. NOTE SUBJECTIVE: -continues to feel well without complaints OBJECTIVE: VITAL SIGNS: Please see below GENERAL APPEARANCE: NAD. Resting in bed comfortably with ongoing nursing admissi on evaluation. HEENT: Normocephalic, atraumatic, EOMI, sclera nonicteric, nares are patent, mucous membranes moist. PERRLA CARDIOVASCULAR: RRR, 3/6 pansystolic murmur, loud throughout precordium, loudest at apex LUNGS: Clear to auscultation with good air movement, no crackles, no wheezing or rhonchi noted ABDOMEN: Normoactive bowel sounds, soft, nontender, nondistended, no guarding or rigidity EXTREMITIES: trace lower extremity edema bilaterally, WWP, 2+ DP pulses bilaterally NEUROLOGICAL: Strength 5 out of 5 in both upper and lower extremities. Speech is clear without dysarthria or aphasia. Cranial nerves II through XII are grossly intact. PSYCHIATRIC: Mood and affect are appropriate. Great historian. AOx3 LABORATORY DATA: reviewed 11/23 BCx - pending 11/22 BCx - NGTD 11/20 UA ++ --> UCx negative 11/20 BCx GPCs in pairs and clusters --> 1 set growing E. fecium 11/18 outpatient BCx - GPCs in pairs and clusters x 2 sets, 1 set growing E. fecium IMAGING: CXR: The lungs are well inflated and free of infiltrate. Pleural angles are sharp. Heart size is borderline. Pulmonary vasculature is not increased. A bipolar pacemaker remains in the heart. Median sternotomy wires and monitoring electrodes are seen. Interstitial markings are slightly prominent unchanged. IMPRESSION: Borderline heart size with pacemaker and prior sternotomy. Diffusely prominent interstitial markings. No acute infiltrate.. CT A/P: Lung bases demonstrate small/moderate areas of atelectasis and consolidation with small amount of pleural effusion. Liver, spleen, pancreas, gallbladder, and bilateral adrenal glands are normal. Kidneys demonstrate few bilateral nonobstructing calculi measuring up to 3 mm in the right kidney and 4.5 mm in the left kidney without perinephric stranding or hydroureteronephrosis. The enteric system is without bowel obstruction or perforation. No obvious significant inflammatory process is appreciated. Normal terminal ileum, cecum and appendix are identified in the right lower quadrant. Scattered colonic and sigmoid diverticula noted without acute diverticulitis.. Pelvis demonstrates normal bladder and age-appropriate uterus/adnexa. No ascites. No free air. No intraperitoneal or retroperitoneal adenopathy. Abdominal aorta and vasculature demonstrate age-related changes without aneurysm or dissection. Musculoskeletal structures are intact and without acute osseous abnormality. IMPRESSION: 1. No acute abdominopelvic pathology appreciated. 2. Lung bases demonstrate bibasilar atelectasis/small consolidations with minimal pleural fluid. 3. Diverticulosis without acute diverticulitis. 4. Nonobstructing nephroliths. DOLORES: FINDINGS: Overall normal or near normal LV systolic function. I do not appreciate any segmental wall motion abnormalities. Also, the right ventricle appears to have normal size and systolic function. There is a stented bioprosthesis in the mitral position. It has normal mobility. There are mild degenerative abnormalities, but I do not appreciate any vegetations. By color Doppler imaging, there is no mitral insufficiency. Aortic valve is tricuspid. It is mildly sclerotic, but mobility is preserved. No vegetations are seen. Trivial insufficiency is seen by color Doppler imaging. Pulmonic valve also was well visualized. It appears normal and there is no stenosis or insufficiency. Tricuspid valve was relatively poorly seen from transesophageal views, but was reasonably well seen from transgastric views. It appears normal without significant abnormalities and with no vegetations. There is mild tricuspid insufficiency. There are echo artifacts apparent in the superior vena cava, right atrium, and right ventricle consistent with pacemaker leads. Atrial septum is significantly hypertrophied consistent with lipomatous hypertrophy. It measures over 2 cm. There is normal flow in both right-sided and left-sided pulmonary veins. The left atrial appendage is large and free of thrombi. There is mild atherosclerosis in the descending aorta, but no ulcerated plaques and no thrombi are seen. CONCLUSION: 1. Grossly preserved LV systolic function. 2. Normal bioprosthesis in mitral position without stenosis or insufficiency. 3. Aortic sclerosis with no stenosis and trace insufficiency. 4. Lipomatous hypertrophy of atrial septum. 5. Normal flow in both left and right-sided pulmonary veins. 6. Large left atrial appendage free of thrombus. 7. Atherosclerosis of the descending aorta. 8. Pacemaker leads apparently in the superior vena cava, right atrium, and right ventricle. 9. No visualized vegetations. Results of the study were communicated to the patient and also to Dr. Arevalo infectious disease attending on the case. ASSESSMENT: 75-year-old W with a history of HFpEF, COPD, PVD, CAD s/p CABG, severe insufficiency s/p MVR and chart history of atrial fibrillation on eliquis who was recently admitted with E coli UTI and sepsis with E.coli bacteremia and was treated to completion, however with also one other BCx that was positive for Entercoccus fecium that was deemed likely contaminant at the time, who developed fever at home, now a few weeks later, without other localizing infectious symp toms and found to be bacteremic in clinic and sent in for direct admission for potential subacute infection with c/f yet unidenitified occult source without evidence of endocarditis on DOLORES but with a history of other hardware such as pacemaker. At this time, the discussion with ID and cardiology includes if PPM should be removed and now that E.fecium grew in the 11/20 BCx she will need a colonoscopy. PLAN: Fever and bacteremia: 11/18 BCx x 2 growing GPCs in pairs and clusters as well as 11/20 BCx, with one of the 11/20 sets growing E. fecium. -/ and 11/20 BCx growing E.fecium -MRSA negative -UA++, UCx no growth -CXR, CT A/p nonfocal for infection -ESR, CRP elevated -s/p DOLORES that showed no vegetation, have to discuss PPM with cardiology -ID consulted, will discuss further investigations given history of hardware or more imaging -Continue empiric vancomycin nd gent for synergy per Dr. Arevalo -CBC, CMP daily -Consult GI (Dr. Gomez) for colonoscopy #CAD s/p CABG -ASA, lipitor, metoprolol #COPD -Advair BID #MVR -c/w Eliquis #Hypertensive heart disease -continue home metoprolol BID DVT PROPHYLAXIS: Eliquis VS,Fishbone, I+O VS, Fishbone, I+O Laboratory Tests 11/25/20 05:46 Vital Signs Date Time Temp Pulse Resp B/P (MAP) Pulse Ox O2 Delivery O2 Flow Rate FiO2 11/25/20 06:00 98.0 75 18 130/63 (85) 94 Nasal Cannula 2.0 I&O- Last 24 Hours up to 6 AM 11/25/20 05:59 Intake Total 1011.5 ml Output Total 500 ml Balance 511.5 ml [id number],MIKE V. MD Nov 25, 2020 09:12
[2020-11-25 10:36] LABS: VANCOMYCIN RANDOM 15.2 UG/ML
[2020-11-25] MEDS ORDERED: VANCOMYCIN HCL 750 MG, VIAL MATE ADAPTER 1 EACH in NS 250 ML IV SCH ×2 (11:00→12:00)
[2020-11-25 12:35] LABS: GENTAMICIN LEVEL TROUGH 0.7 MCG/ML (0.0-2.0)
[2020-11-25] MEDS: GENTAMICIN 60 MG in D5W 50 ML IV SCH (13:00)
[2020-11-25 14:00] VITALS: BP 113/59
[2020-11-25] MEDS: VANCOMYCIN HCL 750 MG, VIAL MATE ADAPTER 1 EACH in NS 250 ML IV SCH ×2 (14:00→15:56)
--- NOTE | 2020-11-25 17:48 | IPNPDOC ---
Text Note Date of Service The patient was seen on 11/25/20. NOTE INFECTIOUS DISEASE CONSULTATION ATTENDING PHYSICIAN: Dr. James Arevalo REQUESTING PHYSICIAN: Dr. Rosa Zavala SUBJECTIVE: Za was seen this afternoon at bedside. She is in a saddened mood, and has been having issues with her IV bumping into her table and bed when she moves her arm. She denies any symptoms or overnight events, including fevers, chills, nausea, vomiting or night sweats. She has no pain in the site of her prosthetic valve or pacemaker. OBJECTIVE: VITALS: See below HEENT: Normocephalic, atraumatic. Oral cavity is moist and pink with some i nflammation at the gumline of her second left molar. NECK: Neck is supple and the trachea is midline. No lymphadenopathy is noted. CHEST: There is a pacemaker under the skin in the L upper chest without tenderness. HEART: Heart rhythm is irregularly irregular with a regular rate. There is a 2/6 systolic murmur heard throughout the precordium, strongest at the R 2nd ICS. Capillary refill of is approximally 3s, with 2+ radial pulses bilaterally. RESPIRATORY: Breath sounds are somewhat decreased, with reduction in bibasilar crackles. She is breathing 2L of oxygen, and is speaking in full sentences. Chest rise is symmetric on inhalation. EXTREMITIES: There is 2+ pitting edema of the right lower extremity and 1+ pitting edema of the distal left lower extremity. Hands and feet are cool to the touch. There is diffuse ecchymosis of bilateral upper extremities. The skin of her extremities is thin. There is an IV present in the right posterior forearm. NEUROLOGIC: Awake, alert and oriented x3. No focal deficits appreciated. PSYCH: Normal mood and affect LABORATORY DATA: CBC - WBC 8.4, hemoglobin 10.1, hematocrit 33.8, platelet count 224. BMP - sodium 144, potassium 3.6, chloride 108, bicarbonate 32, BUN 7, creatinine 0.46, which has been trending down since 11/22, glucose 96, calcium 8.0, magnesium 1.8 (from 11/21), C-reactive protein 2.24 (from 11/23) Urinalysis (11/20) clear appearance with trace leukocyte esterase, negative nitrite and 1+ urine bacteria. Urine culture shows no growth. Two blood cultures from 11/20 and 11/22 show gram positive cocci in chains and clusters, 11/18 Enterococcus faecium susceptibility Pending. Prior blood cultures grew Enterococcus faecium in previous admission ampicillin resistant. Blood culture from 11/23 shows no growth. IMPRESSION : 1. 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 Four blood cultures have grown gram positive cocci, 11/22 blood culture is now negative. Given her history of pacemaker and prosthetic heart valves, we are highly suspicious of prosthetic or absentee-shawnee valve endocarditis or pacemaker lead infection . 2. Poor IV access 3. Bioprostheic mitral valve replacement and CHF PLAN : 1. Continue IV vancomycin and gentamicin for Synergy for E. faecium bacteremia amp Resisatant on original Culture 10/28/[address] a PICC-line in the R brachium and remove peripheral lines, for ease of antibiotic administration on discharge. 3. Repeat DOLORES will be repeated in 4-[address] Paz. 4. Followup CBC basic CRP ESR monitor for nephrotoxicity from vancomycin. 5. GI consult to rule out source of bacteremia colonic polyps or cancer VS,Fishbone, I+O VS, Fishbone, I+O Laboratory Tests 11/25/20 05:46 Vital Signs Date Time Temp Pulse Resp B/P (MAP) Pulse Ox O2 Delivery O2 Flow Rate FiO2 11/25/20 14:00 97.0 59 18 113/59 (77) 93 Nasal Cannula 2.0 I&O- Last 24 Hours up to 6 AM 11/25/20 05:59 Intake Total 1011.5 ml Output Total 500 ml Balance 511.5 ml GME ATTESTATION GME ATTESTATION My faculty preceptor for this patient encounter was physically present during the encounter and was fully available. All aspects of the patient interview, examination, medical decision making process, and medical care plan development were reviewed and approved by the faculty preceptor. The faculty preceptor is aware and concurs with the plan as stated in the body of this note and will attest to such by his/her cosignature. YAMILA LBACK Nov 25, 2020 17:48 James Arevalo MD Nov 25, 2020 21:35
--- NOTE | 2020-11-25 19:18 | CR ---
CONSULTATION DATE: 11/25/2020 REQUESTING PHYSICIAN: Hospitalist service. REASON FOR CONSULTATION: Persistent Enterococcus faecium, positive blood cultures, rule out gastrointestinal (GI) source. HISTORY OF PRESENT ILLNESS: Ms. Epps is a 75-year-old female with a past medical history significant for mitral valve replacement, bioprosthetic mitral valve, peripheral vascular disease and atrial fibrillation. She is chronically on Eliquis. The patient was admitted to the hospital with positive blood cultures for Enterococcus faecium. Her echocardiogram did not definitely reveal endocarditis. The patient will need colonoscopy for further evaluation for source of Enterococcus faecium positive blood cultures. PAST MEDICAL HISTORY: 1. Coronary artery disease. 2. Atrial fibrillation on Eliquis. 3. Chronic obstructive pulmonary disease (COPD). SURGICAL HISTORY: 1. Coronary artery bypass grafting. 2. Porcine mitral valve replacement. 3. Pacemaker replacement. SOCIAL HISTORY: Negative for tobacco and negative for alcohol. FAMILY HISTORY: Negative for colorectal carcinoma or inflammatory bowel disease. ALLERGIES: No known drug allergies MEDICATIONS AT HOME: Eliquis, aspirin, atorvastatin, Breo Ellipta, metoprolol, vancomycin, gentamicin.. PHYSICAL EXAMINATION: Vitals: 98.6, heart rate is 76 regular, respiratory rate is 16 to 18 General: She is awake, alert and oriented x3, in no acute distress. She is slightly anxious. Head, eyes, ears, nose and throat: Grossly without abnormality. Neck is supple. Negative for thyromegaly. Chest is clear bilaterally. Heart is regular rate and rhythm. Positive murmur. Abdomen is soft, nontender. Positive bowel sounds. Extremities: Negative for edema. IMPRESSION: 1. Persistent bacteremia suspect gastrointestinal (GI) source. 2. The patient is on Eliquis for atrial fibrillation and bioprosthetic mitral valve replacement. RECOMMENDATION: 1. Colonoscopy. 2. Please stop Eliquis for three days prior to procedure. Hospitalist to discuss with cardiology if Eliquis can be held or needs heparin bridge. From my standpoint, tentatively, I will place her on colonoscopy schedule for . I discussed this with Dr. Hicks.
[2020-11-25 22:00] VITALS: BP 136/64
[2020-11-26] MEDS: GENTAMICIN 60 MG in D5W 50 ML IV SCH ×2 (01:25→14:12)
[2020-11-26 06:00] VITALS: BP 161/79
[2020-11-26] MEDS: ADVAIR HFA 115/21MCG INHALER INH SCH ×2 (07:20→19:48)
[2020-11-26] MEDS: METOPROLOL TART 25 MG TABLET PO SCH ×2 (09:00→20:51)
[2020-11-26] MEDS: SODIUM CHLORIDE 0.9% INJ 10 ML SYR IV SCH ×2 (09:00→17:40)
[2020-11-26] MEDS: ATORVASTATIN 20 MG TAB PO SCH (09:09)
[2020-11-26] MEDS: ASPIRIN 81MG ENTERIC TABLET PO SCH (09:09)
[2020-11-26] MEDS: VITAMIN D 1,000 INTERNATIONAL UNITS TABLET PO SCH (09:09)
--- NOTE | 2020-11-26 12:05 | IPN ---
CARDIOLOGY PROGRESS NOTE DATE: 11/26/2020 SUBJECTIVE: Dr. Arevalo contacted me yesterday suggesting we should repeat transesophageal echocardiogram because repeated blood cultures on Mrs. Epps grew Enterococcus as well. I met the patient today. She is nervous and she says she has a lot of anxiety, but otherwise does not have any specific physical complaints. PHYSICAL EXAMINATION: VITAL SIGNS: Blood pressure 161/79, heart rate in the 60s and 70s. She is afebrile, saturation 92% on room air. Her weight was not recorded in the last couple of days. Jugular venous pressure (JVP) is not high. LUNGS: Clear. Good air movement. HEART EXAM: Reveals regular rhythm. I do not appreciate any distinct murmur or gallop. ABDOMEN: Soft, nontender. EXTREMITIES: Free of edema. LABORATORY DATA: As of yesterday, her CBC was revealing WBC 8.4, hemoglobin 10.1, hematocrit 33, platelet count 224. Sedimentation rate was 54. Basic metabolic panel was essentially normal. Her cultures grew Enterococcus on November 20, 2020. They are growing preliminary gram-positive cocci in pairs and clusters again on November 22, 2020 and the one from November 23, 2020 so far is negative after 72 hours. ASSESSMENT: I explained to the patient that sometimes the vegetation on the valve may not be visible if it is relatively early in the infection. Consequently, we may need to repeat a transesophageal echocardiogram (DOLORES). She is open to this suggestion. She will have quite a busy program this week, though. She is scheduled to get a peripherally inserted central catheter (PICC) line and then start preparation for colonoscopy that will be performed either tomorrow or . Consequently, I believe we will leave the repeat DOLORES most likely for next week. Patient certainly does not have any objections to proceeding. She tolerated the procedure well.
[2020-11-26] MEDS ORDERED: LIDOCAINE 1% MDV 20ML VIAL As Ordered ONE (12:48)
--- NOTE | 2020-11-26 13:48 | IPNPDOC ---
Subjective Date Seen The patient was seen on 11/26/20. Subjective Chief Complaint/HPI Mrs. Epps is a 75 year old female with bioprosthetic mitral heart valve and PPM who presents with E.faecium bacteremia. No fever overnight. This morning, she denies any chest pain or dyspnea. Patient is anxiously waiting for her PICC line placement today, colonoscopy either tomorrow or , and possible repeat DOLORES next week Objective Physical Examination General Exam: Positive: Alert, Cooperative Eye Exam: Positive: EOMI; Negative: Sclera icteric Neck Exam: Positive: Supple Chest Exam: Positive: Clear to auscultation; Negative: Rales, Rhonchi, Wheezing Heart Exam: Positive: Rate Normal, Regular Rhythm Abdomen Exam: Positive: Normal bowel sounds, Soft; Negative: Tenderness Extremity Exam: Positive: Edema (Trace) Psych Exam: Positive: Anxiety Assessment /Plan Assessment Mrs. Epps is a 75 year old female with bioprosthetic mitral heart valve and PPM who presents with E.faecium bacteremia. Due to her non-mcgrath mitral valve prosthesis and PPM, there is suspicion for vegetation. ID reached out to cardiology about repeating DOLORES, planning for repeat next week. Otherwise, GI planning for colonoscopy for persistent E.faecium bacteremia. Either for tomorrow or . Plan/VTE VTE Prophylaxis Ordered?: Yes Plan 1. Persistent E.faecium bacteremia -Suspecting either cardiac hardware or colonic source -Cardiology planning for repeat DOLORES next week -GI planning for colonoscopy tomorrow or -ID following, recommendations appreciated -On vancomycin and gentamicin -Last positive blood culture on 11/22/2020 -Blood culture on 11/23/2020 NTD 2. CAD s/p CABG -No active chest pain -Continue ASA, atorvastatin, and metoprolol tartrate 3. COPD -No active exacerbation -Continue Advair 4. Mitral valve replacement -Eliquis will be held for the colonoscopy. Last dose on 11/25/2020 at 9AM -Restart Eliquis after colonoscopy -Continue aspirin 5. Atrial fibrillation -Continue rate control with metoprolol tartrate -Holding Eliquis for colonoscopy, restart after colonoscopy 6. DVT ppx -Eliquis held for colonoscopy -SCD and TEDs Disposition: Pending colonoscopy and DOLORES results. Patient may need chcf antibiotics, ID following and recommendations appreciated VS, I&O, 24H, Fishbone Vital Signs/I&O Vital Signs Date Time Temp Pulse Resp B/P (MAP) Pulse Ox O2 Delivery O2 Flow Rate FiO2 11/26/20 12:28 98.1 81 18 98 Nasal Cannula 3 11/26/20 06:00 161/79 (106) I&O- Last 24 Hours up to 6 AM 11/26/20 06:00 Intake Total 1020 ml Output Total 800 ml Balance 220 ml Laboratory Data 24H LABS Laboratory Tests 2 11/25/20 15:18: Erythrocyte Sedimentation Rate 54H, Rheumatoid Factor < 10.0 11/26/20 11:55: Gentamicin Level Trough 0.6 Microbiology Microbiology 11/25/20 Blood Culture, Received Pending 11/23/20 Blood Culture - Preliminary, Resulted No Growth after 72 hours. All specime... 11/22/20 Blood Culture - Preliminary, Resulted 11/20/20 Blood Culture - Preliminary, Resulted 11/20/20 Urine Culture - Final, Complete 11/20/20 Blood Culture - Final, Complete Enterococcus Faecium JAEL YOUNG 23, 2021 13:48
[2020-11-26 14:00] VITALS: BP 170/88
[2020-11-26 14:18] LABS: HEMATOCRIT 29.9 % (36.0-47.0); MEAN CORPUSCULAR HEMOGLOBIN 26.9 pg (27.0-33.0); MEAN CORPUSCULAR HGB CONC 30.1 g/dl (32.0-36.5); MEAN CORPUSCULAR VOLUME 89.5 fl (80.0-96.0); PLATELET COUNT, AUTOMATED 219 10^3/uL (150-450); RED BLOOD COUNT 3.34 10^6/uL (4.00-5.40); WHITE BLOOD COUNT 9.8 10^3/uL (4.0-10.0)
[2020-11-26 14:38] LABS: BLOOD UREA NITROGEN 6 MG/DL (7-18); C REACTIVE PROTEIN QUANTITATIV 0.76 MG/DL (0.00-0.30); CALCIUM LEVEL 8.8 MG/DL (8.8-10.2); CARBON DIOXIDE LEVEL 32 MEQ/L (21-32); CHLORIDE LEVEL 105 MEQ/L (98-107); CREATININE FOR GFR 0.51 MG/DL (0.55-1.30); GLOMERULAR FILTRATION RATE > 60.0 (>39); GLUCOSE, FASTING 99 MG/DL (70-100); POTASSIUM SERUM 3.7 MEQ/L (3.5-5.1); SODIUM LEVEL 141 MEQ/L (136-145)
[2020-11-26 14:48] LABS: ERYTHROCYTE SEDIMENTATION RATE 42 mm/hr (0-30)
[2020-11-26] MEDS: VANCOMYCIN HCL 750 MG, VIAL MATE ADAPTER 1 EACH in NS 250 ML IV SCH ×2 (15:32→16:33)
--- NOTE | 2020-11-26 18:14 | REP ---
INDICATION: 6wks of ABx d/t E. faecalis bacteremia . COMPARISON: None. TECHNIQUE: The procedure was performed under the direct supervision of Dr. Braden. The risks and benefits of the procedure were explained to the patient and informed consent was obtained. The right basilic vein was localized using ultrasound guidance. The skin was prepped and draped in a sterile fashion. 2% lidocaine was used as a local anesthetic. Using ultrasound guidance the basilic vein was cannulated and a 0.018 guidewire was inserted and advanced to the SVC using fluoroscopic guidance. The needle was removed and a 5.5 [place] dilator and peel-away sheath was inserted over the guide wire. A 5.5 [place] dual lumen catheter was cut to length of 40 cm. The dilator was removed and the catheter was inserted over the guide wire with the tip ending in the SVC. The peel-away sheath was removed and the catheter was flushed with heparinized saline as per Hospital protocol. The catheter was affixed to the skin and a sterile dressing was applied. The patient tolerated the procedure well and there were no immediate complications. 0.1 minutes of fluoro time was utilized for this procedure. FINDINGS: None IMPRESSION: PICC line insertion right basilic vein with the tip ending in the SVC. <Electronically signed by Mazin Epps > 11/26/20 0744 <Electronically signed by Casey Braden > 11/26/20 [id number]
[2020-11-26 22:00] VITALS: BP 144/62
[2020-11-27] MEDS: GENTAMICIN 60 MG in D5W 50 ML IV SCH ×2 (00:52→15:00)
[2020-11-27] MEDS: SODIUM CHLORIDE 0.9% INJ 10 ML SYR IV PRN (00:53)
[2020-11-27] MEDS: SODIUM CHLORIDE 0.9% INJ 10 ML SYR IV SCH ×2 (05:37→17:24)
[2020-11-27 05:39] LABS: HEMATOCRIT 37.2 % (36.0-47.0); HEMOGLOBIN 10.7 g/dl (12.0-15.5); MEAN CORPUSCULAR HEMOGLOBIN 26.8 pg (27.0-33.0); MEAN CORPUSCULAR HGB CONC 28.8 g/dl (32.0-36.5); PLATELET COUNT, AUTOMATED 232 10^3/uL (150-450); WHITE BLOOD COUNT 8.9 10^3/uL (4.0-10.0)
[2020-11-27 06:00] VITALS: BP 133/83
[2020-11-27 06:01] LABS: BLOOD UREA NITROGEN 5 MG/DL (7-18); CALCIUM LEVEL 8.3 MG/DL (8.8-10.2); CARBON DIOXIDE LEVEL 31 MEQ/L (21-32); CHLORIDE LEVEL 105 MEQ/L (98-107); CREATININE FOR GFR 0.51 MG/DL (0.55-1.30); GLOMERULAR FILTRATION RATE > 60.0 (>39); GLUCOSE, FASTING 91 MG/DL (70-100); POTASSIUM SERUM 3.3 MEQ/L (3.5-5.1); SODIUM LEVEL 141 MEQ/L (136-145)
[2020-11-27] MEDS: ADVAIR HFA 115/21MCG INHALER INH SCH ×2 (07:19→20:55)
[2020-11-27] MEDS ORDERED: MOM 30ML SUSPENSION UDC PO ONE (08:00)
--- NOTE | 2020-11-27 08:11 | CR ---
INFECTIOUS DISEASE CONSULTATION DATE: 11/26/2020 SUBJECTIVE: Za was seen and examined this afternoon at the bedside by the Infectious Disease Service. She is again accompanied by her , Josh. She just had a PICC line inserted in her right arm. Her Eliquis was held in preparation for the PICC line insertion as well as in preparation for planned colonoscopy with Dr. Gomez of the Gastroenterology Service. The patient was also seen this morning by Dr. Paz of the Cardiology Service (upon request of ID) due to persistent growth of Enterococcus faecium and possible need repeat transesophageal echocardiogram to assess for possible endocarditis in the setting of her bioprosthetic mitral valve. Overall, the patient reports doing fairly well. She is currently eating and drinking without any issue. She denies any fever, chills, night sweats, chest pain, palpitations, or shortness of breath, nausea, vomiting, diarrhea or constipation. She does seem somewhat anxious when we discussed all of the upcoming actions and procedures for her care. OBJECTIVE: VITAL SIGNS: Temperature is 98.1, heart rate of 81, respiratory rate of 18, blood pressure of 161/79, SpO2 of 98% on 3 liters nasal cannula supplemental oxygen. GENERAL: Pleasant, elderly female who appears anxious at times during exam. She is on supplemental oxygen. She is in no acute distress. Alert and oriented x3. HEENT: Normocephalic, atraumatic. Non-injected, anicteric sclera, wearing supplemental nasal cannula, wearing eyeglasses. Oral cavity: Moist mucous membranes. No pharyngeal erythema or exudate appreciated. CARDIOVASCULAR: Irregularly irregular rhythm, regular rate. There is a 2/6 systolic murmur heard across the pericardium that remains unchanged from previous exams. RESPIRATORY: Wearing 3 liters supplemental oxygen. Speaking in full sentences. There are some mild crackles in the bases posteriorly and bilaterally, symmetric chest expansion. Some mild diminished breath sounds bilaterally. CHEST: There is a pacemaker in the left upper chest. No chest pain wall tenderness. GASTROINTESTINAL: Abdomen is soft, obese, nontender and nondistended. There is no guarding or rigidity. Normoactive bowel sounds throughout. EXTREMITIES: There is a PICC line in the right upper extremity along with a still present peripheral IV in the right upper extremity. There remains 1 to 2+ pitting edema of bilateral lower extremities. NEUROLOGIC: Alert and oriented x3. No focal deficits appreciated, non-dysarthric speech. PSYCHIATRIC: Appears mildly anxious at times during the exam, otherwise very pleasant female with appropriate mood and affect. LABORATORY DATA: CBC WBC 9.8, hemoglobin is 9.0, hematocrit 29.9, platelet count of 219,000, ESR of 42. BMP sodium 141, potassium 3.7, chloride 105, bicarbonate 32, BUN 6, creatinine 0.51, glucose 99, calcium 8.8, C-reactive protein of 0.76. Gentamicin trough this morning of 0.6, Vancomycin trough this afternoon of 14.3. Microbiology Of the two initial blood cultures obtained on 11/20, one is final showing growth of Enterococcus faecium. The other has a preliminary gram stain result of gram positive cocci in pairs and chains with no final culture result. Repeat blood culture on 11/22 shows no final culture result but a gram stain of gram positive cocci in pairs, chains and clusters. Repeat blood culture on 11/23 has a preliminary result of no growth after 72 hours. Most recent repeat blood culture on 11/25 has a preliminary result of no growth after 24 hours. IMPRESSION AND PLAN: Enterococcus faecium bacteremia with unclear source. On a positive note, repeat cultures from yesterday show preliminary result of no growth after 24 hours. This is the second consecutive negative blood culture as the first negative culture was on 11/23. As a result, we will use 11/23 as the date of first negative culture and we will initiate six weeks of antibiotics from this date. The six week end date will be January 04. She remains on both Vancomycin and Gentamicin in the setting of her Enterococcus bacteremia and possible endocarditis of bioprosthetic mitral valve. Related to the Gentamicin, her creatinine, while still decreased, improved slightly today. As discussed in the subjective section of this note, because of the persistent growth of the Enterococcus, we asked Dr. Paz to see the patient again for a possible follow-up DOLORES to check for any subsequent vegetation on the mitral valve. Because of the patient's PICC line insertion today and colonoscopy later this week, DOLORES will most likely occur next week. Still have an unclear etiology of the bacteremia. As the bug is Enterococcus and patient never had a colonoscopy previously, a colonoscopy will be performed in two days on , 11/[address] Gomez. Patient's Eliquis was stopped yesterday and Dr. Gomez would like three days off the Eliquis before the colonoscopy. She will be doing bowel prep tomorrow. The patient PICC line was inserted today as she will need six weeks of IV antibiotics for the Enterococcus bacteremia and possible endocarditis. We will continue to monitor her renal function in the setting of the Gentamicin and Vancomycin. The troughs of both antibiotics were within normal limits today. MTDD
[2020-11-27] MEDS: VITAMIN D 1,000 INTERNATIONAL UNITS TABLET PO SCH (08:25)
[2020-11-27] MEDS: ASPIRIN 81MG ENTERIC TABLET PO SCH (08:25)
[2020-11-27] MEDS: KCL 10MEQ/100ML SWI (KRUN) 10 MEQ in IV 1 EA IV SCH ×4 (08:25→19:48)
[2020-11-27] MEDS: ATORVASTATIN 20 MG TAB PO SCH (08:26)
[2020-11-27] MEDS: METOPROLOL TART 25 MG TABLET PO SCH ×2 (08:26→20:09)
[2020-11-27 14:00] VITALS: BP 148/65
[2020-11-27 14:14] LABS: GENTAMICIN LEVEL TROUGH 0.6 MCG/ML (0.0-2.0); VANCOMYCIN LEVEL TROUGH 15.4 UG/ML (10.0-20.0)
--- NOTE | 2020-11-27 15:05 | REP ---
INDICATION: Right leg unilateral swelling COMPARISON: None. TECHNIQUE: Real time compression and duplex Doppler interrogation of the right lower extremity deep venous system is performed. FINDINGS: The right common femoral, superficial femoral and popliteal veins are fully compressible with transducer pressure and demonstrate normal spontaneous and phasic flow, without evidence of deep venous thrombosis. IMPRESSION: No evidence of deep venous thrombosis of the right lower extremity femoral popliteal venous system. <Electronically signed by Casey Braden > 11/27/20 [id number]
--- NOTE | 2020-11-27 15:36 | IPNPDOC ---
Subjective Date Seen The patient was seen on 11/27/20. Subjective Chief Complaint/HPI Mrs. Epps is a 75 year old female with bioprosthetic mitral heart valve and PPM who presents with E.faecium bacteremia. No fever overnight. Denies chest pain or dyspnea this morning. She has right leg swelling, but she says it has been chronic. Otherwise, clear liquids today in anticipation for colonoscopy tomorrow. Objective Physical Examination General Exam: Positive: Alert, Cooperative Eye Exam: Positive: EOMI; Negative: Sclera icteric Neck Exam: Positive: Supple Chest Exam: Positive: Clear to auscultation; Negative: Rales, Rhonchi, Wheezing Heart Exam: Positive: Rate Normal, Regular Rhythm Abdomen Exam: Positive: Normal bowel sounds, Soft; Negative: Tenderness Extremity Exam: Positive: Edema (Right leg edema) Neuro Exam: Positive: Normal Speech Psych Exam: Positive: Anxiety Assessment /Plan Assessment Mrs. Epps is a 75 year old female with bioprosthetic mitral heart valve and PPM who presents with E.faecium bacteremia. Due to her non-eek mitral valve prosthesis and PPM, there is suspicion for vegetation. ID reached out to cardiology about repeating DOLORES, planning for repeat next week. Otherwise, GI planning for colonoscopy for persistent E.faecium bacteremia, planning for . Plan/VTE VTE Prophylaxis Ordered?: Yes Plan 1. Persistent E.faecium bacteremia -Suspecting either cardiac hardware or colonic source -Cardiology planning for repeat DOLORES next week -GI planning for colonoscopy tomorrow or -ID following, recommendations appreciated -Last positive blood culture on 11/22/2020 -Blood culture on 11/23/2020 NTD. Will need 6 weeks (42 days) of antibiotics -On vancomycin and gentamicin day 4 of 42. 2. CAD s/p CABG -No active chest pain -Continue ASA, atorvastatin, and metoprolol tartrate 3. COPD -No active exacerbation -Continue Advair 4. Mitral valve replacement -Eliquis will be held for the colonoscopy. Last dose on 11/25/2020 at 9AM -Restart Eliquis after colonoscopy -Continue aspirin 5. Atrial fibrillation -Continue rate control with metoprolol tartrate -Holding Eliquis for colonoscopy, restart after colonoscopy 6. DVT ppx -Eliquis held for colonoscopy -SCD and TEDs Disposition: Pending colonoscopy and DOLORES results. Patient will need shelter antibiotics, ID following and recommendations appreciated VS, I&O, 24H, Fishbone Vital Signs/I&O Vital Signs Date Time Temp Pulse Resp B/P (MAP) Pulse Ox O2 Delivery O2 Flow Rate FiO2 11/27/20 14:00 98.1 75 16 148/65 (92) 98 Nasal Cannula 2.0 I&O- Last 24 Hours up to 6 AM 11/27/20 06:00 Intake Total 1200 ml Output Total 900 ml Balance 300 ml Laboratory Data 24H LABS Laboratory Tests 2 11/27/20 05:22: Nucleated Red Blood Cells % (auto) 0.0, Anion Gap 5L, Glomerular Filtration Rate > 60.0, Calcium Level 8.3L 11/27/20 13:29: Gentamicin Level Trough 0.6, Vancomycin Level Trough 15.4 CBC/BMP Laboratory Tests 11/27/20 05:22 Microbiology Microbiology 11/25/20 Blood Culture - Preliminary, Resulted No Growth after 48 hours. All Specime... 11/23/20 Blood Culture - Preliminary, Resulted No Growth after 72 hours. All specime... 11/22/20 Blood Culture - Preliminary, Resulted 11/20/20 Blood Culture - Preliminary, Resulted 11/20/20 Urine Culture - Final, Complete 11/20/20 Blood Culture - Final, Complete Enterococcus Faecium JAEL YOUNG 24, 2021 15:36
[2020-11-27] MEDS: VANCOMYCIN HCL 750 MG, VIAL MATE ADAPTER 1 EACH in NS 250 ML IV SCH ×2 (15:55→17:23)
[2020-11-27] MEDS ORDERED: POLYETHYLENE GLYCOL (MIRALAX) 238GM BOTTLE PO ONE (16:00)
[2020-11-27 17:18] LABS: BLOOD UREA NITROGEN 4 MG/DL (7-18); CALCIUM LEVEL 8.5 MG/DL (8.8-10.2); CARBON DIOXIDE LEVEL 32 MEQ/L (21-32); CHLORIDE LEVEL 102 MEQ/L (98-107); CREATININE FOR GFR 0.54 MG/DL (0.55-1.30); GLOMERULAR FILTRATION RATE > 60.0 (>39); GLUCOSE, FASTING 86 MG/DL (70-100); POTASSIUM SERUM 3.5 MEQ/L (3.5-5.1); SODIUM LEVEL 140 MEQ/L (136-145)
[2020-11-27 22:00] VITALS: BP 151/96
[2020-11-28] VITALS (10 sets, daily range): BP systolic 114–158; BP diastolic 52–91; O2SAT 90
[2020-11-28] MEDS: GENTAMICIN 60 MG in D5W 50 ML IV SCH ×2 (01:14→12:28)
[2020-11-28] MEDS ORDERED: POLYETHYLENE GLYCOL (MIRALAX) 238GM BOTTLE PO ONE (05:00)
[2020-11-28] MEDS: SODIUM CHLORIDE 0.9% INJ 10 ML SYR IV SCH ×2 (05:33→18:00)
[2020-11-28 06:25] LABS: HEMATOCRIT 34.1 % (36.0-47.0); HEMOGLOBIN 10.2 g/dl (12.0-15.5); MEAN CORPUSCULAR HEMOGLOBIN 27.3 pg (27.0-33.0); MEAN CORPUSCULAR HGB CONC 29.9 g/dl (32.0-36.5); MEAN CORPUSCULAR VOLUME 91.2 fl (80.0-96.0); PLATELET COUNT, AUTOMATED 255 10^3/uL (150-450); RED BLOOD COUNT 3.74 10^6/uL (4.00-5.40); WHITE BLOOD COUNT 9.9 10^3/uL (4.0-10.0)
[2020-11-28 06:57] LABS: BLOOD UREA NITROGEN 4 MG/DL (7-18); CALCIUM LEVEL 8.5 MG/DL (8.8-10.2); CARBON DIOXIDE LEVEL 33 MEQ/L (21-32); CHLORIDE LEVEL 104 MEQ/L (98-107); CREATININE FOR GFR 0.46 MG/DL (0.55-1.30); GLOMERULAR FILTRATION RATE > 60.0 (>39); GLUCOSE, FASTING 70 MG/DL (70-100); MAGNESIUM LEVEL 1.9 MG/DL (1.8-2.4); POTASSIUM SERUM 3.8 MEQ/L (3.5-5.1); SODIUM LEVEL 141 MEQ/L (136-145)
[2020-11-28] MEDS: ADVAIR HFA 115/21MCG INHALER INH SCH ×2 (07:20→19:28)
[2020-11-28] MEDS: ATORVASTATIN 20 MG TAB PO SCH (09:01)
[2020-11-28] MEDS: VITAMIN D 1,000 INTERNATIONAL UNITS TABLET PO SCH (09:01)
[2020-11-28] MEDS: METOPROLOL TART 25 MG TABLET PO SCH ×2 (09:02→20:38)
--- NOTE | 2020-11-28 12:56 | IPNPDOC ---
Subjective Date Seen The patient was seen on 11/28/20. Subjective Chief Complaint/HPI Mrs. Epps is a 75 year old female with bioprosthetic mitral heart valve and PPM who presents with E.faecium bacteremia. She has been afebrile. This morning, denies any chest pain or dyspnea. She has been having diarrhea 2/2 prepping for colonoscopy. Objective Physical Examination General Exam: Positive: Alert, Cooperative Eye Exam: Positive: EOMI; Negative: Sclera icteric Neck Exam: Positive: Supple Chest Exam: Positive: Clear to auscultation; Negative: Rales, Rhonchi, Wheezing Heart Exam: Positive: Rate Normal, Regular Rhythm Abdomen Exam: Positive: Normal bowel sounds, Soft; Negative: Tenderness Extremity Exam: Positive: Edema (Right leg edema) Neuro Exam: Positive: Normal Speech Psych Exam: Positive: Anxiety Assessment /Plan Assessment Mrs. Epps is a 75 year old female with bioprosthetic mitral heart valve and PPM who presents with E.faecium bacteremia. Due to her non-[place] mitral valve prosthesis and PPM, there is suspicion for vegetation. ID reached out to [facility]ology about repeating DOLORES, planning for repeat next week. Otherwise, GI planning for colonoscopy for persistent E.faecium bacteremia. Planning for colonoscopy today. Plan/VTE VTE Prophylaxis Ordered?: Yes Plan 1. Persistent E.faecium bacteremia -Suspecting either cardiac hardware or colonic source -Cardiology planning for repeat DOLORES next week -GI planning for colonoscopy today -ID following, recommendations appreciated -Last positive blood culture on 11/22/2020 -Blood culture on 11/23/2020 NTD. Will need 6 weeks (42 days) of antibiotics -On vancomycin and gentamicin day 5 of 42. 2. CAD s/p CABG -No active chest pain -Continue ASA, atorvastatin, and metoprolol tartrate 3. COPD -No active exacerbation -Continue Advair 4. Mitral valve replacement -Eliquis will be held for the colonoscopy. Last dose on 11/25/2020 at 9AM -Restart Eliquis after colonoscopy -Continue aspirin 5. Atrial fibrillation -Continue rate control with metoprolol tartrate -Holding Eliquis for colonoscopy, restart after colonoscopy 6. DVT ppx -Eliquis held for colonoscopy -SCD and TEDs Disposition: Pending colonoscopy and DOLORES results. Patient will need jail antibiotics, ID following and recommendations appreciated VS, I&O, 24H, Fishbone Vital Signs/I&O Vital Signs Date Time Temp Pulse Resp B/P (MAP) Pulse Ox O2 Delivery O2 Flow Rate FiO2 11/28/20 09:02 70 154/81 11/28/20 09:00 2.0 11/28/20 06:00 97.4 18 94 Nasal Cannula I&O- Last 24 Hours up to 6 AM 11/28/20 05:59 Intake Total 2130 ml Output Total 900 ml Balance 1230 ml Laboratory Data 24H LABS Laboratory Tests 2 11/27/20 13:29: Gentamicin Level Trough 0.6, Vancomycin Level Trough 15.4 11/27/20 15:59: Anion Gap 6L, Glomerular Filtration Rate > 60.0, Calcium Level 8.5L, Gentamicin Level Peak 3.8 11/28/20 05:26: Anion Gap 4L, Glomerular Filtration Rate > 60.0, Calcium Level 8.5L, Nucleated Red Blood Cells % (auto) 0.0, Magnesium Level 1.9 CBC/BMP Laboratory Tests 11/27/20 15:59 11/28/20 05:26 Microbiology Microbiology 11/25/20 Blood Culture - Preliminary, Resulted No Growth after 48 hours. All Specime... 11/23/20 Blood Culture - Final, Complete NO GROWTH AFTER 5 DAYS 11/22/20 Blood Culture - Preliminary, Resulted 11/20/20 Blood Culture - Final, Complete 11/20/20 Urine Culture - Final, Complete 11/20/20 Blood Culture - Final, Complete Enterococcus Faecium JAEL YOUNG 25, 2021 12:56
[2020-11-28] MEDS: VANCOMYCIN HCL 750 MG, VIAL MATE ADAPTER 1 EACH in NS 250 ML IV SCH ×2 (13:32→13:35)
[2020-11-28] MEDS ORDERED: LIDOCAINE 2% 100MG/5ML SDV (FOR ANES.) As Ordered ONE (14:47)
[2020-11-28] MEDS ORDERED: propofoL 200 MG/20 ML VIAL As Ordered ONE (14:47)
--- NOTE | 2020-11-28 15:41 | ROOR ---
Patient Name: Za Epps Procedure Date: 11/28/2020 2:53 PM Date of : 1945 Age: 75 Room: [facility] Gender: Female Note Status: Finalized Procedure: Colonoscopy Indications: Persistent bacteremia--eval for colon source Providers: Jose GOMEZ MD Referring MD: 2. Inpatient 2. Inpatient, MARIE Nielson Requesting Provider: Medicines: persistent bacteremia--eval for colon source Complications: No immediate complications. Procedure: Pre-Anesthesia Assessment: - The heart rate, respiratory rate, oxygen saturations, blood pressure, adequacy of pulmonary ventilation, and response to care were monitored throughout the procedure. The Colonoscope was introduced through the anus and advanced to the terminal ileum, with identification of the appendiceal orifice and IC valve. The colonoscopy was performed without difficulty. The patient tolerated the procedure well. The quality of the bowel preparation was fair. Findings: The perianal and digital rectal examinations were normal. A polypoid non-obstructing small mass was found in the mid ascending colon. The mass measured three cm in length. The polyp was removed with a piecemeal technique using a hot snare. Resection and retrieval were visually complete. To prevent bleeding after the polypectomy, five hemostatic clips were successfully placed. Area was successfully injected with 2 mL Angle ink for tattooing. Three sessile polyps were found in the hepatic flexure and ascending colon. The polyps were diminutive in size. These polyps were removed with a cold snare. Resection and retrieval were complete. A 5 mm polyp was found in the splenic flexure. The polyp was sessile. The polyp was removed with a cold snare. Resection and retrieval were complete. Multiple small and large-mouthed diverticula were found in the sigmoid colon. Internal hemorrhoids were found during retroflexion. The hemorrhoids were moderate. Impression: - Preparation of the colon was fair. - Likely benign 3 cm polypoid lesion in the mid ascending colon. Removal was accomplished by piecemeal snare cautery resection. Removal was visually complete. Clips were placed. Injected. - Three diminutive polyps at the hepatic flexure and in the ascending colon, removed with a cold snare. Resected and retrieved. - One 5 mm polyp at the splenic flexure, removed with a cold snare. Resected and retrieved. - Diverticulosis in the sigmoid colon. - Internal hemorrhoids. Recommendation: - Await pathology results. - If the pathology report is benign/free of HGD, then repeat colonoscopy for surveillance after piecemeal polypectomy in 4 months. - Resume Eliquis (apixaban) at prior dose in 3 days. - Call my office in 2 weeks for pathology report. Return to my office for follow up in 3 months. Procedure Code(s): --- Professional --- 90331, Colonoscopy, flexible; with removal of tumor(s), polyp(s), or other lesion(s) by snare technique 88096, Colonoscopy, flexible; with directed submucosal injection(s), any substance Diagnosis Code(s): --- Professional --- K57.30, Diverticulosis of large intestine without perforation or abscess without bleeding K92.1, Melena (includes Hematochezia) K63.5, Polyp of colon D49.0, Neoplasm of unspecified behavior of digestive system K64.8, Other hemorrhoids CPT copyright 2019 [employer]. All rights reserved. The codes documented in this report are preliminary and upon dietitian review may be revised to meet current compliance requirements. Jose Gomez MD Jose GOMEZ MD 11/28/2020 3:40:49 PM Electronically signed by Jose GOMEZ MD Number of Addenda: 0 Note Initiated On: 11/28/2020 2:53 PM Estimated Blood Loss: Estimated blood loss: none.
[2020-11-28] MEDS: SODIUM CHLORIDE 0.9% INJ 10 ML SYR IV PRN (16:27)
[2020-11-28] MEDS: ASPIRIN 81MG ENTERIC TABLET PO SCH (17:59)
[2020-11-29] MEDS: GENTAMICIN 60 MG in D5W 50 ML IV SCH ×2 (00:44→15:23)
[2020-11-29] MEDS: SODIUM CHLORIDE 0.9% INJ 10 ML SYR IV PRN ×3 (01:35→15:24)
[2020-11-29 02:00] VITALS: BP 136/64
[2020-11-29 06:00] VITALS: BP 144/75
[2020-11-29] MEDS: SODIUM CHLORIDE 0.9% INJ 10 ML SYR IV SCH ×2 (06:05→17:03)
[2020-11-29 06:54] LABS: HEMATOCRIT 32.2 % (36.0-47.0); HEMOGLOBIN 9.6 g/dl (12.0-15.5); MEAN CORPUSCULAR HEMOGLOBIN 27.1 pg (27.0-33.0); MEAN CORPUSCULAR HGB CONC 29.8 g/dl (32.0-36.5); PLATELET COUNT, AUTOMATED 225 10^3/uL (150-450); RED BLOOD COUNT 3.54 10^6/uL (4.00-5.40); WHITE BLOOD COUNT 8.9 10^3/uL (4.0-10.0)
[2020-11-29] MEDS: ADVAIR HFA 115/21MCG INHALER INH SCH ×2 (07:20→20:10)
[2020-11-29 07:23] LABS: BLOOD UREA NITROGEN 5 MG/DL (7-18); CALCIUM LEVEL 8.1 MG/DL (8.8-10.2); CARBON DIOXIDE LEVEL 34 MEQ/L (21-32); CHLORIDE LEVEL 104 MEQ/L (98-107); CREATININE FOR GFR 0.56 MG/DL (0.55-1.30); GLOMERULAR FILTRATION RATE > 60.0 (>39); GLUCOSE, FASTING 81 MG/DL (70-100); POTASSIUM SERUM 3.8 MEQ/L (3.5-5.1); SODIUM LEVEL 140 MEQ/L (136-145)
[2020-11-29 09:42] VITALS: BP 110/44
[2020-11-29] MEDS: VITAMIN D 1,000 INTERNATIONAL UNITS TABLET PO SCH (09:44)
[2020-11-29] MEDS: ATORVASTATIN 20 MG TAB PO SCH (09:44)
[2020-11-29] MEDS: ASPIRIN 81MG ENTERIC TABLET PO SCH (09:44)
[2020-11-29] MEDS: METOPROLOL TART 25 MG TABLET PO SCH ×2 (09:45→20:46)
--- NOTE | 2020-11-29 09:59 | IPNPDOC ---
Subjective Date Seen The patient was seen on 11/29/20. Subjective Chief Complaint/HPI Mrs. Epps is a 75 year old female with bioprosthetic mitral heart valve and PPM who presents with E.faecium bacteremia. Yesterday, she had a colonoscopy were they removed polyps, pending pathology report. No fever overnight. This morning, denies chest pain or dyspnea. Planning for DOLORES next week. Objective Physical Examination General Exam: Positive: Alert, Cooperative Eye Exam: Positive: EOMI; Negative: Sclera icteric Neck Exam: Positive: Supple Chest Exam: Positive: Clear to auscultation; Negative: Rales, Rhonchi, Wheezing Heart Exam: Positive: Rate Normal, Regular Rhythm Abdomen Exam: Positive: Normal bowel sounds, Soft; Negative: Tenderness Extremity Exam: Positive: Edema (Right leg edema) Neuro Exam: Positive: Normal Speech Psych Exam: Positive: Anxiety Assessment /Plan Assessment Mrs. Epps is a 75 year old female with bioprosthetic mitral heart valve and PPM who presents with E.faecium bacteremia. Due to her non-[place] mitral valve prosthesis and PPM, there is suspicion for vegetation. ID reached out to cardiology about repeating DOLORES, planning for repeat next week. Otherwise, GI performed colonoscopy on 11/28/2020 for persistent E.faecium bacteremia. Demonstrates one 3cm polypoid lesion, three diminutive polyps, and one 5cm polyp. Also demonstrated diverticulosis and internal hemorrhoids. If pathology negative, GI would like to see patient in 4 months for repeat colonoscopy for surveillance. Resume Eliquis three days after colonoscopy (12/01/2020). Otherwise, follow up with GI in 3 months. Plan/VTE VTE Prophylaxis Ordered?: Yes Plan 1. Persistent E.faecium bacteremia -Suspecting either cardiac hardware or colonic source -Cardiology planning for repeat DOLORES next week -GI performed colonoscopy on 11/29/2020, pending pathology reports -ID following, recommendations appreciated -Last positive blood culture on 11/22/2020 -Blood culture on 11/23/2020 NTD. Will need 6 weeks (42 days) of antibiotics -On vancomycin and gentamicin day 6 of 42. 2. CAD s/p CABG -No active chest pain -Continue ASA, atorvastatin, and metoprolol tartrate 3. COPD -No active exacerbation -Continue Advair 4. Mitral valve replacement -Eliquis will be held for the colonoscopy. Last dose on 11/25/2020 at 9AM -Restart Eliquis on 12/01/2020 -Continue aspirin 5. Atrial fibrillation -Continue rate control with metoprolol tartrate -Holding Eliquis for colonoscopy, restart on 12/01/2020 6. DVT ppx -Eliquis held for colonoscopy -SCD and TEDs Disposition: Pending DOLORES next week and pending colonoscopy pathology report. Patient will need senior care antibiotics, ID following and recommendations appreciated VS, I&O, 24H, Fishbone Vital Signs/I&O Vital Signs Date Time Temp Pulse Resp B/P (MAP) Pulse Ox O2 Delivery O2 Flow Rate FiO2 11/29/20 09:42 97.3 70 19 110/44 (66) 89 Nasal Cannula 5.0 11/28/20 19:32 40 I&O- Last 24 Hours up to 6 AM 11/29/20 06:00 Intake Total 210 ml Output Total 775 ml Balance -565 ml Laboratory Data 24H LABS Laboratory Tests 2 11/29/20 06:43: Nucleated Red Blood Cells % (auto) 0.0, Anion Gap 2L, Glomerular Filtration Rate > 60.0, Calcium Level 8.1L CBC/BMP Laboratory Tests 11/29/20 06:43 Microbiology Microbiology 11/25/20 Blood Culture - Preliminary, Resulted No Growth after 72 hours. All specime... 11/23/20 Blood Culture - Final, Complete NO GROWTH AFTER 5 DAYS 11/22/20 Blood Culture - Preliminary, Resulted 11/20/20 Blood Culture - Final, Complete 11/20/20 Urine Culture - Final, Complete 11/20/20 Blood Culture - Final, Complete Enterococcus Faecium JAEL YOUNG 26, 2021 09:59
[2020-11-29 10:48] LABS: NT-PRO BNP 1444 PG/ML (<450)
--- NOTE | 2020-11-29 11:45 | REP ---
INDICATION: Hypoxia, increase pitting edema. COMPARISON: Comparison chest x-ray November 20, 2020. TECHNIQUE: Portable upright AP chest radiograph. FINDINGS: A bipolar pacemaker is seen in the right heart view of the left side. A right-sided PICC line terminates in the expected location of superior vena cava. Median sternotomy wires are noted. Oxygen delivery tubing is seen. Cardiomegaly is observed unchanged. Pulmonary vasculature is little cephalized. There is blunting of the pleural angles indicating small bilateral effusions. Interstitial markings are prominent.. IMPRESSION: CHF pattern with mild interstitial edema and small bilateral effusions.. <Electronically signed by Pierre Pierre > 11/29/20 [id number]
[2020-11-29 13:01] LABS: GENTAMICIN LEVEL TROUGH 1.3 MCG/ML (0.0-2.0); VANCOMYCIN LEVEL TROUGH 17.7 UG/ML (10.0-20.0)
[2020-11-29 14:00] VITALS: BP 119/51
[2020-11-29] MEDS: VANCOMYCIN HCL 750 MG, VIAL MATE ADAPTER 1 EACH in NS 250 ML IV SCH ×2 (14:04)
[2020-11-29] MEDS ORDERED: FUROSEMIDE 40MG/4ML VIAL (J1940) IV ONE (14:30)
--- NOTE | 2020-11-29 15:18 | IPN ---
PROGRESS NOTE DATE: 11/29/2020 Mrs. Epps is doing well this morning. She is excited to order lunch. She was very hungry. Stated she had pancakes for breakfast. Good appetite. No nausea, vomiting, or diarrhea. She denies any fever or chills. MEDICATIONS: - vancomycin 1.5 grams intravenous (IV) every 24 hours - gentamicin 60 mg IV every 12 hours Vancomycin trough 16. Peak gentamicin is 3.8 and trough of 1.3. Blood cultures from November 23 and November 25, two sets are no growth after 72 hours. Blood cultures from November 20 and November 22 total of three had Enterococcus faecium. Susceptibilities: Minimum inhibitory concentration (FARIDA) to vancomycin is 2, ampicillin resistant, erythromycin resistant, and insulin resistant. Levofloxacin FARIDA of 4. PHYSICAL EXAMINATION: Temperature is 97.3, oxygen saturation 89% on 5 liters nasal cannula, pulse 70, respirations 19, blood pressure 110/44. HEART: Normal sinus rhythm. No murmurs appreciated. No gallops. LUNGS: Few crackles at both bases with diminished air entry. ABDOMEN: Soft, nontender. No hepatosplenomegaly. EXTREMITIES: With +2 pitting edema. Oropharynx is clear. LABORATORY DATA: White count 8.9, hemoglobin 9.6, hemoglobin 32.2, platelets 225, ESR 42-54. Sodium 140, potassium 3.8, chloride 104, bicarbonate 34, BUN 5, creatinine 0.56, glucose 81, calcium 8.1, magnesium 1.8. BNP 1444. CRP 0.76. IMPRESSION: 1. 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 Patient on vancomycin and gentamicin, doing well with negative cultures on November 23 and . 2. Colon lesion in the ascending colon. Biopsy is pending to rule out malignancy. 3. Congestive heart failure. Patient's brain natriuretic peptide (BNP) is 1444. She has +2 pitting edema bilaterally and worsening hypoxia. She needs diuresis This will be discussed with hospitalist. PLAN: Continue vancomycin at current dose of 1.5 grams every 24 hours, keeping trough between 15-20. Gentamicin for synergy with peaks between 3-5 and troughs less than 1. Patient will be scheduled for transesophageal echocardiogram by Dr. Paz early next week. She had a peripherally inserted central catheter (PICC) line placement to arrange for home IV antibiotics hopefully by middle next wee. Will review path findings next week MTDD
[2020-11-29 22:00] VITALS: BP 125/55
[2020-11-30] MEDS: SODIUM CHLORIDE 0.9% INJ 10 ML SYR IV SCH ×2 (05:25→18:00)
[2020-11-30 05:29] LABS: HEMOGLOBIN 9.6 g/dl (12.0-15.5); MEAN CORPUSCULAR HEMOGLOBIN 27.3 pg (27.0-33.0); MEAN CORPUSCULAR VOLUME 90.9 fl (80.0-96.0); PLATELET COUNT, AUTOMATED 221 10^3/uL (150-450); RED BLOOD COUNT 3.52 10^6/uL (4.00-5.40); WHITE BLOOD COUNT 9.3 10^3/uL (4.0-10.0)
[2020-11-30 06:00] VITALS: BP 125/55
[2020-11-30 06:01] LABS: BLOOD UREA NITROGEN 6 MG/DL (7-18); CALCIUM LEVEL 7.9 MG/DL (8.8-10.2); CARBON DIOXIDE LEVEL 36 MEQ/L (21-32); CHLORIDE LEVEL 102 MEQ/L (98-107); CREATININE FOR GFR 0.57 MG/DL (0.55-1.30); GLOMERULAR FILTRATION RATE > 60.0 (>39); GLUCOSE, FASTING 83 MG/DL (70-100); POTASSIUM SERUM 3.4 MEQ/L (3.5-5.1); SODIUM LEVEL 142 MEQ/L (136-145)
[2020-11-30] MEDS: ADVAIR HFA 115/21MCG INHALER INH SCH ×2 (07:33→21:00)
[2020-11-30 07:53] LABS: MAGNESIUM LEVEL 1.9 MG/DL (1.8-2.4)
[2020-11-30] MEDS: METOPROLOL TART 25 MG TABLET PO SCH ×2 (09:00→21:00)
[2020-11-30] MEDS: KCL 10MEQ/100ML SWI (KRUN) 10 MEQ in IV 1 EA IV SCH ×4 (09:30→14:14)
[2020-11-30] MEDS: ASPIRIN 81MG ENTERIC TABLET PO SCH (09:30)
[2020-11-30] MEDS: ATORVASTATIN 20 MG TAB PO SCH (09:30)
[2020-11-30] MEDS: VITAMIN D 1,000 INTERNATIONAL UNITS TABLET PO SCH (09:30)
[2020-11-30] MEDS: FUROSEMIDE 40MG/4ML VIAL (J1940) IV SCH ×2 (09:31→16:11)
[2020-11-30 10:00] VITALS: BP 112/68
[2020-11-30] MEDS ORDERED: GENTAMICIN 80 MG in IV 1 EA IV SCH (11:00)
[2020-11-30 14:00] VITALS: BP 112/44
[2020-11-30] MEDS: VANCOMYCIN HCL 750 MG, VIAL MATE ADAPTER 1 EACH in NS 250 ML IV SCH ×2 (14:14→14:41)
[2020-11-30] MEDS: SODIUM CHLORIDE 0.9% INJ 10 ML SYR IV PRN ×2 (14:15→16:12)
--- NOTE | 2020-11-30 16:17 | IPNPDOC ---
Subjective Date Seen The patient was seen on 11/30/20. Subjective Chief Complaint/HPI Mrs. Epps is a 75 year old female with bioprosthetic mitral heart valve and PPM who presents with E.faecium bacteremia. No events overnight. No fever overnight. This morning, denies chest pain or dyspnea. She still has bilateral pitting edema and still requiring 5L of oxygen. Increased diuretic frequency. Objective Physical Examination General Exam: Positive: Alert, Cooperative Eye Exam: Positive: EOMI; Negative: Sclera icteric Neck Exam: Positive: Supple Chest Exam: Positive: Rhonchi Heart Exam: Positive: Rate Normal, Regular Rhythm Abdomen Exam: Positive: Normal bowel sounds, Soft; Negative: Tenderness Extremity Exam: Positive: Edema (Bilateral pitting edema) Neuro Exam: Positive: Normal Speech Psych Exam: Positive: Anxiety Assessment /Plan Assessment Mrs. Epps is a 75 year old female with bioprosthetic mitral heart valve and PPM who presents with E.faecium bacteremia. Due to her non-[place] mitral valve prosthesis and PPM, there is suspicion for vegetation. ID reached out to cardiology about repeating DOLORES, planning for repeat next week. Otherwise, GI performed colonoscopy on 11/28/2020 for persistent E.faecium bacteremia. Demonstrates one 3cm polypoid lesion, three diminutive polyps, and one 5cm polyp. Also demonstrated diverticulosis and internal hemorrhoids. If pathology negative, GI would like to see patient in 4 months for repeat colonoscopy for surveillance. Resume Eliquis three days after colonoscopy (12/01/2020). Otherwise, follow up with GI in 3 months. She was noted to be fluid overloaded on 11/29/2020 with increased oxygen requirements. Continue with diuresis. Plan/VTE VTE Prophylaxis Ordered?: Yes Plan 1. Persistent E.faecium bacteremia -Suspecting either cardiac hardware or colonic source -Cardiology planning for repeat DOLORES next week -GI performed colonoscopy on 11/29/2020, pending pathology reports -ID following, recommendations appreciated -Last positive blood culture on 11/22/2020 -Blood culture on 11/23/2020 NTD. Will need 6 weeks (42 days) of antibiotics -On vancomycin and gentamicin day 7 of 42. 2. Heart failure with preserved ejection fracture -DOLORES on 11/21/20 demonstrates preserved EF -Ronchi. Leg edema. Increased oxygen requirements. BNP elevated at 1444. CXR sug gestive of CHF -Continue with diuresis. Restriction fluids to 1500mL. Continue 2gm sodium diet 3. CAD s/p CABG -No active chest pain -Continue ASA, atorvastatin, and metoprolol tartrate 4. COPD -No active exacerbation -Continue Advair 5. Mitral valve replacement -Eliquis will be held for the colonoscopy. Last dose on 11/25/2020 at 9AM -Restart Eliquis on 12/01/2020 -Continue aspirin 6. Atrial fibrillation -Continue rate control with metoprolol tartrate -Holding Eliquis for colonoscopy, restart on 12/01/2020 7. DVT ppx -Eliquis held for colonoscopy -SCD and TEDs Disposition: Pending DOLORES next week and pending colonoscopy pathology report. Patient will need residential antibiotics, ID following and recommendations appreciated. Otherwise, working improving patients fluid status and CHF. VS, I&O, 24H, Fishbone Vital Signs/I&O Vital Signs Date Time Temp Pulse Resp B/P (MAP) Pulse Ox O2 Delivery O2 Flow Rate FiO2 11/30/20 14:00 97.0 71 19 112/44 (66) 91 Nasal Cannula 5.0 11/28/20 19:32 40 I&O- Last 24 Hours up to 6 AM 11/30/20 06:00 Intake Total 1510 ml Output Total 2800 ml Balance -1290 ml Laboratory Data 24H LABS Laboratory Tests 2 11/29/20 17:05: Gentamicin Level Peak 3.9 11/30/20 05:22: Nucleated Red Blood Cells % (auto) 0.0, Anion Gap 4L, Glomerular Filtration Rate > 60.0, Calcium Level 7.9L, Magnesium Level 1.9 CBC/BMP Laboratory Tests 11/30/20 05:22 Microbiology Microbiology 11/25/20 Blood Culture - Preliminary, Resulted No Growth after 72 hours. All specime... 11/23/20 Blood Culture - Final, Complete NO GROWTH AFTER 5 DAYS 11/22/20 Blood Culture - Final, Complete 11/20/20 Blood Culture - Final, Complete 11/20/20 Urine Culture - Final, Complete 11/20/20 Blood Culture - Final, Complete Enterococcus Faecium JAEL YOUNG 27, 2021 16:17
[2020-11-30 17:00] LABS: BLOOD UREA NITROGEN 9 MG/DL (7-18); CALCIUM LEVEL 7.9 MG/DL (8.8-10.2); CARBON DIOXIDE LEVEL 36 MEQ/L (21-32); CHLORIDE LEVEL 101 MEQ/L (98-107); CREATININE FOR GFR 0.74 MG/DL (0.55-1.30); GLOMERULAR FILTRATION RATE > 60.0 (>39); GLUCOSE, FASTING 111 MG/DL (70-100); POTASSIUM SERUM 3.9 MEQ/L (3.5-5.1); SODIUM LEVEL 141 MEQ/L (136-145)
[2020-11-30 22:00] VITALS: BP 110/45
[2020-12-01] MEDS: SODIUM CHLORIDE 0.9% INJ 10 ML SYR IV SCH ×2 (05:35→18:10)
[2020-12-01 06:00] VITALS: BP 115/61
[2020-12-01 06:01] LABS: HEMATOCRIT 32.3 % (36.0-47.0); HEMOGLOBIN 9.8 g/dl (12.0-15.5); MEAN CORPUSCULAR HEMOGLOBIN 27.5 pg (27.0-33.0); MEAN CORPUSCULAR HGB CONC 30.3 g/dl (32.0-36.5); MEAN CORPUSCULAR VOLUME 90.5 fl (80.0-96.0); PLATELET COUNT, AUTOMATED 221 10^3/uL (150-450); RED BLOOD COUNT 3.57 10^6/uL (4.00-5.40); WHITE BLOOD COUNT 9.4 10^3/uL (4.0-10.0)
[2020-12-01 06:26] LABS: BLOOD UREA NITROGEN 10 MG/DL (7-18); CALCIUM LEVEL 8.3 MG/DL (8.8-10.2); CARBON DIOXIDE LEVEL 38 MEQ/L (21-32); CHLORIDE LEVEL 98 MEQ/L (98-107); CREATININE FOR GFR 0.69 MG/DL (0.55-1.30); GLOMERULAR FILTRATION RATE > 60.0 (>39); GLUCOSE, FASTING 86 MG/DL (70-100); POTASSIUM SERUM 3.4 MEQ/L (3.5-5.1); SODIUM LEVEL 138 MEQ/L (136-145)
[2020-12-01] MEDS: ADVAIR HFA 115/21MCG INHALER INH SCH ×2 (07:35→19:35)
[2020-12-01] MEDS ORDERED: POTASSIUM CHLORIDE 10 MEQ SR TABLET PO ONE (08:00)
[2020-12-01] MEDS: METOPROLOL TART 25 MG TABLET PO SCH ×2 (09:00→21:00)
[2020-12-01] MEDS: VITAMIN D 1,000 INTERNATIONAL UNITS TABLET PO SCH (09:08)
[2020-12-01] MEDS: ATORVASTATIN 20 MG TAB PO SCH (09:08)
[2020-12-01] MEDS: ASPIRIN 81MG ENTERIC TABLET PO SCH (09:09)
[2020-12-01] MEDS: FUROSEMIDE 40MG/4ML VIAL (J1940) IV SCH (09:09)
[2020-12-01] MEDS ORDERED: GENTAMICIN 80 MG in IV 1 EA IV SCH (11:00)
[2020-12-01 11:14] LABS: GENTAMICIN LEVEL TROUGH 0.6 MCG/ML (0.0-2.0); MAGNESIUM LEVEL 1.7 MG/DL (1.8-2.4)
[2020-12-01 11:18] LABS: VANCOMYCIN LEVEL TROUGH 27.3 UG/ML (10.0-20.0)
[2020-12-01 14:00] VITALS: BP 90/53
[2020-12-01] MEDS: SODIUM CHLORIDE 0.9% INJ 10 ML SYR IV PRN (14:06)
--- NOTE | 2020-12-01 14:50 | IPNPDOC ---
Subjective Date Seen The patient was seen on 12/01/20. Subjective Chief Complaint/HPI Mrs. Epps is a 75 year old female with bioprosthetic mitral heart valve and PPM who presents with E.faecium bacteremia. No events overnight, no fever overnight. Oxygen requiring decreased to 2. Otherwise denies chest pain or dyspnea. Objective Physical Examination General Exam: Positive: Alert, Cooperative Eye Exam: Positive: EOMI; Negative: Sclera icteric Neck Exam: Positive: Supple Chest Exam: Positive: Rhonchi Heart Exam: Positive: Rate Normal, Regular Rhythm Abdomen Exam: Positive: Normal bowel sounds, Soft; Negative: Tenderness Extremity Exam: Positive: Edema (Bilateral pitting edema) Neuro Exam: Positive: Normal Speech Psych Exam: Positive: Anxiety Assessment /Plan Assessment Mrs. Epps is a 75 year old female with bioprosthetic mitral heart valve and PPM who presents with E.faecium bacteremia. Due to her non-[place] mitral valve prosthesis and PPM, there is suspicion for vegetation. ID reached out to cardiology about repeating DOLORES, planning for repeat next week. Otherwise, GI performed colonoscopy on 11/28/2020 for persistent E.faecium bacteremia. Demonstrates one 3cm polypoid lesion, three diminutive polyps, and one 5cm polyp. Also demonstrated diverticulosis and internal hemorrhoids. If pathology negative, GI would like to see patient in 4 months for repeat colonoscopy for surveillance. Resume Eliquis three days after colonoscopy (12/01/2020). Otherwise, follow up with GI in 3 months. She was noted to be fluid overloaded on 11/29/2020 with increased oxygen requirements. Today, her oxygen requirements decreased to 2. Still has bilateral pitting edema. Continue with diuresis. Plan/VTE VTE Prophylaxis Ordered?: Yes Plan 1. Persistent E.faecium bacteremia -Suspecting either cardiac hardware or colonic source -Cardiology planning for repeat DOLORES next week -GI performed colonoscopy on 11/29/2020, pending pathology reports -ID following, recommendations appreciated -Last positive blood culture on 11/22/2020 -Blood culture on 11/23/2020 NTD. Will need 6 weeks (42 days) of antibiotics -On vancomycin and gentamicin day 8 of 42. 2. Heart failure with preserved ejection fracture -DOLORES on 11/21/20 demonstrates preserved EF -Ronchi. Leg edema. Increased oxygen requirements. BNP elevated at 1444. CXR suggestive of CHF -Continue with diuresis. Restriction fluids to 1500mL. Continue 2gm sodium diet 3. CAD s/p CABG -No active chest pain -Continue ASA, atorvastatin, and metoprolol tartrate 4. COPD -No active exacerbation -Continue Advair 5. Mitral valve replacement -Eliquis will be held for the colonoscopy. Last dose on 11/25/2020 at 9AM -Restart Eliquis on 12/01/2020 -Continue aspirin 6. Atrial fibrillation -Continue rate control with metoprolol tartrate -Holding Eliquis for colonoscopy, restart on 12/01/2020 7. DVT ppx -Eliquis held for colonoscopy -SCD and TEDs Disposition: Pending DOLORES either tomorrow or day after. Patient will need group home antibiotics, ID following and recommendations appreciated. Respiratory status improving VS, I&O, 24H, [facility] Vital Signs/I&O Vital Signs Date Time Temp Pulse Resp B/P (MAP) Pulse Ox O2 Delivery O2 Flow Rate FiO2 12/01/20 14:00 97.3 77 20 90/53 (65) 90 Nasal Cannula 4.0 11/28/20 19:32 40 I&O- Last 24 Hours up to 6 AM 12/01/20 05:59 Intake Total 3060 ml Output Total 1750 ml Balance 1310 ml Laboratory Data 24H LABS Laboratory Tests 2 11/30/20 16:22: Anion Gap 4L, Glomerular Filtration Rate > 60.0, Calcium Level 7.9L 12/01/20 05:40: Anion Gap 2L, Glomerular Filtration Rate > 60.0, Calcium Level 8.3L, Nucleated Red Blood Cells % (auto) 0.0 12/01/20 09:08: Magnesium Level 1.7L, Gentamicin Level Trough 0.6, Vancomycin Level Trough 27.3*H 12/01/20 14:00: CBC/BMP Laboratory Tests 11/30/20 16:22 12/01/20 05:40 Microbiology Microbiology 11/25/20 Blood Culture - Final, Complete NO GROWTH AFTER 5 DAYS 11/23/20 Blood Culture - Final, Complete NO GROWTH AFTER 5 DAYS 11/22/20 Blood Culture - Final, Complete JAEL YOUNG 28, 2021 14:49
[2020-12-01 15:06] LABS: BLOOD UREA NITROGEN 11 MG/DL (7-18); CALCIUM LEVEL 8.6 MG/DL (8.8-10.2); CARBON DIOXIDE LEVEL 40 MEQ/L (21-32); CHLORIDE LEVEL 97 MEQ/L (98-107); CREATININE FOR GFR 0.85 MG/DL (0.55-1.30); GLOMERULAR FILTRATION RATE > 60.0 (>39); GLUCOSE, FASTING 114 MG/DL (70-100); SODIUM LEVEL 139 MEQ/L (136-145)
[2020-12-01] MEDS: MAG SULF 1GM/100ML (MAG RUN) 1 GM in IV 1 EA IV SCH ×2 (15:19→16:41)
[2020-12-01 15:30] VITALS: BP 90/46
[2020-12-01] MEDS: VANCOMYCIN HCL 1,000 MG, VIAL MATE ADAPTER 1 EACH in NS 250 ML IV SCH (18:10)
[2020-12-01 19:35] VITALS: O2SAT 94
[2020-12-01 22:00] VITALS: BP 107/49
[2020-12-02] MEDS: SODIUM CHLORIDE 0.9% INJ 10 ML SYR IV SCH ×2 (05:10→17:02)
[2020-12-02 05:32] LABS: HEMATOCRIT 33.2 % (36.0-47.0); HEMOGLOBIN 9.9 g/dl (12.0-15.5); MEAN CORPUSCULAR HEMOGLOBIN 26.6 pg (27.0-33.0); MEAN CORPUSCULAR HGB CONC 29.8 g/dl (32.0-36.5); MEAN CORPUSCULAR VOLUME 89.2 fl (80.0-96.0); PLATELET COUNT, AUTOMATED 223 10^3/uL (150-450); RED BLOOD COUNT 3.72 10^6/uL (4.00-5.40); WHITE BLOOD COUNT 9.7 10^3/uL (4.0-10.0)
[2020-12-02 05:44] VITALS: BP 128/63
[2020-12-02 05:51] LABS: BLOOD UREA NITROGEN 11 MG/DL (7-18); CALCIUM LEVEL 8.4 MG/DL (8.8-10.2); CARBON DIOXIDE LEVEL 40 MEQ/L (21-32); CHLORIDE LEVEL 101 MEQ/L (98-107); CREATININE FOR GFR 0.74 MG/DL (0.55-1.30); GLOMERULAR FILTRATION RATE > 60.0 (>39); GLUCOSE, FASTING 95 MG/DL (70-100); POTASSIUM SERUM 4.3 MEQ/L (3.5-5.1); SODIUM LEVEL 141 MEQ/L (136-145)
[2020-12-02] MEDS: ADVAIR HFA 115/21MCG INHALER INH SCH ×2 (07:29→20:08)
[2020-12-02] MEDS: VITAMIN D 1,000 INTERNATIONAL UNITS TABLET PO SCH (08:15)
[2020-12-02] MEDS: ASPIRIN 81MG ENTERIC TABLET PO SCH (08:15)
[2020-12-02] MEDS: ATORVASTATIN 20 MG TAB PO SCH (08:16)
[2020-12-02] MEDS: METOPROLOL TART 25 MG TABLET PO SCH ×2 (08:16→21:00)
[2020-12-02] MEDS ORDERED: FUROSEMIDE 40MG/4ML VIAL (J1940) IV SCH (09:00)
[2020-12-02] MEDS ORDERED: GENTAMICIN IV SCH (11:00)
[2020-12-02] MEDS ORDERED: D5W IV SCH (11:00)
--- NOTE | 2020-12-02 12:27 | IPNPDOC ---
Subjective Date Seen The patient was seen on 12/02/20. Subjective Chief Complaint/HPI Mrs. Epps is a 75 year old female with bioprosthetic mitral heart valve and PPM who presents with E.faecium bacteremia. No fever overnight, no events overnight. Oxygen requirements at 2L. She denies any chest pain or dyspnea. Spoke with Dr. Paz today. Planning for DOLORES tomorrow and Dr. Paz is okay with restarting the apixaban today. Objective Physical Examination General Exam: Positive: Alert, Cooperative Eye Exam: Positive: EOMI; Negative: Sclera icteric Neck Exam: Positive: Supple Chest Exam: Positive: Rhonchi Heart Exam: Positive: Rate Normal, Regular Rhythm Abdomen Exam: Positive: Normal bowel sounds, Soft; Negative: Tenderness Extremity Exam: Positive: Edema (Bilateral pitting edema) Neuro Exam: Positive: Normal Speech Psych Exam: Positive: Anxiety Assessment /Plan Assessment Mrs. Epps is a 75 year old female with bioprosthetic mitral heart valve and PPM who presents with E.faecium bacteremia. Due to her non-[place] mitral valve prosthesis and PPM, there is suspicion for vegetation. ID reached out to cardiology about repeating DOLORES, planning for repeat next week. Otherwise, GI performed colonoscopy on 11/28/2020 for persistent E.faecium bacteremia. Demonstrates one 3cm polypoid lesion, three diminutive polyps, and one 5cm polyp. Also demonstrated diverticulosis and internal hemorrhoids. If pathology negative, GI would like to see patient in 4 months for repeat colonoscopy for surveillance. Resume Eliquis three days after colonoscopy (12/01/2020). Otherwise, follow up with GI in 3 months. She was noted to be fluid overloaded on 11/29/2020 with increased oxygen requirements. After diuresis, her oxygen requirements reduced to 2L which is her baseline. Still has bilateral pitting edema. Continue with diuresis. Plan/VTE VTE Prophylaxis Ordered?: Yes Plan 1. Persistent E.faecium bacteremia -Suspecting either cardiac hardware or colonic source -Cardiology planning for repeat DOLORES next week -GI performed colonoscopy on 11/29/2020, Demonstrate tubular adenoma. Patient will need to follow up with GI outpatient -ID following, recommendations appreciated -Last positive blood culture on 11/22/2020 -Blood culture on 11/23/2020 NTD. Will need 6 weeks (42 days) of antibiotics -On vancomycin and gentamicin day 9 of 42. 2. Heart failure with preserved ejection fracture -DOLORES on 11/21/20 demonstrates preserved EF -Bg. Leg edema. Increased oxygen requirements. BNP elevated at 1444. CXR suggestive of CHF -Continue with diuresis. Continue 2gm sodium diet 3. CAD s/p CABG -No active chest pain -Continue ASA, atorvastatin, and metoprolol tartrate 4. COPD -No active exacerbation -Continue Advair 5. Mitral valve replacement -Eliquis will be held for the colonoscopy. Last dose on 11/25/2020 at 9AM -Okay to restart on apixaban today -Continue aspirin 6. Atrial fibrillation -Continue rate control with metoprolol tartrate -Okay to restart on apixaban today 7. DVT ppx -Okay to restart apixaban today Disposition: Plan for DOLORES tomorrow. Patient will need terminal superintendent antibiotics, ID following and recommendations appreciated. VS, I&O, 24H, Fishbone Vital Signs/I&O Vital Signs Date Time Temp Pulse Resp B/P (MAP) Pulse Ox O2 Delivery O2 Flow Rate FiO2 12/02/20 08:16 95 151/72 12/02/20 07:30 15 12/02/20 05:44 96.0 90 Nasal Cannula 2.0 12/01/20 19:35 24 I&O- Last 24 Hours up to 6 AM 12/02/20 06:00 Intake Total 1000 ml Output Total 1150 ml Balance -150 ml Laboratory Data 24H LABS Laboratory Tests 2 12/01/20 14:00: Anion Gap 2L, Glomerular Filtration Rate > 60.0, Calcium Level 8.6L 12/01/20 15:15: Gentamicin Level Peak 5.3 12/02/20 05:17: Anion Gap 0L, Glomerular Filtration Rate > 60.0, Calcium Level 8.4L, Nucleated Red Blood Cells % (auto) 0.0 CBC/BMP Laboratory Tests 12/01/20 14:00 12/02/20 05:17 Microbiology Microbiology 11/25/20 Blood Culture - Final, Complete NO GROWTH AFTER 5 DAYS 11/23/20 Blood Culture - Final, Complete NO GROWTH AFTER 5 DAYS 11/22/20 Blood Culture - Final, Complete JAEL YOUNG DO Dec 02, 2020 12:27
[2020-12-02] MEDS ORDERED: FUROSEMIDE 40 MG TAB PO ONE (12:45)
[2020-12-02] MEDS: SODIUM CHLORIDE 0.9% INJ 10 ML SYR IV PRN (12:52)
[2020-12-02 14:00] VITALS: BP 111/52
[2020-12-02] MEDS: VANCOMYCIN HCL 1,000 MG, VIAL MATE ADAPTER 1 EACH in NS 250 ML IV SCH (18:22)
[2020-12-02 20:10] VITALS: O2SAT 90
[2020-12-02] MEDS: APIXABAN 5 MG TAB (ELIQUIS) PO SCH (21:56)
[2020-12-02 22:00] VITALS: BP 112/56
[2020-12-03] MEDS: SODIUM CHLORIDE 0.9% INJ 10 ML SYR IV SCH ×2 (05:52→21:55)
[2020-12-03 06:00] VITALS: BP 135/68
[2020-12-03 06:09] LABS: HEMATOCRIT 33.3 % (36.0-47.0); MEAN CORPUSCULAR VOLUME 89.8 fl (80.0-96.0); PLATELET COUNT, AUTOMATED 222 10^3/uL (150-450); RED BLOOD COUNT 3.71 10^6/uL (4.00-5.40); WHITE BLOOD COUNT 9.4 10^3/uL (4.0-10.0)
[2020-12-03 06:34] LABS: ERYTHROCYTE SEDIMENTATION RATE 52 mm/hr (0-30)
[2020-12-03 06:52] LABS: BLOOD UREA NITROGEN 9 MG/DL (7-18); C REACTIVE PROTEIN QUANTITATIV 0.51 MG/DL (0.00-0.30); CALCIUM LEVEL 8.4 MG/DL (8.8-10.2); CARBON DIOXIDE LEVEL 37 MEQ/L (21-32); CHLORIDE LEVEL 100 MEQ/L (98-107); CREATININE FOR GFR 0.74 MG/DL (0.55-1.30); GLOMERULAR FILTRATION RATE > 60.0 (>39); GLUCOSE, FASTING 90 MG/DL (70-100); POTASSIUM SERUM 4.2 MEQ/L (3.5-5.1); SODIUM LEVEL 138 MEQ/L (136-145)
[2020-12-03] MEDS: ADVAIR HFA 115/21MCG INHALER INH SCH ×2 (07:34→19:37)
--- NOTE | 2020-12-03 09:34 | IPN ---
PROGRESS NOTE DATE: 12/02/2020 SUBJECTIVE: Mrs. Epps was a little upset this afternoon because her transesophageal echocardiogram was cancelled and it will be rescheduled for tomorrow. She has had no fever or chills. No nausea, vomiting, or diarrhea. No abdominal pain. Her dyspnea has improved. She was switched from IV Lasix to p.o. Lasix. She still has lower extremity edema. OBJECTIVE: VITAL SIGNS: Temperature 97, pulse 64, respirations 18, blood pressure 111/52, O2 saturation 93% on 2 liters nasal cannula. HEART: Normal S1, S2 distant. No murmurs appreciated. LUNGS: Few crackles at the bases, but better air entry. No wheezes or rhonchi. ABDOMEN: Soft and nontender with no hepatosplenomegaly. EXTREMITIES: With +2 pitting edema. No calf tenderness. No rashes. NEUROLOGIC: Normal. Speech normal. Alert and oriented x3. Sitting at the bedside. Moves all extremities. LABORATORY DATA: White count 9.7, hemoglobin 9.9, hematocrit 33.2, platelets 223,000. Sodium 141, potassium 4.3, chloride 101, bicarb 40, BUN 11, creatinine 0.74, glucose 95, calcium 8.4. Magnesium 1.7. Gentamicin peak on 11/24 was 5.1 and vancomycin trough 16.3. Rheumatoid factor less than 10. MRSA PCR negative. Blood cultures were negative on 11/23 and 11/25 and positive on 11/22, but the identification of the positive could not be obtained. Pathology from ascending colon to tubulovillous adenoma and from the splenic flexure tubular adenoma. IMPRESSION: 1. 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 The patient is doing well on intravenous (IV) gentamicin at 60 mg daily and IV vancomycin 1 gram q. 24 hours. She has repeat negative cultures. Repeat transesophageal echocardiogram (DOLORES) is still pending. 2. Colonic polyps with one tubulovillous adenoma, which was quite large about 3 cm and another tubular adenoma; probably the source of the Enterococcus faecium. 3. Congestive heart failure doing better after IV diuresis. She is currently on metoprolol 25 mg p.o. b.i.d. and furosemide 40 mg p.o. PLAN: Scheduled transesophageal echocardiogram for tomorrow. Will repeat weekly CRP and ESR tomorrow. Continue to monitor very closely vancomycin and gentamicin levels, as she is at high risk of neprhotoxicity. She will be continued on IV antibiotics for presumptive endocarditis for six weeks with end of treatment date for 01/04. Anticipated hopefully discharge home later this week with home IV antibiotic. The patient has a peripherally inserted central catheter (PICC) line and is willing to help. We will contact [facility] to arrange for home IV antibiotics.
[2020-12-03] MEDS: APIXABAN 5 MG TAB (ELIQUIS) PO SCH ×2 (09:55→21:50)
[2020-12-03] MEDS: ASPIRIN 81MG ENTERIC TABLET PO SCH (09:55)
[2020-12-03] MEDS: VITAMIN D 1,000 INTERNATIONAL UNITS TABLET PO SCH (09:55)
[2020-12-03] MEDS: SODIUM CHLORIDE 0.9% INJ 10 ML SYR IV PRN (09:56)
[2020-12-03] MEDS: ATORVASTATIN 20 MG TAB PO SCH (09:56)
[2020-12-03] MEDS: METOPROLOL TART 25 MG TABLET PO SCH ×2 (09:58→21:00)
[2020-12-03] MEDS: GENTAMICIN 60 MG in D5W 50 ML IV SCH (11:21)
[2020-12-03 14:00] VITALS: BP 135/66
[2020-12-03 16:54] VITALS: BP 120/59
[2020-12-03] MEDS: VANCOMYCIN HCL 1,000 MG, VIAL MATE ADAPTER 1 EACH in NS 250 ML IV SCH (17:18)
[2020-12-03] MEDS ORDERED: LIDOCAINE VISCOUS 2% SOLN 15ML UDC As Ordered ONE (18:02)
[2020-12-03] MEDS ORDERED: CETACAINE SPRAY 5GM As Ordered ONE (18:02)
--- NOTE | 2020-12-03 18:20 | IPNPDOC ---
Text Note Date of Service The patient was seen on 12/03/20. NOTE Subjective: No any acute events overnight. Patient denied fever, chills, nausea, vomiting, diarrhea or dysuria Objective: GENERAL APPEARANCE: NAD HEENT: no scleral icterus, no JVD, EOMI CARDIOVASCULAR: S1S2, pacemaker in place LUNGS: CTA ABDOMEN: soft & not tender w palpitation MUSCULOSKELETAL: +1 pitting edema INTEGUMENT: no generalized pallor NEUROLOGICAL: cranial nerve function from 2-12 intact intact, follows commands, speech not dysarthric Assessment and plan Patient is 75 year old female with bioprosthetic mitral heart valve and PPM who presents with persistent E.faecium bacteremia. GI performed colonoscopy on 11/28/2020 for persistent E.faecium bacteremia. Demonstrates one 3cm polypoid lesion, three diminutive polyps, and one 5cm polyp. Also demonstrated div erticulosis and internal hemorrhoids. If pathology negative, GI would like to see patient in 4 months for repeat colonoscopy for surveillance. Persistent E.faecium bacteremia Most likely from GI tract GI performed colonoscopy on 11/29/2020, Likely benign 3 cm polypoid lesion in the mid ascending colon. - Three diminutive polyps at the hepatic flexure and in the ascending colon, removed with a cold snare. - One 5 mm polyp at the splenic flexure, removed with a cold snare. Pathology showed Superficial fragments of Tubulovillous adenoma, Tubular adenoma. Patient will need to follow up with GI outpatient Last positive blood culture on 11/22/2020 Will repeat sedimentation rate and CRP Blood culture on 11/23/2020 NTD. Will need 6 weeks (42 days) of antibiotics Will proceed with DOLORES On vancomycin and gentamicin day 10 of 42, end of treatment date for 01/04 Colonic polyps see above Acute on chronic Heart failure with preserved ejection fracture DOLORES on 11/21/20 demonstrates preserved EF, needed supplemental oxygen up to 5 L BNP elevated to 1444 Patient had orthopnea Continue diuresis with Lasix CAD s/p CABG No chest pain Continue ASA, atorvastatin, and metoprolol tartrate COPD -No active exacerbation -Continue Advair Mitral valve replacement Continue Eliquis with aspirin Atrial fibrillation Continue rate control with metoprolol tartrate and pacemaker Continue Eliquis DVT ppx Continue Eliquis VS,Fishbone, I+O VS, Fishbone, I+O Laboratory Tests 12/03/20 05:52 Vital Signs Date Time Temp Pulse Resp B/P (MAP) Pulse Ox O2 Delivery O2 Flow Rate FiO2 12/03/20 16:54 97.8 63 18 120/59 (79) 95 Nasal Cannula 2.0 12/02/20 20:10 24 I&O- Last 24 Hours up to 6 AM 12/03/20 06:00 Intake Total 970 ml Output Total 1750 ml Balance -780 ml TERE TOBIN DO Dec 03, 2020 18:20
[2020-12-03] MEDS ORDERED: fentaNYL 100 MCG/2 ML INJECTION (J3010) As Ordered ONE (18:26)
[2020-12-03] MEDS ORDERED: DESFLURANE 240 ML INHALANT As Ordered ONE (18:26)
[2020-12-03] MEDS ORDERED: propofoL 200 MG/20 ML VIAL As Ordered ONE ×2 (18:26→18:32)
[2020-12-03] MEDS ORDERED: MIDAZOLAM INJ 2MG/2ML VIAL (J2250 PER 1MG) As Ordered ONE (18:26)
[2020-12-03] MEDS ORDERED: LIDOCAINE 2% 100MG/5ML SDV (FOR ANES.) As Ordered ONE (18:26)
[2020-12-03] MEDS ORDERED: FUROSEMIDE 40MG/4ML VIAL (J1940) IV SCH (19:00)
[2020-12-03 20:00] VITALS: BP 121/58
[2020-12-03] MEDS ORDERED: LR 1,000 ML IV SCH (20:05)
[2020-12-03] MEDS ORDERED: ONDANSETRON 4MG/2ML VIAL IV PRN (20:05)
[2020-12-03 20:36] LABS: NT-PRO BNP 726 PG/ML (<450)
--- NOTE | 2020-12-03 22:12 | IPNPDOC ---
Text Note Date of Service The patient was seen on 12/03/20. NOTE INFECTIOUS DISEASE PROGRESS NOTE SUBJECTIVE: Mrs. Epps was seen this afternoon, and was a little apprehensive about her upcoming transesophageal echocardiogram (DOLORES), but otherwise excited to go home. She met with home health services prior to our visit to go over contact information for continuing her IV medications and lab tests while at home. DOLORES was scheduled for today at 5pm, and discharge is anticipated for tomorrow . She is eating well, and denies any fevers, chills, chest pain, nausea or diarrhea. She still has lower extremity edema. OBJECTIVE: VITAL SIGNS: See below GENERAL: Patient is a pleasant woman seen lying in bed. She is with woman mood and affect, and is alert and oriented times three. HEART: irregular rhythm. Normal S1 and S2, with no murmurs, gallops or rubs noted. LUNGS: There is some crackling at the bases bilaterally, but markedly improved from initial visit with improved air entry. No wheezes or rhonchi were noted. ABDOMEN: Soft, nontender without hepatosplenomegaly. EXTREMITIES: Legs show 1+ pitting edema bilaterally. No calf tenderness is elicited. NEUROLOGIC: No focal deficits noted. Moves all extremities well. LABORATORY DATA: CBC - White count 9.4, hemoglobin 10.0 hematocrit 33.3, platelets 222 CMP - Sodium 138, potassium 4.2, chloride 100, bicarb 37, BUN 9, creatinine 0.74, glucose 90, calcium 8.4. Magnesium 1.7 from 12/01. MEDICATIONS - Gentamicin peak on 12/02 was 5.1 and vancomycin trough 16.3. Rheumatoid factor less than 10. MRSA PCR was negative. Blood cultures have been negative since 11/23 and 11/25. Positive growth cultures from 11/22 could not be identified due to nonviable organisms. Pathology from ascending colon to tubulovillous adenoma and from the splenic flexure tubular adenoma. IMPRESSION: 1. 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 DOLORES today is pending review. She is doing well on IV gentamicin 60mg daily, and IV vancomycin 1gm daily. She has had repeat negative cultures from 11/23 and 11/25. 2. Colonoscopy found colonic polyps, one of which was a large tubulovillous adenoma, which could have been the primary source for her E. faecium bacteremia. 3. Congestive heart failure. She has improved after IV diuresis and has been transitioned to oral diuresis, metoprolol 25 mg p.o. b.i.d. and furosemide 40 mg p.o. PLAN: Patient's DOLORES scheduled for today is pending, and if no vegetations are found, we anticipate discharge tomorrow, 12/04. Weekly CBC with differential, CRP, and ESR will be done tomorrow before discharge. Due to high risk for nephrotoxicity, vancomycin and gentamicin levels will need to be closely monitored as outpatient. Given her persistent bacteremia for 3 weeks, patient will be treated for presumptive endocarditis and continued on IV antibiotics for 6 weeks total treatment, with an end date of January 04. The patient has a peripher ally inserted central catheter (PICC) line and her is willing to help administer medications at home. [facility] has been contacted to arrange for home IV antibiotics and educate the patient and her on at home medication treatment. VS,Fishbone, I+O VS, Fishbone, I+O Laboratory Tests 12/03/20 05:52 Vital Signs Date Time Temp Pulse Resp B/P (MAP) Pulse Ox O2 Delivery O2 Flow Rate FiO2 12/03/20 20:00 98.1 65 17 121/58 (79) 90 Nasal Cannula 2.0 12/02/20 20:10 24 I&O- Last 24 Hours up to 6 AM 12/03/20 06:00 Intake Total 970 ml Output Total 1750 ml Balance -780 ml GME ATTESTATION GME ATTESTATION My faculty preceptor for this patient encounter was physically present during the encounter and was fully available. All aspects of the patient interview, examination, medical decision making process, and medical care plan development were reviewed and approved by the faculty preceptor. The faculty preceptor is aware and concurs with the plan as stated in the body of this note and will attest to such by his/her cosignature. YAMILA BLACK Dec 03, 2020 22:12 James Arevalo MD Dec 04, 2020 21:26
[2020-12-04] MEDS: SODIUM CHLORIDE 0.9% INJ 10 ML SYR IV SCH (05:41)
[2020-12-04 05:50] VITALS: BP 130/61
[2020-12-04 06:09] LABS: HEMOGLOBIN 10.7 g/dl (12.0-15.5); MEAN CORPUSCULAR HGB CONC 29.7 g/dl (32.0-36.5); MEAN CORPUSCULAR VOLUME 90.7 fl (80.0-96.0); PLATELET COUNT, AUTOMATED 242 10^3/uL (150-450); RED BLOOD COUNT 3.97 10^6/uL (4.00-5.40); WHITE BLOOD COUNT 12.1 10^3/uL (4.0-10.0)
[2020-12-04 06:28] LABS: BLOOD UREA NITROGEN 11 MG/DL (7-18); CALCIUM LEVEL 8.4 MG/DL (8.8-10.2); CARBON DIOXIDE LEVEL 41 MEQ/L (21-32); CHLORIDE LEVEL 98 MEQ/L (98-107); CREATININE FOR GFR 0.95 MG/DL (0.55-1.30); GLOMERULAR FILTRATION RATE > 60.0 (>39); GLUCOSE, FASTING 99 MG/DL (70-100); SODIUM LEVEL 140 MEQ/L (136-145)
[2020-12-04] MEDS: ADVAIR HFA 115/21MCG INHALER INH SCH (08:07)
--- NOTE | 2020-12-04 10:25 | T-ECHO ---
TRANSESOPHAGEAL ECHO DATE: 12/03/2020 REFERRING PHYSICIAN: Rk Israel DO. INDICATIONS: Bacteremia, history of mitral valve replacement with bioprosthesis, suspicion for endocarditis. ANESTHESIA: Provided by Selvin Arevalo M.D. and Merlyn Rubio CRNA. PROCEDURE PERFORMED BY: Dena Paz M.D. PROCEDURE PERFORMED: Transesophageal echocardiogram. BRIEF HISTORY: Mrs. Za Epps is a very pleasant female who has a history of mitral valve replacement with bioprosthesis. She presented to [facility] with Enterococcal bacteremia. This was persistent in her prior outpatient evaluation. Even though she did not have raheem symptoms of endocarditis, she was intermittently treated with antibiotics; so it was felt that she might have partially treated endocarditis. I already performed a transesophageal echocardiogram 10 days ago, which did not reveal any convincing evidence for vegetation; but because of persistent high suspicion for endocarditis, I was asked to repeat the study. I met with the patient the morning of the procedure. I explained the rationale and potential ramifications. She signed the appropriate consent. DESCRIPTION OF PROCEDURE: The patient presented to the operating room in fasting condition. After appropriate time-out was taken and all the monitors were applied, her posterior pharynx was anesthetized using viscous Lidocaine and Cetacaine spray. She was then positioned in the left lateral decubitus position. Bite block was placed. Oxygen mask was applied. The probe was then introduced into the esophagus and later the stomach with minor difficulty. After appropriate images were taken, it was withdrawn. There were no immediate complications and the patient tolerated the procedure well. FINDINGS: Normal LV systolic function. No apparent wall motion abnormalities. Normal RV systolic function without apparent abnormalities. Both atria appeared grossly normal size. There is a stented bioprosthesis in the mitral position. Based on 2D, color Doppler imaging there are no visualized vegetations and normal function without any insufficiency of the valve. Aortic valve is tricuspid. It is mildly sclerotic, but again no visualized vegetations were seen. Trace aortic insufficiency is noted. Pulmonic valve was reasonably well seen and appears normal. Trace pulmonic insufficiency is noted by color Doppler imaging. Tricuspid valve was poorly visualized from transesophageal views. From transgastric views, there appears to be an echodensity attached to its cusp. On further imaging though, it becomes apparent that this is a cross section of papillary muscle. By color Doppler imaging, there is mild tricuspid insufficiency. Left atrial appendage is large and free of thrombus. There is normal flow in both right and left-sided pulmonary veins. Interatrial septum is markedly thickened with prominent lipomatous hypertrophy. No shunting based on color Doppler imaging. There is atherosclerosis of the thoracic aorta, but no visualized ulcerations or thrombi. CONCLUSIONS: 1. Preserved LV systolic function. 2. Normally functioning bioprosthesis in mitral position. 3. Mild degenerative abnormalities of the aortic valve with trace insufficiency. 4. Mild mitral and tricuspid insufficiency. 5. Echo artifacts in right-sided heart chambers consistent with pacemaker wires. 6. Lipomatous hypertrophy of atrial septum. 7. Left atrial appendage free of thrombi. 8. Normal flow in both ride and left-sided pulmonary veins. 9. Prominent thoracic atherosclerosis. COMMENT: No definite vegetations are seen.
[2020-12-04] MEDS: GENTAMICIN 60 MG in D5W 50 ML IV SCH (10:49)
[2020-12-04 10:50] VITALS: BP 119/70
[2020-12-04] MEDS: APIXABAN 5 MG TAB (ELIQUIS) PO SCH (10:50)
[2020-12-04] MEDS: ASPIRIN 81MG ENTERIC TABLET PO SCH (10:50)
[2020-12-04] MEDS: METOPROLOL TART 25 MG TABLET PO SCH (10:50)
[2020-12-04] MEDS: VITAMIN D 1,000 INTERNATIONAL UNITS TABLET PO SCH (10:51)
[2020-12-04] MEDS: ATORVASTATIN 20 MG TAB PO SCH (10:51)
[2020-12-04] MEDS: SODIUM CHLORIDE 0.9% INJ 10 ML SYR IV PRN ×2 (12:41→14:10)
[2020-12-04] MEDS ORDERED: LASI20TA3 PO (13:22)
[2020-12-04 14:00] VITALS: BP 105/52
[2020-12-04] MEDS ORDERED: VANCOMYCIN HCL 500 MG in D5W MINI-BAG PLUS 100 ML IV ONE (15:30)
--- NOTE | 2020-12-04 17:10 | DS.PDOC ---
Discharge Summary General Date of Admission Nov 20, 2020 at 13:57 Date of Discharge 12/04/20 Discharge Summary PROCEDURES PERFORMED DURING STAY: [None]. ADMITTING DIAGNOSES: Persistent E.faecium bacteremia Colonic polyps CAD s/p CABG Acute on chronic Heart failure with preserved ejection fracture COPD Mitral valve replacement Atrial fibrillation DISCHARGE DIAGNOSES: Persistent E.faecium bacteremia Colonic polyps CAD s/p CABG Acute on chronic Heart failure with preserved ejection fracture COPD Mitral valve replacement Atrial fibrillation COMPLICATIONS/CHIEF COMPLAINT: Endocarditis. HISTORY OF PRESENT ILLNESS: Patient is 75 year old female with bioprosthetic mitral heart valve and PPM who presents with persistent E.faecium bacteremia. GI performed colonoscopy on 11/28/2020 for persistent E.faecium bacteremia. Demonstrates one 3cm polypoid lesion, three diminutive polyps, and one 5cm polyp. Also demonstrated diverticulosis and internal hemorrhoids. If pathology negative, GI would like to see patient in 4 months for repeat colonoscopy for surveillance. HOSPITAL COURSE: During the hospital stay following issue addressed Persistent E.faecium bacteremia Most likely from GI tract GI performed colonoscopy on 11/29/2020, Likely benign 3 cm polypoid lesion in the mid ascending colon. - Three diminutive polyps at the hepatic flexure and in the ascending colon, removed with a cold snare. - One 5 mm polyp at the splenic flexure, removed with a cold snare. Pathology showed Superficial fragments of Tubulovillous adenoma, Tubular adenoma. Patient will need to follow up with GI outpatient Last positive blood culture on 11/22/2020 Blood culture on 11/23/2020 NTD. Will need 6 weeks (42 days) of antibiotics total end of treatment date for 01/04 DOLORES result below Colonic polyps see above Acute on chronic Heart failure with preserved ejection fracture DOLORES on 11/21/20 demonstrates preserved EF, needed supplemental oxygen up to 5 L BNP elevated to 1444, improved Patient had orthopnea Continue diuresis with Lasix CAD s/p CABG No chest pain Continue ASA, atorvastatin, and metoprolol tartrate COPD -No active exacerbation -Continue Advair Mitral valve replacement Continue Eliquis with aspirin Atrial fibrillation Continue rate control with metoprolol tartrate and pacemaker Continue Eliquis DISCHARGE MEDICATIONS: Please see below. ALLERGIES: Please see below. PHYSICAL EXAMINATION ON DISCHARGE: VITAL SIGNS: Please see below. GENERAL APPEARANCE: NAD HEENT: no scleral icterus, no JVD, EOMI CARDIOVASCULAR: S1S2, pacemaker in place LUNGS: CTA ABDOMEN: soft & not tender w palpitation MUSCULOSKELETAL: +1 pitting edema INTEGUMENT: no generalized pallor NEUROLOGICAL: cranial nerve function from 2-12 intact intact, follows commands, speech not dysarthric LABORATORY DATA: Please see below. IMAGING: [facility] NAME: ZA EPPS V : 1945 MED REC#: [id number] ROOM: [facility] Dictating: Dena Paz MD PATIENT STATUS: ADM IN Cosign: REPORT #: [id number] Other : cc: [~ rep ct ivnm] TRANSESOPHAGEAL ECHOCARDIOGRAM REPORT Page 2 of [address] [address] TRANSESOPHAGEAL ECHOCARDIOGRAM REPORT TRANSESOPHAGEAL ECHOCARDIOGRAM REPORT Page 1 of 3 TRANSESOPHAGEAL ECHO DATE: 12/03/2020 REFERRING PHYSICIAN: Rk Israel DO. INDICATIONS: Bacteremia, history of mitral valve replacement with bioprosthesis, suspicion for endocarditis. ANESTHESIA: Provided by Selvin Arevalo M.D. and Merlyn Rubio CRNA. PROCEDURE PERFORMED BY: Dena Paz M.D. PROCEDURE PERFORMED: Transesophageal echocardiogram. BRIEF HISTORY: Mrs. Za Epps is a very pleasant female who has a history of mitral valve replacement with bioprosthesis. She presented to [facility] with Enterococcal bacteremia. This was persistent in her prior outpatient evaluation. Even though she did not have raheem symptoms of endocarditis, she was intermittently treated with antibiotics; so it was felt that she might have partially treated endocarditis. I already performed a transesophageal echocardiogram 10 days ago, which did not reveal any convincing evidence for vegetation; but because of persistent high suspicion for endocarditis, I was asked to repeat the study. I met with the patient the morning of the procedure. I explained the rationale and potential ramifications. She signed the appropriate consent. DESCRIPTION OF PROCEDURE: The patient presented to the operating room in fasting condition. After appropriate time-out was taken and all the monitors were applied, her posterior pharynx was anesthetized using viscous Lidocaine and Cetacaine spray. She was then positioned in the left lateral decubitus position. Bite block was placed. Oxygen mask was applied. The probe was then introduced into the esophagus and later the stomach with minor difficulty. After appropriate images were taken, it was withdrawn. There were no immediate complications and the patient tolerated the procedure well. FINDINGS: Normal LV systolic function. No apparent wall motion abnormalities. Normal RV systolic function without apparent abnormalities. Both atria appeared grossly normal size. There is a stented bioprosthesis in the mitral position. Based on 2D, color Doppler imaging there are no visualized vegetations and normal function without any insufficiency of the valve. Aortic valve is tricuspid. It is mildly sclerotic, but again no visualized vegetations were seen. Trace aortic insufficiency is noted. Pulmonic valve was reasonably well seen and appears normal. Trace pulmonic insufficiency is noted by color Doppler imaging. Tricuspid valve was poorly visualized from transesophageal views. From transgastric views, there appears to be an echodensity attached to its cusp. On further imaging though, it becomes apparent that this is a cross section of papillary muscle. By color Doppler imaging, there is mild tricuspid insufficiency. Left atrial appendage is large and free of thrombus. There is normal flow in both right and left-sided pulmonary veins. Interatrial septum is markedly thickened with prominent lipomatous hypertrophy. No shunting based on color Doppler imaging. There is atherosclerosis of the thoracic aorta, but no visualized ulcerations or thrombi. CONCLUSIONS: 1. Preserved LV systolic function. 2. Normally functioning bioprosthesis in mitral position. 3. Mild degenerative abnormalities of the aortic valve with trace insufficiency. 4. Mild mitral and tricuspid insufficiency. 5. Echo artifacts in right-sided heart chambers consistent with pacemaker wires. 6. Lipomatous hypertrophy of atrial septum. 7. Left atrial appendage free of thrombi. 8. Normal flow in both ride and left-sided pulmonary veins. 9. Prominent thoracic atherosclerosis. COMMENT: No definite vegetations are seen. DD: Dena Paz MD 12/03/20 2158 DT: ANNALISA 12/04/20 0948 DS: DS2: [~ rep ct labl] PROGNOSIS: Fair ACTIVITY: [As tolerated]. DIET: Cardiac DISPOSITION: Home DISCHARGE INSTRUCTIONS: Continue vancomycin IV and gentamicin IV per protocol, for 6 weeks total treatment, with an end date of January 04. Follow-up with PCP in 2-3 days and with ID in 1 week. Follow-up with GI team in 3 years for repeat colonoscopy Close monitoring of kidney function, vancomycin and gentamicin level by PCP ITEMS TO FOLLOWUP ON ON OUTPATIENT: Follow-up with PCP in 2-3 days and with ID in 1 week. Follow-up with GI team in 3 years for repeat colonoscopy per Dr Buck recommendations DISCHARGE CONDITION: [Stable]. TIME SPENT ON DISCHARGE: 40 minutes. Vital Signs/I&Os Vital Signs Date Time Temp Pulse Resp B/P (MAP) Pulse Ox O2 Delivery O2 Flow Rate FiO2 12/04/20 14:00 97.9 65 18 105/52 (69) 97 Nasal Cannula 2.0 12/02/20 20:10 24 I&O- Last 24 Hours up to 6 AM 12/04/20 06:00 Intake Total 171.5 ml Output Total 1850 ml Balance -1678.5 ml Laboratory Data Labs 24H Laboratory Tests 2 12/04/20 05:43: Nucleated Red Blood Cells % (auto) 0.0, Anion Gap 1L, Glomerular Filtration Rate > 60.0, Calcium Level 8.4L 12/04/20 12:41: Gentamicin Level Peak 4.5 12/04/20 14:09: Vancomycin Level Trough 17.2 CBC/BMP Laboratory Tests 12/04/20 05:43 Microbiology Microbiology 11/25/20 Blood Culture - Final, Complete NO GROWTH AFTER 5 DAYS Discharge Medications Scheduled Apixaban (Eliquis) 5 Mg Tablet, 5 MG PO BID, (Reported) Aspirin (Aspirin EC) 81 Mg Tablet.dr, 81 MG PO DAILY, (Reported) Atorvastatin Calcium (Atorvastatin Calcium) 80 Mg Tablet, 80 MG PO DAILY, (Reported) Cholecalciferol (Vitamin D3) (Vitamin D3) 1,000 Unit Tablet, 1,000 UNITS PO DAILY, (Reported) Fluticasone/Vilanterol (Breo Ellipta 200-25 Mcg INH) 1 Each Blst.w.dev, 1 PUFF INH DAILY, (Reported) Furosemide (Lasix) 20 Mg Tablet, 1 TAB PO DAILY Metoprolol Tartrate (Metoprolol Tartrate) 25 Mg Tablet, 25 MG PO BID, (Reported) Umeclidinium Troup (Incruse Ellipta) 62.5 Mcg Blst.w.dev, 1 PUFF INH DAILY, (Reported) [Antihistamine] , 1 TAB PO DAILY, (Reported) UNK ANTIHISTAMINE Allergies Coded Allergies: No Known Allergies (Unverified , 02/16/18) TERE TOBIN DO Dec 04, 2020 17:09
== END 2020-12-04 17:45 | disposition home health service (06) | DRG 872 ==
LOC: M MSPAV 13:57
PROVIDERS: ADMIT Family Medicine; ATTEND Internal Medicine
PROC: B246ZZ4 Ultrasonography of Right and Left Heart, Transesophageal (ICD-10-PCS; 2020-11-21)
PROC: 02HV33Z Insertion of Infusion Device into Superior Vena Cava, Percutaneous Approach (ICD-10-PCS; 2020-11-28)
PROC: 0DBK8ZX Excision of Ascending Colon, Via Natural or Artificial Opening Endoscopic, Diagnostic (ICD-10-PCS; principal; 2020-11-28 14:00)
DX: R78.81 Bacteremia (principal); I50.32 Chronic diastolic (congestive) heart failure; J96.11 Chronic respiratory failure with hypoxia; I11.0 Hypertensive heart disease with heart failure; J44.9 Chronic obstructive pulmonary disease, unspecified; D12.2 Benign neoplasm of ascending colon; I25.10 Atherosclerotic heart disease of native coronary artery without angina pectoris; Z95.2 Presence of prosthetic heart valve; I48.91 Unspecified atrial fibrillation; K57.30 Diverticulosis of large intestine without perforation or abscess without bleeding; K64.8 Other hemorrhoids; B95.2 Enterococcus as the cause of diseases classified elsewhere; Z79.82 Long term (current) use of aspirin; Z79.899 Other long term (current) drug therapy; Z79.01 Long term (current) use of anticoagulants; Z95.0 Presence of cardiac pacemaker; E66.9 Obesity, unspecified

== ENCOUNTER → 2020-12-05 | Outpatient (REF) | payer MEDICARE ==
[~2020-12-05] MED LIST changes: +INCR1INH INH
== END ==
LOC: M SHH 13:39
PROVIDERS: ATTEND Internal Medicine Infectious Disease
DX: I38 Endocarditis, valve unspecified (principal)

== ENCOUNTER → 2020-12-09 | Outpatient (REF) | payer MEDICARE ==
[2020-12-09 13:08] LABS: HEMATOCRIT 42.8 % (36.0-47.0); MEAN CORPUSCULAR HEMOGLOBIN 27.7 pg (27.0-33.0); MEAN CORPUSCULAR HGB CONC 30.4 g/dl (32.0-36.5); MEAN CORPUSCULAR VOLUME 91.3 fl (80.0-96.0); PLATELET COUNT, AUTOMATED 283 10^3/uL (150-450); RED BLOOD COUNT 4.69 10^6/uL (4.00-5.40); WHITE BLOOD COUNT 9.4 10^3/uL (4.0-10.0)
[2020-12-09 13:35] LABS: CALCIUM LEVEL 9.5 MG/DL (8.8-10.2); CREATININE FOR GFR 1.05 MG/DL (0.55-1.30); GENTAMICIN LEVEL TROUGH 0.6 MCG/ML (0.0-2.0); GLOMERULAR FILTRATION RATE 54.4 (>39); POTASSIUM SERUM 4.1 MEQ/L (3.5-5.1); VANCOMYCIN LEVEL TROUGH 18.9 UG/ML (10.0-20.0)
[2020-12-09 15:23] LABS: ERYTHROCYTE SEDIMENTATION RATE 49 mm/hr (0-30)
== END ==
LOC: M LAB REF 12:46 → M SHH 12:46
PROVIDERS: ATTEND Internal Medicine Infectious Disease
DX: I38 Endocarditis, valve unspecified (principal)

== ENCOUNTER → 2020-12-10 | Outpatient (REF) | payer MEDICARE | LOC: M SHH 12:57 | PROVIDERS: ATTEND Physician Assistant | DX: E83.42 Hypomagnesemia (principal) ==

== ENCOUNTER → 2020-12-12 | Outpatient (REF) | payer MEDICARE, OTHER | LOC: M LAB REF 13:34 | PROVIDERS: ATTEND Physician Assistant | DX: E83.42 Hypomagnesemia (principal) ==

== ENCOUNTER → 2020-12-12 | Outpatient (REF) | payer MEDICARE, OTHER ==
[2020-12-12 14:02] LABS: MEAN CORPUSCULAR HEMOGLOBIN 27.3 pg (27.0-33.0); MEAN CORPUSCULAR VOLUME 90.9 fl (80.0-96.0); PLATELET COUNT, AUTOMATED 280 10^3/uL (150-450); WHITE BLOOD COUNT 10.6 10^3/uL (4.0-10.0)
[2020-12-12 14:36] LABS: ALBUMIN 3.7 GM/DL (3.2-5.2); BILIRUBIN,TOTAL 0.9 MG/DL (0.2-1.0); C REACTIVE PROTEIN QUANTITATIV 0.46 MG/DL (0.00-0.30); CALCIUM LEVEL 9.4 MG/DL (8.8-10.2); CREATININE FOR GFR 1.03 MG/DL (0.55-1.30); GENTAMICIN LEVEL TROUGH 0.8 MCG/ML (0.0-2.0); GLOMERULAR FILTRATION RATE 55.6 (>39); POTASSIUM SERUM 3.5 MEQ/L (3.5-5.1); TOTAL PROTEIN 7.9 GM/DL (6.4-8.2); VANCOMYCIN LEVEL TROUGH 22.8 UG/ML (10.0-20.0)
[2020-12-12 15:00] LABS: ERYTHROCYTE SEDIMENTATION RATE 61 mm/hr (0-30)
== END ==
LOC: M SHH 13:32
PROVIDERS: ATTEND Internal Medicine Infectious Disease
DX: I38 Endocarditis, valve unspecified (principal)

== ENCOUNTER → 2020-12-16 | Outpatient (REF) | payer MEDICARE ==
[2020-12-16 14:31] LABS: HEMOGLOBIN 12.2 g/dl (12.0-15.5); MEAN CORPUSCULAR HEMOGLOBIN 26.9 pg (27.0-33.0); MEAN CORPUSCULAR HGB CONC 29.8 g/dl (32.0-36.5); MEAN CORPUSCULAR VOLUME 90.5 fl (80.0-96.0); PLATELET COUNT, AUTOMATED 269 10^3/uL (150-450); RED BLOOD COUNT 4.53 10^6/uL (4.00-5.40); WHITE BLOOD COUNT 9.3 10^3/uL (4.0-10.0)
[2020-12-16 15:05] LABS: C REACTIVE PROTEIN QUANTITATIV 0.45 MG/DL (0.00-0.30); CALCIUM LEVEL 9.7 MG/DL (8.8-10.2); CREATININE FOR GFR 1.33 MG/DL (0.55-1.30); GENTAMICIN LEVEL TROUGH 0.7 MCG/ML (0.0-2.0); GLOMERULAR FILTRATION RATE 41.4 (>39); POTASSIUM SERUM 3.9 MEQ/L (3.5-5.1); VANCOMYCIN LEVEL TROUGH 15.1 UG/ML (10.0-20.0)
[2020-12-16 15:30] LABS: ERYTHROCYTE SEDIMENTATION RATE 54 mm/hr (0-30)
== END ==
LOC: M SHH 14:22
PROVIDERS: ATTEND Internal Medicine Infectious Disease
DX: I33.0 Acute and subacute infective endocarditis (principal)

== ENCOUNTER → 2020-12-19 | Outpatient (REF) | payer MEDICARE ==
[2020-12-19 13:45] LABS: HEMATOCRIT 40.3 % (36.0-47.0); HEMOGLOBIN 11.8 g/dl (12.0-15.5); MEAN CORPUSCULAR HGB CONC 29.3 g/dl (32.0-36.5); MEAN CORPUSCULAR VOLUME 92.2 fl (80.0-96.0); PLATELET COUNT, AUTOMATED 287 10^3/uL (150-450); RED BLOOD COUNT 4.37 10^6/uL (4.00-5.40); WHITE BLOOD COUNT 9.7 10^3/uL (4.0-10.0)
[2020-12-19 15:48] LABS: C REACTIVE PROTEIN QUANTITATIV 0.3 MG/DL (0.00-0.30); CALCIUM LEVEL 9.5 MG/DL (8.8-10.2); CREATININE FOR GFR 1.31 MG/DL (0.55-1.30); GLOMERULAR FILTRATION RATE 42.1 (>39); POTASSIUM SERUM 4.2 MEQ/L (3.5-5.1); VANCOMYCIN LEVEL TROUGH 13.1 UG/ML (10.0-20.0)
[2020-12-19 15:49] LABS: ERYTHROCYTE SEDIMENTATION RATE 52 mm/hr (0-30)
== END ==
LOC: M SHH 13:31
PROVIDERS: ATTEND Internal Medicine Infectious Disease
DX: I33.0 Acute and subacute infective endocarditis (principal); Z79.899 Other long term (current) drug therapy

== ENCOUNTER → 2020-12-23 | Outpatient (REF) | payer MEDICARE ==
[2020-12-23 13:35] LABS: HEMATOCRIT 37.6 % (36.0-47.0); HEMOGLOBIN 11.3 g/dl (12.0-15.5); MEAN CORPUSCULAR HEMOGLOBIN 27.4 pg (27.0-33.0); MEAN CORPUSCULAR HGB CONC 30.1 g/dl (32.0-36.5); PLATELET COUNT, AUTOMATED 271 10^3/uL (150-450); RED BLOOD COUNT 4.13 10^6/uL (4.00-5.40); WHITE BLOOD COUNT 10.3 10^3/uL (4.0-10.0)
[2020-12-23 14:07] LABS: ERYTHROCYTE SEDIMENTATION RATE 57 mm/hr (0-30)
[2020-12-23 14:40] LABS: C REACTIVE PROTEIN QUANTITATIV 0.36 MG/DL (0.00-0.30); CREATININE FOR GFR 1.31 MG/DL (0.55-1.30); GLOMERULAR FILTRATION RATE 42.1 (>39); POTASSIUM SERUM 3.9 MEQ/L (3.5-5.1)
== END ==
LOC: M LAB REF 12:38
PROVIDERS: ATTEND Internal Medicine Infectious Disease
DX: I33.0 Acute and subacute infective endocarditis (principal)

== ENCOUNTER → 2020-12-30 | Outpatient (REF) | payer MEDICARE ==
[2020-12-30 17:12] LABS: HEMATOCRIT 41.2 % (36.0-47.0); HEMOGLOBIN 12.3 g/dl (12.0-15.5); MEAN CORPUSCULAR HEMOGLOBIN 26.8 pg (27.0-33.0); MEAN CORPUSCULAR HGB CONC 29.9 g/dl (32.0-36.5); MEAN CORPUSCULAR VOLUME 89.8 fl (80.0-96.0); PLATELET COUNT, AUTOMATED 307 10^3/uL (150-450); RED BLOOD COUNT 4.59 10^6/uL (4.00-5.40); WHITE BLOOD COUNT 9.6 10^3/uL (4.0-10.0)
[2020-12-30 17:43] LABS: C REACTIVE PROTEIN QUANTITATIV 3.85 MG/DL (0.00-0.30); CREATININE FOR GFR 1.57 MG/DL (0.55-1.30); GLOMERULAR FILTRATION RATE 34.2 (>39); POTASSIUM SERUM 4.8 MEQ/L (3.5-5.1); VANCOMYCIN RANDOM 20.7 UG/ML
[2020-12-30 20:06] LABS: ERYTHROCYTE SEDIMENTATION RATE 82 mm/hr (0-30)
== END ==
LOC: M SHH 16:04
PROVIDERS: ATTEND Internal Medicine Infectious Disease
DX: I33.0 Acute and subacute infective endocarditis (principal)

== ENCOUNTER → 2021-01-14 | Outpatient (REF) | payer MEDICARE ==
[2021-01-14 11:57] LABS: BASO # 0.1 10^3/uL (0.0-0.2); BASO % 0.5 % (0.0-1.0); EOS # 0.2 10^3/uL (0.0-0.5); EOS % 1.3 % (0.0-3.0); HEMATOCRIT 38.3 % (36.0-47.0); HEMOGLOBIN 11.7 g/dl (12.0-15.5); LYMPH # 1.4 10^3/uL (1.5-5.0); LYMPH % 10.9 % (24.0-44.0); MEAN CORPUSCULAR HEMOGLOBIN 26.8 pg (27.0-33.0); MEAN CORPUSCULAR HGB CONC 30.5 g/dl (32.0-36.5); MEAN CORPUSCULAR VOLUME 87.6 fl (80.0-96.0); MONO # 1.1 10^3/uL (0.0-0.8); MONO % 8.1 % (2.0-8.0); NEUTROPHILS # 10.2 10^3/uL (1.5-8.5); NEUTROPHILS % 78.7 % (36.0-66.0); PLATELET COUNT, AUTOMATED 297 10^3/uL (150-450); RED BLOOD COUNT 4.37 10^6/uL (4.00-5.40)
[2021-01-14 12:15] LABS: C REACTIVE PROTEIN QUANTITATIV 0.83 MG/DL (0.00-0.30); CALCIUM LEVEL 9.4 MG/DL (8.8-10.2); CREATININE FOR GFR 1.17 MG/DL (0.55-1.30); POTASSIUM SERUM 3.8 MEQ/L (3.5-5.1)
[2021-01-14 12:24] LABS: ERYTHROCYTE SEDIMENTATION RATE 65 mm/hr (0-30)
== END ==
LOC: M SFHCPLAZ 10:07 → M SFHCADAM 10:17
PROVIDERS: ATTEND Internal Medicine Infectious Disease
DX: R79.9 Abnormal finding of blood chemistry, unspecified (principal); B95.2 Enterococcus as the cause of diseases classified elsewhere

== ENCOUNTER → 2021-03-14 | Outpatient (REF) | payer MEDICARE ==
[2021-03-14 13:29] LABS: BASO # 0.1 10^3/uL (0.0-0.2); BASO % 0.7 % (0.0-1.0); EOS # 0.3 10^3/uL (0.0-0.5); EOS % 3.2 % (0.0-3.0); HEMATOCRIT 36.9 % (36.0-47.0); HEMOGLOBIN 11.2 g/dl (12.0-15.5); LYMPH # 1.9 10^3/uL (1.5-5.0); MEAN CORPUSCULAR HEMOGLOBIN 26.5 pg (27.0-33.0); MEAN CORPUSCULAR HGB CONC 30.4 g/dl (32.0-36.5); MEAN CORPUSCULAR VOLUME 87.4 fl (80.0-96.0); MONO % 10.7 % (2.0-8.0); NEUTROPHILS # 6.2 10^3/uL (1.5-8.5); NEUTROPHILS % 65.1 % (36.0-66.0); PLATELET COUNT, AUTOMATED 239 10^3/uL (150-450); RED BLOOD COUNT 4.22 10^6/uL (4.00-5.40); WHITE BLOOD COUNT 9.5 10^3/uL (4.0-10.0)
[2021-03-14 14:12] LABS: CREATININE FOR GFR 1.06 MG/DL (0.55-1.30); GLOMERULAR FILTRATION RATE 53.8 (>39); POTASSIUM SERUM 4.3 MEQ/L (3.5-5.1)
== END ==
LOC: M LABDRWAD 12:56
PROVIDERS: ATTEND Physician Assistant
DX: I25.810 Atherosclerosis of coronary artery bypass graft(s) without angina pectoris (principal)

== ENCOUNTER → 2021-03-28 | Outpatient (REF) | payer MEDICARE ==
[~2021-03-28] MED LIST changes: -KLOR10TA76 PO; +POTA-136 PO
[2021-03-28 17:41] LABS: CREATININE FOR GFR 1.24 MG/DL (0.55-1.30); GLOMERULAR FILTRATION RATE 44.9 (>39)
== END ==
LOC: M LABDRWAD 16:40
PROVIDERS: ATTEND Internal Medicine Cardiovascular Disease
DX: I48.0 Paroxysmal atrial fibrillation (principal)

== ENCOUNTER 2021-10-21 20:07 | Emergency (ER) | payer MEDICARE ==
[~2021-10-21 20:07] MED LIST changes: -LISI-898 PO; +LISI5TAB11 PO
[2021-10-21] MEDS ORDERED: TRAM50TA2 PO (20:36)
[2021-10-21] MEDS ORDERED: ACET-683 PO (20:36)
[2021-10-21 20:46] VITALS: BP 176/79
[2021-10-21] MEDS ORDERED: MORPHINE 2 MG/ML 1ML VIAL (J2270) IV PRN (20:50)
[2021-10-21 21:29] LABS: BASO # 0.1 10^3/uL (0.0-0.2); BASO % 0.4 % (0.0-1.0); EOS # 0.2 10^3/uL (0.0-0.5); EOS % 1.3 % (0.0-3.0); HEMATOCRIT 40.9 % (36.0-47.0); HEMOGLOBIN 12.9 g/dl (12.0-15.5); LYMPH # 1.6 10^3/uL (1.5-5.0); LYMPH % 12.6 % (24.0-44.0); MEAN CORPUSCULAR HEMOGLOBIN 29.7 pg (27.0-33.0); MEAN CORPUSCULAR HGB CONC 31.5 g/dl (32.0-36.5); MONO # 1.1 10^3/uL (0.0-0.8); MONO % 8.4 % (2.0-8.0); NEUTROPHILS # 9.7 10^3/uL (1.5-8.5); NEUTROPHILS % 76.7 % (36.0-66.0); PLATELET COUNT, AUTOMATED 211 10^3/uL (150-450); RED BLOOD COUNT 4.35 10^6/uL (4.00-5.40); WHITE BLOOD COUNT 12.7 10^3/uL (4.0-10.0)
[2021-10-21 21:51] LABS: C REACTIVE PROTEIN QUANTITATIV 1.14 MG/DL (0.00-0.30); CALCIUM LEVEL 9.2 MG/DL (8.8-10.2); CREATININE FOR GFR 1.11 MG/DL (0.55-1.30); GLOMERULAR FILTRATION RATE 50.9 (>39); POTASSIUM SERUM 3.8 MEQ/L (3.5-5.1)
[2021-10-21 21:52] LABS: ERYTHROCYTE SEDIMENTATION RATE 37 mm/hr (0-30)
[2021-10-21] MEDS ORDERED: OXYCODONE/APAP 5MG/325MG(BULK FOR ED) 1 TABLET PO ONE (23:00)
[2021-10-21] MEDS ORDERED: PERC5TAB12 PO (23:03)
== END 2021-10-21 23:20 | disposition home or self-care (01) ==
LOC: M ED 20:07
DX: M54.50 Low back pain, unspecified (principal); I50.9 Heart failure, unspecified; J44.9 Chronic obstructive pulmonary disease, unspecified; I73.9 Peripheral vascular disease, unspecified; I25.10 Atherosclerotic heart disease of native coronary artery without angina pectoris; Z95.1 Presence of aortocoronary bypass graft; Z79.899 Other long term (current) drug therapy; Z79.01 Long term (current) use of anticoagulants; Z87.891 Personal history of nicotine dependence
CPT/HCPCS: 80048; 85025; 85652; 86140; 96374; 99284; J2270

== ENCOUNTER → 2021-10-28 | Outpatient (REF) | payer MEDICARE ==
[~2021-10-28] MED LIST changes: +ACET-683 PO; -D31000TA2 PO; +PERC5TAB12 PO; +TRAM50TA2 PO; +VITA100093 PO
[2021-10-28 12:09] LABS: AMORPHOUS SEDIMENT SMALL (NEGATIVE); APPEARANCE, URINE HAZY (CLEAR); BACTERIA, URINE AUTO 1+ (NEGATIVE); BILIRUBIN, URINE AUTO NEGATIVE (NEGATIVE); BLOOD, URINE BLOOD 2+ (NEGATIVE); COLOR, URINE STRAW (YELLOW); GLUCOSE, URINE (UA) AUTO NEGATIVE (NEGATIVE); KETONE, URINE AUTO NEGATIVE (NEGATIVE); LEUKOCYTE ESTERASE, URINE AUTO 2+ (NEGATIVE); NITRITE, URINE AUTO NEGATIVE (NEGATIVE); PROTEIN, URINE AUTO NEGATIVE (NEGATIVE); RBC, URINE AUTO 22 /HPF (0-3); SPECIFIC GRAVITY URINE AUTO 1.006 (1.002-1.035); SQUAMOUS EPITHELIAL CELL UR AU 1 /HPF (0-6); UROBILINOGEN, URINE AUTO 0.2 mg/dL (0.0-2.0); WBC, URINE AUTO 16 /HPF (0-3)
[2021-10-28 12:11] LABS: BASO # 0.1 10^3/uL (0.0-0.2); BASO % 0.8 % (0.0-1.0); EOS # 0.2 10^3/uL (0.0-0.5); EOS % 1.9 % (0.0-3.0); HEMATOCRIT 39.6 % (36.0-47.0); HEMOGLOBIN 12.4 g/dl (12.0-15.5); LYMPH # 1.6 10^3/uL (1.5-5.0); LYMPH % 16.3 % (24.0-44.0); MEAN CORPUSCULAR HEMOGLOBIN 29.6 pg (27.0-33.0); MEAN CORPUSCULAR HGB CONC 31.3 g/dl (32.0-36.5); MEAN CORPUSCULAR VOLUME 94.5 fl (80.0-96.0); MONO % 9.8 % (2.0-8.0); NEUTROPHILS # 7.1 10^3/uL (1.5-8.5); NEUTROPHILS % 70.6 % (36.0-66.0); PLATELET COUNT, AUTOMATED 311 10^3/uL (150-450); RED BLOOD COUNT 4.19 10^6/uL (4.00-5.40)
[2021-10-28 12:47] LABS: ALBUMIN 3.5 GM/DL (3.2-5.2); BILIRUBIN,TOTAL 0.8 MG/DL (0.2-1.0); C REACTIVE PROTEIN QUANTITATIV 0.3 MG/DL (0.00-0.30); CALCIUM LEVEL 9.4 MG/DL (8.8-10.2); CREATININE FOR GFR 1.22 MG/DL (0.55-1.30); ERYTHROCYTE SEDIMENTATION RATE 45 mm/hr (0-30); GLOMERULAR FILTRATION RATE 45.6 (>39); TOTAL PROTEIN 7.2 GM/DL (6.4-8.2)
== END ==
LOC: M SFHCADAM 10:02
PROVIDERS: ATTEND Physician Assistant
DX: M54.50 Low back pain, unspecified (principal); R79.82 Elevated C-reactive protein (CRP); Z79.899 Other long term (current) drug therapy

== ENCOUNTER → 2021-12-04 | Outpatient (CLI) | payer MEDICARE | LOC: M WHC 09:47 | PROVIDERS: ATTEND Orthopaedic Surgery | DX: M47.896 Other spondylosis, lumbar region (principal); E55.9 Vitamin D deficiency, unspecified; M81.8 Other osteoporosis without current pathological fracture ==

== ENCOUNTER → 2022-01-15 | Outpatient (CLI) | payer MEDICARE | LOC: M RAD 10:38 | PROVIDERS: ATTEND Orthopaedic Surgery | DX: M47.896 Other spondylosis, lumbar region (principal); M47.897 Other spondylosis, lumbosacral region | CPT/HCPCS: 78315; A9503 ==

== ENCOUNTER → 2022-02-12 | Outpatient (CLI) | payer MEDICARE | LOC: M ADAMS 11:59 | PROVIDERS: ATTEND Internal Medicine Pulmonary Disease | DX: J44.1 Chronic obstructive pulmonary disease with (acute) exacerbation (principal) ==

== ENCOUNTER 2022-03-12 14:55 | Inpatient (IN) | payer MEDICARE ==
[~2022-03-12] VITALS: Ht 170.2 cm; Wt 72.0 kg
[~2022-03-12 14:55] MED LIST changes: -ALBU2.5V10 INH; -CALC1TAB26 PO; -DIGO0.123 PO; -LEVO250T3 PO; -LISI2.5T9 PO
[2022-03-12] MEDS ORDERED: IPRATROPIUM 0.5MG/ALBUTEROL 2.5MG INH SOL UD 3ML (DUONEB) NEB ONE (17:00)
[2022-03-12 17:31] LABS: ABG HCO3 22.8 MEQ/L (22.0-26.0); ABG PARTIAL PRESSURE CO2 39.4 mmHg (35.0-45.0); ABG PARTIAL PRESSURE O2 55.6 mmHg (75.0-100.0); ABG STANDARD HCO3 22.6 MEQ/L (22.0-26.0); ABG pH (ARTERIAL) 7.381 UNITS (7.350-7.450)
[2022-03-12 19:09] LABS: BASO # 0.1 10^3/uL (0.0-0.2); BASO % 0.4 % (0.0-1.0); EOS # 0.1 10^3/uL (0.0-0.5); EOS % 0.6 % (0.0-3.0); HEMATOCRIT 39.6 % (36.0-47.0); HEMOGLOBIN 12.7 g/dl (12.0-15.5); LYMPH # 1.4 10^3/uL (1.5-5.0); LYMPH % 9.6 % (24.0-44.0); MEAN CORPUSCULAR HEMOGLOBIN 28.4 pg (27.0-33.0); MEAN CORPUSCULAR HGB CONC 32.1 g/dl (32.0-36.5); MEAN CORPUSCULAR VOLUME 88.6 fl (80.0-96.0); MONO # 1.3 10^3/uL (0.0-0.8); MONO % 8.8 % (2.0-8.0); NEUTROPHILS # 11.3 10^3/uL (1.5-8.5); NEUTROPHILS % 79.8 % (36.0-66.0); PLATELET COUNT, AUTOMATED 207 10^3/uL (150-450); RED BLOOD COUNT 4.47 10^6/uL (4.00-5.40); WHITE BLOOD COUNT 14.2 10^3/uL (4.0-10.0)
[2022-03-12 19:21] LABS: INR 1.64; PROTHROMBIN TIME 19.8 SECONDS (12.7-14.5)
[2022-03-12 19:24] LABS: D-DIMER QUANT 3904.47 ng/ml (<500)
[2022-03-12 19:34] LABS: CK-MB VALUE MASS 2.2 NG/ML (<3.6); MB/CK RELATIVE INDEX 5.5 (< OR =4)
[2022-03-12 19:41] LABS: ALBUMIN 2.8 GM/DL (3.2-5.2); BILIRUBIN,DIRECT 0.4 MG/DL (0.0-0.2); BILIRUBIN,TOTAL 1.2 MG/DL (0.2-1.0); CALCIUM LEVEL 9.1 MG/DL (8.8-10.2); CREATININE FOR GFR 1.06 MG/DL (0.55-1.30); GLOMERULAR FILTRATION RATE 53.7 (>39); POTASSIUM SERUM 4.3 MEQ/L (3.5-5.1); THYROID STIMULATING HORMONE 0.969 uIU/ML (0.358-3.740); THYROXINE (T4) 8.6 UG/DL (4.5-12.0); TOTAL PROTEIN 6.8 GM/DL (6.4-8.2)
[2022-03-12] MEDS ORDERED: ISOVUE-370 76% 100ML VIAL As Ordered ONE (19:42)
[2022-03-12 20:48] LABS: MB/CK RELATIVE INDEX 3.08 (< OR =4)
[2022-03-12] MEDS ORDERED: methylPREDNISolone 125MG 2ML VIAL IV STA (22:16)
[2022-03-12] MEDS ORDERED: ACETAMINOPHEN TAB 650MG DOSE (2X325MG) PO PRN (22:20)
[2022-03-12] MEDS ORDERED: MAALOX 30 ML SUSP *UDC PO PRN (22:20)
[2022-03-12] MEDS ORDERED: MOM 30ML SUSPENSION UDC PO PRN (22:20)
[2022-03-12] MEDS ORDERED: LEVALBUTEROL 1.25 MG/0.5 ML CONCENTRATE NEB NEB PRN (22:25)
[2022-03-12] MEDS ORDERED: guaiFENesin DM LIQ 10ML UD PO PRN (22:25)
[2022-03-12] MEDS ORDERED: PROMETHAZINE 25MG/ML 1ML VIAL IV ONE (22:55)
[2022-03-12] MEDS ORDERED: LevoFLOXacin IV 750 MG in IV 1 EA IV SCH (23:00)
[2022-03-13] MEDS ORDERED: ALBU2.5V10 INH ×2 (00:01)
[2022-03-13] MEDS ORDERED: TRAM50TA2 PO (00:01)
[2022-03-13] MEDS ORDERED: LASI20TA3 PO (00:01)
[2022-03-13] MEDS ORDERED: CALC1TAB26 PO (00:01)
[2022-03-13] MEDS ORDERED: LISI2.5T9 PO (00:01)
[2022-03-13] MEDS ORDERED: HOME MED LIST COMPLETE! XX SCH (00:05)
[2022-03-13] MEDS ORDERED: traMADol 50 MG TAB PO PRN (00:20)
[2022-03-13] MEDS: IPRATROPIUM 0.5MG/ALBUTEROL 2.5MG INH SOL UD 3ML (DUONEB) NEB SCH ×4 (01:41→19:19)
[2022-03-13 08:09] LABS: HEMATOCRIT 38.4 % (36.0-47.0); HEMOGLOBIN 12.4 g/dl (12.0-15.5); MEAN CORPUSCULAR HEMOGLOBIN 28.7 pg (27.0-33.0); MEAN CORPUSCULAR HGB CONC 32.3 g/dl (32.0-36.5); MEAN CORPUSCULAR VOLUME 88.9 fl (80.0-96.0); PLATELET COUNT, AUTOMATED 209 10^3/uL (150-450); RED BLOOD COUNT 4.32 10^6/uL (4.00-5.40); WHITE BLOOD COUNT 13.8 10^3/uL (4.0-10.0)
[2022-03-13 08:31] LABS: CALCIUM LEVEL 9.2 MG/DL (8.8-10.2); CREATININE FOR GFR 1.03 MG/DL (0.55-1.30); GLOMERULAR FILTRATION RATE 55.5 (>39); MAGNESIUM LEVEL 2.2 MG/DL (1.8-2.4); POTASSIUM SERUM 4.5 MEQ/L (3.5-5.1)
[2022-03-13] MEDS: TIOTROPIUM INHALER/CAPSULE (SPIRIVA) INH SCH (08:41)
[2022-03-13] MEDS: ADVAIR HFA 115/21MCG INHALER INH SCH ×2 (08:41→19:18)
[2022-03-13 08:42] VITALS: O2SAT 92
[2022-03-13] MEDS: DOCUSATE SODIUM 100MG CAPSULE PO SCH ×2 (09:00→20:19)
[2022-03-13] MEDS: guaiFENesin ER 600 MG TAB PO SCH ×2 (09:14→20:19)
[2022-03-13] MEDS: APIXABAN 5 MG TAB (ELIQUIS) PO SCH ×2 (09:14→20:20)
[2022-03-13] MEDS: ASPIRIN 81MG ENTERIC TABLET PO SCH (09:15)
[2022-03-13] MEDS: METOPROLOL TART 25 MG TABLET PO SCH ×2 (09:15→20:21)
[2022-03-13] MEDS: methylPREDNISolone 125MG 2ML VIAL IV SCH ×2 (09:15→20:21)
[2022-03-13] MEDS: FUROSEMIDE 20 MG TAB PO SCH (09:16)
[2022-03-13 14:15] VITALS: BP 124/74
[2022-03-13] MEDS: LISINOPRIL *2.5 MG* TAB PO SCH (14:23)
[2022-03-13] MEDS: ATORVASTATIN 20 MG TAB PO SCH (20:20)
[2022-03-13] MEDS ORDERED: METOPROLOL TART 12.5 MG PER 1/2 TAB PO ONE (20:55)
[2022-03-13] MEDS ORDERED: NS 500 ML IV ONE (22:35)
[2022-03-14] VITALS (7 sets, daily range): BP systolic 93–125; BP diastolic 60–77; O2SAT 96
[2022-03-14] MEDS: IPRATROPIUM 0.5MG/ALBUTEROL 2.5MG INH SOL UD 3ML (DUONEB) NEB SCH ×4 (02:52→19:42)
[2022-03-14 06:49] LABS: HEMOGLOBIN 11.4 g/dl (12.0-15.5); MEAN CORPUSCULAR HEMOGLOBIN 28.9 pg (27.0-33.0); MEAN CORPUSCULAR HGB CONC 32.6 g/dl (32.0-36.5); MEAN CORPUSCULAR VOLUME 88.8 fl (80.0-96.0); PLATELET COUNT, AUTOMATED 233 10^3/uL (150-450); RED BLOOD COUNT 3.94 10^6/uL (4.00-5.40); WHITE BLOOD COUNT 21.7 10^3/uL (4.0-10.0)
[2022-03-14] MEDS: TIOTROPIUM INHALER/CAPSULE (SPIRIVA) INH SCH (07:16)
[2022-03-14] MEDS: ADVAIR HFA 115/21MCG INHALER INH SCH ×2 (07:16→19:42)
[2022-03-14 07:22] LABS: CREATININE FOR GFR 1.23 MG/DL (0.55-1.30); GLOMERULAR FILTRATION RATE 45.2 (>39); MAGNESIUM LEVEL 2.1 MG/DL (1.8-2.4); POTASSIUM SERUM 4.6 MEQ/L (3.5-5.1)
[2022-03-14] MEDS: DOCUSATE SODIUM 100MG CAPSULE PO SCH ×2 (08:48→20:37)
[2022-03-14] MEDS: ASPIRIN 81MG ENTERIC TABLET PO SCH (08:48)
[2022-03-14] MEDS: guaiFENesin ER 600 MG TAB PO SCH ×2 (08:48→20:39)
[2022-03-14] MEDS: APIXABAN 5 MG TAB (ELIQUIS) PO SCH ×2 (08:48→20:39)
[2022-03-14] MEDS: methylPREDNISolone 125MG 2ML VIAL IV SCH (09:02)
[2022-03-14] MEDS: FUROSEMIDE 20 MG TAB PO SCH (12:03)
[2022-03-14] MEDS: LISINOPRIL *2.5 MG* TAB PO SCH (12:03)
[2022-03-14] MEDS: METOPROLOL TART 25 MG TABLET PO SCH ×2 (12:03→20:40)
[2022-03-14] MEDS ORDERED: DIGOXIN 0.25 MG TAB PO ONE (14:35)
[2022-03-14] MEDS: ATORVASTATIN 20 MG TAB PO SCH (20:37)
[2022-03-14] MEDS: predniSONE 20 MG TAB PO SCH (20:39)
[2022-03-15 01:17] VITALS: O2SAT 92
[2022-03-15] MEDS: IPRATROPIUM 0.5MG/ALBUTEROL 2.5MG INH SOL UD 3ML (DUONEB) NEB SCH ×4 (01:38→19:19)
[2022-03-15 06:00] VITALS: BP 114/63
[2022-03-15] MEDS ORDERED: LevoFLOXacin 500 MG TABLET PO ONE (06:00)
[2022-03-15 06:43] LABS: HEMATOCRIT 35.1 % (36.0-47.0); HEMOGLOBIN 10.9 g/dl (12.0-15.5); MEAN CORPUSCULAR HEMOGLOBIN 28.2 pg (27.0-33.0); MEAN CORPUSCULAR HGB CONC 31.1 g/dl (32.0-36.5); MEAN CORPUSCULAR VOLUME 90.9 fl (80.0-96.0); PLATELET COUNT, AUTOMATED 248 10^3/uL (150-450); RED BLOOD COUNT 3.86 10^6/uL (4.00-5.40); WHITE BLOOD COUNT 22.8 10^3/uL (4.0-10.0)
[2022-03-15 07:11] LABS: CALCIUM LEVEL 9.1 MG/DL (8.8-10.2); CREATININE FOR GFR 1.25 MG/DL (0.55-1.30); GLOMERULAR FILTRATION RATE 44.4 (>39); MAGNESIUM LEVEL 2.3 MG/DL (1.8-2.4); POTASSIUM SERUM 4.7 MEQ/L (3.5-5.1)
[2022-03-15] MEDS: ADVAIR HFA 115/21MCG INHALER INH SCH ×2 (07:15→19:19)
[2022-03-15] MEDS: TIOTROPIUM INHALER/CAPSULE (SPIRIVA) INH SCH (07:15)
[2022-03-15] MEDS: DOCUSATE SODIUM 100MG CAPSULE PO SCH ×2 (09:44→20:15)
[2022-03-15] MEDS: predniSONE 20 MG TAB PO SCH ×2 (09:45→20:15)
[2022-03-15] MEDS: ASPIRIN 81MG ENTERIC TABLET PO SCH (09:45)
[2022-03-15] MEDS: APIXABAN 5 MG TAB (ELIQUIS) PO SCH ×2 (09:45→20:15)
[2022-03-15] MEDS: METOPROLOL TART 25 MG TABLET PO SCH ×2 (09:45→20:52)
[2022-03-15] MEDS: DIGOXIN 0.125 MG TAB PO SCH (09:45)
[2022-03-15] MEDS: guaiFENesin ER 600 MG TAB PO SCH ×2 (09:45→20:15)
[2022-03-15 14:00] VITALS: BP 104/65
[2022-03-15 17:40] VITALS: O2SAT 92
[2022-03-15] MEDS: ATORVASTATIN 20 MG TAB PO SCH (20:15)
[2022-03-15 22:00] VITALS: BP 107/68
[2022-03-16 01:09] VITALS: O2SAT 92
[2022-03-16] MEDS: IPRATROPIUM 0.5MG/ALBUTEROL 2.5MG INH SOL UD 3ML (DUONEB) NEB SCH ×3 (02:55→13:36)
[2022-03-16 05:22] VITALS: BP 149/74
[2022-03-16] MEDS ORDERED: LevoFLOXacin 250 MG TABLET PO SCH (06:00)
[2022-03-16 06:29] LABS: HEMATOCRIT 36.6 % (36.0-47.0); HEMOGLOBIN 11.5 g/dl (12.0-15.5); MEAN CORPUSCULAR HEMOGLOBIN 28.9 pg (27.0-33.0); MEAN CORPUSCULAR HGB CONC 31.4 g/dl (32.0-36.5); PLATELET COUNT, AUTOMATED 234 10^3/uL (150-450); RED BLOOD COUNT 3.98 10^6/uL (4.00-5.40)
[2022-03-16 06:49] LABS: CREATININE FOR GFR 1.29 MG/DL (0.55-1.30); GLOMERULAR FILTRATION RATE 42.8 (>39); MAGNESIUM LEVEL 2.4 MG/DL (1.8-2.4); POTASSIUM SERUM 4.2 MEQ/L (3.5-5.1)
[2022-03-16] MEDS: ADVAIR HFA 115/21MCG INHALER INH SCH (07:28)
[2022-03-16] MEDS: TIOTROPIUM INHALER/CAPSULE (SPIRIVA) INH SCH (07:28)
[2022-03-16] MEDS: DOCUSATE SODIUM 100MG CAPSULE PO SCH (08:13)
[2022-03-16] MEDS: guaiFENesin ER 600 MG TAB PO SCH (08:13)
[2022-03-16] MEDS: APIXABAN 5 MG TAB (ELIQUIS) PO SCH (08:13)
[2022-03-16] MEDS: ASPIRIN 81MG ENTERIC TABLET PO SCH (08:13)
[2022-03-16] MEDS: predniSONE 20 MG TAB PO SCH (08:13)
[2022-03-16] MEDS: DIGOXIN 0.125 MG TAB PO SCH (08:14)
[2022-03-16 08:15] VITALS: BP 119/55
[2022-03-16] MEDS: METOPROLOL TART 25 MG TABLET PO SCH (08:15)
[2022-03-16] MEDS ORDERED: DIGO0.123 PO (10:43)
[2022-03-16] MEDS ORDERED: LEVO250T3 PO (10:43)
== END 2022-03-16 13:56 | disposition home or self-care (01) | DRG 190 ==
LOC: M ED 14:55 → M ED INP 22:16 → ENRESERV 03-13 12:39 → M MSPAV 03-13 14:08
PROVIDERS: ADMIT Internal Medicine; ATTEND Family Medicine
DX: J44.1 Chronic obstructive pulmonary disease with (acute) exacerbation (principal); J18.9 Pneumonia, unspecified organism; I50.32 Chronic diastolic (congestive) heart failure; M10.9 Gout, unspecified; I25.10 Atherosclerotic heart disease of native coronary artery without angina pectoris; E78.5 Hyperlipidemia, unspecified; I48.91 Unspecified atrial fibrillation; I11.0 Hypertensive heart disease with heart failure; Z79.899 Other long term (current) drug therapy; Z91.010 Allergy to peanuts; Z79.82 Long term (current) use of aspirin; Z79.01 Long term (current) use of anticoagulants; Z95.1 Presence of aortocoronary bypass graft; Z95.0 Presence of cardiac pacemaker; Z99.81 Dependence on supplemental oxygen

== ENCOUNTER → 2022-03-12 | Outpatient (CLI) | payer MEDICARE ==
[~2022-03-12] MED LIST changes: +ALBU2.5V10 INH; +CALC1TAB26 PO; +DIGO0.123 PO; +LEVO250T3 PO; +LISI2.5T9 PO
== END ==
LOC: M ADAMS 11:53
PROVIDERS: ATTEND Physician Assistant Medical
DX: M85.88 Other specified disorders of bone density and structure, other site (principal); M47.816 Spondylosis without myelopathy or radiculopathy, lumbar region; M79.604 Pain in right leg; R29.898 Other symptoms and signs involving the musculoskeletal system

== ENCOUNTER → 2022-05-07 | Outpatient (REF) | payer MEDICARE ==
[~2022-05-07] MED LIST changes: +ALBU2.5V10 INH; +CALC1TAB26 PO; +DIGO0.123 PO; +LEVO1TAB38 PO; +LISI2.5T9 PO
[2022-05-07 13:14] LABS: BASO # 0.1 10^3/uL (0.0-0.2); BASO % 0.9 % (0.0-1.0); EOS # 0.3 10^3/uL (0.0-0.5); EOS % 3.1 % (0.0-3.0); HEMATOCRIT 38.3 % (36.0-47.0); HEMOGLOBIN 11.7 g/dl (12.0-15.5); LYMPH # 1.9 10^3/uL (1.5-5.0); LYMPH % 19.6 % (24.0-44.0); MEAN CORPUSCULAR HEMOGLOBIN 27.3 pg (27.0-33.0); MEAN CORPUSCULAR HGB CONC 30.5 g/dl (32.0-36.5); MEAN CORPUSCULAR VOLUME 89.5 fl (80.0-96.0); MONO % 10.6 % (2.0-8.0); NEUTROPHILS # 6.4 10^3/uL (1.5-8.5); NEUTROPHILS % 65.3 % (36.0-66.0); PLATELET COUNT, AUTOMATED 241 10^3/uL (150-450); RED BLOOD COUNT 4.28 10^6/uL (4.00-5.40); WHITE BLOOD COUNT 9.8 10^3/uL (4.0-10.0)
[2022-05-07 13:35] LABS: HEMOGLOBIN A1c 5.8 %
[2022-05-07 13:55] LABS: BILIRUBIN,TOTAL 0.9 MG/DL (0.2-1.0); CALCIUM LEVEL 9.1 MG/DL (8.8-10.2); CREATININE FOR GFR 1.06 MG/DL (0.55-1.30); GLOMERULAR FILTRATION RATE 53.7 (>39); POTASSIUM SERUM 4.8 MEQ/L (3.5-5.1)
[2022-05-07 13:56] LABS: ALBUMIN 3.3 GM/DL (3.2-5.2); CHOLESTEROL RISK RATIO 2.372 (<5); TOTAL PROTEIN 6.8 GM/DL (6.4-8.2)
[2022-05-07 14:26] LABS: TOTAL 25(OH) VITAMIN D 36.6 NG/ML (30.0-100.0)
== END ==
LOC: M SFHCADAM 07:27
PROVIDERS: ATTEND Physician Assistant Medical
DX: R73.01 Impaired fasting glucose (principal); E55.9 Vitamin D deficiency, unspecified; I11.0 Hypertensive heart disease with heart failure; I50.32 Chronic diastolic (congestive) heart failure; Z79.899 Other long term (current) drug therapy

== ENCOUNTER 2022-09-28 07:35 | Inpatient (IN) | payer MEDICARE ==
[~2022-09-28] VITALS: Ht 172.7 cm; Wt 70.0 kg
[~2022-09-28 07:35] MED LIST changes: -DOXY-350 PO; +DOXY-444 PO
[2022-09-28] MEDS: COMBIVENT RESPIMAT 100-20MCG INHALER 4GM INH SCH ×3 (08:54→09:29)
[2022-09-28 09:35] LABS: BASO % 0.4 % (0.0-1.0); EOS % 0.1 % (0.0-3.0); HEMOGLOBIN 8.6 g/dl (12.0-15.5); LYMPH # 1.1 10^3/uL (1.5-5.0); LYMPH % 10.7 % (24.0-44.0); MEAN CORPUSCULAR HEMOGLOBIN 26.6 pg (27.0-33.0); MEAN CORPUSCULAR HGB CONC 29.7 g/dl (32.0-36.5); MEAN CORPUSCULAR VOLUME 89.8 fl (80.0-96.0); MONO # 0.7 10^3/uL (0.0-0.8); MONO % 7.3 % (2.0-8.0); NEUTROPHILS % 80.5 % (36.0-66.0); PLATELET COUNT, AUTOMATED 124 10^3/uL (150-450); RED BLOOD COUNT 3.23 10^6/uL (4.00-5.40); WHITE BLOOD COUNT 9.9 10^3/uL (4.0-10.0)
[2022-09-28 09:37] LABS: VENOUS BASE EXCESS -5.5 (-2.0-2.0); VENOUS HCO3 19.9 MEQ/L (23.0-27.0); VENOUS O2 SATURATION 99.7 % (60.0-80.0); VENOUS PARTIAL PRESSURE CO2 38.4 mmHg (38.0-50.0); VENOUS PARTIAL PRESSURE O2 176.6 mmHg (30.0-50.0); VENOUS PH 7.332 UNITS (7.330-7.430); VENOUS STANDARD HCO3 19.9 MEQ/L; VENOUS TOTAL CO2 21.1 MEQ/L (24.0-28.0)
[2022-09-28 09:53] LABS: CK-MB VALUE MASS < 1.0 NG/ML (<3.6)
[2022-09-28 09:54] LABS: BILIRUBIN,DIRECT 0.4 MG/DL (<0.4); DIGOXIN LEVEL < 0.1 NG/ML (0.8-2.0)
[2022-09-28 09:55] LABS: ALBUMIN 2.7 G/DL (3.2-5.2); ALKALINE PHOSPHATASE 92 U/L (46-116); ALT/SGPT 11 U/L (7.0-40); AST/SGOT 23 U/L (<34); BILIRUBIN,TOTAL 0.9 MG/DL (0.3-1.2); BLOOD UREA NITROGEN 62 MG/DL (9-23); CALCIUM LEVEL 10.3 MG/DL (8.3-10.6); CARBON DIOXIDE LEVEL 22 MMOL/L (20-31); CHLORIDE LEVEL 108 MMOL/L (98-107); CPK CREATINE PHOSPHOKINASE 24 U/L (34-145); CREATININE FOR GFR 1.58 MG/DL (0.55-1.30); GLOMERULAR FILTRATION RATE 33.8 (>39); GLUCOSE, FASTING 117 MG/DL (74-106); MB/CK RELATIVE INDEX 4.16 (< OR =4); POTASSIUM SERUM 5.2 MMOL/L (3.5-5.1); SODIUM LEVEL 139 MMOL/L (136-145); TOTAL PROTEIN 6.7 G/DL (5.7-8.2)
[2022-09-28 09:56] LABS: THYROID STIMULATING HORMONE 1.708 uIU/ML (0.55-4.78)
[2022-09-28 10:12] LABS: CPK CREATINE PHOSPHOKINASE 21 U/L (34-145)
[2022-09-28 10:49] LABS: MAGNESIUM LEVEL 1.9 MG/DL (1.8-2.4)
[2022-09-28 11:06] LABS: CK-MB VALUE MASS < 1.0 NG/ML (<3.6); MB/CK RELATIVE INDEX 4.76 (< OR =4)
[2022-09-28] MEDS ORDERED: AZITHROMYCIN INJ 500 MG, VIAL MATE ADAPTER 1 EACH in NS 250 ML IV ONE (11:45)
[2022-09-28] MEDS ORDERED: cefTRIAXone SOD 2 GM in D5W MINI-BAG PLUS 50 ML IV ONE (11:45)
[2022-09-28] MEDS ORDERED: TOPR50TA PO (12:32)
[2022-09-28] MEDS ORDERED: ALEN35TA56 PO (12:39)
[2022-09-28] MEDS ORDERED: ASCO500T PO (12:40)
[2022-09-28] MEDS ORDERED: HOME MED LIST COMPLETE! XX SCH (12:40)
[2022-09-28] MEDS ORDERED: ALBUTEROL SULFATE 2.5MG/0.5ML INH NEB SOLN INH PRN (13:20)
[2022-09-28] MEDS: ASCORBIC ACID 500 MG TAB PO SCH (14:28)
[2022-09-28] MEDS: ASPIRIN 81MG ENTERIC TABLET PO SCH (14:28)
[2022-09-28] MEDS: METOPROLOL SUCC (TopROL XL) 50MG **XL** TAB PO SCH (14:29)
[2022-09-28] MEDS ORDERED: LR 1,000 ML IV SCH (14:30)
[2022-09-28 14:55] VITALS: O2SAT 94
[2022-09-28] MEDS: IPRATROPIUM 0.5MG/ALBUTEROL 2.5MG INH SOL UD 3ML (DUONEB) INH SCH ×2 (14:56→19:42)
[2022-09-28] MEDS: TIOTROPIUM INHALER/CAPSULE (SPIRIVA) INH SCH (14:56)
[2022-09-28 16:05] LABS: INR 1.57; PROTHROMBIN TIME 19.1 SECONDS (12.5-14.5)
[2022-09-28 17:03] VITALS: BP 136/64
[2022-09-28] MEDS: ADVAIR HFA 115/21MCG INHALER INH SCH (19:42)
[2022-09-28 20:00] VITALS: BP 116/68
[2022-09-28] MEDS: methylPREDNISolone 40MG 1ML VIAL IV SCH (20:08)
[2022-09-28] MEDS: ATORVASTATIN 20 MG TAB PO SCH (20:20)
[2022-09-28] MEDS ORDERED: APIXABAN 5 MG TAB (ELIQUIS) PO SCH (21:00)
[2022-09-28] MEDS ORDERED: FLUTICASONE HFA 220 MCG 12 GM INHALER (FLOVENT) INH SCH (21:00)
[2022-09-29] VITALS (13 sets, daily range): BP systolic 112–143; BP diastolic 55–81
[2022-09-29] MEDS: IPRATROPIUM 0.5MG/ALBUTEROL 2.5MG INH SOL UD 3ML (DUONEB) INH SCH ×4 (01:21→19:44)
[2022-09-29 04:26] LABS: HEMATOCRIT 23.2 % (36.0-47.0); LYMPH # 0.9 10^3/uL (1.5-5.0); LYMPH % 11.2 % (24.0-44.0); MEAN CORPUSCULAR HEMOGLOBIN 26.1 pg (27.0-33.0); MEAN CORPUSCULAR HGB CONC 28.9 g/dl (32.0-36.5); MEAN CORPUSCULAR VOLUME 90.3 fl (80.0-96.0); MONO # 0.2 10^3/uL (0.0-0.8); MONO % 2.8 % (2.0-8.0); NEUTROPHILS # 6.8 10^3/uL (1.5-8.5); NEUTROPHILS % 83.6 % (36.0-66.0); PLATELET COUNT, AUTOMATED 138 10^3/uL (150-450); RED BLOOD COUNT 2.57 10^6/uL (4.00-5.40); WHITE BLOOD COUNT 8.2 10^3/uL (4.0-10.0)
[2022-09-29 04:32] LABS: HEMOGLOBIN 6.7 g/dl (12.0-15.5)
[2022-09-29 04:49] LABS: CREATININE FOR GFR 1.68 MG/DL (0.55-1.30); GLOMERULAR FILTRATION RATE 31.5 (>39); POTASSIUM SERUM 5.4 MMOL/L (3.5-5.1)
[2022-09-29] MEDS ORDERED: AZITHROMYCIN INJ 500 MG, VIAL MATE ADAPTER 1 EACH in NS 250 ML IV SCH (07:55)
[2022-09-29 08:30] LABS: PERCENT SATURATION 16.8 % (13.2-45.0)
[2022-09-29] MEDS ORDERED: FUROSEMIDE 40MG/4ML VIAL IV ONE (08:30)
[2022-09-29 08:32] LABS: FERRITIN 134.9 NG/ML (7.3-270.7); FOLATE 5.67 NG/ML (>5.4)
[2022-09-29] MEDS: ASCORBIC ACID 500 MG TAB PO SCH (08:54)
[2022-09-29] MEDS: methylPREDNISolone 40MG 1ML VIAL IV SCH (08:54)
[2022-09-29] MEDS: AZITHROMYCIN 250MG TABLET PO SCH (08:55)
[2022-09-29] MEDS ORDERED: AZITHROMYCIN 250MG TABLET PO SCH (09:00)
[2022-09-29] MEDS: METOPROLOL SUCC (TopROL XL) 50MG **XL** TAB PO SCH (09:02)
[2022-09-29] MEDS: ADVAIR HFA 115/21MCG INHALER INH SCH ×2 (09:31→19:44)
[2022-09-29] MEDS: TIOTROPIUM INHALER/CAPSULE (SPIRIVA) INH SCH (09:31)
[2022-09-29] MEDS ORDERED: VANCOMYCIN HCL 1,000 MG, VIAL MATE ADAPTER 1 EACH in D5W 250 ML IV ONE (11:00)
[2022-09-29] MEDS ORDERED: cefTRIAXone SOD 1 GM in D5W MINI-BAG PLUS 50 ML IV SCH (12:00)
[2022-09-29] MEDS: ASPIRIN 81MG ENTERIC TABLET PO SCH (12:15)
[2022-09-29] MEDS: cefTRIAXone SOD 1 GM in D5W MINI-BAG PLUS 50 ML IV SCH (13:21)
[2022-09-29] MEDS: SODIUM CHLORIDE NASAL 0.65% SPRAY BTL (OCEAN) SCH (21:15)
[2022-09-29] MEDS: ATORVASTATIN 20 MG TAB PO SCH (21:15)
[2022-09-30] MEDS: IPRATROPIUM 0.5MG/ALBUTEROL 2.5MG INH SOL UD 3ML (DUONEB) INH SCH ×4 (01:07→20:18)
[2022-09-30 03:59] LABS: BASO % 0.1 % (0.0-1.0); HEMATOCRIT 28.2 % (36.0-47.0); HEMOGLOBIN 8.5 g/dl (12.0-15.5); LYMPH # 0.7 10^3/uL (1.5-5.0); MEAN CORPUSCULAR HEMOGLOBIN 27.2 pg (27.0-33.0); MEAN CORPUSCULAR HGB CONC 30.1 g/dl (32.0-36.5); MEAN CORPUSCULAR VOLUME 90.4 fl (80.0-96.0); MONO % 6.9 % (2.0-8.0); NEUTROPHILS # 12.3 10^3/uL (1.5-8.5); NEUTROPHILS % 84.8 % (36.0-66.0); PLATELET COUNT, AUTOMATED 153 10^3/uL (150-450); RED BLOOD COUNT 3.12 10^6/uL (4.00-5.40); WHITE BLOOD COUNT 14.5 10^3/uL (4.0-10.0)
[2022-09-30 04:00] VITALS: BP 120/56
[2022-09-30 04:20] LABS: CALCIUM LEVEL 8.6 MG/DL (8.3-10.6); CREATININE FOR GFR 1.44 MG/DL (0.55-1.30); GLOMERULAR FILTRATION RATE 37.6 (>39); POTASSIUM SERUM 4.9 MMOL/L (3.5-5.1)
[2022-09-30] MEDS ORDERED: FUROSEMIDE 40MG/4ML VIAL IV ONE ×2 (07:45→22:15)
[2022-09-30] MEDS ORDERED: VANCOMYCIN HCL 1,000 MG, VIAL MATE ADAPTER 1 EACH in NS 250 ML IV SCH (08:00)
[2022-09-30 08:21] VITALS: BP 132/63
[2022-09-30] MEDS: ADVAIR HFA 115/21MCG INHALER INH SCH ×2 (08:27→20:17)
[2022-09-30] MEDS: TIOTROPIUM INHALER/CAPSULE (SPIRIVA) INH SCH (08:27)
[2022-09-30] MEDS: AZITHROMYCIN 250MG TABLET PO SCH (08:32)
[2022-09-30] MEDS: ASPIRIN 81MG ENTERIC TABLET PO SCH (08:32)
[2022-09-30] MEDS: SODIUM CHLORIDE NASAL 0.65% SPRAY BTL (OCEAN) SCH ×3 (08:33→20:04)
[2022-09-30] MEDS: ASCORBIC ACID 500 MG TAB PO SCH (08:33)
[2022-09-30] MEDS: METOPROLOL SUCC (TopROL XL) 50MG **XL** TAB PO SCH (08:33)
[2022-09-30 12:02] VITALS: BP 130/70
[2022-09-30] MEDS: cefTRIAXone SOD 1 GM in D5W MINI-BAG PLUS 50 ML IV SCH (12:14)
[2022-09-30 16:00] VITALS: BP 124/60
[2022-09-30] MEDS: ATORVASTATIN 20 MG TAB PO SCH (20:04)
[2022-09-30 20:28] VITALS: O2SAT 100
[2022-09-30] MEDS ORDERED: SODIUM CHLORIDE HYPERTONIC 3% 15ML NEB SOL INH PRN (22:20)
[2022-09-30] MEDS: guaiFENesin ER 600 MG TAB PO SCH (22:33)
[2022-10-01] VITALS (21 sets, daily range): BP systolic 83–136; BP diastolic 50–69
[2022-10-01] MEDS: IPRATROPIUM 0.5MG/ALBUTEROL 2.5MG INH SOL UD 3ML (DUONEB) INH SCH ×5 (02:28→22:37)
[2022-10-01 05:39] LABS: ABG BASE EXCESS -2.8 (-2.0-2.0); ABG HCO3 26.4 MEQ/L (22.0-26.0); ABG O2 SATURATION 97.2 % (95.0-99.0); ABG PARTIAL PRESSURE O2 104.6 mmHg (75.0-100.0); ABG STANDARD HCO3 22.1 MEQ/L (22.0-26.0); ABG TOTAL CO2 28.6 MEQ/L (23.0-31.0)
[2022-10-01 05:42] LABS: ABG PARTIAL PRESSURE CO2 72.5 mmHg (35.0-45.0); ABG pH (ARTERIAL) 7.179 UNITS (7.350-7.450)
[2022-10-01 07:32] LABS: BASO % 0.1 % (0.0-1.0); EOS % 0.1 % (0.0-3.0); HEMATOCRIT 30.1 % (36.0-47.0); HEMOGLOBIN 8.7 g/dl (12.0-15.5); LYMPH # 0.9 10^3/uL (1.5-5.0); LYMPH % 8.6 % (24.0-44.0); MEAN CORPUSCULAR HEMOGLOBIN 27.1 pg (27.0-33.0); MEAN CORPUSCULAR HGB CONC 28.9 g/dl (32.0-36.5); MEAN CORPUSCULAR VOLUME 93.8 fl (80.0-96.0); MONO # 0.7 10^3/uL (0.0-0.8); MONO % 6.8 % (2.0-8.0); NEUTROPHILS # 8.8 10^3/uL (1.5-8.5); NEUTROPHILS % 82.1 % (36.0-66.0); PLATELET COUNT, AUTOMATED 104 10^3/uL (150-450); RED BLOOD COUNT 3.21 10^6/uL (4.00-5.40); WHITE BLOOD COUNT 10.8 10^3/uL (4.0-10.0)
[2022-10-01] MEDS ORDERED: LevoFLOXacin IV 500 MG in IV 1 EA IV SCH (07:50)
[2022-10-01 07:51] LABS: CREATININE FOR GFR 1.41 MG/DL (0.55-1.30); GLOMERULAR FILTRATION RATE 38.5 (>39); POTASSIUM SERUM 5.2 MMOL/L (3.5-5.1); VANCOMYCIN LEVEL TROUGH 16.3 UG/ML (10.0-20.0)
[2022-10-01] MEDS: TIOTROPIUM INHALER/CAPSULE (SPIRIVA) INH SCH (08:00)
[2022-10-01 08:18] LABS: ABG BASE EXCESS -2.4 (-2.0-2.0); ABG HCO3 25.3 MEQ/L (22.0-26.0); ABG O2 SATURATION 95.4 % (95.0-99.0); ABG PARTIAL PRESSURE CO2 59.4 mmHg (35.0-45.0); ABG PARTIAL PRESSURE O2 80.4 mmHg (75.0-100.0); ABG STANDARD HCO3 22.4 MEQ/L (22.0-26.0); ABG TOTAL CO2 27.1 MEQ/L (23.0-31.0)
[2022-10-01 08:22] LABS: ABG pH (ARTERIAL) 7.247 UNITS (7.350-7.450)
[2022-10-01] MEDS: ADVAIR HFA 115/21MCG INHALER INH SCH (08:22)
[2022-10-01] MEDS: methylPREDNISolone 40MG 1ML VIAL IV SCH ×2 (08:59→16:24)
[2022-10-01] MEDS ORDERED: LevoFLOXacin IV 750 MG in IV 1 EA IV SCH (09:00)
[2022-10-01] MEDS: ASPIRIN 81MG ENTERIC TABLET PO SCH (09:00)
[2022-10-01] MEDS: guaiFENesin ER 600 MG TAB PO SCH ×2 (09:00→20:55)
[2022-10-01] MEDS: METOPROLOL SUCC (TopROL XL) 50MG **XL** TAB PO SCH (09:00)
[2022-10-01] MEDS: ASCORBIC ACID 500 MG TAB PO SCH (09:00)
[2022-10-01] MEDS: SODIUM CHLORIDE NASAL 0.65% SPRAY BTL (OCEAN) SCH ×3 (09:59→21:07)
[2022-10-01] MEDS: cefTRIAXone SOD 2 GM in D5W MINI-BAG PLUS 50 ML IV SCH ×2 (10:00→21:07)
[2022-10-01] MEDS ORDERED: NS 250 ML IV SCH (11:05)
[2022-10-01] MEDS: PANTOPRAZOLE 40MG VIAL IV SCH ×2 (11:08→20:09)
[2022-10-01] MEDS: AMPICILLIN SOD 2 GM in D5W MINI-BAG PLUS 100 ML IV SCH ×3 (11:08→20:10)
[2022-10-01] MEDS ORDERED: NS 1,000 ML IV SCH (12:15)
[2022-10-01 13:22] LABS: ABG BASE EXCESS -2.9 (-2.0-2.0); ABG HCO3 23.5 MEQ/L (22.0-26.0); ABG O2 SATURATION 97.2 % (95.0-99.0); ABG PARTIAL PRESSURE CO2 48.9 mmHg (35.0-45.0); ABG PARTIAL PRESSURE O2 97.9 mmHg (75.0-100.0)
[2022-10-01 13:48] LABS: ALBUMIN 2.5 G/DL (3.2-5.2); BILIRUBIN,TOTAL 0.8 MG/DL (0.3-1.2); CALCIUM LEVEL 8.8 MG/DL (8.3-10.6); CREATININE FOR GFR 1.32 MG/DL (0.55-1.30); GLOMERULAR FILTRATION RATE 41.5 (>39); POTASSIUM SERUM 5.1 MMOL/L (3.5-5.1); TOTAL PROTEIN 6.2 G/DL (5.7-8.2)
[2022-10-01] MEDS ORDERED: LIDOCAINE 1% MDV 20ML VIAL As Ordered ONE (15:07)
[2022-10-01] MEDS ORDERED: METOPROLOL 5 MG/5 ML VIAL IV STA (19:33)
[2022-10-01] MEDS ORDERED: ADENOSINE 6MG 2ML INJECTION IV STA (20:02)
[2022-10-01] MEDS: ATORVASTATIN 20 MG TAB PO SCH (20:55)
[2022-10-02] VITALS (67 sets, daily range): BP systolic 75–131; BP diastolic 46–61
[2022-10-02] MEDS: methylPREDNISolone 40MG 1ML VIAL IV SCH (00:02)
[2022-10-02] MEDS: AMPICILLIN SOD 2 GM in D5W MINI-BAG PLUS 100 ML IV SCH ×6 (00:02→22:08)
[2022-10-02 00:30] LABS: ABG HCO3 26.9 MEQ/L (22.0-26.0); ABG O2 SATURATION 92.1 % (95.0-99.0); ABG PARTIAL PRESSURE O2 87.6 mmHg (75.0-100.0); ABG STANDARD HCO3 19.4 MEQ/L (22.0-26.0); ABG TOTAL CO2 30.4 MEQ/L (23.0-31.0)
[2022-10-02 00:32] LABS: ABG PARTIAL PRESSURE CO2 116.9 mmHg (35.0-45.0); ABG pH (ARTERIAL) 6.979 UNITS (7.350-7.450)
[2022-10-02] MEDS ORDERED: SODIUM BICARBONATE 8.4% INJ 50ML SYRINGE IV STA (00:36)
[2022-10-02] MEDS ORDERED: ALBUTEROL SULFATE 2.5MG/0.5ML INH NEB SOLN NEB ONE (02:00)
[2022-10-02] MEDS: IPRATROPIUM 0.5MG/ALBUTEROL 2.5MG INH SOL UD 3ML (DUONEB) INH SCH ×4 (02:00→19:36)
[2022-10-02 02:23] LABS: ABG BASE EXCESS -1.8 (-2.0-2.0); ABG HCO3 27.4 MEQ/L (22.0-26.0); ABG PARTIAL PRESSURE O2 87.2 mmHg (75.0-100.0); ABG STANDARD HCO3 22.9 MEQ/L (22.0-26.0); ABG TOTAL CO2 29.7 MEQ/L (23.0-31.0)
[2022-10-02 02:24] LABS: ABG PARTIAL PRESSURE CO2 76.6 mmHg (35.0-45.0); ABG pH (ARTERIAL) 7.171 UNITS (7.350-7.450)
[2022-10-02] MEDS ORDERED: LR 1,000 ML IV ONE (03:00)
[2022-10-02 04:55] LABS: BASO % 0.1 % (0.0-1.0); HEMATOCRIT 28.5 % (36.0-47.0); HEMOGLOBIN 8.1 g/dl (12.0-15.5); LYMPH # 0.8 10^3/uL (1.5-5.0); LYMPH % 5.2 % (24.0-44.0); MEAN CORPUSCULAR HEMOGLOBIN 27.6 pg (27.0-33.0); MEAN CORPUSCULAR HGB CONC 28.4 g/dl (32.0-36.5); MEAN CORPUSCULAR VOLUME 97.3 fl (80.0-96.0); MONO # 0.5 10^3/uL (0.0-0.8); MONO % 3.1 % (2.0-8.0); NEUTROPHILS # 12.9 10^3/uL (1.5-8.5); PLATELET COUNT, AUTOMATED 108 10^3/uL (150-450); RED BLOOD COUNT 2.93 10^6/uL (4.00-5.40); WHITE BLOOD COUNT 14.3 10^3/uL (4.0-10.0)
[2022-10-02 05:09] LABS: C REACTIVE PROTEIN QUANTITATIV 5.1 MG/DL (<1.0)
[2022-10-02 05:11] LABS: CALCIUM LEVEL 8.2 MG/DL (8.3-10.6); CREATININE FOR GFR 1.64 MG/DL (0.55-1.30); GLOMERULAR FILTRATION RATE 32.3 (>39); POTASSIUM SERUM 5.3 MMOL/L (3.5-5.1)
[2022-10-02] MEDS: LevoFLOXacin 250 MG TABLET PO SCH (05:42)
[2022-10-02 06:22] LABS: ABG BASE EXCESS -0.7 (-2.0-2.0); ABG HCO3 26.7 MEQ/L (22.0-26.0); ABG O2 SATURATION 92.6 % (95.0-99.0); ABG PARTIAL PRESSURE O2 65.7 mmHg (75.0-100.0); ABG STANDARD HCO3 23.8 MEQ/L (22.0-26.0); ABG TOTAL CO2 28.6 MEQ/L (23.0-31.0); ABG pH (ARTERIAL) 7.262 UNITS (7.350-7.450)
[2022-10-02 06:28] LABS: ABG PARTIAL PRESSURE CO2 60.6 mmHg (35.0-45.0)
[2022-10-02] MEDS: PANTOPRAZOLE 40MG VIAL IV SCH ×2 (08:47→20:03)
[2022-10-02] MEDS: ASPIRIN 81MG ENTERIC TABLET PO SCH (08:48)
[2022-10-02] MEDS: SODIUM CHLORIDE NASAL 0.65% SPRAY BTL (OCEAN) SCH ×3 (08:48→20:29)
[2022-10-02] MEDS: ASCORBIC ACID 500 MG TAB PO SCH (08:48)
[2022-10-02] MEDS: guaiFENesin ER 600 MG TAB PO SCH ×2 (08:48→20:02)
[2022-10-02] MEDS ORDERED: MORPHINE 2 MG/ML 1ML VIAL IV ONE ×2 (08:50→11:45)
[2022-10-02] MEDS: METOPROLOL SUCC (TopROL XL) 50MG **XL** TAB PO SCH (08:56)
[2022-10-02 08:59] LABS: ABG BASE EXCESS -1.7 (-2.0-2.0); ABG HCO3 23.9 MEQ/L (22.0-26.0); ABG O2 SATURATION 91.4 % (95.0-99.0); ABG PARTIAL PRESSURE CO2 44.1 mmHg (35.0-45.0); ABG PARTIAL PRESSURE O2 58.8 mmHg (75.0-100.0); ABG TOTAL CO2 25.2 MEQ/L (23.0-31.0); ABG pH (ARTERIAL) 7.351 UNITS (7.350-7.450)
[2022-10-02] MEDS: cefTRIAXone SOD 2 GM in D5W MINI-BAG PLUS 50 ML IV SCH ×2 (09:24→22:48)
[2022-10-02 16:17] LABS: BASO % 0.1 % (0.0-1.0); HEMATOCRIT 23.8 % (36.0-47.0); HEMOGLOBIN 7.2 g/dl (12.0-15.5); LYMPH # 0.6 10^3/uL (1.5-5.0); LYMPH % 3.7 % (24.0-44.0); MEAN CORPUSCULAR HEMOGLOBIN 28.3 pg (27.0-33.0); MEAN CORPUSCULAR HGB CONC 30.3 g/dl (32.0-36.5); MEAN CORPUSCULAR VOLUME 93.7 fl (80.0-96.0); MONO # 0.9 10^3/uL (0.0-0.8); MONO % 5.7 % (2.0-8.0); NEUTROPHILS # 14.6 10^3/uL (1.5-8.5); NEUTROPHILS % 88.9 % (36.0-66.0); PLATELET COUNT, AUTOMATED 114 10^3/uL (150-450); RED BLOOD COUNT 2.54 10^6/uL (4.00-5.40); WHITE BLOOD COUNT 16.4 10^3/uL (4.0-10.0)
[2022-10-02 16:40] LABS: CALCIUM LEVEL 7.7 MG/DL (8.3-10.6); CREATININE FOR GFR 1.85 MG/DL (0.55-1.30); GLOMERULAR FILTRATION RATE 28.1 (>39); POTASSIUM SERUM 4.9 MMOL/L (3.5-5.1)
[2022-10-02 17:09] LABS: HEPARIN INDUCED PLATELET ABY 0.211 OD (0.000-0.400)
[2022-10-02 20:00] LABS: ABG BASE EXCESS 1.2 (-2.0-2.0); ABG HCO3 26.1 MEQ/L (22.0-26.0); ABG O2 SATURATION 95.2 % (95.0-99.0); ABG PARTIAL PRESSURE O2 76.8 mmHg (75.0-100.0); ABG STANDARD HCO3 25.5 MEQ/L (22.0-26.0); ABG TOTAL CO2 27.4 MEQ/L (23.0-31.0); ABG pH (ARTERIAL) 7.401 UNITS (7.350-7.450)
[2022-10-02] MEDS: ATORVASTATIN 20 MG TAB PO SCH (20:03)
[2022-10-02 23:26] LABS: HEMATOCRIT 26.8 % (36.0-47.0); HEMOGLOBIN 8.3 g/dl (12.0-15.5)
[2022-10-03] VITALS (33 sets, daily range): BP systolic 98–130; BP diastolic 53–74
[2022-10-03] MEDS: IPRATROPIUM 0.5MG/ALBUTEROL 2.5MG INH SOL UD 3ML (DUONEB) INH SCH ×4 (00:55→19:24)
[2022-10-03] MEDS: AMPICILLIN SOD 2 GM in D5W MINI-BAG PLUS 100 ML IV SCH ×4 (02:15→19:49)
[2022-10-03 04:29] LABS: BASO % 0.1 % (0.0-1.0); HEMATOCRIT 27.1 % (36.0-47.0); HEMOGLOBIN 8.4 g/dl (12.0-15.5); LYMPH # 0.8 10^3/uL (1.5-5.0); MEAN CORPUSCULAR HEMOGLOBIN 28.6 pg (27.0-33.0); MEAN CORPUSCULAR VOLUME 92.2 fl (80.0-96.0); MONO # 1.2 10^3/uL (0.0-0.8); MONO % 6.4 % (2.0-8.0); NEUTROPHILS # 17.1 10^3/uL (1.5-8.5); NEUTROPHILS % 88.1 % (36.0-66.0); PLATELET COUNT, AUTOMATED 133 10^3/uL (150-450); RED BLOOD COUNT 2.94 10^6/uL (4.00-5.40); WHITE BLOOD COUNT 19.4 10^3/uL (4.0-10.0)
[2022-10-03 04:58] LABS: CALCIUM LEVEL 7.5 MG/DL (8.3-10.6); CREATININE FOR GFR 2.02 MG/DL (0.55-1.30); GLOMERULAR FILTRATION RATE 25.4 (>39); POTASSIUM SERUM 4.5 MMOL/L (3.5-5.1)
[2022-10-03] MEDS: LevoFLOXacin 250 MG TABLET PO SCH (06:10)
[2022-10-03] MEDS ORDERED: D5W/0.9% SODIUM CHLORIDE 1,000 ML IV SCH (08:10)
[2022-10-03] MEDS ORDERED: methylPREDNISolone 40MG 1ML VIAL IV ONE (08:20)
[2022-10-03] MEDS: cefTRIAXone SOD 2 GM in D5W MINI-BAG PLUS 50 ML IV SCH ×2 (08:59→20:04)
[2022-10-03] MEDS: PANTOPRAZOLE 40MG VIAL IV SCH ×2 (08:59→20:04)
[2022-10-03] MEDS: guaiFENesin ER 600 MG TAB PO SCH ×2 (08:59→20:04)
[2022-10-03] MEDS: ASCORBIC ACID 500 MG TAB PO SCH (09:00)
[2022-10-03] MEDS: METOPROLOL SUCC (TopROL XL) 50MG **XL** TAB PO SCH (09:00)
[2022-10-03] MEDS: ASPIRIN 81MG ENTERIC TABLET PO SCH (09:00)
[2022-10-03] MEDS: HEPARIN SOD (PORCINE) 5000UNITS/ML 1ML VIAL/SYRINGE SQ SCH ×2 (09:01→20:03)
[2022-10-03] MEDS: SODIUM CHLORIDE NASAL 0.65% SPRAY BTL (OCEAN) SCH ×3 (09:02→20:04)
[2022-10-03] MEDS ORDERED: FUROSEMIDE 40MG/4ML VIAL IV ONE (18:35)
[2022-10-03] MEDS: ATORVASTATIN 20 MG TAB PO SCH (20:04)
[2022-10-04] VITALS (16 sets, daily range): BP systolic 85–137; BP diastolic 50–63; O2SAT 94
[2022-10-04] MEDS: AMPICILLIN SOD 2 GM in D5W MINI-BAG PLUS 100 ML IV SCH ×2 (02:10→08:42)
[2022-10-04] MEDS: IPRATROPIUM 0.5MG/ALBUTEROL 2.5MG INH SOL UD 3ML (DUONEB) INH SCH ×3 (02:50→13:22)
[2022-10-04 05:34] LABS: BASO % 0.1 % (0.0-1.0); HEMATOCRIT 27.7 % (36.0-47.0); HEMOGLOBIN 8.4 g/dl (12.0-15.5); LYMPH # 0.7 10^3/uL (1.5-5.0); LYMPH % 4.5 % (24.0-44.0); MEAN CORPUSCULAR HEMOGLOBIN 28.2 pg (27.0-33.0); MEAN CORPUSCULAR HGB CONC 30.3 g/dl (32.0-36.5); MONO # 1.1 10^3/uL (0.0-0.8); MONO % 6.9 % (2.0-8.0); NEUTROPHILS # 13.9 10^3/uL (1.5-8.5); NEUTROPHILS % 86.4 % (36.0-66.0); PLATELET COUNT, AUTOMATED 129 10^3/uL (150-450); RED BLOOD COUNT 2.98 10^6/uL (4.00-5.40); WHITE BLOOD COUNT 16.1 10^3/uL (4.0-10.0)
[2022-10-04 05:57] LABS: CALCIUM LEVEL 6.9 MG/DL (8.3-10.6); CREATININE FOR GFR 2.28 MG/DL (0.55-1.30); GLOMERULAR FILTRATION RATE 22.1 (>39); POTASSIUM SERUM 4.9 MMOL/L (3.5-5.1)
[2022-10-04] MEDS: LevoFLOXacin 250 MG TABLET PO SCH (06:06)
[2022-10-04] MEDS: cefTRIAXone SOD 2 GM in D5W MINI-BAG PLUS 50 ML IV SCH (08:42)
[2022-10-04] MEDS: PANTOPRAZOLE 40MG VIAL IV SCH (08:42)
[2022-10-04] MEDS: ASCORBIC ACID 500 MG TAB PO SCH (08:42)
[2022-10-04] MEDS: guaiFENesin ER 600 MG TAB PO SCH (08:42)
[2022-10-04] MEDS: HEPARIN SOD (PORCINE) 5000UNITS/ML 1ML VIAL/SYRINGE SQ SCH (08:42)
[2022-10-04] MEDS: ASPIRIN 81MG ENTERIC TABLET PO SCH (08:42)
[2022-10-04] MEDS: METOPROLOL SUCC (TopROL XL) 50MG **XL** TAB PO SCH (08:44)
[2022-10-04] MEDS: SODIUM CHLORIDE NASAL 0.65% SPRAY BTL (OCEAN) SCH ×2 (08:44→16:00)
[2022-10-04] MEDS ORDERED: ONDANSETRON 4MG 2ML VIAL IV PRN (13:50)
[2022-10-04] MEDS ORDERED: HYOSCYAMINE SULFATE 0.125 MG SUBL TABLET PO PRN (13:50)
[2022-10-04] MEDS ORDERED: MORPHINE 10MG/0.5ML ORAL CONCENTRATE SOLUTION U/D SL PRN (13:50)
[2022-10-04] MEDS ORDERED: LORazepam 1 MG TAB PO PRN (13:50)
[2022-10-04] MEDS ORDERED: LORazepam 2 MG/ML VIAL IV PRN (17:50)
[2022-10-04] MEDS ORDERED: MORPHINE 2 MG/ML 1ML VIAL IV PRN (17:50)
[2022-10-04] MEDS ORDERED: SCOPOLAMINE 1MG TRANSDERMAL PATCH TOP SCH (19:00)
== END 2022-10-04 21:08 | disposition expired | DRG 314 ==
LOC: EDSEX 07:35 → M ED 07:35 → EDBD 07:35 → M ED INP 07:36 → ENRESERV 16:20 → M PCU 17:03 → OBSVTOIN 09-29 07:59 → M ICU 10-01 06:20
PROVIDERS: ADMIT Student in an Organized Health Care Education/Training Program; ATTEND Internal Medicine Nephrology
PROC: 30233N1 Transfusion of Nonautologous Red Blood Cells into Peripheral Vein, Percutaneous Approach (ICD-10-PCS; principal; 2022-09-29)
PROC: B246ZZZ Ultrasonography of Right and Left Heart (ICD-10-PCS; 2022-09-29)
DX: T82.6XXA Infection and inflammatory reaction due to cardiac valve prosthesis, initial encounter (principal); J15.6 Pneumonia due to other Gram-negative bacteria; I50.33 Acute on chronic diastolic (congestive) heart failure; J96.22 Acute and chronic respiratory failure with hypercapnia; J96.21 Acute and chronic respiratory failure with hypoxia; A41.9 Sepsis, unspecified organism; G93.41 Metabolic encephalopathy; R65.20 Severe sepsis without septic shock; I33.0 Acute and subacute infective endocarditis; N17.0 Acute kidney failure with tubular necrosis; I48.92 Unspecified atrial flutter; J90 Pleural effusion, not elsewhere classified; J84.9 Interstitial pulmonary disease, unspecified; J44.1 Chronic obstructive pulmonary disease with (acute) exacerbation; J44.0 Chronic obstructive pulmonary disease with (acute) lower respiratory infection; E87.29 Other acidosis; I13.0 Hypertensive heart and chronic kidney disease with heart failure and stage 1 through stage 4 chronic kidney disease, or unspecified chronic kidney disease; Z66 Do not resuscitate; I73.9 Peripheral vascular disease, unspecified; I48.91 Unspecified atrial fibrillation; E66.9 Obesity, unspecified; M81.0 Age-related osteoporosis without current pathological fracture; I34.0 Nonrheumatic mitral (valve) insufficiency; D64.9 Anemia, unspecified; I25.10 Atherosclerotic heart disease of native coronary artery without angina pectoris; M54.50 Low back pain, unspecified; E87.5 Hyperkalemia; N18.30 Chronic kidney disease, stage 3 unspecified; E78.5 Hyperlipidemia, unspecified; D69.6 Thrombocytopenia, unspecified; Z95.5 Presence of coronary angioplasty implant and graft; Z90.49 Acquired absence of other specified parts of digestive tract; Z95.0 Presence of cardiac pacemaker; Z87.891 Personal history of nicotine dependence; Z99.81 Dependence on supplemental oxygen; Z79.01 Long term (current) use of anticoagulants; Z79.82 Long term (current) use of aspirin; Z79.899 Other long term (current) drug therapy; Z95.2 Presence of prosthetic heart valve; Z20.822 Contact with and (suspected) exposure to COVID-19